=== PATIENT | female | born 1950 | race Caucasian/White ===

== ENCOUNTER 2017-10-17 14:33 | Emergency (ER) | payer MEDICARE, OTHER ==
[2017-10-17 15:50] VITALS: BP 138/87
[2017-10-17] MEDS ORDERED: Albuterol 2.5 MG/3 ML NEB.SOL* (0.083%) INH ONE (16:15)
[2017-10-17] MEDS ORDERED: Albuterol 2.5 MG/3 ML NEB.SOL* (0.083%) ONE (16:16)
[2017-10-17] MEDS ORDERED: cefTRIAXone VIAL(*) 1,000 MG VIAL IM ONE (16:19)
[2017-10-17] MEDS ORDERED: methylPREDNISolone 125 MG* 2 ML VIAL IM ONE (16:19)
[2017-10-17] MEDS ORDERED: Lidocaine 1% MPF* 2 ML VIAL INJ ONE (16:20)
--- NOTE | 2017-10-17 16:24 | RAD ---
INDICATION: Cough and fever COMPARISON: Most recent comparison chest x-ray is dated June 11, 2006 TECHNIQUE: PA and lateral views of the chest were obtained. FINDINGS: The heart and mediastinum are normal in size and contour. The lungs are grossly clear. There is no evidence of large pleural effusion. Partially visualized the patient's right shoulder prosthesis. There is no radiographic evidence of free air beneath the diaphragm IMPRESSION: No radiographic evidence of acute cardiopulmonary disease.
--- NOTE | 2017-10-17 16:27 | UC ---
Respiratory Complaint HPI - HPI Summary HPI Summary: Patient presents with a past medical history of CVA. She presents with complaints of fatigue, malaise, and cough onset Braxton. She states she has been having green sputum and worsening persistent coughing. She complains of rib and side pain that occurs when she coughs, and has had some diarrhea and almost vomiting. She otherwise denies chest pain, abdominal pain, recorded or tactile fever, chills, weakness. - History of Current Complaint Chief Complaint: UCRespiratory Stated Complaint: COUGH Time Seen by Provider: 10/17/17 15:51 Hx Obtained From: Patient ?: No Onset/Duration: Gradual Onset, Lasting Days Timing: Constant Severity Initially: Mild Severity Currently: Mild Character: Cough: Productive Aggravating Factors: Exertion, Deep Breaths, Recumbent Position Alleviating Factors: Upright Position, Spontaneous Resolution Associated Signs And Symptoms: Positive: URI, Nasal Congestion, Sinus Discomfort - Risk Factors Pulmonary Embolism Risk Factors: Negative Cardiac Risk Factors: Negative Pseudomonas Risk Factors: Negative Tuberculosis Risk Factors: Negative - Allergies/Home Medications Allergies/Adverse Reactions: Allergies Allergy/AdvReac Type Severity Reaction Status Date / Time Codeine Allergy Severe Anaphylatic Verified 10/17/17 15:50 Shock Penicillins Allergy Severe Anaphylatic Verified 10/17/17 15:50 Shock Latex Allergy Intermediate Rash Verified 10/17/17 15:50 Nitrofurantoin Allergy Intermediate Hives Verified 10/17/17 15:50 [From Macrodantin] Vancomycin Allergy Mild Pain Verified 10/17/17 15:50 Aspirin AdvReac Intermediate GI Upset Verified 06/11/16 10:47 Bee Stings Allergy Severe Anaphylatic Uncoded 10/17/17 15:50 Shock furodantin Allergy Intermediate Hives Uncoded 10/17/17 15:50 PMH/Surg Hx/FS Hx/Imm Hx Previously Healthy: Yes Neurological History: CVA - Surgical History Surgical History: Yes Surgery Procedure, Year, and Place: Breast Reduction, Bilat Knee Replacement, Right Shoulder Replacement, Appendectomy, Hysterectomy, Left Hip replacement - Family History Known Family History: Positive: Cardiac Disease, Hypertension, Other Family History: [place] - sister, mother, father - Social History Occupation: Retired Lives: Alone Alcohol Use: Rare Alcohol Amount: 3 drinks every six months Substance Use Type: Excessive Caffeine Substance Use Comment - Amount & Last Used: 8-10 cups/day Smoking Status (MU): Former Smoker Type: Cigarettes Amount Used/How Often: 1 pack per week Length of Time of Smoking/Using Tobacco: 9 years Have You Smoked in the Last Year: No - Immunization History Most Recent Influenza Vaccination: 20-30 years ago Most Recent Tetanus Shot: 15-20 years Most Recent Pneumonia Vaccination: 10 years ago Review of Systems Constitutional: Chills, Fatigue Skin: Negative Eyes: Negative ENT: Sore Throat, Ear Ache, Nasal Discharge, Sinus Congestion, Sinus Pain/ Tenderness Respiratory: Cough Cardiovascular: Negative Gastrointestinal: Diarrhea Genitourinary: Negative Motor: Negative Neurovascular: Negative Is Patient Immunocompromised?: No All Other Systems Reviewed And Are Negative: Yes Physical Exam Triage Information Reviewed: Yes Appearance: Ill-Appearing Vital Signs: Initial Vital Signs Temp 97.6 F 10/17/17 15:44 Pulse 128 10/17/17 15:44 Resp 17 10/17/17 15:44 BP 138/87 10/17/17 15:44 Pulse Ox 99 10/17/17 15:44 Vital Signs Reviewed: Yes Eye Exam: Normal ENT Exam: Normal Neck exam: Normal Respiratory: Positive: Crackles, Rhonchi Cardiovascular Exam: Normal Cardiovascular: Positive: RRR, No Murmur Abdominal Exam: Normal Musculoskeletal Exam: Normal Skin Exam: Normal UC Diagnostic Evaluation - Laboratory O2 Sat by Pulse Oximetry: 99 Respiratory Course/Dx - Course Course Of Treatment: Patient presents with a past medical history of CVA. VS were recorded as BP 138/87, T-97.6, P-128, (while coughing), O2 sat 99% on RA. CXR consistent with LLL infiltrate, and clinical findings supportive of CAP. Patient received an albuterol Neb treatment while in the clinic, as well as solu -medrol 125 mg, Rocephin 1 gm IM, and was discharged home on Zpk, Prednisone, promethazine dm, and tessalon perles and albuterol HFA. I told the patient she shoulde be seen by her PCP in two days for follow up and if for any reason her symtpom worsen she would need to go to the ER at once. She verbalized understanding and was in agreement with the discharge plan. - Differential Dx/Diagnosis Differential Diagnosis/HQI/PQRI: Other - Community Acquired Pneumonia Provider Diagnoses: Community Acquired Pneumonia Discharge - Discharge Plan Condition: Stable Disposition: HOME Prescriptions: Azithromycin TAB* [Zithromax TAB (Z-MIRI) 250 mg #6 tabs] 250 mg PO DAILY #6 tab Benzonatate [TESSALON 200 MG CAP] 200 mg PO TID PRN #30 cap PRN Reason: Cough predniSONE TAB* [Deltasone TAB*] 10 mg PO DAILY #5 tab Promethazine-Dm [Promethazine/Dextromethor 6.25-15 mg/5Ml] 1 syp PO QID #240 syp Patient Education Materials: Pneumonia (ED) Referrals: Delano Cavazos MD [Primary Care Provider] - Additional Instructions: Follow up with your doctor in two days, and if you get worse go to the ER at once.
== END 2017-10-17 17:03 | disposition home or self-care (01) ==
LOC: UCEAST 14:33
DX: J18.9 Pneumonia, unspecified organism (principal); R19.7 Diarrhea, unspecified; Z86.73 Personal history of transient ischemic attack (TIA), and cerebral infarction without residual deficits; Z88.5 Allergy status to narcotic agent; Z88.0 Allergy status to penicillin; Z91.040 Latex allergy status; Z88.1 Allergy status to other antibiotic agents; Z88.6 Allergy status to analgesic agent; Z91.030 Bee allergy status; Z87.891 Personal history of nicotine dependence
CPT/HCPCS: 71020; 96372; 99212; G0463; J0696; J2930

== ENCOUNTER 2017-11-03 04:37 | Inpatient (IN) | payer MEDICARE, OTHER ==
[2017-11-03] MEDS ORDERED: NS 0.9% 1000 ML* 1,000 ML IV ONE (05:03)
[2017-11-03] MEDS ORDERED: DIGOXIN IV ONE (05:08)
[2017-11-03] MEDS ORDERED: Diltiazem DRIP* 100 MG/100 ML ADDV.BAG IVPB ONE (05:08)
[2017-11-03] MEDS ORDERED: Digoxin IV* 0.5 MG/2 ML AMP (0.25 MG/ML) ONE (05:13)
[2017-11-03] MEDS ORDERED: Digoxin IV* 0.5 MG/2 ML AMP (0.25 MG/ML) IV SLOW PU ONE (05:13)
[2017-11-03 05:27] LABS: ABS Basophils 0 10^3/ul (0-0.2); ABS Eosinophils 0.2 10^3/ul (0-0.6); ABS Lymphocytes 1.3 10^3/ul (1.0-4.8); ABS Monocytes 0.5 10^3/ul (0-0.8); ABS Nucleated RBC 0 10^3/ul; Hematocrit 35 % (35-47); Hemoglobin 11.5 g/dl (12.0-16.0); Lymphocyte % 22.1 % (25-47); Mean Corpuscular HGB Conc 33 g/dl (31-36); Mean Corpuscular Hemoglobin 29 pg (27-31); Mean Corpuscular Volume 88 fL (80-97); Mean Platelet Volume 9 um3 (7.4-10.4); Nucleated Red Blood Cells % 0; Platelet Count 244 10^3/ul (150-450); Red Blood Count 3.97 10^6/ul (4.0-5.4); Red Cell Distribution Width 14 % (10.5-15); White Blood Count 5.9 10^3/ul (3.5-10.8)
[2017-11-03 05:36] LABS: EGFR Non-African American 53.1 (>60)
[2017-11-03] MEDS ORDERED: Iohexol 350* (CONTRAST) 500 ML MDV IV ONE (05:45)
[2017-11-03] MEDS ORDERED: Diltiazem IV VIAL* 125 MG in NS 0.9% 100 ML* 100 ML IV ONE ×2 (06:00→07:29)
--- NOTE | 2017-11-03 06:51 | ED ---
Fer Andrade Nilda, scribed for Kalin Doe MD on 11/03/17 at 0511 . Shortness of Breath - HPI Summary HPI Summary: This patient is a 67 year old F BIBA accompanied by friend with a chief complaint of constant exacerbated dyspnea since this morning. Pt states she was diagnosed with PNA at [facility] a few weeks ago, but has not felt better. Symptoms aggravated by exertion, but alleviated by rest. Patient reports fever (2 weeks ago) and CP with cough. Per EMS, pt is tachycardic. Patient denies pain. Medications include albuterol but no blood thinners. Pt states no cardiac PMHx. Pt is former smoker (stopped in 1991). - History of Current Complaint Chief Complaint: EDRespiratoryDistress Time Seen by Provider: 11/03/17 04:45 Hx Obtained From: Patient Onset/Duration: Gradual Onset, Lasting Weeks, Still Present Timing: Constant Dyspnea At: Exertion Aggrevating Factors: Movement Alleviating Factors: Other - rest Associated Signs & Symptoms: Chest Pain w/Cough, Fever - Allergy/Home Medications Allergies/Adverse Reactions: Allergies Allergy/AdvReac Type Severity Reaction Status Date / Time Codeine Allergy Severe Anaphylatic Verified 10/17/17 15:50 Shock Penicillins Allergy Severe Anaphylatic Verified 10/17/17 15:50 Shock Latex Allergy Intermediate Rash Verified 10/17/17 15:50 Nitrofurantoin Allergy Intermediate Hives Verified 10/17/17 15:50 [From Macrodantin] Vancomycin Allergy Mild Pain Verified 10/17/17 15:50 Aspirin AdvReac Intermediate GI Upset Verified 06/11/16 10:47 Bee Stings Allergy Severe Anaphylatic Uncoded 10/17/17 15:50 Shock furodantin Allergy Intermediate Hives Uncoded 10/17/17 15:50 PMH/Surg Hx/FS Hx/Imm Hx Endocrine/Hematology History: Reports: Hx Thyroid Disease - hx only Denies: Hx Diabetes Cardiovascular History: Reports: Hx Hypercholesterolemia, Hx Hypertension - off meds 2 years, Other Cardiovascular Problems/Disorders - stroke 2008 Respiratory History: Reports: Other Respiratory Problems/Disorders - Hx of pneumonia Denies: Hx Chronic Obstructive Pulmonary Disease (COPD) Comment Only: Hx Asthma - pt denies GI History: Denies: Hx Ulcer Musculoskeletal History: Denies: Hx Back Problems - Pt denies Neurological History: Reports: Hx Migraine, Hx Transient Ischemic Attacks (TIA) - 2009 - Surgical History Surgery Procedure, Year, and Place: Breast Reduction, Bilat Knee Replacement, Right Shoulder Replacement, Appendectomy, Hysterectomy, Left Hip replacement Hx Anesthesia Reactions: No Infectious Disease History: No Infectious Disease History: Denies: Hx Hepatitis, Hx Human Immunodeficiency Virus (HIV), History Other Infectious Disease, Traveled Outside the [place] in Last 30 Days - Family History Known Family History: Positive: Cardiac Disease, Hypertension, Other Family History: [place] - sister, mother, father - Social History Occupation: Employed Full-time Alcohol Use: Rare Alcohol Amount: 3 drinks every six months Hx Substance Use: Yes Substance Use Type: Reports: Excessive Caffeine Substance Use Comment - Amount & Last Used: 8-10 cups/day Hx Tobacco Use: Yes Smoking Status (MU): Former Smoker Type: Cigarettes Amount Used/How Often: 1 pack per week Length of Time of Smoking/Using Tobacco: 9 years Have You Smoked in the Last Year: No Review of Systems Positive: Fever, Other - negative pain Positive: Chest Pain - secondary to cough, Other - tachycardic Positive: Shortness Of Breath, Cough All Other Systems Reviewed And Are Negative: Yes Physical Exam - Summary Physical Exam Summary: VITAL SIGNS: Reviewed. GENERAL: Patient is a well-developed and nourished female who is lying comfortable in the stretcher. Patient is not in any acute respiratory distress. HEAD AND FACE: No signs of trauma. No ecchymosis, hematomas or skull depressions. No sinus tenderness. EYES: PERRLA, EOMI x 2, No injected conjunctiva, no nystagmus. EARS: Hearing grossly intact. Ear canals and tympanic membranes are within normal limits. MOUTH: Oropharynx within normal limits. NECK: Supple, trachea is midline, no adenopathy, no JVD, no carotid bruit, no c- spine tenderness, neck with full ROM. CHEST: Symmetric, no tenderness at palpation LUNGS: Clear to auscultation bilaterally. No wheezing or crackles. Mild decreased breath sounds bilaterally. CVS: Irregular tachycardia, S1 and S2 present, no murmurs or gallops appreciated. ABDOMEN: Soft, non-tender. No signs of distention. No rebound no guarding, and no masses palpated. Bowel sounds are normal. EXTREMITIES: FROM in all major joints, no edema, no cyanosis or clubbing. NEURO: Alert and oriented x 3. No acute neurological deficits. Speech is normal and follows commands. Triage Information Reviewed: Yes Vital Signs On Initial Exam: Initial Vitals Temp Pulse Resp BP Pulse Ox 98.8 F 101 26 119/74 94 11/03/17 04:47 11/03/17 04:47 11/03/17 04:47 11/03/17 04:47 11/03/17 04:47 Vital Signs Reviewed: Yes Diagnostics - Vital Signs Vital Signs Temp Pulse Resp BP Pulse Ox 11/03/17 04:47 98.8 F 101 26 119/74 94 - Laboratory Result Diagrams: 11/03/17 05:02 11/03/17 05:02 Lab Statement: Any lab studies that have been ordered have been reviewed, and results considered in the medical decision making process. - EKG 0447 Cardiac Rate: Tachycardia EKG Rhythm: Atrial Fibrillation EKG Interpretation: 104 bpm, non-specific T-wave changes, nl axis. Course/Dx - Course Assessment/Plan: Pt is 67 y/o F who was treated for PNA and was treated for Zpack. Pt has not felt better since then. Pt BIBA bc difficulty breathing and tachycardia. Pt found to be in rapid afib. CT pending to rule out PE. Pt is s/ o to Dr. Cerda, pending dispo, awaiting CTA Thorax. Dx Afib. - Diagnoses Provider Diagnoses: Afib Discharge - Discharge Plan Condition: Stable Disposition: OTHER Discharge Disposition Comment: Pt is s/o to Dr. Cerda, pending dispo, awaiting CTA Thorax. Referrals: Delano Cavazos MD [Primary Care Provider] - The documentation as recorded by the Fer sheffield Nilda accurately reflects the service I personally performed and the decisions made by , Kalin Doe MD.
[2017-11-03] MEDS ORDERED: Levalbuterol 1.25MG/0.5ML NEB INH PRN (07:25)
[2017-11-03] MEDS ORDERED: methylPREDNISolone SOD 40 MG* 1 ML VIAL IV ONE (07:30)
[2017-11-03] MEDS ORDERED: methylPREDNISolone 125 MG* 2 ML VIAL ONE (07:44)
[2017-11-03] MEDS ORDERED: D5W 1/2 NS KCl 20 Meq 1000 ML* 1,000 ML IV SCH (08:00)
--- NOTE | 2017-11-03 08:41 | RAD ---
INDICATION: Chest pain. Short of breath. Evaluate for pulmonary embolus. COMPARISON: Chest x-ray October 17, 2017 TECHNIQUE: Axial source images were obtained from the thoracic inlet to the hemidiaphragms following administration of [address] angiographic technique was utilized. Coronal and sagittal reconstructed images were acquired. CHEST FINDINGS: Neck/thyroid: The visualized neck to include the thyroid appear normal. Chest wall: There are no acute abnormalities of the bony thorax or chest wall. There is right shoulder arthroplasty There is no supraclavicular, infraclavicular, or axillary lymphadenopathy. Lungs : There are mild gravity dependent basilar atelectatic changes. The pulmonary interstitium appears normal. There are no endobronchial lesions. Cardiomediastinal structures: There is no CT evidence of acute pulmonary embolic disease. The heart is normal in size. There is no pericardial effusion. There is no evidence of aortic aneurysm or dissection. There is uncoiling and tortuosity of the thoracic aorta There is no mediastinal or hilar adenopathy. The esophagus appears normal. The GE junction appears patulous Pleura : Small moderate-sized bilateral pleural effusions. Other: None. IMPRESSION: NO CT EVIDENCE OF ACUTE PULMONARY EMBOLIC DISEASE. BILATERAL PLEURAL EFFUSIONS WITH BASILAR ATELECTASIS
--- NOTE | 2017-11-03 09:17 | ED ---
Robin Andrade Angela, scribed for Dada Cerda MD on 11/03/17 at 0718 . Progress - Progress Note Progress Note: This pt was signed out by Dr. Doe, pending disposition, awaiting CTA Chest. CTA Chest, as read by radiologist: IMPRESSION: No CT evidence of acute pulmonary embolic disease. Bilateral pleural effusions with basilar atelectasis. Dr. Cerda has reviewed this radiology report. Pt will be admitted to [facility] in stable condition. Course/Dx - Provider Notifications Discussed Care Of Patient With: Jose Luis Nelson Time Discussed With Above Provider: 07:22 Instructed by Provider To: Other - I discussed pt care with Dr. Nelson, hospitalist, who has agreed to admit the pt. The documentation as recorded by the Robin sheffield Angela accurately reflects the service I personally performed and the decisions made by , Dada Cerda MD.
[2017-11-03] MEDS ORDERED: Furosemide IV* 10 MG/ML VIAL (40 MG) IV SLOW PU ONE (11:26)
[2017-11-03] MEDS ORDERED: Acetaminophen TAB* 325 MG PO PRN (11:26)
[2017-11-03] MEDS ORDERED: Ondansetron INJ* 2 MG/ML VIAL IV PRN (11:26)
[2017-11-03] MEDS ORDERED: Cyclobenzaprine TAB* 10 MG PO PRN (11:28)
[2017-11-03] MEDS ORDERED: Albuterol HFA INHALER* 8 gm MDI INH PRN (11:28)
[2017-11-03] MEDS: Diltiazem TAB* 60 MG PO SCH ×2 (12:10→18:01)
[2017-11-03] MEDS: Apixaban* 5 MG TAB PO SCH ×2 (12:33→20:08)
--- NOTE | 2017-11-03 15:13 | HP ---
CC: Dr. Cavazos; Dr. Wong * HISTORY AND PHYSICAL: DATE OF ADMISSION: 11/03/17 PRIMARY CARE PROVIDER: Dr. Cavazos. MY ATTENDING PHYSICIAN WHILE IN THE HOSPITAL: Dr. Abrahan Nelson * (report dictated by James Hagen NP) CONSULTING SLOOP CAPTAIN: Dr. Wong. CHIEF COMPLAINT: Shortness of breath. HISTORY OF PRESENT ILLNESS: Ms. Ibarra is a 67-year-old female patient. She said over the holiday, she was diagnosed with pneumonia and treated outpatient. She went back to the work on 10/21/17 and she noticed that she was still really short of breath with exertion. She noticed that the shortness of breath had progressively gotten worse. She says that she has been having a dry cough still. No more fevers, but she has had dyspnea on exertion and she has noticed over the last couple of days, her breathing has gotten really worse. She says she is really short of breath first thing in the morning. She says that she also noted today when they weighed her, she was 209 and previously she was always 189 pounds. In addition to this, she has noticed that she, in the last couple of nights, has been sleeping upright on 2 pillows to help her breathe little more comfortably. She denies having any edema. She denied having any palpitations in her chest or any fluttering. She says she was having pain in her chest when she coughed only, but that has now subsided. She denied having any calf pain, leg pain, or leg swelling. She denied having any abdominal discomfort. She says she did have diarrhea with antibiotics, but that has now subsided. She denied having any nausea or vomiting. She says that she was concerned today because her breathing just was not getting any better. She called 911, they came. When they hooked her up to the monitor, they noticed her heart rate was 170 and they brought her into the hospital immediately. She says that she never once felt any palpitations. She does not really know how long this has been going on for. She was evaluated in ED. She was noted to be wheezing. Initially, there was concern for possible COPD exacerbation, but it was also noted that she was in AFib with RVR and we were asked to evaluate for admission. PAST MEDICAL HISTORY: Significant for: 1. Hypertension. 2. TIA in the past. 3. Hyperlipidemia. 4. History of uterine cancer. 5. History of pneumonia recently 2 weeks ago. PAST SURGICAL HISTORY: 1. She has had history of breast reduction. 2. Left knee arthroscopy. 3. She has had a rotator cuff repair. 4. She has had an appendectomy. 5. Hysterectomy. 6. Vocal cord surgery. 7. Right total hip arthroplasty. 8. Bilateral total knee replacement. 9. History of the right total shoulder arthroplasty. MEDICATIONS: Her home meds according to the list provided include: 1. Flexeril 5 mg p.o. b.i.d. 2. Vitamin D 400 units p.o. daily. 3. Calcium carbonate 600 mg daily. 4. Ventolin 1 puff inhaled every 4 hours. 5. Vitamin E 400 units p.o. daily. 6. Multivitamin 1 tablet daily. 7. Aspirin 81 mg daily. ALLERGIES TO MEDICATIONS: Include CODEINE, PENICILLIN, LATEX, NITROFURANTOIN, VANCOMYCIN, and she says she cannot take ASPIRIN 325 mg, it causes GI upset. FAMILY HISTORY: The patient says her mother burned to in a house fire. The father had a history of CVA and AK and also heart failure. SOCIAL HISTORY: She is a former smoker. She quit in 1996. She does not drink alcohol. She works at [employer]. Surrogate decision maker is Jose Eduardo, her son. REVIEW OF SYSTEMS: There is no documented fever. There does appear to be a weight change of about 20 pounds. She denies having any double vision. No ear discharge. No rhinorrhea. No sore throat. No thyroid enlargement. She does admit to having a cough. There was chest pain 2 weeks ago with the cough only. No chest pain now. She does admit to having orthopnea, nocturnal dyspnea, and also dyspnea on exertion. There is no dyspnea on rest. She denies having any abdominal pain. There is no nausea, no vomiting. No dysuria, no frequency. No seizure, no loss of consciousness. No pruritus, no skin ulcerations. Review of 14 systems completed, all others negative. PHYSICAL EXAMINATION GENERAL: At this time, Ms. Ibarra is a 67-year-old female patient, she is sitting in the hospital bed, she does not appear to be in any acute distress. VITAL SIGNS: Blood pressure 126/89, pulse 82, her respirations now are 18, her O2 saturation is 93% on 2 L, and her temperature was 98.3. HEENT: Head: Atraumatic. Eyes: Sclerae anicteric, not pale. Throat: Oral mucosa appears to be moist. No oropharyngeal erythema. NECK: Supple. LUNGS: She did have wheezing and crackles bilaterally in lower bases. Equal diaphragmatic expansion. HEART: Sounds S1 and S2, irregularly irregular rate. No murmurs, rubs, or gallops. ABDOMEN: Soft, flat, nontender. Bowel sounds present. EXTREMITIES: Pulses were 2+ throughout. She had no peripheral edema. NEUROLOGIC: The patient is awake, she is alert, she is oriented x3. Her tongue is midline. Her bilingual interpreter were equal. She had no gross focal deficits. SKIN: Intact. DIAGNOSTIC STUDIES/LAB DATA: WBC of 5.9, RBC of 3.97, hemoglobin 11.5, hematocrit of 35, and platelet count of 244. Her INR was 1, her PTT was 24, her D-dimer was 331. Sodium was 137, potassium is 4.1, chloride of 105, bicarb 25, BUN 16, creatinine 1.03, glucose 115, lactate 1.1, calcium 8.9, total mag 2.2. Total bili 0.6, AST 16, ALT 14, alk phos 84. Troponins 0.01. BNP is 295 , which is her only value recorded. TSH of 2. She did have a CTA of the chest, impression: No CT evidence of acute pulmonary embolic disease, bilateral pleural effusions with bibasilar atelectasis. She did have an EKG obtained today. The EKG initially showed atrial fibrillation, rate of 104. No ST elevations or T-wave inversions were noted. Previous EKGs are all within normal sinus rhythm. Old medical records were reviewed. ASSESSMENT AND PLAN: Ms. Ibarra is a 67-year-old female patient coming into the ED today with complaints of progressive worsening shortness of breath over 2- week period after having pneumonia, found to be in atrial fibrillation with rapid ventricular response. She will be admitted on inpatient status for: 1. Atrial fibrillation with rapid ventricular response. I do not know the onset of this, but I am concerned she does have a CHADs-VASc score of 5. So, at this point, I do think that she is a candidate for anticoagulation. I did discuss the options with the patient. She opted for Eliquis, which I have started. My goal is to get her rate controlled. I do not know the onset again , this may have been going on for a few weeks and I am also concerned that she may have congestive heart failure from uncontrolled rate for some time. My plan would be to go ahead, rate control, anticoagulation with Eliquis. I am going to get her on Cardizem, get the echocardiogram, consult with Dr. Wong, who will be evaluating the patient. I will continue to follow. 2. Congestive heart failure. I am concerned that she may have tachy-induced possibly cardiomyopathy, which may have led this in heart failure, but I need to get the echo to confirm this. My plan is to get her on 40 mg of Lasix now and see if this helps her. She has got bilateral effusions. In addition to this, her BNP is elevated and her story is concerning for heart failure. So, likely we will give her 40 of Lasix and see if this helps her and continue to follow and get the echo. 3. Hypertension. Her blood pressure here is stable. We will continue diltiazem. 4. History of transient ischemic attack. Again, because of now the atrial fibrillation, she needs to be on Eliquis, which we will go ahead and start. 5. Hyperlipidemia. Follow with primary. 6. Uterine cancer. Follow with primary. 7. Recent pneumonia. Again at this point, I do not think she is actively infected, the white count is stable. She is not coughing. There have been no fevers and the CTA did not show infiltrate, showed effusions. So, at this point , I think this has resolved. 8. DVT prophylaxis. She will be placed on Eliquis. 9. Code status. She is a DNR. 10. Fluids, electrolytes, and nutrition. She can have a heart healthy diet. TIME SPENT: On the admission was 60 minutes, greater than half the time was spent idap-su-dwls with the patient obtaining my history of physical; the other half time was spent going over the plan of care with the patient and implementing plan of care. I did discuss the plan of care with my attending, Dr. Nelson; he is in agreement. JAMES HAGEN, NURSE OFFICE [id number]/[facility] #: [id number] [place]
--- NOTE | 2017-11-03 16:16 | PN ---
Cardiology Progress Note Date of Service: 11/03/17 - CC: SOB Full note dictated. Pt with SPRINGER, afib, asymptomatic, uncertain duration. Possible LRI contributing in addition to age, weight, former smoking hx. Hx TIA 2008. Agree with Lawanda. I am concerned her EF may be low and may need CCB changed to BB. I ordered BARBARA guided CV in AM, pt aware. Additional recommendations in dictation and will follow results of BARBARA guided CV.
--- NOTE | 2017-11-03 21:02 | CONS ---
CC: Delano Cavazos MD; Hospitalist * CARDIOLOGY CONSULTATION: DATE OF CONSULT: 11/03/17 PRIMARY CARE PHYSICIAN: Delano Cavazos MD REASON FOR CONSULT: Atrial fibrillation and shortness of breath. CHIEF COMPLAINT: Shortness of breath. HISTORY OF PRESENT ILLNESS: Mrs. Ibarra is a 67-year-old woman who developed respiratory symptoms in [place]. She said she had a cough productive of green sputum and was very short of breath. This became worse and over New Year , she went to [facility] and was told she had pneumonia and was given steroids and antibiotics, but she says they really did not help anything and her breathing has became progressively worse. She is still having productive cough of green sputum. She has orthopnea, although still sleeping in bed. She presented to the emergency room today because of severe air hunger, especially with exertion. The patient is feeling a bit better since treatment with diuretics and rate control but is still very winded when she tried to go up in the bathroom today. The patient denies any history of chest pain, pressure, or heaviness. She denies any alcohol intake, caffeine intake and change of medications recently even over- the-counter medications other than the antibiotics and steroids as mentioned above. PAST MEDICAL HISTORY: The patient has a past medical history of: 1. TIA in 2008, etiology uncertain. 2. Hypertension. 3. Hyperlipidemia. 4. Obesity. 5. Uterine cancer. PAST SURGICAL HISTORY: Includes: 1. Hysterectomy. 2. Breast reduction. 3. Knee arthroscopy. 4. Rotator cuff surgery. 5. Appendectomy. 6. Vocal cord surgery. 7. Right hip arthroplasty. 8. Bilateral knee replacements. 9. Right total knee arthroplasty. MEDICATIONS: Outlined in the admission H and P. Her outpatient medications include: 1. Flexeril 5 mg b.i.d. 2. Ventolin inhaler. 3. Aspirin 81 mg a day. 4. Some vitamins and supplements. Inpatient medications currently include: 1. Tylenol p.r.n. 2. Ventolin inhaler. 3. Eliquis 5 mg b.i.d. 4. Vitamin D. 5. Flexeril 5 mg b.i.d. p.r.n. 6. Cardizem 60 mg q. 6 hours. 7. Xopenex inhaler. 8. Zofran. ALLERGIES: The patient has medication allergies to CODEINE, PENICILLIN, LATEX, NITROFURANTOIN, VANCOMYCIN, and intolerant to ASPIRIN 325 due to GI upset. FAMILY HISTORY: Significant that her father of a cardiopulmonary arrest. Her paternal uncle had a history of renal failure, and she has a sibling who had cancer of the vocal cords. SOCIAL HISTORY: The patient smoked mildly in the distant past, quit in 1996. Does not drink alcohol at all. 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 No recreational drug use. REVIEW OF SYSTEMS: See history of present illness regarding recent respiratory infection, diagnosis of pneumonia and medications and progressive shortness of breath and orthopnea. The patient denies any awareness of palpitations or racing of the heart. No history of chest pain, pressure, or heaviness. Prior to the onset of her infection, she denied any decline in exercise ability. Her appetite has been okay. She admits that she has put on about 20 pounds over the last year. No recent recurrence of any new TIA symptoms (2008 she had left facial weakness). She denies any expressive or receptive aphasia or any changes in gait or motor function. She denies changes in bowel or bladder habits. All other 14-point review of systems was negative. PHYSICAL EXAM: The patient is 5 feet 2 inches, weighs is 209 pounds with a BMI of 38. Vital Signs: In the emergency department on arrival, blood pressure 141 /77, pulse was 100, temperature 98.8, respiratory rate was 26, oxygen saturation on 2 L nasal canula was 94%. Currently, the patient's blood pressure is 127/72, pulse is 93, respiratory rate is 24, oxygen saturation 98% on 2 L nasal canula. General Appearance: Short, overweight, somewhat older woman appearing a bit older than her 67 years, in no acute distress. Psychologically, pleasant and cooperative. Neurologically awake, alert, and oriented to person, place and time. Cranial nerves II through XII intact. Grossly normal sensory and motor function in the upper and lower extremities. Gait not checked, but she moves well in the bed. Speech is articulate. Comprehension is good. Skin: Warm, dry. No cyanosis or rashes. HEENT: Pupils are equal and round. Mucous membranes moist. Neck: Thick from obesity , without obvious increase in JVP. Good carotid pulses and no audible bruits heard. Breath sounds diminished throughout the posterior desouza and some fine expiratory and inspiratory wheezing. Coronary: S1, S2 irregularly, irregular and tachycardiac, but I did not appreciate murmurs. Abdomen: Overweight, mild guarding but nontender. Questionable hepatomegaly/pulsatile liver. Lower extremities had sequential compression stockings on, were free of edema. DIAGNOSTIC STUDIES/LAB DATA: Labs show white count 5.9, hemoglobin 11.5, hematocrit 35, and platelets 244. INR 1.0, PTT 25. D-dimer mildly elevated at 331. Sodium 137, potassium 4.1, chloride 105, bicarb 25, BUN 16, creatinine 1.05, glucose 115. AST of 16, ALT 14, BNP 295. Troponin #1 0.01, troponin #2 0.02, troponin #3 of 0.01. TSH 2.00. Influenza A and B negative. ECG at 0451 this morning shows atrial fibrillation with a ventricular rate of 104 beats per minutes, QRS axis +30 with normal intraventricular conduction times. She has nonspecific ST flattening and inverted T waves. A repeat EKG done at noon today confirms atrial fibrillation now with a ventricular rate of 71 beats per minute. QRS axis +30, normal intraventricular conduction times and nonspecific ST changes, not significantly changed. A CT angiogram done today at 5 in the morning was negative for pulmonary embolism, showed bilateral pleural effusions and atelectasis. No mediastinal or hilar lymphadenopathy noted. IMPRESSION: In summary, Pricilla Ibarra is a 67-year-old woman with 3-week history of lower respiratory infection, progressive dyspnea and orthopnea found in atrial fibrillation today of uncertain duration. 1. For the the patient's atrial fibrillation, I agree that she is going to need chronic anticoagulation, the patient expressed that she did not want to be on Coumadin but is fine being on Eliquis long-term. The patient is at risk for ejection fraction dropping and contributing to her picture of it to get cardioverted and I do feel she needs cardioversion sooner than later but it needs to be done with transesophageal echo guidance. We will see what her ejection fraction and valvular function is with the study, but she may need a beta-lidia as opposed to a calcium-channel lidia for rate lowering even with her wheezing. 2. In terms of potential etiology for the atrial fibrillation, she is overweight and she has a body habitus that would put her at risk for sleep apnea , although she is very energetic. Outpatient sleep evaluation may want to be considered and optimization of weight, diet, lifestyle. 3. Again, I am concerned that she may have her rate and rhythm related cardiomyopathy and additional recommendations will be made following her the results of her echo. 4. Although the patient's troponins are negative, her EKG is abnormal and with her family history of arthrosclerotic disease she should undergo a stress test at some point. 5. Additional recommendations will be made pending results of her echo and her ability to be cardioverted. She will likely need an antiarrhythmic added to help her maintain sinus rhythm and may need additional management of any underlying pulmonary problem such as bronchitis if she continues to have a productive cough. Thank you for allowing me to assist in this nice woman's care. [id number]/[facility] #: [id number] [place]
[2017-11-04] MEDS: Diltiazem TAB* 60 MG PO SCH ×5 (00:44→23:43)
[2017-11-04 06:26] LABS: ABS Basophils 0 10^3/ul (0-0.2); ABS Eosinophils 0 10^3/ul (0-0.6); ABS Lymphocytes 0.8 10^3/ul (1.0-4.8); ABS Monocytes 0.7 10^3/ul (0-0.8); ABS Neutrophils 9.5 10^3/ul (1.5-7.7); ABS Nucleated RBC 0 10^3/ul; Eosinophil % 0 % (0-6); Hematocrit 32 % (35-47); Hemoglobin 10.6 g/dl (12.0-16.0); Mean Corpuscular HGB Conc 33 g/dl (31-36); Mean Corpuscular Hemoglobin 29 pg (27-31); Mean Corpuscular Volume 88 fL (80-97); Mean Platelet Volume 9 um3 (7.4-10.4); Nucleated Red Blood Cells % 0; Platelet Count 251 10^3/ul (150-450); Red Blood Count 3.68 10^6/ul (4.0-5.4); Red Cell Distribution Width 14 % (10.5-15)
[2017-11-04 06:40] LABS: EGFR Non-African American 66.3 (>60)
[2017-11-04] MEDS: Apixaban* 5 MG TAB PO SCH ×2 (07:46→20:58)
[2017-11-04] MEDS ORDERED: fentaNYL* 50 MCG/ML 2 ML VIAL (100 MCG VIAL) ONE (08:32)
[2017-11-04] MEDS ORDERED: Midazolam* 1 MG/ML 10 ML VIAL (10 MG) ONE (08:33)
[2017-11-04] MEDS ORDERED: Naloxone* 0.4 MG/ML 1 ML VIAL ONE (08:33)
[2017-11-04] MEDS ORDERED: Flumazenil* 0.1 MG/ML 5 ML MDV ONE (08:33)
[2017-11-04] MEDS ORDERED: Lidocaine 2% VISCOUS* 15 ML UDC ONE (08:33)
[2017-11-04] MEDS: Cholecalciferol TAB* 400 UNIT PO SCH (10:08)
--- NOTE | 2017-11-04 16:14 | ECHO ---
Patient: ELIZABETH FORMAN [facility] Rec#: [id number] : 1950 Date: 11/04/2017 Age: 67y Height: 157.48 cm / 62.0 in Weight: 93.89 kg / 206.9 lbs Sex: F BSA: 1.94 Room#: 452 Admit Date#: 11/03/2017 Type: Inpatient Referring: Jose Luis Nelson MD Reading: Javier Rush MD Animal Caretaker: Angela Oliva RDCS CC: Delano Cavazos MD Transthoracic Echocardiogram Indication: Atrial Fibrillation BP: 123/61 HR: 90 Rhythm: A-Fib Findings History: HTN, TIA, HLD, uterine cancer, former smoker. Technical Comments: The study quality is fair. The study is technically limited due to patient body habitus. Completed at 1600. Left Ventricle: The left ventricular chamber size is normal. Mild concentric left ventricular hypertrophy is observed. Global left ventricular wall motion and contractility are within normal limits. Left ventricular systolic function is at the lower limits of normal. The estimated ejection fraction is 50-55%. Longer R to R interval beats show even higher LVEF. The assessment of diastolic function is non-diagnostic. Left Atrium: The left atrium is moderately dilated. Right Ventricle: Moderator Band present. The right ventricular cavity size is normal. The right ventricle wall thickness is normal. The right ventricular global systolic function is normal. Right Atrium: The right atrium is mildly dilated. Aortic Valve: The aortic valve is trileaflet. The aortic valve leaflets are mildly thickened. There is no evidence of aortic regurgitation. There is no evidence of aortic stenosis. Mitral Valve: There is mitral annular calcification. The mitral valve leaflets are mildly thickened. There is mild to moderate mitral regurgitation. There is no evidence of mitral stenosis. Tricuspid Valve: The tricuspid valve leaflets are normal. There is mild tricuspid regurgitation. The right ventricular systolic pressure is estimated at 49 mmHg. There is evidence of moderate pulmonary hypertension. There is no tricuspid stenosis. Pulmonic Valve: The pulmonic valve appears normal. There is trace to mild pulmonic regurgitation. There is no pulmonic stenosis. Pericardium: There is no significant pericardial effusion. A pericardial fat pad is visualized. Aorta: There is mild dilatation of the ascending aorta. There is no dilatation of the aortic arch. The aortic root is normal in size. Pulmonary Artery: The main pulmonary artery is not well visualized. Venous: The inferior vena cava is dilated. There is an approximate 50% respiratory change in the inferior vena cava dimension. Conclusions The study is technically limited due to patient body habitus. Completed at 1600. Mild concentric left ventricular hypertrophy is observed. Global left ventricular wall motion and contractility are within normal limits. Left ventricular systolic function is at the lower limits of normal. The estimated ejection fraction is 50-55%. Longer R to R interval beats show even higher LVEF. There is mild to moderate mitral regurgitation. The left atrium is moderately dilated. There is mild tricuspid regurgitation. There is evidence of moderate pulmonary hypertension. There is trace to mild pulmonic regurgitation. There is mild dilatation of the ascending aorta. The patient is noted to be in atrial fibrillation during the study. No reports of prior studies are offered for comparison. Measurements Name Value Normal Range RVIDd (AP) 2D 3.1 cm (0.9 - 2.6) RVDdMajor (2D) 4.2 cm (2.2 - 4.4) RVAW (2D) 0.5 cm (0.2 - 0.5) RAd ISD 4CH 5.5 cm (3.4 - 4.9) RA (A4C)W 4.7 cm (2.9 - 4.6) IVSd (2D) 1.2 cm (0.6 - 1) LVPWd (2D) 1.2 cm (0.6 - 1) LVIDd (2D) 3.8 cm (3.6 - 5.4) LVIDs (2D) 2.3 cm - LV FS (2D) 39.8 % (25 - 45) Aortic Annulus 1.9 cm (1.4 - 2.6) Ao root diameter (2D) 3.1 cm (2.1 - 3.5) Ascending Ao 3.5 cm (2.1 - 3.4) Aortic arch 2.4 cm (1.8 - 3.4) LA dimension (AP) 2D 4.5 cm (2.3 - 3.8) LAd ISD 4CH 6.2 cm (2.9 - 5.3) LA ISD 4CH W 5.7 cm (2.5 - 4.5) Name Value Normal Range LA ESV SP 4CH (A/L) 103 ml - LA ESV SP 2CH (A/L) 101 ml - LA ESV BP (A/L) 103 ml - LA ESV BP (A/L) index 53 ml/m2 - LA ESV SP 4CH (MOD) 91 ml - LA ESV SP 2CH (MOD) 94 ml - Name Value Normal Range MV E-wave Vmax 1.23 m/sec - MV deceleration time 210.7 msec - LV septal e' Vmax 0.1 m/sec - LV lateral e' Vmax 0.11 m/sec - LV E:e' septal ratio 12.3 ratio - LV E:e' lateral ratio 11.18 ratio - Name Value Normal Range AV Vmax 1.6 m/sec - AV VTI 25.8 cm - AV peak gradient 10.34 mmHg - AV mean gradient 5.12 mmHg - LVOT Vmax 0.99 m/sec - LVOT VTI 18.01 cm - LVOT peak gradient 3.97 mmHg - LVOT mean gradient 2.52 mmHg - GISELLE Vmax 0.81 m/sec - Name Value Normal Range MV Vmax 1.4 m/sec - MV VTI 25.89 cm - MV peak gradient 7.88 mmHg - MV mean gradient 2.64 mmHg - MV PHT 64 msec - MR Vmax 4.58 m/sec - MR VTI 123.7 cm - MR flow (PISA) 49.07 ml/sec - MR ERO 0.5 cm2 - MR PISA radius 0.45 cm - MR alias Vmax 37 cm/sec - MVA (PHT) 3.4 cm2 - Name Value Normal Range TR Vmax 2.9 m/sec - TR peak gradient 34 mmHg - RAP 15 mmHg - RVSP 49 mmHg - IVC diameter 2.1 cm - Name Value Normal Range PV Vmax 0.99 m/sec - PV peak gradient 3.92 mmHg - MA end-diastolic Vmax 0.9 m/sec -
--- NOTE | 2017-11-04 19:43 | PN ---
Subjective Date of Service: 11/04/17 Interval History: No SOB at rest but SOB walking to bathroom HR spikes with ambulation No pain No other complaints Objective Active Medications: Acetaminophen (Tylenol Tab*) 650 mg PO Q4H PRN PRN Reason: FEVER/PAIN Albuterol (Ventolin Hfa Inhaler*) 1 puff INH Q4H PRN PRN Reason: COUGH Apixaban (Eliquis*) 5 mg PO BID [facility] Last Admin: 11/04/17 07:46 Dose: 5 mg Cholecalciferol (Vitamin D Tab*) 400 unit PO DAILY [facility] Last Admin: 11/04/17 10:08 Dose: 400 unit Cyclobenzaprine HCl (Flexeril Tab*) 5 mg PO BID PRN PRN Reason: SPASMS Last Admin: 11/03/17 20:12 Dose: 5 mg Diltiazem HCl (Cardizem Tab*) 60 mg PO Q6HR [facility] Last Admin: 11/04/17 18:00 Dose: 60 mg Levalbuterol HCl (Xopenex 1.25 Mg/0.5 Ml Neb.Tierra*) 1.25 mg INH Q2H PRN PRN Reason: DYSPNEA Last Admin: 11/03/17 13:59 Dose: 1.25 mg Ondansetron HCl (Zofran Inj*) 4 mg IV Q6H PRN PRN Reason: NAUSEA Vital Signs - 8 hr 11/04/17 11/04/17 15:35 15:51 Temperature 97.9 F Pulse Rate 103 Respiratory 20 Rate Blood Pressure 104/57 (mmHg) O2 Sat by Pulse 96 96 Oximetry Oxygen Devices in Use Now: Nasal Cannula Appearance: obese, NAD Eyes: No Scleral Icterus, PERRLA Ears/Nose/Mouth/Throat: Mucous Membranes Moist, - - poor dentintion Respiratory: Symmetrical Chest Expansion and Respiratory Effort, Clear to Auscultation Cardiovascular: - - IRIR Abdominal: NL Sounds; No Tenderness; No Distention, No Hepatosplenomegaly Lymphatic: No Cervical Adenopathy Extremities: No Edema Skin: No Rash or Ulcers Neurological: Alert and Oriented x 3 Result Diagrams: 11/04/17 06:10 11/04/17 06:10 Microbiology and Other Data: Microbiology 11/03/17 09:18 Aerobic Blood Culture - Preliminary Blood Venous No Growth Day 1 Anaerobic Blood Culture - Preliminary No Growth Day 1 11/03/17 09:18 Aerobic Blood Culture - Preliminary Blood Venous No Growth Day 1 Anaerobic Blood Culture - Preliminary No Growth Day 1 11/03/17 12:20 Influenza Types A,B Antigen (VALDO) - Final Nasal Specimen received for Influenza A/B Molecular testing 11/03/17 09:42 Nasal Screen MRSA (PCR)(VALDO) - Final Nasal Mrsa Negative Assess/Plan/Problems-Billing Assessment: 67 yo F p/w increased SOB found with new afib in RVR - Patient Problems (1) Atrial fibrillation Comment: appreciate cards consult BARBARA cardioversion planned for tomorrow cardizem PO, consider change to BB based on BARBARA findings (2) Shortness of breath Comment: concern for heart failure in setting of uncontrolled rate (3) HTN (hypertension) Comment: cardizem (4) DVT prophylaxis Comment: ad
[2017-11-05] MEDS: Diltiazem TAB* 60 MG PO SCH ×2 (05:32→12:25)
[2017-11-05] MEDS ORDERED: fentaNYL* 50 MCG/ML 2 ML VIAL (100 MCG VIAL) ONE (08:57)
[2017-11-05] MEDS ORDERED: Naloxone* 0.4 MG/ML 1 ML VIAL ONE (08:58)
[2017-11-05] MEDS ORDERED: Midazolam* 1 MG/ML 10 ML VIAL (10 MG) ONE (08:58)
[2017-11-05] MEDS ORDERED: Lidocaine 2% VISCOUS* 15 ML UDC ONE (08:58)
[2017-11-05] MEDS ORDERED: Flumazenil* 0.1 MG/ML 5 ML MDV ONE (08:58)
[2017-11-05] MEDS: Apixaban* 5 MG TAB PO SCH (11:08)
[2017-11-05] MEDS: Cholecalciferol TAB* 400 UNIT PO SCH (11:08)
--- NOTE | 2017-11-05 11:55 | CARD ---
AMENDED REPORT TO CORRECT DATE OF PROCEDURE PER DR. STARK'S OFFICE CC: Hospitalist Service; Dr. Stark PROCEDURE REPORT: DATE OF PROCEDURE: 11/04/17 PROCEDURE: Direct current cardioversion. HISTORY OF PRESENT ILLNESS: The patient is a 67-year-old female patient, who was hospitalized with symptomatic rapid atrial fibrillation. A transesophageal echocardiography-guided cardioversion was further requested. Please refer to our full separate report for transesophageal echocardiography that was done today and showed the patient to have no clots or thrombus in the left atrium or in the left atrial appendage. DESCRIPTION OF PROCEDURE: After informed written consent had been obtained, the patient underwent transesophageal echocardiography-guided direct current cardioversion. With continuous blood pressure, pulse oximetry, and heart rate monitoring, the patient received initially during the BARBARA, a total dose of 4 mg of Versed, then additional 2 mg of Versed for the cardioversion, and received a total 100 microgram intravenously of fentanyl. Initially, 150 synchronized joules were delivered and converted transiently the patient to normal sinus rhythm. Then, she went back to rapid atrial fibrillation. Another 150 and then 200 synchronized joules were delivered successfully, converted the patient to normal sinus rhythm. There were no complications and the patient tolerated the procedure very well and immediate EKG was obtained and documented the patient to be in normal sinus rhythm. CONCLUSION: Successful direct current cardioversion for atrial fibrillation. There were no complications. The patient tolerated the procedure very well. [id number]/[facility] #: [id number] MTDD
[2017-11-05 12:23] VITALS: BP 120/70
--- NOTE | 2017-11-05 13:15 | TEE ---
Patient: ELIZABETH FORMAN [facility] Rec#: [id number] : 1950 Date: 11/04/2017 Age: 67y Height: 157 cm / 61.8 in Weight: 95 kg / 209.4 lbs Sex: F BSA: 1.95 Room#: 2 Type: Inpatient Referring: Jose Luis Nelson MD Performing: Rosalia Nuno MD Reading: Rosalia Nuno MD Cake Knocker: Roseanne Ojeda RDCS Nurse: Mirna Bell RN CC: Delano Cavazos MD Transesophageal Echocardiogram Indication: A-Fib BP: 132/83 HR: 109 Rhythm: A-Fib Findings History: HTN,TIA,HLD,uterine cancer,former smoker. Technical Comments: The study quality is good. Left Ventricle: The left ventricular chamber size is normal. There is normal left ventricular systolic function. The estimated ejection fraction is 50-55%. Left Atrium: The left atrium is moderately dilated. There is faint spontaneous echo contrast visualized in the left atrium cavity and appendage. The left atrial appendage velocity is mildly reduced. There is no thrombus visualized in the left atrial appendage. Right Ventricle: The right ventricular cavity size is normal. The right ventricular global systolic function is normal. Right Atrium: The right atrium is mildly dilated. The interatrial septum appears lipomatous. There is no patent foramen ovale visualized. A patent foramen ovale is not demonstrated with color Doppler and agitated contrast. Aortic Valve: The aortic valve is trileaflet. There is no evidence of aortic valve thickening. There is a trace of aortic regurgitation. There is no evidence of aortic stenosis. Mitral Valve: The mitral valve leaflets appear normal. There is moderate mitral regurgitation. There is no evidence of mitral stenosis. Tricuspid Valve: The tricuspid valve leaflets are normal. There is mild to moderate tricuspid regurgitation. There is no tricuspid stenosis. Pulmonic Valve: The pulmonic valve appears normal. There is no evidence of pulmonic regurgitation. There is no pulmonic stenosis. Pericardium: The pericardium appears normal. Aorta: There is mild dilatation of the ascending aorta. There is no dilation of the aortic root. There is plaque visualized in the descending aorta. Mild-moderate degree. Pulmonary Artery: The main pulmonary artery appears normal. Venous: The pulmonary veins appear normal in size. 2 of 4 seen. The flow pattern of the pulmonary veins appear normal. BARBARA Procedures: History and physical as well as labs were reviewed. The patient was in a fasting state. Risks and benefits of the procedure, including alternatives, were discussed and written informed consent was obtained. The patient and/or their health care footwear sales representative expressed understanding of the procedure, risks and benefits. Baseline and continuous monitoring of blood pressure, heart rate, pulse oximetry and heart rhythm was performed throughout the procedure. The appropriate time-out procedure was performed as per [facility] protocol. The patient was placed in the left lateral decubitus position. The patient's posterior pharynx was anesthetized with 20ml of 2% viscous lidocaine. The patient received IV Midazolam with a total dose of 4mg. The patient received IV Fentanyl with a total dose of 50mcg. An oral bite block was inserted for protection of oral dentition. The multiplane transesophageal echocardiogram probe was inserted through the posterior oropharynx and advanced into the esophagus without difficulty. Multiple 2D images were obtained of the heart and its related structures. Color flow Doppler was used for evaluation. Spectral Doppler was also used. The atrial septum was interrogated with color flow Doppler. At the conclusion of the procedure the probe was removed with continuous suction without complications. The patient tolerated the procedure with no apparent complications. Contrast: Normal saline was used as contrast for the bubble study. Intravenous contrast was used to help determine presence of intracardiac shunting. Conclusions The left ventricular chamber size is normal. The estimated ejection fraction is 50-55%. The left atrium is moderately dilated. There is faint spontaneous echo contrast visualized in the left atrium cavity and appendage. There is no thrombus visualized in the left atrial appendage. A patent foramen ovale is not demonstrated with color Doppler and agitated contrast. There is a trace of aortic regurgitation. There is moderate mitral regurgitation. There is mild to moderate tricuspid regurgitation. There is mild dilatation of the ascending aorta. There is plaque visualized in the descending aorta. Mild-moderate degree. BARBARA done today 11.05.2017. Measurements Name Value Normal Range Aortic Annulus 1.9 cm (1.4 - 2.6) Ao root diameter (2D) 3.3 cm (2.1 - 3.5) Ascending Ao 3.5 cm (2.1 - 3.4) Name Value Normal Range MV E-wave Vmax 0.9 m/sec - MV deceleration time 144 msec -
--- NOTE | 2017-11-05 23:34 | DS ---
CC: Dr. Cavazos * DISCHARGE SUMMARY: DATE OF ADMISSION: 11/03/17 DATE OF DISCHARGE: 11/05/17 PRIMARY CARE PROVIDER: Dr. Cavazos. PRIMARY DIAGNOSIS: Atrial fibrillation with rapid ventricular response. SECONDARY DIAGNOSES: Include: 1. Hypertension. 2. Morbid obesity. 3. Moderate pulmonary hypertension. MEDICATIONS ON DISCHARGE: Include: 1. Eliquis 5 mg twice daily. 2. Diltiazem CD 120 mg daily. 3. Aspirin 81 mg daily. 4. Multivitamin 1 tab daily. 5. Vitamin E 400 mg daily. 6. Albuterol HFA 1 puff every 4 hours as needed. 7. Calcium carbonate 600 mg daily. 8. Vitamin D 400 units daily. 9. Cyclobenzaprine 5 mg twice daily as needed. PERTINENT IMAGING PERFORMED DURING HOSPITAL STAY: CTA chest and thorax, impression: No CT evidence of acute pulmonary embolic disease. Bilateral pleural effusions with basilar atelectasis. Transthoracic echocardiogram, impression: Technically limited study secondary to body habitus. Mild concentric left ventricular hypertrophy. Global left ventricular wall motion and contractility are within normal limits. Left ventricular systolic function lower limits of normal with an estimated EF of 50 % to 55%. Longer R-R interval beats show even higher LVEF. [id number] MR. Left atrium is moderately dilated. Mild TR. Evidence of moderate pulmonary hypertension. [id number] pulmonary regurgitation. Mild dilatation of the ascending aorta. PROCEDURES PERFORMED DURING HOSPITAL STAY: Transesophageal echocardiogram- guided cardioversion, successfully completed by Dr. Nuno. HISTORY OF PRESENT ILLNESS AND HOSPITAL COURSE: This is a pleasant 67-year-old female who had been in her usual state of health until approximately when she developed upper respiratory tract infectious symptoms that never quite recovered. She continued to have worsening shortness of breath and became acutely worse for which she presented to the hospital, was found in new atrial fibrillation with a rapid ventricular response. She was treated with IV and oral Cardizem with improvement in her rate and started on Eliquis prior to a BARBARA followed by cardioversion. Full report of the BARBARA is still pending at the time of this dictation. However, discussion with Dr. Nuno did indicate preserved LVEF and no evidence of thrombus or smoke in the left atrial appendage. Reportedly, it did take 3 attempts at cardioversion to successfully achieve normal sinus rhythm. The patient was seen after the procedure, felt better and anxious to leave the hospital. There was certainly concern for depressed LVEF in the setting of increasing shortness of breath; however, no echocardiographic evidence to support any evidence of systolic heart failure. She is to be maintained on anticoagulation, which she has opted for Eliquis at this time. She was seen in consultation with Cardiology, recommend consideration for an outpatient stress test as well as sleep evaluation to further evaluate new onset atrial fibrillation. There were no complications during the course of this hospital stay. At followup, please; 1. Consider outpatient sleep study as well as outpatient stress test. 2. Evaluate heart rate and blood pressure control on new dose of Cardizem. 3. Please evaluate for adherence to Eliquis. 4. No other specific labs or vitals that need followup. Reasons to return to the hospital included, but not limited to recurrent or worsening symptoms including shortness of breath, chest pain, lightheadedness, loss of consciousness, near loss of consciousness, fevers, chills, night sweats , or bleeding from any source, inability to obtain or tolerate medications discussed with the patient. She acknowledged understanding. TIME SPENT: Greater than 45 minutes were spent in the discharge of this patient , greater than half was spent [id number] with the patient. [id number]/[facility] #: [id number] [place]
== END 2017-11-05 14:50 | disposition home or self-care (01) | DRG 309 ==
LOC: ED 04:37 → MEDTELE 07:23
PROVIDERS: ADMIT Internal Medicine; ATTEND Internal Medicine
PROC: B24BZZ4 Ultrasonography of Heart with Aorta, Transesophageal (ICD-10-PCS; 2017-11-05)
PROC: 5A2204Z Restoration of Cardiac Rhythm, Single (ICD-10-PCS; principal; 2017-11-05 08:15)
DX: I48.91 Unspecified atrial fibrillation (principal); J90 Pleural effusion, not elsewhere classified; Z66 Do not resuscitate; R06.02 Shortness of breath; I27.20 Pulmonary hypertension, unspecified; E66.01 Morbid (severe) obesity due to excess calories; I08.1 Rheumatic disorders of both mitral and tricuspid valves; J98.11 Atelectasis; I10 Essential (primary) hypertension; I51.7 Cardiomegaly; I77.819 Aortic ectasia, unspecified site; E78.5 Hyperlipidemia, unspecified; Z96.653 Presence of artificial knee joint, bilateral; Z96.641 Presence of right artificial hip joint; Z96.611 Presence of right artificial shoulder joint; Z88.5 Allergy status to narcotic agent; Z88.0 Allergy status to penicillin; Z88.1 Allergy status to other antibiotic agents; Z68.38 Body mass index [BMI] 38.0-38.9, adult; Z79.82 Long term (current) use of aspirin; Z79.01 Long term (current) use of anticoagulants; Z86.73 Personal history of transient ischemic attack (TIA), and cerebral infarction without residual deficits; Z85.42 Personal history of malignant neoplasm of other parts of uterus; Z87.01 Personal history of pneumonia (recurrent); Z90.710 Acquired absence of both cervix and uterus; Z88.8 Allergy status to other drugs, medicaments and biological substances; Z91.040 Latex allergy status; Z82.49 Family history of ischemic heart disease and other diseases of the circulatory system; Z82.3 Family history of stroke; Z87.891 Personal history of nicotine dependence
CPT/HCPCS: 36415; 71275; 80048; 80053; 83605; 83735; 83880; 84443; 84484; 85025; 85379; 85610; 85730; 87040; 87502; 87641; 93005; 93306; 93312; 93325; 94640; 99156; 99157; A9270-GY; J1160; J1940; J2250; J2310; J2920; J2930; J3010; Q9967

== ENCOUNTER 2017-11-13 17:32 | Emergency (ER) | payer MEDICARE ==
--- NOTE | 2017-11-13 18:31 | RAD ---
HISTORY: Chest pain COMPARISONS: October 17, 2017 VIEWS: 1: frontal portable view of the chest at 6:00 PM FINDINGS: LINES AND TUBES: None. CARDIOMEDIASTINAL SILHOUETTE: The cardiomediastinal silhouette is normal for portable technique. PLEURA: The costophrenic angles are sharp. No pleural abnormalities are noted. LUNG PARENCHYMA: The lungs are clear. ABDOMEN: The upper abdomen is clear. There is no subphrenic gas. BONES AND SOFT TISSUES: The patient is status post right shoulder arthroplasty IMPRESSION: NO ACTIVE CARDIOPULMONARY DISEASE.
[2017-11-13 18:49] LABS: ABS Basophils 0 10^3/ul (0-0.2); ABS Eosinophils 0.4 10^3/ul (0-0.6); ABS Lymphocytes 1.9 10^3/ul (1.0-4.8); ABS Monocytes 0.7 10^3/ul (0-0.8); ABS Neutrophils 3.5 10^3/ul (1.5-7.7); ABS Nucleated RBC 0 10^3/ul; Eosinophil % 6.6 % (0-6); Hematocrit 36 % (35-47); Hemoglobin 12.1 g/dl (12.0-16.0); Lymphocyte % 29.7 % (25-47); Mean Corpuscular HGB Conc 34 g/dl (31-36); Mean Corpuscular Hemoglobin 29 pg (27-31); Mean Corpuscular Volume 87 fL (80-97); Mean Platelet Volume 9 um3 (7.4-10.4); Nucleated Red Blood Cells % 0; Platelet Count 267 10^3/ul (150-450); Red Blood Count 4.15 10^6/ul (4.0-5.4); Red Cell Distribution Width 14 % (10.5-15); White Blood Count 6.5 10^3/ul (3.5-10.8)
[2017-11-13 18:55] LABS: INR 1.06 (0.77-1.02)
[2017-11-13 18:57] LABS: EGFR Non-African American 57.6 (>60)
[2017-11-13 19:52] VITALS: BP 114/88
--- NOTE | 2017-11-13 19:57 | ED ---
Toñito Andrade Stephanie, scribed for Tapan Jones on 11/13/17 at 1845 . HPI Chest Pain - HPI Summary HPI Summary: The pt is a 67 y/o F presenting to the ED with c/o CP since 11:30 today. The pain is intermittent and is located at the mid sternum. The pt reports pain with breathing. The pt denies N/V/D. - History of Current Complaint Chief Complaint: EDChestPainROMI Time Seen by Provider: 11/13/17 17:44 Hx Obtained From: Patient Onset/Duration: Started Hours Ago - 7, Still Present Timing: Intermittent Current Severity: Moderate Pain Intensity: 8 Pain Scale Used: 0-10 Numeric Chest Pain Location: Mid Sternal Chest Pain Radiates: No Aggravating Factor(s): Deep Breaths Alleviating Factor(s): Nothing Associated Signs and Symptoms: Positive: Chest Pain, Other: - diarrhea. Negative: Nausea, Vomiting - Additional Pertinent History Primary Care Physician: [id number] - Allergy/Home Medications Allergies/Adverse Reactions: Allergies Allergy/AdvReac Type Severity Reaction Status Date / Time Codeine Allergy Severe Anaphylatic Verified 10/17/17 15:50 Shock Penicillins Allergy Severe Anaphylatic Verified 10/17/17 15:50 Shock Latex Allergy Intermediate Rash Verified 10/17/17 15:50 Nitrofurantoin Allergy Intermediate Hives Verified 10/17/17 15:50 [From Macrodantin] Vancomycin Allergy Mild Pain Verified 10/17/17 15:50 Bee Venom Allergy Anaphylatic Verified 11/03/17 07:35 Shock Aspirin AdvReac Intermediate GI Upset Verified 06/11/16 10:47 PMH/Surg Hx/FS Hx/Imm Hx Endocrine/Hematology History: Reports: Hx Thyroid Disease - hx only Denies: Hx Diabetes Cardiovascular History: Reports: Hx Hypercholesterolemia, Hx Hypertension - off meds 2 years, Other Cardiovascular Problems/Disorders - tia 2008 Respiratory History: Reports: Hx Chronic Bronchitis, Other Respiratory Problems/ Disorders - Hx of pneumonia Denies: Hx Asthma - pt denies, Hx Chronic Obstructive Pulmonary Disease (COPD ) GI History: Denies: Hx Ulcer History: Denies: Hx Renal Disease Musculoskeletal History: Denies: Hx Back Problems - Pt denies Sensory History: Reports: Hx Contacts or Glasses - not with pt Denies: Hx Hearing Aid Opthamlomology History: Reports: Hx Contacts or Glasses - not with pt Neurological History: Reports: Hx Migraine, Hx Transient Ischemic Attacks (TIA) - 2008 - Surgical History Surgery Procedure, Year, and Place: Breast Reduction, Bilat Knee Replacement, Right Shoulder Replacement, Appendectomy, Hysterectomy, Left Hip replacement Hx Anesthesia Reactions: No Infectious Disease History: No Infectious Disease History: Reports: Hx of Known/Suspected MRSA Denies: Hx Hepatitis, Hx Human Immunodeficiency Virus (HIV), History Other Infectious Disease, Traveled Outside the [place] in Last 30 Days - Family History Known Family History: Positive: Cardiac Disease, Hypertension, Other Family History: [place] - sister, mother, father - Social History Occupation: Retired Lives: With Family Alcohol Use: None Alcohol Amount: 3 drinks every six months Hx Substance Use: Yes Substance Use Type: Reports: Excessive Caffeine Substance Use Comment - Amount & Last Used: 8-10 cups/day Hx Tobacco Use: Yes Smoking Status (MU): Former Smoker Type: Cigarettes Amount Used/How Often: 1 pack per week Length of Time of Smoking/Using Tobacco: 9 years Have You Smoked in the Last Year: No Review of Systems Negative: Fever Positive: Chest Pain Negative: Vomiting, Diarrhea, Nausea All Other Systems Reviewed And Are Negative: Yes Physical Exam - Summary Physical Exam Summary: Appearance: Well appearing, no pain distress Skin: warm, dry, reflects adequate perfusion Head/face: normal Eyes: EOMI, ALESSIO ENT: normal Neck: supple, non-tender Respiratory: CTA, breath sounds present Cardiovascular: pulses symmetrical, irregularly irregular rhythm Abdomen: non-tender, soft Bowel: present Musculoskeletal: normal, strength/ROM intact Neuro: normal, sensory motor intact, A&Ox3 Triage Information Reviewed: Yes Vital Signs On Initial Exam: Initial Vitals Temp Pulse Resp BP Pulse Ox 97 F 86 18 136/83 98 11/13/17 17:37 11/13/17 17:37 11/13/17 17:37 11/13/17 17:37 11/13/17 17:37 Vital Signs Reviewed: Yes Diagnostics - Vital Signs Vital Signs Temp Pulse Resp BP Pulse Ox 11/13/17 18:30 95 21 115/77 97 11/13/17 18:00 104 15 128/85 98 11/13/17 17:51 90 18 98 11/13/17 17:49 138/109 11/13/17 17:37 97 F 86 18 136/83 98 - Laboratory Lab Results: Lab Results 11/13/17 11/13/17 11/13/17 Range/Units 18:28 18:28 18:28 WBC 6.5 (3.5-10.8) 10^3/ul RBC 4.15 (4.0-5.4) 10^6/ul Hgb 12.1 (12.0-16.0) g/dl Hct 36 (35-47) % MCV 87 (80-97) fL MCH 29 (27-31) pg MCHC 34 (31-36) g/dl RDW 14 (10.5-15) % Plt Count 267 (150-450) 10^3/ul MPV 9 (7.4-10.4) um3 Neut % (Auto) 53.0 (38-83) % Lymph % (Auto) 29.7 (25-47) % Murray % (Auto) 10.1 H (1-9) % Eos % (Auto) 6.6 H (0-6) % Baso % (Auto) 0.6 (0-2) % Absolute Neuts (auto) 3.5 (1.5-7.7) 10^3/ul Absolute Lymphs (auto) 1.9 (1.0-4.8) 10^3/ul Absolute Monos (auto) 0.7 (0-0.8) 10^3/ul Absolute Eos (auto) 0.4 (0-0.6) 10^3/ul Absolute Basos (auto) 0 (0-0.2) 10^3/ul Absolute Nucleated RBC 0 10^3/ul Nucleated RBC % 0 INR (Anticoag Therapy) 1.06 H (0.77-1.02) APTT 29.0 (26.0-36.3) seconds D-Dimer, Quantitative < 200 (Less Than 230) ng/mL Sodium (133-145) mmol/L Potassium (3.5-5.0) mmol/L Chloride (101-111) mmol/L Carbon Dioxide (22-32) mmol/L Anion Gap (2-11) mmol/L BUN (6-24) mg/dL Creatinine (0.51-0.95) mg/dL Est GFR ( Amer) (>60) Est GFR (Non-Af Amer) (>60) BUN/Creatinine Ratio (8-20) Glucose (70-100) mg/dL Calcium (8.6-10.3) mg/dL Total Bilirubin (0.2-1.0) mg/dL AST (13-39) U/L ALT (7-52) U/L Alkaline Phosphatase (34-104) U/L Troponin I (<0.04) ng/mL B-Natriuretic Peptide 249 H ( - 100) pg/mL Total Protein (6.4-8.9) g/dL Albumin (3.2-5.2) g/dL Globulin (2-4) g/dL Albumin/Globulin Ratio (1-3) // Range/Units 18:28 WBC (3.5-10.8) 10^3/ul RBC (4.0-5.4) 10^6/ul Hgb (12.0-16.0) g/dl Hct (35-47) % MCV (80-97) fL MCH (27-31) pg MCHC (31-36) g/dl RDW (10.5-15) % Plt Count (150-450) 10^3/ul MPV (7.4-10.4) um3 Neut % (Auto) (38-83) % Lymph % (Auto) (25-47) % Murray % (Auto) (1-9) % Eos % (Auto) (0-6) % Baso % (Auto) (0-2) % Absolute Neuts (auto) (1.5-7.7) 10^3/ul Absolute Lymphs (auto) (1.0-4.8) 10^3/ul Absolute Monos (auto) (0-0.8) 10^3/ul Absolute Eos (auto) (0-0.6) 10^3/ul Absolute Basos (auto) (0-0.2) 10^3/ul Absolute Nucleated RBC 10^3/ul Nucleated RBC % INR (Anticoag Therapy) (0.77-1.02) APTT (26.0-36.3) seconds D-Dimer, Quantitative (Less Than 230) ng/mL Sodium 135 (133-145) mmol/L Potassium 3.8 (3.5-5.0) mmol/L Chloride 104 (101-111) mmol/L Carbon Dioxide 26 (22-32) mmol/L Anion Gap 5 (2-11) mmol/L BUN 16 (6-24) mg/dL Creatinine 0.96 H (0.51-0.95) mg/dL Est GFR ( Amer) 74.1 (>60) Est GFR (Non-Af Amer) 57.6 (>60) BUN/Creatinine Ratio 16.7 (8-20) Glucose 99 (70-100) mg/dL Calcium 9.0 (8.6-10.3) mg/dL Total Bilirubin 0.30 (0.2-1.0) mg/dL AST 18 (13-39) U/L ALT 16 (7-52) U/L Alkaline Phosphatase 76 (34-104) U/L Troponin I 0.01 (<0.04) ng/mL B-Natriuretic Peptide ( - 100) pg/mL Total Protein 6.4 (6.4-8.9) g/dL Albumin 3.7 (3.2-5.2) g/dL Globulin 2.7 (2-4) g/dL Albumin/Globulin Ratio 1.4 (1-3) Result Diagrams: 11/13/17 18:28 11/13/17 18:28 Lab Statement: Any lab studies that have been ordered have been reviewed, and results considered in the medical decision making process. - Radiology CXR Xray Interpretation: No Acute Changes Radiology Interpretation Completed By: Radiologist - NO ACTIVE CARDIOPULMONARY DISEASE. - EKG 17:40 EKG Rhythm: Atrial Fibrillation - 106 BPM Chest Pain Course/Dx - Course Course Of Treatment: The pt is a 67 y/o F presenting to the ED with c/o CP since 11:30 today.Pt wants to leave ama and explained ofthe consequences of cp even and pt understood what was said and left ama. - Chest Pain Differential Diagnosis/HQI/PQRI: Acute PA, ACS, Angina, CHF, Lower Respiratory Infection, Pulmonary Edema - Diagnoses Provider Diagnoses: Chest pain, Left against medical advice, Ruled out for myocardial infarction Discharge - Discharge Plan Condition: Stable Disposition: AGAINST MEDICAL ADVICE Patient Education Materials: Chest Pain (ED) Referrals: Delano Cavazos MD [Primary Care Provider] - As Soon As Possible Additional Instructions: Follow up with PCP as soon as possible. The documentation as recorded by the scribe, Toñito,Lupe accurately reflects the service I personally performed and the decisions made by me, Tapan Jones.
== END 2017-11-13 19:52 | disposition left against medical advice (07) ==
LOC: ED 17:32
DX: R07.9 Chest pain, unspecified (principal); I48.91 Unspecified atrial fibrillation; Z53.21 Procedure and treatment not carried out due to patient leaving prior to being seen by health care provider; Z87.891 Personal history of nicotine dependence; Z88.3 Allergy status to other anti-infective agents; Z88.5 Allergy status to narcotic agent; Z88.0 Allergy status to penicillin; Z88.6 Allergy status to analgesic agent
CPT/HCPCS: 36415; 71045; 80053; 83880; 84484; 85025; 85379; 85610; 85730; 93005; 99283

== ENCOUNTER 2017-11-20 19:06 | Inpatient (IN) | payer MEDICARE ==
[2017-11-20] MEDS ORDERED: Diltiazem IV* 5 MG/ML 5 ML VIAL (for loading dose/IV Push) (25 MG) IV SLOW PU ONE (19:13)
[2017-11-20] MEDS ORDERED: Diltiazem DRIP* 100 MG/100 ML ADDV.BAG IVPB ONE (19:13)
[2017-11-20] MEDS ORDERED: NS 0.9% 1000 ML* 1,000 ML IV SCH (19:15)
[2017-11-20 19:35] LABS: ABS Basophils 0.1 10^3/ul (0-0.2); ABS Eosinophils 0.4 10^3/ul (0-0.6); ABS Lymphocytes 3.7 10^3/ul (1.0-4.8); ABS Monocytes 0.8 10^3/ul (0-0.8); ABS Neutrophils 4.7 10^3/ul (1.5-7.7); ABS Nucleated RBC 0 10^3/ul; Eosinophil % 4.5 % (0-6); Hematocrit 39 % (35-47); Hemoglobin 13.3 g/dl (12.0-16.0); Lymphocyte % 37.9 % (25-47); Mean Corpuscular HGB Conc 34 g/dl (31-36); Mean Corpuscular Hemoglobin 29 pg (27-31); Mean Corpuscular Volume 86 fL (80-97); Mean Platelet Volume 9 um3 (7.4-10.4); Nucleated Red Blood Cells % 0.1; Platelet Count 292 10^3/ul (150-450); Red Blood Count 4.54 10^6/ul (4.0-5.4); Red Cell Distribution Width 14 % (10.5-15); White Blood Count 9.8 10^3/ul (3.5-10.8)
[2017-11-20 19:45] LABS: EGFR Non-African American 57.6 (>60)
[2017-11-20 19:48] LABS: INR 1.2 (0.77-1.02)
[2017-11-20] MEDS: Diltiazem IV VIAL* 125 MG in NS 0.9% 100 ML* 100 ML IV SCH ×2 (19:53→20:18)
[2017-11-20 20:35] LABS: Urine Appearance Clear; Urine Blood 1+ (Negative); Urine Color Straw; Urine Ketones Negative (Negative); Urine Protein Negative (Negative); Urine Specific Gravity 1.005 (1.010-1.030); Urine Urobilinogen Negative (Negative)
[2017-11-20] MEDS ORDERED: Potassium Chlor TAB* 20 MEQ TAB.ER PO ONE (20:45)
[2017-11-20] MEDS ORDERED: Acetaminophen TAB* 325 MG PO PRN (20:45)
[2017-11-20] MEDS ORDERED: Ondansetron INJ* 2 MG/ML VIAL IV PRN (20:45)
--- NOTE | 2017-11-20 20:46 | RAD ---
INDICATION: Difficulty breathing COMPARISON: Similar chest x-ray November 13, 2017 TECHNIQUE: Single AP portable view of the chest was obtained. FINDINGS: Image quality is compromised due to the relative inferiority of a portable chest x-ray. The heart and mediastinum exhibit normal size and contour. The lungs are grossly clear. There is no evidence of a large pleural effusion. The right shoulder prosthesis appears to be anatomically aligned in the AP projection. IMPRESSION: No radiographic evidence for acute cardiopulmonary abnormality on this portable chest x-ray.
[2017-11-20] MEDS ORDERED: Cyclobenzaprine TAB* 10 MG PO PRN (20:51)
[2017-11-20] MEDS ORDERED: Albuterol HFA INHALER* 8 gm MDI INH PRN (20:51)
--- NOTE | 2017-11-20 21:31 | ED ---
Joe Andrade Jennifer, scribed for Dada Cerda MD on 11/20/17 at 1938 . Shortness of Breath - HPI Summary HPI Summary: The patient is a 67 year old female who presents to the ED with on-and-off shortness of breath all day that got worse in the evening. She additionally complains of chest pain that is described as a pressure. - History of Current Complaint Chief Complaint: EDShortnessOfBreath Time Seen by Provider: 11/20/17 19:10 Hx Obtained From: Other: - Nurse Hx From Patient Unobtainable Due To: Other - Shortness of breath Onset/Duration: Sudden Onset - off and on all day, Still Present Timing: Constant Associated Signs & Symptoms: Chest Pain Unrelated to Cough - Allergy/Home Medications Allergies/Adverse Reactions: Allergies Allergy/AdvReac Type Severity Reaction Status Date / Time MS Codeine [Codeine] Allergy Severe Anaphylatic Verified 10/17/17 15:50 Shock MS Penicillins [Penicillins] Allergy Severe Anaphylatic Verified 10/17/17 15:50 Shock MS Latex [Latex] Allergy Intermediate Rash Verified 10/17/17 15:50 MS Nitrofurantoin Allergy Intermediate Hives Verified 10/17/17 15:50 [From Macrodantin] MS Vancomycin [Vancomycin] Allergy Mild Pain Verified 10/17/17 15:50 MS Bee Venom [Bee Venom] Allergy Anaphylatic Verified 11/03/17 07:35 Shock MS Aspirin [Aspirin] AdvReac Intermediate GI Upset Verified 06/11/16 10:47 Home Medications: Home Medications Diltiazem CD CAP* [Cardizem CD CAP*] 180 mg PO DAILY 11/20/17 [History Confirmed 11/20/17] PMH/Surg Hx/FS Hx/Imm Hx Endocrine/Hematology History: Reports: Hx Thyroid Disease - hx only Denies: Hx Diabetes Cardiovascular History: Reports: Hx Hypercholesterolemia, Hx Hypertension - off meds 2 years, Other Cardiovascular Problems/Disorders - tia 2008 Respiratory History: Reports: Hx Chronic Bronchitis, Other Respiratory Problems/ Disorders - Hx of pneumonia Denies: Hx Asthma - pt denies, Hx Chronic Obstructive Pulmonary Disease (COPD ) GI History: Denies: Hx Ulcer History: Denies: Hx Renal Disease Musculoskeletal History: Denies: Hx Back Problems - Pt denies Sensory History: Reports: Hx Contacts or Glasses - not with pt Denies: Hx Hearing Aid Opthamlomology History: Reports: Hx Contacts or Glasses - not with pt Neurological History: Reports: Hx Migraine, Hx Transient Ischemic Attacks (TIA) - 2008 - Surgical History Surgery Procedure, Year, and Place: Breast Reduction, Bilat Knee Replacement, Right Shoulder Replacement, Appendectomy, Hysterectomy, Left Hip replacement Hx Anesthesia Reactions: No Infectious Disease History: No Infectious Disease History: Reports: Hx of Known/Suspected MRSA Denies: Hx Hepatitis, Hx Human Immunodeficiency Virus (HIV), History Other Infectious Disease, Traveled Outside the [place] in Last 30 Days - Family History Known Family History: Positive: Cardiac Disease, Hypertension, Other Family History: [place] - sister, mother, father - Social History Alcohol Use: None Alcohol Amount: 3 drinks every six months Hx Substance Use: Yes Substance Use Type: Reports: Excessive Caffeine Substance Use Comment - Amount & Last Used: 8-10 cups/day Hx Tobacco Use: Yes Smoking Status (MU): Former Smoker Type: Cigarettes Amount Used/How Often: 1 pack per week Length of Time of Smoking/Using Tobacco: 9 years Have You Smoked in the Last Year: No Review of Systems Positive: Chest Pain - Chest pressure Positive: Shortness Of Breath All Other Systems Reviewed And Are Negative: Yes Physical Exam - Summary Physical Exam Summary: General: well-appearing, no pain distress Skin: warm, color reflects adequate perfusion, dry Head: normal Eyes: EOMI, ALESSIO ENT: normal Neck: supple, nontender Respiratory: CTA, breath sounds present. Lungs clear, initially moderately short of breath. Cardiovascular: Tachycardic. Irregularly irregular rhythm. Abdomen: soft, nontender Bowel: present Musculoskeletal: normal, strength/ROM intact Extremities: no pitting edema. Neurological: normal, sensory/motor intact, A&O x3 Psychological: affect/mood appropriate Triage Information Reviewed: Yes Vital Signs On Initial Exam: Initial Vitals Temp Pulse Resp BP Pulse Ox 98 F 163 36 145/103 100 11/20/17 19:12 11/20/17 19:12 11/20/17 19:12 11/20/17 19:12 11/20/17 19:12 Vital Signs Reviewed: Yes Diagnostics - Vital Signs Vital Signs Temp Pulse Resp BP Pulse Ox 11/20/17 19:12 98 F 163 36 145/103 100 - Laboratory Lab Results: Lab Results 11/20/17 Range/Units 19:18 WBC 9.8 (3.5-10.8) 10^3/ul RBC 4.54 (4.0-5.4) 10^6/ul Hgb 13.3 (12.0-16.0) g/dl Hct 39 (35-47) % MCV 86 (80-97) fL MCH 29 (27-31) pg MCHC 34 (31-36) g/dl RDW 14 (10.5-15) % Plt Count 292 (150-450) 10^3/ul MPV 9 (7.4-10.4) um3 Neut % (Auto) 48.2 (38-83) % Lymph % (Auto) 37.9 (25-47) % [place] % (Auto) 8.5 (1-9) % Eos % (Auto) 4.5 (0-6) % Baso % (Auto) 0.9 (0-2) % Absolute Neuts (auto) 4.7 (1.5-7.7) 10^3/ul Absolute Lymphs (auto) 3.7 (1.0-4.8) 10^3/ul Absolute Monos (auto) 0.8 (0-0.8) 10^3/ul Absolute Eos (auto) 0.4 (0-0.6) 10^3/ul Absolute Basos (auto) 0.1 (0-0.2) 10^3/ul Absolute Nucleated RBC 0 10^3/ul Nucleated RBC % 0.1 Result Diagrams: 11/20/17 19:18 18 19:18 Lab Statement: Any lab studies that have been ordered have been reviewed, and results considered in the medical decision making process. - Radiology CXR Xray Interpretation: No Acute Changes - No radiographic evidence for acute cardiopulmonary abnormality on this portable chest x-ray. Dr. Cerda has reviewed this report. Radiology Interpretation Completed By: Radiologist - EKG 19:10 Cardiac Rate: Tachycardia EKG Rhythm: Atrial Fibrillation - 132 BPM EKG Interpretation: No ST changes Course/Dx - Course Course Of Treatment: BP noted and advised to follow up with PCP. Allergies noted. Medications reviewed. ADMIT HOSPITALIST - Diagnoses Provider Diagnoses: Uncontrolled hypertension, Rapid atrial fibrillation, Dyspnea - Critical Care Time Critical Care Time: 30-74 min Discharge - Discharge Plan Condition: Stable Disposition: ADMITTED TO [facility] The documentation as recorded by the igoribJoe merchant Jennifer accurately reflects the service I personally performed and the decisions made by me, Dada Cerda MD.
[2017-11-21] MEDS ORDERED: NS 0.9% 1000 ML* 1,000 ML IV ONE
--- NOTE | 2017-11-21 00:37 | HP ---
CC: Dr. Cavazos; Dr. Nuno * HISTORY AND PHYSICAL: DATE OF ADMISSION: 11/20/17 PRIMARY CARE PROVIDER: Dr. Cavazos. ATTENDING PHYSICIAN WHILE IN THE HOSPITAL: Mal Jin MD * (report dictated by James Hagen NP). CONSULTING MANUFACTURING TEAM MEMBER: Dr. Nuno. CHIEF COMPLAINT: 1. Dyspnea on exertion. 2. Chest discomfort. HISTORY OF PRESENT ILLNESS: Ms. Ibarra is a 67-year-old female patient who was just discharged from our facility on the with new onset of Afib with RVR. She says that since being discharged, she has had intermittent periods where she has had profound shortness of breath particularly with exertion. She says that she has noticed with minimal exertion just walking from 1 room to the next in her trailer. She gets short of breath, she says walking 10 to 15 feet she is getting very short of breath. She noted today that it was much severe even at rest. The was concerned the patient could not even speak. They were concerned because of the way she was breathing and how short of breath she appeared and called 911 and brought her into the hospital. She says that she has had intermittent chest discomfort that does last minutes to seconds. It lasts in the center of her chest and will go to her right shoulder and over her left shoulder. She says that it does not happen with exertion. She says it actually can happen any time. She denied having any palpitations or fluttering in her chest, but she says that she has just been having issues with progressing short of breath and having dyspnea on exertion. There has been no weight gain. She does state that at times she does need to sleep with 2 pillows. She was concerned because her breathing was not getting any better today and the patient had come into the ER and was found to be in Afib with RVR with heart rate of 160, so at that point we were asked to evaluate for admission. PAST MEDICAL HISTORY: Significant for: 1. Afib. 2. History of TIA. 3. Hyperlipidemia. 4. Uterine cancer. 5. Pneumonia in the past. 6. Hypertension. PAST SURGICAL HISTORY: She has had breast reduction. She has had left knee scope. She has had right rotator cuff repair. She has had appendectomy, hysterectomy, vocal cord scraping. She has had a right total hip arthroplasty. She has had bilateral total knee replacements since she has had a right total shoulder. HOME MEDICATIONS: According to her include: 1. Eliquis 5 mg p.o. b.i.d. She took tonight's dose. 2. Aspirin 81 mg daily. 3. Calcium carbonate 600 mg daily. 4. Vitamin D 400 units p.o. daily. 5. Flexeril 5 mg p.o. b.i.d. 6. Diltiazem 180 mg p.o. daily, which was increased from 120. 7. She takes multivitamin 1 tablet daily. 8. Vitamin E 400 units p.o. daily. 9. Ventolin 1 puff inhale every 4 hours as needed. ALLERGIES TO MEDICATIONS: Include CODEINE, PENICILLIN, LATEX, MACRODANTIN, VANCO, BEE VENOM, and ASPIRIN. FAMILY HISTORY: Mother had in a house fire. She burnt to . Her father had a history of SD and CVA. SOCIAL HISTORY: She is a former smoker, she quit several years ago. She does not drink alcohol. She does drink decaffeinated coffee. Surrogate decision maker is her son, Jose Eduardo and her fisavannahe. REVIEW OF SYSTEMS: There is no documented fever. She denied any significant weight change. There was no double vision. She denies having any ear discharge. There was no rhinorrhea, no sore throat, no thyroid enlargement. Denies any chest discomfort currently, she did admit to some intermittently per my HPI. There was no nocturnal dyspnea. She does admit to orthopnea at times. No dysuria, no frequency. No seizure. No loss of consciousness, no pruritus and no skin ulcerations. Review of 14 systems completed, all others negative. PHYSICAL EXAMINATION GENERAL: At this time, Ms. Ibarra is a 67-year-old female patient. She is sitting in the ED stretcher. She does not appear to be in any acute distress. VITAL SIGNS: Blood pressure 118/79, pulse 101, respirations 18, O2 sat 97%, temperature 98.0. HEENT: Head: Atraumatic, normocephalic. Eyes: EOMs intact. Sclerae anicteric and not pale. Throat: Oral mucosa appears to be dry. No oropharyngeal erythema. NECK: Supple. LUNGS: Clear to auscultation. No wheezes, rales, or rhonchi. HEART: Sounds S1, S2. Irregularly irregular rate. No murmurs, rubs, or gallops. ABDOMEN: Soft, flat, nontender. Bowel sounds were present. EXTREMITIES: Pulses 2+ throughout. No peripheral edema. She is moving all 4 extremities with 5/5 strength. NEUROLOGIC: She is awake, alert, and oriented x3. No gross focal deficits. SKIN: Intact. DIAGNOSTIC STUDIES/LAB DATA: WBC of 9.8, RBC of 4.54, hemoglobin of 13.3, hematocrit of 39, platelet count of 292,000. INR 1.20, PTT is 29. D-dimer 230. Sodium 135, potassium 3.9, chloride of 103, bicarb 22, BUN 10, creatinine 0.96, BUN 27, bicarbonate 22, glucose 98, lactate 1.7, calcium 9.4. Mag 2.4, total bili 0.6, AST 17, ALT 14, alk phos 78. CK is 83, CK-MB 2.4. Troponin 0.01. TSH 3.50, albumin 4.3. BNP 281. Urine showed 1+ blood, present squamous epithelial cells. She did have a chest x-ray obtained today, impression: No radiographic evidence for acute cardiopulmonary abnormality on this x-ray. EKG obtained today shows atrial fibrillation, rate of 132. No ST elevations or T- wave inversions. It was reviewed with previous EKG, previously she was in Afib with rate of 106. Old medical records reviewed. ASSESSMENT AND PLAN: Ms. Ibarra is a 67-year-old female patient coming into the ED today with complaints of dyspnea on exertion, intermittent chest discomfort, now found to be in atrial fibrillation with rapid ventricular response again. She will be admitted under inpatient status for: 1. Atrial fibrillation with rapid ventricular response. I did touch base with Dr. Nuno, who will be evaluating the patient tomorrow. Plan will be for n.p.o. after midnight for probable cardioversion in the morning as she does not appear to be tolerating the atrial fibrillation well. She was noted to be in atrial fibrillation with her last ER visit here. In terms of the chest discomfort, I will cycle her troponins. We will go ahead and put her on diltiazem drip. We will continue the Eliquis as she has been taking it and I will try to get her potassium right at 4, it was 3.9, so I did order an additional dose. 2. History of transient ischemic attacks. We will continue with secondary prevention. 3. Hypertension. She is on diltiazem. Blood pressure is controlled. 4. Hyperlipidemia. Follow with primary. 5. History of uterine cancer. Follow with primary. 6. DVT prophylaxis. She is on Eliquis. 7. Code status. She wished to be DNR. 8. Fluid, electrolytes, and nutrition. She can have a heart healthy diet. No caffeine after midnight. She is n.p.o. after midnight with normal saline running at 100 an hour. TIME SPENT: On the admission was approximately 60 minutes, greater than half the time was spent [id number] with the patient obtaining my history and physical; the other half time was spent going over the plan of care with the patient and implementing plan of care. I did discuss the plan of care with my attending, Dr. Jin; he is in agreement. JAMES HAGEN, SHELBIE [id number]/[facility] #: [id number] MTDIsidro
[2017-11-21 06:12] LABS: ABS Basophils 0.1 10^3/ul (0-0.2); ABS Eosinophils 0.4 10^3/ul (0-0.6); ABS Lymphocytes 1.7 10^3/ul (1.0-4.8); ABS Monocytes 0.5 10^3/ul (0-0.8); ABS Neutrophils 3.3 10^3/ul (1.5-7.7); ABS Nucleated RBC 0 10^3/ul; Eosinophil % 6.9 % (0-6); Hematocrit 33 % (35-47); Hemoglobin 11.2 g/dl (12.0-16.0); Lymphocyte % 28.7 % (25-47); Mean Corpuscular HGB Conc 34 g/dl (31-36); Mean Corpuscular Hemoglobin 29 pg (27-31); Mean Corpuscular Volume 86 fL (80-97); Mean Platelet Volume 9 um3 (7.4-10.4); Nucleated Red Blood Cells % 0; Platelet Count 242 10^3/ul (150-450); Red Blood Count 3.84 10^6/ul (4.0-5.4); Red Cell Distribution Width 15 % (10.5-15); White Blood Count 6.1 10^3/ul (3.5-10.8)
[2017-11-21 06:25] LABS: EGFR Non-African American 70.1 (>60)
[2017-11-21] MEDS: Apixaban* 5 MG TAB PO SCH ×2 (08:38→22:04)
[2017-11-21] MEDS: Aspirin EC Low Dose* 81 MG TAB.EC PO SCH (08:41)
[2017-11-21] MEDS ORDERED: Diltiazem TAB* 60 MG PO SCH (08:45)
[2017-11-21] MEDS ORDERED: Midazolam* 1 MG/ML 10 ML VIAL (10 MG) ONE (10:25)
[2017-11-21] MEDS ORDERED: fentaNYL* 50 MCG/ML 5 ML VIAL (250 MCG VIAL) ONE (10:26)
[2017-11-21] MEDS: Amiodarone TAB* 200 MG PO SCH ×2 (13:01→22:04)
--- NOTE | 2017-11-21 14:13 | CONS ---
CC: James Hagen NP, hospitalist service; Dr. Cavazos; Dr. Nuno CARDIOLOGY CONSULTATION: DATE OF CONSULT: 11/21/17 HISTORY OF PRESENT ILLNESS: I was asked by James Hagen from hospitalist service to see this 67-yea r-old female who just was in the hospital in October 2017 for atrial fibrillation. She had a BARBARA-robb ded cardioversion by me. Dr. Wong did a full cardiology consult on her. The patient apparently l eft the hospital in normal sinus rhythm. The cardioversion was on 11/03/17. She came in back yester day with shortness of breath and fatigability. She was found to be in rapid atrial fibrillation. Sh e was started on Cardizem IV, admitted to the intensive care unit. She continued to be in atrial fibr illation with a controlled heart rate. Cardiology consult was further requested for consideration of direct current cardioversion. She has been maintained on Eliquis. She does have history of obesity, hyperlipidemia, systemic arterial hypertension. She gives some episodes of chest pain. She gives n o fever, no chills, no nausea, no vomiting, no hematochezia, no skin rash, no abdominal pain, no sync ope, no swelling in the lower extremities, no orthopnea. No hematochezia is appreciated. She is in the intensive care unit. She feels comfortable other than she is in atrial fibrillation, heart rate about 80 beats per minute. PAST MEDICAL HISTORY: Include: 1. BARBARA-guided cardioversion for atrial fibrillation in October 2017. 2. History of TIA. 3. Hyperlipidemia. 4. Pneumonia in the past. 5. Hypertension. 6. Uterine cancer. PAST SURGICAL HISTORY: Include: 1. Breast reduction. 2. History of left knee scope. 3. Rotator cuff repair on the right side. 4. Appendectomy. 5. Hysterectomy. 6. Vocal cord scraping. 7. Right total hip arthroplasty. 8. History of bilateral total knee replacement. MEDICATIONS: Her medications as an outpatient include: 1. Ventolin 1 puff q. 4 hours. 2. Vitamin E 400 units daily. 3. Diltiazem 180 mg daily. 4. Flexeril 5 mg twice a day. 5. Vitamin D 400 units daily. 6. Aspirin 81 mg daily. 7. Eliquis 5 mg twice a day. ALLERGIES: She is allergic to CODEINE, PENICILLIN, LATEX, VANCO, BEES, and ASPIRIN. FAMILY HISTORY: No family history of premature coronary artery disease. SOCIAL HISTORY: She used to smoke. She quit many, many years ago. No history of alcohol drinking. No history of illicit drug use. REVIEW OF SYSTEMS: Review of all other systems essentially is negative. PHYSICAL EXAMINATION: On exam, she is awake, alert, and oriented. She is not in acute distress. He r vitals today, blood pressure 127/93, pulse 80. She is in atrial fibrillation. She is afebrile. R espiratory rate 16. Head on exam, normocephalic, atraumatic. Ears, Nose, and Throat: Essentially b enign. Neck: Supple. JVP is not elevated. No carotid bruits. No masses in the neck is appreciated . Chest: Diminished air entry at the bases. No rales, no wheeze. Heart: Normal but irregularly ir regular. S1, S2. No added sounds. No gallops, no rubs. Abdomen: Obese, soft. Positive bowel ирина nds. Extremities: No edema, no cyanosis, and no clubbing. Skin exam is normal. Psych: Normal aff ect and mood. TYPING SECTION CHIEF: No focal deficit is appreciated. LABORATORY DATA/DIAGNOSTIC STUDIES: Her labs, white blood cells 6.1, hemoglobin 11.2, hematocrit 33, platelets 242. Her sodium 137, potassium 4.2, chloride 110, total CO2 of 22, BUN 19, creatinine 0.8 1. Troponin 0.01. D-dimer 230. Her chest x-ray yesterday was reported to have no acute cardiopulmo nary illness. Her EKG showed her to be in atrial fibrillation, rapid, heart rate 132 beats per minute, nonspecific ST-T changes. IMPRESSION: The patient is a 67-year-old female with: 1. Recurrent rapid atrial fibrillation, asymptomatic. 2. Status post BARBARA-guided cardioversion in October 2017. 3. Obesity. 4. Systemic arterial hypertension. 5. Hyperlipidemia. 6. Abnormal EKG as described. 7. Moderate mitral insufficiency. 8. Low normal ejection fraction 50% to 55%. 9. Anemia. 10. The patient is DNR. PLAN: Lengthy talk with the patient about her clinical situation. Given that BARBARA was just done 2 we eks ago and no evidence of clot or thrombus in the left atrium or in the left atrial appendage and gi [place] that she has been maintained regularly on Eliquis, I feel comfortable proceeding with direct curr ent cardioversion. Benefits, risks discussed with the patient. She is willing to proceed. After car dioversion, hopefully if she converts to normal sinus rhythm, consideration should be given for antia rrhythmic medication including amiodarone or Multaq. We do not know her coronary status. She had no stress test. I am planning to order a Lexiscan Myoview, nuclear stress test tomorrow for her sympto ms of chest pain and risk stratification. If her nuclear stress test showed no evidence of ischemia or infarction, consideration might be widened of using antiarrhythmic medication including group 1c a ntiarrhythmics, other consideration can be given to sotalol or Tikosyn. Those are all in the conside ration. She is to avoid significant alcohol, caffeinated drinks, and stimulants. She is to have low -salt, low-fat diet. She is to have physical activity as tolerated. She is to attempt to lose weigh t, she is to stay hydrated. She is to keep potassium more than 4, magnesium more than 2. Any furthe r recommendations would be pending her clinical outcome. I answered all her concerns and questions u p to her satisfaction. We will follow her closely. We will make further recommendations accordingly . TIME SPENT: More than half of at least 65+ minutes was [id number] in the education and counseling mode explaining all of the above and making further recommendations. [id number]/[facility] #: [id number]
--- NOTE | 2017-11-21 15:27 | PN ---
Subjective Date of Service: 11/21/17 Interval History: Dilt gtt weaned to 5 shortly after getting to ICU. As outpatient Dr. Cavazos had increased to cardizem 240mg po daily, had been in Afib again in his office Sunday 11/12. Had f/u scheduled with Dr. Alcala ([facility]).Had not gotten sleep study referral Currently without complaint. now s/p BARBARA cardioversion with Dr. Nuno. Transferred to floor. Objective Active Medications: Acetaminophen (Tylenol Tab*) 650 mg PO Q4H PRN PRN Reason: FEVER/PAIN Albuterol (Ventolin Hfa Inhaler*) 1 puff INH Q4H PRN PRN Reason: COUGH Amiodarone HCl (Cordarone Tab*) 200 mg PO BID [facility] Last Admin: 11/21/17 13:01 Dose: 200 mg Apixaban (Eliquis*) 5 mg PO BID [facility] Last Admin: 11/21/17 08:38 Dose: 5 mg Aspirin (Aspirin Ec Low Dose*) 81 mg PO DAILY [facility] Last Admin: 11/21/17 08:41 Dose: 81 mg Cyclobenzaprine HCl (Flexeril Tab*) 5 mg PO BID PRN PRN Reason: SPASMS Diltiazem HCl (Cardizem Tab*) 30 mg PO Q8H [facility] Sodium Chloride (Ns 0.9% 1000 Ml*) 1,000 mls @ 150 mls/hr IV PER RATE [facility] Last Admin: 11/20/17 19:27 Dose: 150 mls/hr Ondansetron HCl (Zofran Inj*) 4 mg IV Q6H PRN PRN Reason: NAUSEA Vital Signs - 8 hr 11/21/17 11/21/17 11/21/17 08:00 08:02 09:00 Temperature 97.3 F Pulse Rate 82 75 80 Respiratory 18 15 16 Rate Blood Pressure 131/93 127/93 (mmHg) O2 Sat by Pulse 100 98 100 Oximetry 11/21/17 11/21/17 11/21/17 10:00 10:02 10:31 Temperature Pulse Rate 83 85 72 Respiratory 18 22 14 Rate Blood Pressure 142/54 124/82 (mmHg) O2 Sat by Pulse 98 100 96 Oximetry 11/21/17 11/21/17 11/21/17 10:47 10:50 10:55 Temperature Pulse Rate 110 82 71 Respiratory 23 18 26 Rate Blood Pressure 130/69 131/78 134/79 (mmHg) O2 Sat by Pulse 96 100 82 Oximetry 11/21/17 11/21/17 11/21/17 11:00 11:05 11:15 Temperature Pulse Rate 71 68 68 Respiratory 16 16 Rate Blood Pressure 133/82 121/74 111/71 (mmHg) O2 Sat by Pulse 99 99 99 Oximetry 11/21/17 11/21/17 11/21/17 11:30 11:45 12:00 Temperature Pulse Rate 71 71 68 Respiratory 18 19 18 Rate Blood Pressure 113/75 107/83 128/73 (mmHg) O2 Sat by Pulse 94 96 99 Oximetry 11/21/17 11/21/17 11/21/17 12:15 12:30 12:45 Temperature Pulse Rate 71 66 67 Respiratory 19 16 16 Rate Blood Pressure 134/88 118/74 119/79 (mmHg) O2 Sat by Pulse 100 100 99 Oximetry 11/21/17 11/21/17 11/21/17 13:00 13:01 13:07 Temperature Pulse Rate 66 73 Respiratory 15 18 Rate Blood Pressure 120/73 140/76 (mmHg) O2 Sat by Pulse 99 100 Oximetry 11/21/17 11/21/17 11/21/17 13:15 13:28 13:31 Temperature Pulse Rate 65 66 72 Respiratory 15 17 17 Rate Blood Pressure 121/86 119/71 (mmHg) O2 Sat by Pulse 100 97 99 Oximetry 11/21/17 11/21/17 11/21/17 13:45 14:00 14:15 Temperature Pulse Rate 65 68 68 Respiratory 17 17 18 Rate Blood Pressure 130/79 140/86 131/81 (mmHg) O2 Sat by Pulse 99 100 100 Oximetry 11/21/17 11/21/17 14:21 15:11 Temperature 97.0 F Pulse Rate 67 84 Respiratory 17 Rate Blood Pressure 135/90 (mmHg) O2 Sat by Pulse 100 99 Oximetry Oxygen Devices in Use Now: None Appearance: NAD Eyes: No Scleral Icterus, PERRLA Ears/Nose/Mouth/Throat: NL Teeth, Lips, Gums, Mucous Membranes Moist Neck: NL Appearance and Movements; NL JVP, Trachea Midline Respiratory: Symmetrical Chest Expansion and Respiratory Effort, Clear to Auscultation, - - somewhat distant lung sounds. Cardiovascular: - - irregularly irregular, rate controlled. no m/r/g Extremities: No Edema, No Clubbing, Cyanosis Skin: No Rash or Ulcers, No Nodules or Sclerosis Neurological: Alert and Oriented x 3, NL Sensation, NL Muscle Strength and Tone Result Diagrams: 11/21/17 05:55 11/21/17 05:55 Additional Lab and Data: Laboratory Results - last 24 hr 11/20/17 11/20/17 11/20/17 19:18 19:18 19:18 WBC RBC Hgb Hct MCV MCH MCHC RDW Plt Count MPV Neut % (Auto) Lymph % (Auto) Curry % (Auto) Eos % (Auto) Baso % (Auto) Absolute Neuts (auto) Absolute Lymphs (auto) Absolute Monos (auto) Absolute Eos (auto) Absolute Basos (auto) Absolute Nucleated RBC Nucleated RBC % INR (Anticoag Therapy) 1.20 H APTT 29.4 D-Dimer, Quantitative 230 Sodium 135 Potassium 3.9 Chloride 103 Carbon Dioxide 22 Anion Gap 10 BUN 27 H Creatinine 0.96 H Est GFR ( Amer) 74.1 Est GFR (Non-Af Amer) 57.6 BUN/Creatinine Ratio 28.1 H Glucose 98 Lactic Acid Calcium 9.4 Magnesium 2.4 Total Bilirubin 0.60 AST 17 ALT 14 Alkaline Phosphatase 78 Total Creatine Kinase 83 CK-MB (CK-2) 2.4 Troponin I 0.01 B-Natriuretic Peptide 281 H Total Protein 7.3 Albumin 4.3 Globulin 3.0 Albumin/Globulin Ratio 1.4 TSH 3.50 Urine Color Urine Appearance Urine pH Ur Specific [place] Urine Protein Urine Ketones Urine Blood Urine Nitrate Urine Bilirubin Urine Urobilinogen Ur Leukocyte Esterase Urine WBC (Auto) Urine RBC (Auto) Ur Squamous Epith Cells Urine Bacteria Urine Glucose 11/20/17 11/20/17 11/20/17 19:18 19:18 20:15 WBC 9.8 RBC 4.54 Hgb 13.3 Hct 39 MCV 86 MCH 29 MCHC 34 RDW 14 Plt Count 292 MPV 9 Neut % (Auto) 48.2 Lymph % (Auto) 37.9 Curry % (Auto) 8.5 Eos % (Auto) 4.5 Baso % (Auto) 0.9 Absolute Neuts (auto) 4.7 Absolute Lymphs (auto) 3.7 Absolute Monos (auto) 0.8 Absolute Eos (auto) 0.4 Absolute Basos (auto) 0.1 Absolute Nucleated RBC 0 Nucleated RBC % 0.1 INR (Anticoag Therapy) APTT D-Dimer, Quantitative Sodium Potassium Chloride Carbon Dioxide Anion Gap BUN Creatinine Est GFR ( Amer) Est GFR (Non-Af Amer) BUN/Creatinine Ratio Glucose Lactic Acid 1.7 Calcium Magnesium Total Bilirubin AST ALT Alkaline Phosphatase Total Creatine Kinase CK-MB (CK-2) Troponin I B-Natriuretic Peptide Total Protein Albumin Globulin Albumin/Globulin Ratio TSH Urine Color Straw Urine Appearance Clear Urine pH 6.0 Ur Specific [place] 1.005 L Urine Protein Negative Urine Ketones Negative Urine Blood 1+ H Urine Nitrate Negative Urine Bilirubin Negative Urine Urobilinogen Negative Ur Leukocyte Esterase Negative Urine WBC (Auto) Trace(0-5/hpf) Urine RBC (Auto) Trace(0-2/hpf) Ur Squamous Epith Cells Present H Urine Bacteria Absent Urine Glucose Negative 11/20/17 11/21/17 11/21/17 22:56 01:35 05:55 WBC 6.1 RBC 3.84 L Hgb 11.2 L Hct 33 L MCV 86 MCH 29 MCHC 34 RDW 15 Plt Count 242 MPV 9 Neut % (Auto) 54.8 Lymph % (Auto) 28.7 Curry % (Auto) 8.7 Eos % (Auto) 6.9 H Baso % (Auto) 0.9 Absolute Neuts (auto) 3.3 Absolute Lymphs (auto) 1.7 Absolute Monos (auto) 0.5 Absolute Eos (auto) 0.4 Absolute Basos (auto) 0.1 Absolute Nucleated RBC 0 Nucleated RBC % 0 INR (Anticoag Therapy) APTT D-Dimer, Quantitative Sodium Potassium Chloride Carbon Dioxide Anion Gap BUN Creatinine Est GFR ( Amer) Est GFR (Non-Af Amer) BUN/Creatinine Ratio Glucose Lactic Acid Calcium Magnesium Total Bilirubin AST ALT Alkaline Phosphatase Total Creatine Kinase CK-MB (CK-2) Troponin I 0.01 0.01 B-Natriuretic Peptide Total Protein Albumin Globulin Albumin/Globulin Ratio TSH Urine Color Urine Appearance Urine pH Ur Specific [place] Urine Protein Urine Ketones Urine Blood Urine Nitrate Urine Bilirubin Urine Urobilinogen Ur Leukocyte Esterase Urine WBC (Auto) Urine RBC (Auto) Ur Squamous Epith Cells Urine Bacteria Urine Glucose 11/21/17 05:55 WBC RBC Hgb Hct MCV MCH MCHC RDW Plt Count MPV Neut % (Auto) Lymph % (Auto) Curry % (Auto) Eos % (Auto) Baso % (Auto) Absolute Neuts (auto) Absolute Lymphs (auto) Absolute Monos (auto) Absolute Eos (auto) Absolute Basos (auto) Absolute Nucleated RBC Nucleated RBC % INR (Anticoag Therapy) APTT D-Dimer, Quantitative Sodium 137 Potassium 4.2 Chloride 110 Carbon Dioxide 22 Anion Gap 5 BUN 19 Creatinine 0.81 Est GFR ( Amer) 90.2 Est GFR (Non-Af Amer) 70.1 BUN/Creatinine Ratio 23.5 H Glucose 100 Lactic Acid Calcium 8.2 L Magnesium Total Bilirubin AST ALT Alkaline Phosphatase Total Creatine Kinase CK-MB (CK-2) Troponin I 0.01 B-Natriuretic Peptide Total Protein Albumin Globulin Albumin/Globulin Ratio TSH Urine Color Urine Appearance Urine pH Ur Specific [place] Urine Protein Urine Ketones Urine Blood Urine Nitrate Urine Bilirubin Urine Urobilinogen Ur Leukocyte Esterase Urine WBC (Auto) Urine RBC (Auto) Ur Squamous Epith Cells Urine Bacteria Urine Glucose Assess/Plan/Problems-Billing Assessment: 67 yo female PMH TIA, HTN, 30 years former smoker, uterine cancer, recent Afib RVR requiring 2 cardioversions, on xarelot p/w Afib RVR. now s/p cardioversion. Amio started. Stress test planned. - Patient Problems (1) Atrial fibrillation Current Visit: No Status: Acute Code(s): I48.91 - UNSPECIFIED ATRIAL FIBRILLATION SNOMED Code(s): 78621392 Comment: s/p dilt gtt. appreciate cardiology recs s/p BARBARA cardioversion today 11/21. Dr. Nuno recommended starting amio 200mg po BID and lower cardizem to 30mg q8.(of note outpatient was 180 ER) continue xarelto replete lytes prn. telemetry (2) HTN (hypertension) Current Visit: No Status: Acute Code(s): I10 - ESSENTIAL (PRIMARY) HYPERTENSION SNOMED Code(s): 11691472 Comment: cardizem (3) Shortness of breath Current Visit: No Status: Acute Code(s): R06.02 - SHORTNESS OF BREATH SNOMED Code(s): 329506949 Comment: / Afib w/ RVR. BARBARA with pEF planned nuclear stress test 11/22 (4) TIA (transient ischemic attack) Current Visit: No Status: Chronic Comment: Continue ASA. Seemingly no longer on statin, no lipid panel in our system. Status and Disposition: medicine inpatient, transfer from ICU. Likely d/c 2/5 after stress test. Attending: Paxton Escamilla
[2017-11-21] MEDS ORDERED: Diltiazem TAB* 30 MG PO SCH (17:30)
[2017-11-21] MEDS: Diltiazem TAB* 30 MG PO SCH (22:04)
--- NOTE | 2017-11-22 00:04 | CARD ---
CC: Dr. Escamilla; Hospitalist Service; Dr. Cavazos. * DIRECT CURRENT CARDIOVERSION: DATE OF PROCEDURE: 11/21/17 - ROOM #446 HISTORY: The patient is a 67-year-old who is hospitalized with symptomatic rapid atrial fibrillation. Of note, this October 2017, she had BARBARA-guided cardioversion for atrial fibrillation successfully. Cardioversion was further requested to convert her to normal sinus rhythm. She has been maintained regularly on Eliquis 5 mg twice a day', last dose was this morning. After reviewing her labs and after informed consent had been obtained with continuous blood pressure, pulse oximetry and heart rate monitoring, the patient did receive Versed 4 mg intravenously and 50 mcg of fentanyl intravenously. Direct current cardioversion was done at the bedside in the intensive care unit. Synchronized 200 joules were delivered once and successfully converted the patient to normal sinus rhythm. There were no complications. The patient tolerated the procedure very well. Immediate EKG confirmed the patient to be in normal sinus rhythm. CONCLUSION: Successful direct current cardioversion for atrial fibrillation. The patient is in normal sinus rhythm. There were no complications. [id number]/[facility] #: [id number] [facility]
[2017-11-22] MEDS: Diltiazem TAB* 30 MG PO SCH ×2 (05:47→13:40)
[2017-11-22] MEDS ORDERED: Regadenoson* 0.4 MG/5 ML SYRINGE ONE (10:21)
[2017-11-22] MEDS ORDERED: Aminophylline IV* 25 MG/ML 10 ML VIAL ONE (10:21)
--- NOTE | 2017-11-22 12:44 | RAD ---
Edited for charges. INDICATION: Atrial fibrillation and shortness of breath. COMPARISON: There are no prior studies available for comparison. Technique: A single day myocardial perfusion stress study was performed. Initially the resting study was performed. The patient was given an intravenous injection of 10.7 mCi of technetium 99m tetrofosmin and and the heart was imaged in multiple projections. The patient returned later in the day and under the direction of Dr. Calvillo, the patient was given intervenous injection of Lexiscan. Subsequently the patient was given intravenous injection of 25.8 mCi of technetium 99m tetrofosmin and the heart was imaged in multiple projections. Images were reconstructed in the axial, sagittal and coronal planes and in a 3- D format. FINDINGS: There appears to be a mild hypokinesis which is most prominent in the septum and apex.. The left ventricular ejection fraction is calculated to be 53%.. No focal myocardial perfusion defects are seen after pharmacologic stress or on the resting data set. There is no evidence for infarct or ischemia. IMPRESSION: 1. NO EVIDENCE FOR INFARCT OR ISCHEMIA. 2. DECREASED EJECTION FRACTION. ASSESSMENT: Low risk. Based on imaging criteria from ACC/AHA 2002 Guideline Update for the Management of Patients With Chronic Stable Angina Table 23. Noninvasive Risk Stratification. MTDD
[2017-11-22] MEDS: Amiodarone TAB* 200 MG PO SCH (13:40)
[2017-11-22] MEDS: Aspirin EC Low Dose* 81 MG TAB.EC PO SCH (13:40)
[2017-11-22] MEDS: Apixaban* 5 MG TAB PO SCH (13:40)
[2017-11-22] MEDS ORDERED: Diltiazem IV* 5 MG/ML 5 ML VIAL (for loading dose/IV Push) (25 MG) IV SLOW PU ONE (13:41)
[2017-11-22 16:15] VITALS: BP 120/77
--- NOTE | 2017-11-23 18:07 | DS ---
DISCHARGE SUMMARY: DATE OF ADMISSION: 11/20/17 DATE OF DISCHARGE: 11/22/17 ADMITTING PROVIDER: James Hagen NP ATTENDING PHYSICIAN: Paxton Escamilla MD CONSULTING MANAGER WHOLESALE: Dr. Nuno. PRIMARY CARE PHYSICIAN: Dr. Cavazos. CHIEF COMPLAINT: Dyspnea on exertion. PRINCIPAL DIAGNOSIS: Atrial fibrillation with rapid ventricular response, status post cardioversion. HISTORY OF PRESENT ILLNESS AND HOSPITAL COURSE: Mrs. Ibarra is a 67-year-old female with past medical history of atrial fibrillation, on Eliquis (recently diagnosed), TIA, hyperlipidemia, uterine cancer, hypertension, who presents with dyspnea on exertion. She was recently discharged on 11/05/17 and had an episode of new AFib with RVR at that time, required cardioversion x2 with Dr. Nuno. She was started on Eliquis at that time and was discharged with diltiazem extended release 120 mg daily, had followed up with her primary care physician Dr. Cavazos, who had increased the dose to 180 mg daily when she was found to be in recurrent AFib in his office and she had scheduled followup appointments with Dr. Foss of [facility], but had not attended that. She presents with same shortness of breath walking 10 to 15 feet and on day of admission was severe even at rest. She had intermittent chest discomfort that lasts minutes to seconds at the center of her chest, extending to the right shoulder and over her left shoulder, which was nonexertional. She denied any feelings of palpitations, weight gain. Upon presentation to [facility], she was found to be in AFib with RVR and was started on a diltiazem drip, this was weaned to 5 mg an hour by the time she got to the ICU and transitioned to oral medications by hospital day #2. Dr. Nuno, Cardiology performed a BARBARA cardioversion that day, but by the nighttime she had reverted back to atrial fibrillation, but with controlled rates, suggested starting amiodarone 200 mg twice a day after the BARBARA cardioversion, which was done. She was improved, but did wake up in the middle of night short of breath. She had a nuclear stress test, which showed on day of discharge, that showed no signs of ischemia was low risk study. She had another episode of RVR that was controlled with additional diltiazem. She is being discharged with both the amiodarone, new medication and the diltiazem 180 mg once a day. She would like to follow up with Dr. Nuno. Of note, she did have a negative troponin of 0.01 x4 during the admission. DISCHARGE MEDICATIONS: Include: 1. Albuterol inhaler 1 puff inhaled q.4 hours. 2. Amiodarone 200 mg p.o. b.i.d. 3. Apixaban (Eliquis) 5 mg p.o. b.i.d. 4. Aspirin 81 mg p.o. daily. 5. Calcium carbonate 600 mg p.o. daily. 6. Cholecalciferol 400 units p.o. daily. 7. Flexeril 5 mg p.o. b.i.d. 8. Diltiazem 180 mg p.o. daily. 9. Vitamin E capsule 400 units p.o. daily. DISCHARGE DIET: Heart-healthy. ACTIVITY LEVEL: No restrictions. FOLLOWUP: Please follow up with Dr. Cavazos on 11/26/17 at 2:40 p.m. and call to follow up with Dr. Nuno within 1 to 2 weeks. TIME SPENT: On discharge 40 minutes. [id number]/[facility] #: [id number] MTDIsidro
== END 2017-11-22 16:55 | disposition home or self-care (01) | DRG 310 ==
LOC: ED 19:06 → ICU 20:40 → MEDTELE 11-21 15:02
PROVIDERS: ADMIT Hospitalist; ATTEND Internal Medicine
PROC: 5A2204Z Restoration of Cardiac Rhythm, Single (ICD-10-PCS; principal; 2017-11-21)
PROC: 4A12XM4 Monitoring of Cardiac Stress, External Approach (ICD-10-PCS; 2017-11-22)
DX: I48.91 Unspecified atrial fibrillation (principal); D64.9 Anemia, unspecified; E66.9 Obesity, unspecified; E78.5 Hyperlipidemia, unspecified; G43.909 Migraine, unspecified, not intractable, without status migrainosus; F15.90 Other stimulant use, unspecified, uncomplicated; I10 Essential (primary) hypertension; J42 Unspecified chronic bronchitis; Z96.653 Presence of artificial knee joint, bilateral; Z96.611 Presence of right artificial shoulder joint; Z66 Do not resuscitate; I34.0 Nonrheumatic mitral (valve) insufficiency; Z96.642 Presence of left artificial hip joint; Z88.0 Allergy status to penicillin; Z88.8 Allergy status to other drugs, medicaments and biological substances; Z88.6 Allergy status to analgesic agent; Z88.1 Allergy status to other antibiotic agents; Z91.030 Bee allergy status; Z86.73 Personal history of transient ischemic attack (TIA), and cerebral infarction without residual deficits; Z86.14 Personal history of Methicillin resistant Staphylococcus aureus infection; Z82.49 Family history of ischemic heart disease and other diseases of the circulatory system; Z87.891 Personal history of nicotine dependence; Z90.710 Acquired absence of both cervix and uterus; Z85.42 Personal history of malignant neoplasm of other parts of uterus; Z82.3 Family history of stroke; Z68.38 Body mass index [BMI] 38.0-38.9, adult; Z79.82 Long term (current) use of aspirin; Z79.01 Long term (current) use of anticoagulants
CPT/HCPCS: 36415; 71045; 78452; 80048; 80053; 81003; 81015; 82550; 82553; 83605; 83735; 83880; 84443; 84484; 85025; 85379; 85610; 85730; 93005; 93017; 96374; 99285; A9270-GY; A9502; J0280; J2250; J2785; J3010

== ENCOUNTER 2018-03-28 09:11 | Observation (INO) | payer MEDICARE ==
[2018-03-28] MEDS ORDERED: Saline FLUSH-PERIPHERAL* 10 ML SYRINGE PERIPH SCH (10:00)
[2018-03-28] MEDS ORDERED: Albuterol HFA INHALER* 8 gm MDI INH PRN (10:01)
[2018-03-28] MEDS ORDERED: Dofetilide CAP* 500 MCG PO SCH (11:00)
[2018-03-28 11:22] LABS: ABS Basophils 0 10^3/ul (0-0.2); ABS Eosinophils 0.2 10^3/ul (0-0.6); ABS Lymphocytes 1.1 10^3/ul (1.0-4.8); ABS Monocytes 0.6 10^3/ul (0-0.8); ABS Neutrophils 2.4 10^3/ul (1.5-7.7); ABS Nucleated RBC 0 10^3/ul; Eosinophil % 4.8 % (0-6); Hematocrit 37 % (35-47); Hemoglobin 11.8 g/dl (12.0-16.0); Lymphocyte % 24.9 % (25-47); Mean Corpuscular HGB Conc 32 g/dl (31-36); Mean Corpuscular Hemoglobin 27 pg (27-31); Mean Corpuscular Volume 85 fL (80-97); Nucleated Red Blood Cells % 0.1; Platelet Count 178 10^3/ul (150-450); Red Blood Count 4.32 10^6/ul (4.00-5.40); Red Cell Distribution Width 16 % (10.5-15); White Blood Count 4.3 10^3/ul (3.5-10.8)
[2018-03-28 11:39] LABS: EGFR Non-African American 43.3 (>60)
[2018-03-28 13:11] VITALS: BP 102/64
[2018-03-28] MEDS ORDERED: Apixaban* 5 MG TAB PO SCH (21:00)
[2018-03-29] MEDS ORDERED: Diltiazem CD CAP* 180 MG PO SCH (09:00)
[2018-03-29] MEDS ORDERED: Aspirin EC TAB* 81 MG TAB.EC PO SCH (09:00)
[2018-03-29] MEDS ORDERED: Cholecalciferol TAB* 400 UNIT PO SCH (09:00)
--- NOTE | 2018-05-09 21:05 | HP ---
Amended report to correct date of admission. CC: Dr. Wong * ADMISSION HISTORY AND PHYSICAL AND DISCHARGE SUMMARY: DATE OF ADMISSION: 03/28/18 INDICATION FOR ADMISSION: Atrial fibrillation, Tikosyn initiation. HISTORY OF PRESENT ILLNESS: The patient is a 67-year-old female with a history of hypertension, paroxysmal atrial fibrillation, uterine cancer, sleep apnea, who has been seen by Dr. Gudelia ojeda at Electrophysiology Department at [facility]. At that time, the decision was not to pursue ablative therapy, but consider initiation for Tikosyn. The patient was brought to the hospital for initiation of Tikosyn. PAST MEDICAL HISTORY: Significant for: 1. Hypertension. 2. Obesity. 3. Paroxysmal atrial fibrillation. 4. TIA. 5. Uterine cancer. 6. Sleep apnea. PAST SURGICAL HISTORY: 1. Hysterectomy. 2. Hip arthroscopy on the right. 3. Bilateral knee replacements. OUTPATIENT MEDICATIONS: 1. Atenolol 25 mg q.h.s. 2. ProAir H inhaler. 3. Eliquis 5 mg b.i.d. 4. Aspirin 81 mg a day. 5. Calcium tablets. 6. Cardizem CD 180 mg daily. ALLERGIES: PENICILLIN, CODEINE, LASIX, VANCOMYCIN. FAMILY HISTORY: She was just recently . She has 1 daughter. She works at [employer] She is a former smoker, quit in 1996. Rare alcohol intake. She tries to walk daily. She drinks decaffeinated coffee. PHYSICAL EXAMINATION VITAL SIGNS: Height is 5 feet 2 inches, weight 215 pounds, heart rate is 90 and irregular, blood pressure 126/78, respiratory rate is 16, oxygen saturation 97% on room air. HEENT: Sclerae are anicteric. Oropharynx is pink without erythema. NECK: Carotids are 2+ without bruits. JVD is low normal. Thyroid is normal. LUNGS: Clear. There is no rhonchi or rales. CARDIAC EXAM: Irregular S1, S2 without any murmurs, rubs, or gallops. PMI is normal. ABDOMEN: Obese, soft, nontender, nondistended with normoactive bowel sounds. EXTREMITIES: Show no edema. She has 2+ pulses throughout. NEURO: The patient is awake and alert and oriented. She moves all 4 extremities equally. DIAGNOSTIC STUDIES/LABORATORY DATA: Her EKG demonstrates atrial fibrillation with a heart rate of 83. Her corrected QT interval is 472 msec. CBC at the time of admission was normal. White count was 4.3, hemoglobin 12, hematocrit 37, platelet count 178. Chemistries were within normal limits. Potassium 3.7, BUN 15, creatinine 1.25. IMPRESSION: This is a 67-year-old female with a history of persistent atrial fibrillation, who has been admitted to the hospital for Tikosyn initiation. Because of the patient's mildly elevated creatinine level and her already prolonged QT interval, the decision was made to not initiate Tikosyn therapy. The patient has an appointment with Dr. Felipa ojeda at [facility] for further evaluation of her atrial fibrillation. DISCHARGE SUMMARY: The patient will be discharged home on her usual medications. No changes have been made. She will continue on anticoagulation. The patient will follow up with Dr. Wong and Dr. Leo in the near future. [id number]/[facility] #: [id number] MTDD
== END 2018-03-28 16:13 | disposition home or self-care (01) ==
LOC: MEDTELE 09:12 → INTOOBSV 09:12
PROVIDERS: ADMIT Specialist; ATTEND Specialist
DX: I50.9 Heart failure, unspecified (principal); I10 Essential (primary) hypertension; E66.9 Obesity, unspecified; I48.0 Paroxysmal atrial fibrillation; G45.9 Transient cerebral ischemic attack, unspecified; Z85.42 Personal history of malignant neoplasm of other parts of uterus; G47.30 Sleep apnea, unspecified; Z79.82 Long term (current) use of aspirin
CPT/HCPCS: 36415; 80048; 83735; 85025; 93005; A9270-GY; G0378

== ENCOUNTER 2018-03-31 07:03 | Emergency (ER) | payer MEDICARE ==
[2018-03-31 07:30] VITALS: BP 93/72
[2018-03-31] MEDS ORDERED: Albuterol/Ipratropium NEB.SOL* Albuterol 2.5 MG/Ipratropium 0.5 MG 3 ML INH ONE (08:10)
--- NOTE | 2018-03-31 08:13 | UC ---
Telma Andrade Tenzin, scribed for Loni Puckett MD on 03/31/18 at 0812 . General HPI - HPI Summary HPI Summary: Pt is a 67 years old female presenting to the complaining of sore throat since one week ago. She is also complaining of cough productive of green and yellow sputum and bilateral leg swelling has increased. She rates her pain 9/10 in severity and describes it as aching pain. Pt denies fever, chills, vomiting and nausea. No aggravating and alleviating factors were noted during today's visit. Pt does have inhalers, but does not use them. + sick contact. no fevers. + fatigue. no chest pain. She does not smoke and drinks occasionally. She is on a blood thinner. Pt's medications reviewed this visit - History of Current Complaint Chief Complaint: UCGeneralIllness Stated Complaint: SORE THROAT Time Seen by Provider: 03/31/18 07:44 Hx Obtained From: Patient Onset/Duration: Gradual Onset Pain Intensity: 8 Associated Signs & Symptoms: Positive: Cough, Other - NEGATIVE: CHILLS. Negative: Fever, Vomiting - Allergy/Home Medications Allergies/Adverse Reactions: Allergies Allergy/AdvReac Type Severity Reaction Status Date / Time codeine Allergy Severe Anaphylatic Verified 03/31/18 07:20 Shock Penicillins Allergy Severe Anaphylatic Verified 03/31/18 07:20 Shock venom-honey bee Allergy Severe Anaphylatic Verified 03/31/18 07:20 Shock nitroglycerin Allergy Intermediate Hives Verified 03/31/18 07:20 latex Allergy Mild Rash Verified 03/31/18 07:20 vancomycin Allergy Mild Pain Verified 03/31/18 07:20 nitrofurantoin Allergy Hives Verified 03/31/18 07:20 [From Macrodantin] aspirin AdvReac Intermediate GI Upset Verified 03/31/18 07:20 PMH/Surg Hx/FS Hx/Imm Hx - Additional Past Medical History Additional PMH: NEGATIVE: CVA. Previously Healthy: No Endocrine History: Dyslipidemia Cardiovascular History: Hypertension, Congestive Heart Failure, Atrial Fibrillation - Surgical History Surgical History: Yes Surgery Procedure, Year, and Place: Breast Reduction, Bilat Knee Replacement, Right Shoulder Replacement, Appendectomy, Hysterectomy, Left Hip replacement - Family History Known Family History: Positive: Cardiac Disease, Hypertension, Other Family History: [place] - sister, mother, father - Social History Occupation: Unemployed Lives: With Family Alcohol Use: Rare Alcohol Amount: once a year Substance Use Type: None Substance Use Comment - Amount & Last Used: 8-10 cups/day Smoking Status (MU): Former Smoker Type: Cigarettes Amount Used/How Often: 1 pack per week Length of Time of Smoking/Using Tobacco: 9 years Have You Smoked in the Last Year: No - Immunization History Most Recent Influenza Vaccination: 20-30 years ago Most Recent Tetanus Shot: 15-20 years Most Recent Pneumonia Vaccination: 10 years ago Review of Systems Constitutional: Negative Skin: Negative Eyes: Negative ENT: Sore Throat Respiratory: Cough Cardiovascular: Negative Gastrointestinal: Negative Genitourinary: Negative Motor: Negative Neurovascular: Negative Musculoskeletal: Negative Neurological: Negative Psychological: Negative All Other Systems Reviewed And Are Negative: Yes Physical Exam - Summary Physical Exam Summary: . Vital Signs Reviewed: Yes A+Ox3, no distress Eyes: Conjunctiva Clear, ALESSIO. EOM intact and full ENT: Hearing grossly normal TM x 2 clear, mmoist, uvula midline, no exudate, mild erythema Neck: Positive: Supple Respiratory: Positive: _ scattered wheeze, + coarse cough, No respiratory distress, No accessory muscle use Cardiovascular: RRR nl s1, s2 no m/r CBT <2 sec trace edema LE abd soft + BS nt/nd no guarding, no distension Musculoskeletal Exam: MARIN x 4 without difficulty Strength Intact, ROM Intact Neurological: Positive: Alert, + sensation throughout Psychological: Positive: Normal Response To Family Skin: Positive: no rash, no ecchymosis Triage Information Reviewed: Yes Vital Signs: Initial Vital Signs Temp 98.8 F 03/31/18 07:24 Pulse 82 03/31/18 07:24 Resp 22 03/31/18 07:24 BP 93/72 03/31/18 07:24 Pulse Ox 99 03/31/18 07:24 Diagnostics - Radiology CHEST X RAY Radiology Interpretation Completed By: Radiologist - IMPRESSION: NO ACTIVE CARDIOPULMONARY DISEASE. Re-Evaluation - Re-Evaluation First Eval Re-Evaluation Time: 09:08 Change: Improved - Pt reports that she feels better. wheezing resolved Will rx abx, pred, albuterol pcp recheck return precaution secretion precaution Course/Dx - Course Course Of Treatment: Pt with progressive congestion, cough, wheeze and sore throat x 1 week. Pt has spirivia and albtuerol - not using. Pt with scattered wheeze and cough on exam. will check strep. neb. cxr. reassess - Differential Dx - Multi-Symptom Provider Diagnoses: acute bronchitis Discharge - Sign-Out/Discharge Documenting (check all that apply): Discharge/Admit/Transfer - Discharge Plan Condition: Stable Disposition: HOME Prescriptions: DOXYcycline CAP(*) [DOXYcycline 100MG CAP(*)] 100 mg PO BID #14 cap predniSONE [Prednisone 20 MG TAB] 40 mg PO DAILY #10 tablet Patient Education Materials: Acute Bronchitis (ED) Referrals: Ml Houston MD [Primary Care Provider] - Additional Instructions: - Okay to alternate ibuprofen (Advil, Motrin) and Tylenol every 3 hours for pain. Take with food. Do NOT take for more than 4-5 days - Stay well hydrated - frequent sips of cold fluids will be soothing to your throat (popsicles, jello, ice cream, ice water). Avoid excess caffeine until your symptoms have resolved. - Do not share eating, drinking utensils. Throw out your toothbrush when your symptoms resolved -- Take antibiotics exactly as prescribed until gone -Use your albuterol puffer - 2 puffs ever 4- hours for the next 2 days - then as needed -Stay well hydrated - avoid excess caffeine and all alcohol - eat regular, healthy meals -Contact your doctor to arrange a follow-up appointment early next week. Call your doctor or go to the emergency department with any questions or concerns - Billing Disposition and Condition Condition: STABLE Disposition: Home The documentation as recorded by the Telma sheffield Tenzin accurately reflects the service I personally performed and the decisions made by , Loni Puckett MD.
--- NOTE | 2018-03-31 08:38 | RAD ---
HISTORY: cough, green sputum, wheeze h/o CHF COMPARISONS: January 23, 2018 VIEWS: 4: Frontal dual-energy and lateral views of the chest. FINDINGS: CARDIOMEDIASTINAL SILHOUETTE: The aorta is tortuous. The cardiomediastinal silhouette is otherwise unremarkable. RADHA: The radha are normal. PLEURA: The costophrenic angles are sharp. No pleural abnormalities are noted. LUNG PARENCHYMA: The lungs are clear. ABDOMEN: The upper abdomen is clear. There is no subphrenic gas. BONES AND SOFT TISSUES: The patient is status post right shoulder arthroplasty. OTHER: None. IMPRESSION: NO ACTIVE CARDIOPULMONARY DISEASE.
== END 2018-03-31 09:18 | disposition home or self-care (01) ==
LOC: UCEAST 07:03
DX: J20.9 Acute bronchitis, unspecified (principal); M79.89 Other specified soft tissue disorders; I10 Essential (primary) hypertension; Z88.0 Allergy status to penicillin; Z88.5 Allergy status to narcotic agent; Z91.030 Bee allergy status; Z91.040 Latex allergy status; Z88.1 Allergy status to other antibiotic agents; Z88.8 Allergy status to other drugs, medicaments and biological substances; Z88.6 Allergy status to analgesic agent; Z96.653 Presence of artificial knee joint, bilateral; Z96.642 Presence of left artificial hip joint; Z96.611 Presence of right artificial shoulder joint; Z87.891 Personal history of nicotine dependence
CPT/HCPCS: 71046; 87651; 99212; A9270-GY; G0463

== ENCOUNTER 2018-07-10 01:08 | Emergency (ER) | payer MEDICARE ==
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
[2018-07-10] MEDS ORDERED: methylPREDNISolone 125 MG* 2 ML VIAL IV ONE (01:32)
[2018-07-10] MEDS ORDERED: Albuterol 2.5 MG/3 ML NEB.SOL* (0.083%) INH ONE (01:33)
--- NOTE | 2018-07-10 01:36 | ED ---
Shortness of Breath - HPI Summary HPI Summary: This is scribe Lyle Escobar documenting for attending Dr. Bradley Wen MD. This patient is a 68 year old F presenting to [facility] accompanied by a male with a chief complaint of worsening SOB since 23:00. Symptoms alleviated by position. Patient reports difficulty ambulating, vomiting, lightheadedness, dry- heaving, nausea, wheezing, cough, and edema of the ankles. Patient denies asthma , COPD, fever, cough, CP, or abd pain. Last hospitalized in February for CHF in [facility]. Pt felt weak after leaving, she was on her honeymoon. 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 Pt was sick with a cold before work, but after getting to work (tonight) she became increasingly ill. PMHx Afibd, CHF. SHx former smoker. I, Dr. Wen, personally performed the services described in this documentation as scribed in my presence and it is both accurate and complete. - History of Current Complaint Chief Complaint: EDShortnessOfBreath Time Seen by Provider: 07/10/18 01:23 Hx Obtained From: Patient Onset/Duration: Sudden Onset, Lasting Hours - 2 Timing: Constant Current Severity: Severe Dyspnea At: Rest Aggrevating Factors: Movement, Deep Breaths Associated Signs & Symptoms: Cough (Nonproductive), Wheezing, Edema - Allergy/Home Medications Allergies/Adverse Reactions: Allergies Allergy/AdvReac Type Severity Reaction Status Date / Time codeine Allergy Severe Anaphylatic Verified 05/04/18 10:28 Shock Penicillins Allergy Severe Anaphylatic Verified 05/04/18 10:28 Shock venom-honey bee Allergy Severe Anaphylatic Verified 05/04/18 10:28 Shock nitroglycerin Allergy Intermediate Hives Verified 05/04/18 10:28 latex Allergy Mild Rash Verified 05/04/18 10:28 vancomycin Allergy Mild Pain Verified 05/04/18 10:28 nitrofurantoin Allergy Hives Verified 05/04/18 10:28 [From Macrodantin] aspirin AdvReac Intermediate GI Upset Verified 05/04/18 10:28 PMH/Surg Hx/FS Hx/Imm Hx Endocrine/Hematology History: Reports: Hx Thyroid Disease Denies: Hx Diabetes Cardiovascular History: Reports: Hx Angina, Hx Atrial Fibrillation, Hx Congestive Heart Failure, Hx Hypercholesterolemia, Hx Hypertension, Other Cardiovascular Problems/Disorders - tia 2008 Denies: Hx Pacemaker/ICD Respiratory History: Reports: Hx Asthma, Hx Chronic Bronchitis, Hx Pneumonia, Other Respiratory Problems/Disorders - pneumonia 1 year ago Denies: Hx Chronic Obstructive Pulmonary Disease (COPD) GI History: Denies: Hx Ulcer History: Denies: Hx Renal Disease Musculoskeletal History: Reports: Hx Arthritis Denies: Hx Back Problems Sensory History: Reports: Hx Contacts or Glasses Denies: Hx Hearing Aid Opthamlomology History: Reports: Hx Contacts or Glasses Neurological History: Reports: Hx Migraine, Hx Transient Ischemic Attacks (TIA) - 2008 - Cancer History Cancer Type, Location and Year: Uterine cancer 15 + years ago - Surgical History Surgery Procedure, Year, and Place: Breast Reduction, Bilat Knee Replacement, Right Shoulder Replacement, Appendectomy, Hysterectomy, Left Hip replacement Hx Anesthesia Reactions: No Infectious Disease History: No Infectious Disease History: Reports: Hx of Known/Suspected MRSA Denies: Hx Hepatitis, Hx Human Immunodeficiency Virus (HIV), History Other Infectious Disease, Traveled Outside the [place] in Last 30 Days - Family History Known Family History: Positive: Cardiac Disease, Hypertension, Other Family History: [place] - sister, mother, father - Social History Alcohol Use: Rare Alcohol Amount: once a year Hx Substance Use: Yes Substance Use Type: Reports: None Substance Use Comment - Amount & Last Used: 8-10 cups/day Hx Tobacco Use: Yes Smoking Status (MU): Former Smoker Type: Cigarettes Amount Used/How Often: 1 pack per week Length of Time of Smoking/Using Tobacco: 9 years Have You Smoked in the Last Year: No Review of Systems Negative: Fever Positive: Nasal Discharge Negative: Chest Pain Positive: Shortness Of Breath, Cough. Negative: Other - asthma Positive: Vomiting, Nausea. Negative: Abdominal Pain Positive: Edema - LE, ankle Positive: Weakness All Other Systems Reviewed And Are Negative: Yes Physical Exam - Summary Physical Exam Summary: Appearance: Well-appearing, Well-nourished, lying in bed comfortably Skin: Warm, dry, no obvious rash Eyes: sclera anicteric, no conjunctival pallor ENT: mucous membranes moist, pharynx appears normal Neck: Supple, nontender Respiratory: Expiratory wheezing diffusely with moderately diminished aeration. Cardiovascular: Normal S1, S2. No murmurs. Normal distal pulses in tibial and radial bilaterally. Abdomen: Soft, nontender, normal active bowel sounds present Musculoskeletal: Strength/ROM Intact, pitting edema in the LEs Neurological: A&Ox3, awake and alert, mentation is normal, speech is fluent and appropriate Psychiatric: affect is normal, does not appear anxious or depressed Triage Information Reviewed: Yes Vital Signs On Initial Exam: Initial Vitals Temp Pulse Resp BP Pulse Ox 97.9 F 74 16 139/84 99 07/10/18 01:09 07/10/18 01:09 07/10/18 01:09 07/10/18 01:07/10/18 01:09 Vital Signs Reviewed: Yes Diagnostics - Vital Signs Vital Signs Temp Pulse Resp BP Pulse Ox 07/10/18 01:09 97.9 F 74 16 139/84 99 - Laboratory Result Diagrams: 07/10/18 01:42 07/10/18 01:42 Lab Statement: Any lab studies that have been ordered have been reviewed, and results considered in the medical decision making process. - Radiology CXR Radiology Interpretation Completed By: ED Physician - negative - EKG 02:06 Cardiac Rate: NL - 67 bpm EKG Rhythm: Sinus Rhythm EKG Interpretation: NSR 67 bpm, P waves, QRS complex, and T waves WTN. No ischemic changes. Course/Dx - Diagnoses Provider Diagnoses: COPD exacerbation Discharge - Sign-Out/Discharge Documenting (check all that apply): Patient Departure - discharge - Discharge Plan Condition: Improved Disposition: HOME Prescriptions: Albuterol HFA INHALER* [Ventolin HFA Inhaler*] 2 puff INH Q4H PRN #1 mdi PRN Reason: Wheezing DOXYcycline CAP(*) [DOXYcycline 100MG CAP(*)] 100 mg PO BID #20 cap predniSONE TAB* [Deltasone 20 MG TAB*] 40 mg PO DAILY 5 Days #10 tab Patient Education Materials: COPD (Chronic Obstructive Pulmonary Disease) (ED) , Chronic Lung Disease and Infection Prevention (ED) Forms: *Work Release Referrals: Ml Houston MD [Primary Care Provider] - - Attestation Statements Document Initiated by Scribe: Yes Documenting Scribe: Lyle Escobar Provider For Whom Scribe is Documenting (Include Credential): Bradley Wen MD Scribe Attestation: Lyle Andrade, igoribed for Bradley Wen MD on 07/10/18 at 0256.
[2018-07-10 01:56] LABS: ABS Basophils 0 10^3/ul (0-0.2); ABS Eosinophils 0.2 10^3/ul (0-0.6); ABS Lymphocytes 1.6 10^3/ul (1.0-4.8); ABS Monocytes 0.8 10^3/ul (0-0.8); ABS Neutrophils 4.9 10^3/ul (1.5-7.7); ABS Nucleated RBC 0 10^3/ul; Eosinophil % 3.1 % (0-6); Hematocrit 35 % (35-47); Hemoglobin 11.6 g/dl (12.0-16.0); Lymphocyte % 20.6 % (25-47); Mean Corpuscular HGB Conc 34 g/dl (31-36); Mean Corpuscular Hemoglobin 30 pg (27-31); Mean Corpuscular Volume 89 fL (80-97); Mean Platelet Volume 8.8 um3 (7.4-10.4); Nucleated Red Blood Cells % 0; Platelet Count 239 10^3/ul (150-450); Red Blood Count 3.88 10^6/ul (4.00-5.40); Red Cell Distribution Width 14 % (10.5-15); White Blood Count 7.6 10^3/ul (3.5-10.8)
[2018-07-10] MEDS ORDERED: DOXYcycline CAP(*) 100 MG PO ONE (02:41)
[2018-07-10 03:00] VITALS: BP 166/87
--- NOTE | 2018-07-10 09:35 | RAD ---
INDICATION: Shortness of breath. COMPARISON: Chest x-ray dated June 28, 2018 TECHNIQUE: PA and lateral views of the chest were obtained. FINDINGS: The heart and mediastinum are normal in size and contour. The lungs are grossly clear. There is no evidence of large pleural effusion. The right shoulder prosthesis is anatomically aligned. There is no radiographic evidence of free air beneath the diaphragm IMPRESSION: No radiographic evidence of acute cardiopulmonary disease. R0
== END 2018-07-10 02:54 | disposition home or self-care (01) ==
LOC: ED 01:08
DX: J44.1 Chronic obstructive pulmonary disease with (acute) exacerbation (principal); Z87.891 Personal history of nicotine dependence; Z88.5 Allergy status to narcotic agent; Z88.3 Allergy status to other anti-infective agents; Z88.8 Allergy status to other drugs, medicaments and biological substances
CPT/HCPCS: 36415; 71046; 80053; 83605; 83880; 84484; 85025; 87040; 93005; 96374; 99283; A9270-GY; J2930

== ENCOUNTER 2018-08-14 22:43 | Emergency (ER) | payer MEDICARE ==
--- NOTE | 2018-08-14 23:21 | ED ---
Back Pain - HPI Summary HPI Summary: A 68 y/o F presents to ED with c/o acute on chronic back pain worsening tonight. Associated sx: SOB onset May and worsening today; bilat pedal edema; nausea. Pt says she was barely able to finish her work shift at [employer]. Atraumatic back pain. PMHx: CHF, afib. Pt sees Dr. Wong, cardiology , but hasn't seen him in 3 months. Former smoker. - History of Current Complaint Chief Complaint: EDBackInjuryPain Stated Complaint: BACK PAIN/SOB Time Seen by Provider: 08/14/18 23:14 Hx Obtained From: Patient, Family/Gut Puller Onset/Duration: Gradual Onset, Lasting Hours, Still Present Onset/Duration: Started Hours Ago, Atraumatic, Still Present Timing: Constant Severity Currently: Severe Pain Intensity: 8 Pain Scale Used: 0-10 Numeric Associated Signs And Symptoms: Positive: Other - pos: SOB; bilat pedal edema; nausea. - Allergies/Home Medications Allergies/Adverse Reactions: Allergies Allergy/AdvReac Type Severity Reaction Status Date / Time codeine Allergy Severe Anaphylatic Verified 05/04/18 10:28 Shock Penicillins Allergy Severe Anaphylatic Verified 05/04/18 10:28 Shock venom-honey bee Allergy Severe Anaphylatic Verified 05/04/18 10:28 Shock nitroglycerin Allergy Intermediate Hives Verified 05/04/18 10:28 latex Allergy Mild Rash Verified 05/04/18 10:28 vancomycin Allergy Mild Pain Verified 05/04/18 10:28 nitrofurantoin Allergy Hives Verified 05/04/18 10:28 [From Macrodantin] aspirin AdvReac Intermediate GI Upset Verified 05/04/18 10:28 PMH/Surg Hx/FS Hx/Imm Hx Previously Healthy: No Endocrine/Hematology History: Reports: Hx Thyroid Disease Denies: Hx Diabetes Cardiovascular History: Reports: Hx Angina, Hx Atrial Fibrillation, Hx Congestive Heart Failure, Hx Hypercholesterolemia, Hx Hypertension, Other Cardiovascular Problems/Disorders - tia 2008 Denies: Hx Pacemaker/ICD Respiratory History: Reports: Hx Asthma, Hx Chronic Bronchitis, Hx Pneumonia, Other Respiratory Problems/Disorders - pneumonia 1 year ago Denies: Hx Chronic Obstructive Pulmonary Disease (COPD) GI History: Denies: Hx Ulcer History: Denies: Hx Renal Disease Musculoskeletal History: Reports: Hx Arthritis Denies: Hx Back Problems Sensory History: Reports: Hx Contacts or Glasses Denies: Hx Hearing Aid Opthamlomology History: Reports: Hx Contacts or Glasses Neurological History: Reports: Hx Migraine, Hx Transient Ischemic Attacks (TIA) - 2009 - Cancer History Cancer Type, Location and Year: Uterine cancer 15 + years ago - Surgical History Surgery Procedure, Year, and Place: Breast Reduction, Bilat Knee Replacement, Right Shoulder Replacement, Appendectomy, Hysterectomy, Left Hip replacement Hx Anesthesia Reactions: No Infectious Disease History: No Infectious Disease History: Reports: Hx of Known/Suspected MRSA Denies: Hx Hepatitis, Hx Human Immunodeficiency Virus (HIV), History Other Infectious Disease, Traveled Outside the [place] in Last 30 Days - Family History Known Family History: Positive: Cardiac Disease, Hypertension, Other Family History: [place] - sister, mother, father - Social History Occupation: Employed Part-time, Disabled Lives: With Family Alcohol Use: Rare Alcohol Amount: once a year Hx Substance Use: Yes Substance Use Type: Reports: None Substance Use Comment - Amount & Last Used: 8-10 cups/day Hx Tobacco Use: Yes Smoking Status (MU): Former Smoker Type: Cigarettes Amount Used/How Often: 1 pack per week Length of Time of Smoking/Using Tobacco: 9 years Have You Smoked in the Last Year: No Review of Systems Negative: Fever Positive: Shortness Of Breath Positive: Nausea Positive: Myalgia - back pain, Edema - bilat pedal edema All Other Systems Reviewed And Are Negative: Yes Physical Exam - Summary Physical Exam Summary: Appearance: Well appearing, no pain distress, mildly stressed Skin: warm, dry, reflects adequate perfusion Head/face: normal Eyes: EOMI, ALESSOI ENT: mucous membranes moist Neck: supple, non-tender Respiratory: lungs are diminished, expiratory wheeze Cardiovascular: RRR, pulses symmetrical Abdomen: non-tender, soft, no pulsatile mass Bowel Sounds: present Musculoskeletal: strength/ROM intact; 1 to 2+ non-pitting bilateral edema; right upper and middle lumbar area is TTP Neuro: normal, sensory motor intact, A&Ox3 Triage Information Reviewed: Yes Vital Signs On Initial Exam: Initial Vitals Temp Pulse Resp BP Pulse Ox 98.4 F 77 20 171/92 98 08/14/18 22:55 08/14/18 22:55 08/14/18 22:55 08/14/18 22:55 08/14/18 22:55 Vital Signs Reviewed: Yes Procedures - Procedure Summary Procedure Summary: Trigger point injection: Reason: Back pain Description: The patient was verbally consented. The patient was laid in the left lateral decubitus position and the tender area at the mid paralumbar musculature on the right was cleaned with alcohol. She was injected in 2 trigger point locations with a total of 6 cc of 1% lidocaine. This was massaged through the tissues. She tolerated this well with improvement of her discomfort. There are no complications. Diagnostics - Vital Signs Vital Signs Temp Pulse Resp BP Pulse Ox 08/14/18 22:55 98.4 F 77 20 171/92 98 - Laboratory Result Diagrams: 08/15/18 00:03 08/15/18 00:03 Lab Statement: Any lab studies that have been ordered have been reviewed, and results considered in the medical decision making process. - Radiology CXR Radiology Interpretation Completed By: ED Physician Summary of Radiographic Findings: R shoulder replacement. Increased vascular markings consistent with CHF, no pleural effusions, no infiltrate. Re-Evaluation - Re-Evaluation 1 Re-Evaluation Time: 00:13 Change: Improved Comment: Pt is sleeping comfortably. 2 Re-Evaluation Time: 00:44 Change: Unchanged Comment: Discussing results with pt. Wheezing greatly improved; back is better. Pt was able to sit up on her own. Trigger point injection performed. 3 Re-Evaluation Time: 01:06 Change: Improved Comment: Bedside U/S confirms no AAA, no hydronephrosis of R kidney. Back Pain Course/Dx - Course Course Of Treatment: Patient presents with exertional dyspnea and abrupt onset of right-sided low back pain while working at [employer]. She has point tenderness in the right low back and pain with movement. There is no radicular pain or difficulty with bowel or bladder. Her extremities are neurovascularly intact and she has normal saddle sensation. She was treated for comfort with Toradol, Ativan and improved. A trigger point injection further improved her symptoms. She was up and walking and tolerating her discomfort well. Her breathing was also limited by wheezing which was improved with steroids and breathing treatments. There was some increased markings on the chest x-ray but her BNP is only in the 60s. She'll be placed on steroids and her albuterol refilled. Follow up closely primary care physician. - Diagnoses Differential Diagnosis/HQI/PQRI: Positive: Herniated Disc, Renal Colic, Strain, Sprain Provider Diagnoses: COPD exacerbation, Lumbar strain Discharge - Sign-Out/Discharge Documenting (check all that apply): Patient Departure - Discharge Plan Condition: Improved Disposition: HOME Prescriptions: Albuterol HFA INHALER* [Ventolin HFA Inhaler*] 2 puff INH Q4H PRN #1 mdi PRN Reason: Wheezing Cyclobenzaprine TAB* [Flexeril 10 MG TAB*] 10 mg PO TID PRN #12 tab PRN Reason: muscle pain predniSONE TAB* [Deltasone 20 MG TAB*] 40 mg PO DAILY 5 Days #10 tab traMADol TAB* [Ultram*] 50 mg PO Q8HR #6 tab MDD 3 Patient Education Materials: COPD (Chronic Obstructive Pulmonary Disease) (ED) , Low Back Strain (ED) Forms: *Work Release Referrals: Ml Houston MD [Primary Care Provider] - Additional Instructions: Call first thing in the morning to schedule prompt follow up with your doctor. Medications given to help breathing. Return with numbness, weakness, difficulty breathing, worse or other concerns as discussed. - Billing Disposition and Condition Condition: IMPROVED Disposition: Home - Attestation Statements Document Initiated by Scribe: Yes Documenting Scribe: Katy Byrd Provider For Whom Yancy is Documenting (Include Credential): Dr. Roberto Mitchell MD Scribe Attestation: Katy Andrade scribed for Dr. Roberto Mitchell MD on 08/15/18 at 0417. Scribe Documentation Reviewed: Yes Provider Attestation: The documentation as recorded by the Katy sheffield accurately reflects the service I personally performed and the decisions made by me, Dr. Roberto Mitchell MD
[2018-08-14] MEDS ORDERED: LORazepam INJ* 2 MG/ML 1 ML VIAL IV PUSH ONE (23:27)
[2018-08-14] MEDS ORDERED: Albuterol/Ipratropium NEB.SOL* Albuterol 2.5 MG/Ipratropium 0.5 MG 3 ML INH ONE (23:27)
[2018-08-14] MEDS ORDERED: Ketorolac INJ* 30 MG/ML 1 ML VIAL IV PUSH ONE (23:27)
[2018-08-15 00:11] LABS: ABS Basophils 0.1 10^3/ul (0-0.2); ABS Eosinophils 0.2 10^3/ul (0-0.6); ABS Lymphocytes 1.8 10^3/ul (1.0-4.8); ABS Monocytes 0.6 10^3/ul (0-0.8); ABS Neutrophils 4.9 10^3/ul (1.5-7.7); ABS Nucleated RBC 0 10^3/ul; Eosinophil % 2.1 % (0-6); Hematocrit 32 % (35-47); Hemoglobin 10.7 g/dl (12.0-16.0); Lymphocyte % 23.2 % (25-47); Mean Corpuscular HGB Conc 33 g/dl (31-36); Mean Corpuscular Hemoglobin 29 pg (27-31); Mean Corpuscular Volume 87 fL (80-97); Mean Platelet Volume 8.7 um3 (7.4-10.4); Nucleated Red Blood Cells % 0; Platelet Count 263 10^3/ul (150-450); Red Blood Count 3.69 10^6/ul (4.00-5.40); Red Cell Distribution Width 14 % (10.5-15); White Blood Count 7.5 10^3/ul (3.5-10.8)
[2018-08-15] MEDS ORDERED: Furosemide IV* 10 MG/ML 10 ML VIAL (100 MG) IV ONE (00:13)
[2018-08-15 00:28] LABS: EGFR Non-African American 37.8 (>60)
[2018-08-15] MEDS ORDERED: predniSONE TAB* 20 MG PO ONE (00:45)
[2018-08-15 02:00] VITALS: BP 112/65
--- NOTE | 2018-08-15 07:51 | RAD ---
Indication: Shortness of breath. Single frontal view of the chest performed at 2343 hours was reviewed. Comparison is made with previous exam dated July 10, 2018. No mediastinal shift is noted. Heart is of normal size and configuration. Lung desouza appear clear. IMPRESSION: NO ACTIVE CARDIOPULMONARY DISEASE IS NOTED. R0
== END 2018-08-15 02:00 | disposition home or self-care (01) ==
LOC: ED 22:43
DX: J44.1 Chronic obstructive pulmonary disease with (acute) exacerbation (principal); S39.012A Strain of muscle, fascia and tendon of lower back, initial encounter; X58.XXXA Exposure to other specified factors, initial encounter; Y92.9 Unspecified place or not applicable; Z88.5 Allergy status to narcotic agent; Z88.0 Allergy status to penicillin; Z88.6 Allergy status to analgesic agent; Z88.1 Allergy status to other antibiotic agents; Z91.030 Bee allergy status; Z91.040 Latex allergy status; Z96.653 Presence of artificial knee joint, bilateral; Z96.611 Presence of right artificial shoulder joint; Z96.642 Presence of left artificial hip joint; Z87.891 Personal history of nicotine dependence
CPT/HCPCS: 36415; 71045; 80048; 83880; 84484; 85025; 96374; 96375; 99283; A9270-GY; J1885; J2060; J7512

== ENCOUNTER 2018-10-04 07:31 | Emergency (ER) | payer MEDICARE ==
[2018-10-04] MEDS ORDERED: LORazepam TAB(*) 1 MG PO ONE (08:11)
[2018-10-04] MEDS ORDERED: oxyCODONE/Acetamin 5/325 MG* TAB PO ONE (08:11)
[2018-10-04] MEDS ORDERED: Acetaminophen TAB* 325 MG PO ONE (08:21)
[2018-10-04] MEDS ORDERED: predniSONE TAB* 20 MG PO ONE (08:36)
[2018-10-04] MEDS ORDERED: traMADol TAB* 50 MG PO ONE (08:36)
--- NOTE | 2018-10-04 09:08 | ED ---
Back Pain - HPI Summary HPI Summary: Patient is a 68-year-old female who presents emergency department for left lower back pain that started yesterday. Patient states she has a history of back issues and was seen in the ER several months ago for the same symptoms. Patient states she works at [employer] and stands on her feet for long periods of time. Patient denies radicular pain into her legs or abdomen. She denies recent injury or falls. She denies numbness, tingling or weakness in her legs. She denies chest pain, shortness of breath, fever, urinary symptoms. Movement makes symptoms worse. Nothing makes symptoms better. Patient states the medication she was given the ER last helped with her symptoms. Symptoms are mild in severity. - History of Current Complaint Chief Complaint: EDBackInjuryPain Stated Complaint: BACK PAIN Time Seen by Provider: 10/04/18 07:47 Hx Obtained From: Patient Pain Intensity: 10 - Allergies/Home Medications Allergies/Adverse Reactions: Allergies Allergy/AdvReac Type Severity Reaction Status Date / Time codeine Allergy Severe Anaphylatic Verified 10/04/18 07:43 Shock Penicillins Allergy Severe Anaphylatic Verified 10/04/18 07:43 Shock venom-honey bee Allergy Severe Anaphylatic Verified 10/04/18 07:43 Shock nitroglycerin Allergy Intermediate Hives Verified 10/04/18 07:43 latex Allergy Mild Rash Verified 10/04/18 07:43 vancomycin Allergy Mild Pain Verified 10/04/18 07:43 nitrofurantoin Allergy Hives Verified 10/04/18 07:43 [From Macrodantin] aspirin AdvReac Intermediate GI Upset Verified 10/04/18 07:43 PMH/Surg Hx/FS Hx/Imm Hx Previously Healthy: Yes Endocrine/Hematology History: Reports: Hx Thyroid Disease Denies: Hx Diabetes Cardiovascular History: Reports: Hx Angina, Hx Atrial Fibrillation, Hx Congestive Heart Failure, Hx Hypercholesterolemia, Hx Hypertension, Other Cardiovascular Problems/Disorders - tia 2008 Denies: Hx Pacemaker/ICD Respiratory History: Reports: Hx Asthma, Hx Chronic Bronchitis, Hx Pneumonia, Other Respiratory Problems/Disorders - pneumonia 1 year ago Denies: Hx Chronic Obstructive Pulmonary Disease (COPD) GI History: Denies: Hx Ulcer History: Denies: Hx Renal Disease Musculoskeletal History: Reports: Hx Arthritis Denies: Hx Back Problems Sensory History: Reports: Hx Contacts or Glasses Denies: Hx Hearing Aid Opthamlomology History: Reports: Hx Contacts or Glasses Neurological History: Reports: Hx Migraine, Hx Transient Ischemic Attacks (TIA) - 2009 - Cancer History Cancer Type, Location and Year: Uterine cancer 15 + years ago - Surgical History Surgery Procedure, Year, and Place: Breast Reduction, Bilat Knee Replacement, Right Shoulder Replacement, Appendectomy, Hysterectomy, Left Hip replacement Hx Anesthesia Reactions: No - Immunization History Date of Tetanus Vaccine: unk Date of Influenza Vaccine: unk Infectious Disease History: No Infectious Disease History: Reports: Hx of Known/Suspected MRSA Denies: Hx Hepatitis, Hx Human Immunodeficiency Virus (HIV), History Other Infectious Disease, Traveled Outside the [place] in Last 30 Days - Family History Known Family History: Positive: Cardiac Disease, Hypertension, Other Family History: [place] - sister, mother, father - Social History Occupation: Employed Full-time Lives: With Family Alcohol Use: Rare Alcohol Amount: once a year Hx Substance Use: Yes Substance Use Type: Reports: None Substance Use Comment - Amount & Last Used: 8-10 cups/day Hx Tobacco Use: Yes Smoking Status (MU): Former Smoker Type: Cigarettes Amount Used/How Often: 1 pack per week Length of Time of Smoking/Using Tobacco: 9 years Have You Smoked in the Last Year: No Review of Systems Constitutional: Negative Negative: Fever, Chills Cardiovascular: Negative Respiratory: Negative Gastrointestinal: Negative Genitourinary: Negative Positive: Other - Left lower back pain. Skin: Negative Negative: Weakness, Paresthesia, Numbness All Other Systems Reviewed And Are Negative: Yes Physical Exam Triage Information Reviewed: Yes Vital Signs On Initial Exam: Initial Vitals Temp Pulse Resp BP Pulse Ox 98 F 74 20 123/81 94 10/04/18 07:37 10/04/18 07:37 10/04/18 07:37 10/04/18 07:37 10/04/18 07:37 Vital Signs Reviewed: Yes Appearance: Positive: Well-Appearing - Pt. sitting on side of bed in NAD. Appears uncomfortable but nontoxic. present. Skin: Positive: Warm, Dry Head/Face: Positive: Normal Head/Face Inspection Eyes: Positive: Normal, EOMI, Conjunctiva Clear Neck: Positive: Supple Respiratory/Lung Sounds: Positive: Clear to Auscultation, Breath Sounds Present Cardiovascular: Positive: Normal, RRR Musculoskeletal: Positive: Other - 5/5 strength in bilateral LEs. No neurosensory deficits. Ambulates around room without difficulty. Neurological: Positive: Normal, CN Intact II-III Psychiatric: Positive: Affect/Mood Appropriate Diagnostics - Vital Signs Vital Signs Temp Pulse Resp BP Pulse Ox 10/04/18 08:33 21 10/04/18 07:37 98 F 74 20 123/81 94 - Laboratory Lab Statement: Any lab studies that have been ordered have been reviewed, and results considered in the medical decision making process. Back Pain Course/Dx - Course Course Of Treatment: Patient presenting with exacerbation of chronic low back pain. She is no neurological deficits. She is afebrile. She has full strength strength in extremities an average felt difficulty. No evidence of cauda equina syndrome. Patient initially ordered Percocet and Ativan but she is concerned she needs Percocet she allergic to codeine. She was given prednisone, Ultram and Ativan. On reevaluation patient is sleeping comfortably. Patient states she is feeling better and is ready to be discharged. Small prescription of Ultram and had a course prednisone was given. Advised to apply warm, chest and back. Call PCP today for close follow- up appointment. To return to the ER if symptoms change or worsen. Patient understands and agrees with plan. - Diagnoses Differential Diagnosis/HQI/PQRI: Positive: Aneurysm, Arthritis, Cauda Equina Syndrome, Compressive Cord Syndrome, Epidural Abscess, Fracture, Herniated Disc , Strain, Sprain Provider Diagnoses: Low back pain Discharge - Discharge Plan Condition: Improved Disposition: HOME Prescriptions: predniSONE TAB* [Deltasone 20 MG TAB*] 40 mg PO DAILY #8 tab traMADol TAB* [Ultram*] 50 mg PO Q8H PRN #12 tab MDD 3 tablets PRN Reason: Pain Patient Education Materials: Low Back Strain (ED) Forms: *Work Release Referrals: Ml Houston MD [Primary Care Provider] - Additional Instructions: Call your PCP today to schedule a close follow up appointment Take medication as directed Apply warm compresses to back Avoid heavy lifting Return to ER for fever, increased pain, leg numbness, tingling, weakness, or loss of bowel or bladder function - Billing Disposition and Condition Condition: IMPROVED Disposition: Home
[2018-10-04 09:18] LABS: Urine Appearance Cloudy; Urine Bilirubin Negative (Negative); Urine Blood Negative (Negative); Urine Color Yellow; Urine Glucose Negative (Negative); Urine Ketones Negative (Negative); Urine Nitrite Negative (Negative); Urine Protein Negative (Negative); Urine Specific Gravity 1.021 (1.010-1.030); Urine Urobilinogen Negative (Negative)
[2018-10-04 10:22] VITALS: BP 172/95
== END 2018-10-04 10:12 | disposition home or self-care (01) ==
LOC: ED 07:31
DX: M54.5 Low back pain (principal); Z96.653 Presence of artificial knee joint, bilateral; Z96.611 Presence of right artificial shoulder joint; Z96.642 Presence of left artificial hip joint; Z88.5 Allergy status to narcotic agent; Z88.0 Allergy status to penicillin; Z88.6 Allergy status to analgesic agent; Z88.1 Allergy status to other antibiotic agents; Z91.030 Bee allergy status; Z91.040 Latex allergy status; Z87.891 Personal history of nicotine dependence
CPT/HCPCS: 81003; 99281; A9270-GY; J7512

== ENCOUNTER 2018-10-10 06:55 | Emergency (ER) | payer MEDICARE ==
[2018-10-10] MEDS ORDERED: predniSONE TAB* 20 MG PO ONE (07:44)
[2018-10-10] MEDS ORDERED: Acetaminophen TAB* 325 MG PO ONE (07:44)
--- NOTE | 2018-10-10 07:50 | ED ---
Lower Extremity - HPI Summary HPI Summary: Patient presents with right hip pain for the past 2 weeks. She reports this is worse with weightbearing and ambulating. She also has pain with transition of sitting to standing but she is able to get herself on and off toilet as she has arm bars in her home. She denies radiating pain into her legs as well as numbness, tingling, weakness, change in bowel or bladder activity. She reports she noticed this pain when she and her were "straightening up the house one day". Pain has been on and off since. She tried 800 mg of ibuprofen yesterday and daughter applied a Lidoderm pain patch - both without relief. She was seen here on 10/04/2018 for Left Lower back pain and provided with Ultram and prednisone - she wanted to avoid norco/percocet as she has a codeine allergy. Cannot take NSAID's (see below). The note from her visit on 10/04 reveals patient had relief while here however she reports this relief was short- lived and she has not had noticeable relief since home, despite taking these medications of ultram and steroid (these are gone now - reports she just needs to get through her 4 hours shift at [employer]. Also that she needs to continue preparing food for her daily for [place] and standing has been problematic). She denies falling or injury to the area. She's not been able to follow-up with her PCP as she has not been able to pay her bills for the past 4 months - reports they will see her but she does not want to accumulate more debt before she can pay off what she currently owes. Did go to the [facility] - remarks they were looking into helping her to get hospital services free of charge but this is not helpful in her current situation. H/o B/L TKR's and Lt hip replacement. No XR's in the past many years. No pain into these areas today. H/o uterine CA NOTE: Patient takes Eliquis daily along with 81 mg of aspirin. She reports "stomach pain" w/ "full ASA" - she was not aware she should not take NSAID's such as motrin, etc while on Eliquis. - History of Current Complaint Chief Complaint: EDBackInjuryAdrianna Stated Complaint: BACK PAIN Time Seen by Provider: 10/10/18 07:25 Hx Obtained From: Patient, Family/Insurance Agents Supervisor - Pain Intensity: 10 - Allergies/Home Medications Allergies/Adverse Reactions: Allergies Allergy/AdvReac Type Severity Reaction Status Date / Time codeine Allergy Severe Anaphylatic Verified 10/10/18 07:01 Shock Penicillins Allergy Severe Anaphylatic Verified 10/10/18 07:01 Shock venom-honey bee Allergy Severe Anaphylatic Verified 10/10/18 07:01 Shock nitroglycerin Allergy Intermediate Hives Verified 10/10/18 07:01 latex Allergy Mild Rash Verified 10/10/18 07:01 vancomycin Allergy Mild Pain Verified 10/10/18 07:01 nitrofurantoin Allergy Hives Verified 10/10/18 07:01 [From Macrodantin] aspirin AdvReac Intermediate GI Upset Verified 10/10/18 07:01 PMH/Surg Hx/FS Hx/Imm Hx Previously Healthy: Yes Endocrine/Hematology History: Reports: Hx Anticoagulant Therapy - eliquis, Hx Thyroid Disease Denies: Hx Diabetes Cardiovascular History: Reports: Hx Angina, Hx Atrial Fibrillation, Hx Congestive Heart Failure - takes diuretic, Hx Hypercholesterolemia, Hx Hypertension, Other Cardiovascular Problems/Disorders - tia 2008 Denies: Hx Pacemaker/ICD Respiratory History: Reports: Hx Asthma, Hx Chronic Bronchitis, Hx Pneumonia, Other Respiratory Problems/Disorders - pneumonia 1 year ago Denies: Hx Chronic Obstructive Pulmonary Disease (COPD) GI History: Denies: Hx Ulcer History: Denies: Hx Renal Disease Musculoskeletal History: Reports: Hx Arthritis, Hx Back Problems - chronic pain - no definitive dx Sensory History: Reports: Hx Contacts or Glasses Denies: Hx Hearing Aid Opthamlomology History: Reports: Hx Contacts or Glasses Neurological History: Reports: Hx Migraine, Hx Transient Ischemic Attacks (TIA) - 2008 - Cancer History Cancer Type, Location and Year: Uterine cancer 15 + years ago - Surgical History Surgery Procedure, Year, and Place: Breast Reduction, Bilat Knee Replacement, Right Shoulder Replacement, Appendectomy, Hysterectomy, Left Hip replacement Hx Anesthesia Reactions: No - Immunization History Date of Tetanus Vaccine: unk Date of Influenza Vaccine: unk Infectious Disease History: No Infectious Disease History: Reports: Hx of Known/Suspected MRSA Denies: Hx Hepatitis, Hx Human Immunodeficiency Virus (HIV), History Other Infectious Disease, Traveled Outside the [place] in Last 30 Days - Family History Known Family History: Positive: Cardiac Disease, Hypertension, Other Family History: [place] - sister, mother, father - Social History Occupation: Employed Full-time - [employer] Lives: With Family Alcohol Use: Rare Alcohol Amount: once a year Hx Substance Use: Yes Substance Use Type: Reports: Excessive Caffeine Substance Use Comment - Amount & Last Used: 8-10 cups/day Hx Tobacco Use: Yes Smoking Status (MU): Former Smoker Type: Cigarettes Amount Used/How Often: 1 pack per week Length of Time of Smoking/Using Tobacco: 9 years Have You Smoked in the Last Year: No Review of Systems Constitutional: Negative Negative: Fever, Chills, Fatigue Negative: Chest Pain Gastrointestinal: Negative Genitourinary: Negative Positive: Arthralgia, Decreased ROM Skin: Negative Neurological: Negative Psychological: Normal All Other Systems Reviewed And Are Negative: Yes Physical Exam Triage Information Reviewed: Yes Vital Signs On Initial Exam: Initial Vitals Temp Pulse Resp BP Pulse Ox 98.3 F 73 20 131/97 100 10/10/18 06:57 10/10/18 06:57 10/10/18 06:57 10/10/18 06:57 10/10/18 06:57 Vital Signs Reviewed: Yes Appearance: Positive: Well-Appearing, Pain Distress, Obese Skin: Positive: Warm, Skin Color Reflects Adequate Perfusion, Dry - no signs of ecchymosis Eyes: Positive: EOMI ENT: Positive: Hearing grossly normal Dental: Positive: Other - partially edentulous Respiratory/Lung Sounds: Positive: Breath Sounds Present Cardiovascular: Positive: Pulses are Symmetrical in both Upper and Lower Extremities Musculoskeletal: Positive: Limited @ - pain w/ transition from sitting to standing and vice versa - strength 5/5 and equal in LE's, Pain @ - Rt SI TTP - lumbar spinous pp and parapsinal mm are NTTP Neurological: Positive: Normal, Sensory/Motor Intact, Alert, Oriented to Person Place, Time, CN Intact II-III Psychiatric: Positive: Anxious - upset that she is in pain and cannot move the way she would like to - wants to go to work tonight and cook at home - frustrated that these activities are impaired by her current condition Diagnostics - Vital Signs Vital Signs Temp Pulse Resp BP Pulse Ox 10/10/18 06:57 98.3 F 73 20 131/97 100 - Laboratory Lab Statement: Any lab studies that have been ordered have been reviewed, and results considered in the medical decision making process. Re-Evaluation - Re-Evaluation First Eval Change: Unchanged - pt reports no improvement in pain s/p prednisone and acetaminophen - offered morphine as she's had this in the past w/o difficulty - pt declines this and any meds that may cause drowsiness as she doesn't want to be sleepy Lower Extremity Course/Dx - Course Course Of Treatment: Pt presents w/ acute on chronic pain and difficulty working at job and at home d/t pain. She has tried NSAID and topical lidocaine w /o relief. Last week she was given prednisone and ultram which although note reveals helped while here she states "did nothing" at home. Offered reboot of steroid and new med, acetaminophen, which she is open to trying. She does not want to try norco or percocet as she "went into a coma" with codeine in the past. Discussed XR findings of OA in lumbar spine and Rt hip as well as osteopenia - no fx nor lytic lesions reported. Pt reports no relief with meds provided. Has had morphine in the past w/o issues so offered this as a next step for pain control however she declines as he does not want anything that will make her drowsy. She requests a steroid injection into her hip today but explained this service in not available here in the ED. Strongly encouraged close f/u w/ PCP and orthopedics as she has a h/o working with [facility] who may provide a joint injection if appropriate. Also recommended rest and out of work but pt doesn't want to miss work today and states she needs to cook [place] dinner. Provided pt with copy of her XR reports and CD copy of her XR. Explained she cannot take NSAID's d/t already taking eliquis. Explained what she can take and offered her morphine one last time before leaving which again she declined. She thanked me for my help and her reports "you didn't do anything for my ". He is aware of the services provided today but admits he' s tired of seeing his in pain. He acknowledges that she was offered morphine and recommended rest and he observed her declining both. States he will help her w/ preparing [place] dinner. - Diagnoses Provider Diagnoses: Lumbar degenerative disc disease, Osteoarthritis of right hip, Osteopenia Discharge - Sign-Out/Discharge Documenting (check all that apply): Patient Departure - Discharge Plan Condition: Stable Disposition: HOME Prescriptions: predniSONE TAB* [Deltasone 20 MG TAB*] 60 mg PO DAILY #15 tab Patient Education Materials: Osteoarthritis (ED), Degenerative Disc Disease (ED ) Forms: *Work Release Referrals: Ml Houston MD [Primary Care Provider] - Arnaldo Roland MD [Medical Doctor] - Additional Instructions: You appear to have arthritis in your back and in your hip most likely causing your pain today. You were given acetaminophen 975mg today along with prednisone 60mg. You may continue to take extra strength tylenol at home every 6 hours along with prescription steroid which was sent to your [facility]. Take the steroid daily until completed. Follow-up with your PCP but also an environmental resource specialist as you may benefit from a steroid injection into your SI joint -call Wednesday to schedule follow- up appointments with both providers. Contact information provided here. You may see an environmental resource specialist at [facility] if you have already been there for orthopedic services. You have been given a copy of your XR report as well as a CD copy to take with you to future visits. Furthermore, you cannot take medications such as naproxen, aleve, ibuprofen, advil and motrin as you are taking a blood thinning medication, Eliquis. If you mix these medications, you will increase your risk for bleeding. Again, you may take tylenol/acetaminophen, prednisone and topical analgesics such as biofreeze , salonpas patches, etc to help with pain. Your PCP will provide a more extensive work-up however to better assess for systemic arthritis and may be able to offer different medications based on those outcomes. You were offered morphine today to reduce your pain however you declined for fear of drowsiness. *If you develop numbness, tingling, weakness or change in bowel/bladder habits, return to the ED. - Billing Disposition and Condition Condition: STABLE Disposition: Home
[2018-10-10 09:59] VITALS: BP 128/88
== END 2018-10-10 09:58 | disposition home or self-care (01) ==
LOC: ED 06:55
DX: M51.36 Other intervertebral disc degeneration, lumbar region (principal); M16.11 Unilateral primary osteoarthritis, right hip; M85.80 Other specified disorders of bone density and structure, unspecified site; M25.551 Pain in right hip; Z88.0 Allergy status to penicillin; Z79.01 Long term (current) use of anticoagulants; I50.9 Heart failure, unspecified; Z87.891 Personal history of nicotine dependence
CPT/HCPCS: 72100; 99282; A9270-GY; J7512

== ENCOUNTER 2018-10-14 23:30 | Inpatient (IN) | payer MEDICARE ==
--- NOTE | 2018-10-14 23:40 | ED ---
GI/ HPI - HPI Summary HPI Summary: A 68 y/o female brought in by [facility] ambulance presents to [facility] with a chief complaint of hematemesis since 22:00 10/14/18. She rates her pain as a 9/10. She claims that earlier there was dark red blood in her stool. She also c/o dizziness, lightheadedness, N/V, chronic back pain and abd pain. She claims that she was near-syncope. She denies any abdominal SHx and claims that she has not had internal bleeding before. She reports taking 81mg aspirin in the morning , 1600mg ibuprofen in the morning and that she could not take Eliquis night of 10/14/18 because she ran out, although she did take her regular dose in the morning. She denies having a Hx of liver issues or EtOH use. She notes that she is a former smoker. - History of Current Complaint Time Seen by Provider: 10/14/18 23:37 Stated Complaint: RESPIRATORY DISTRESS Hx Obtained From: Patient Onset/Duration: Started Hours Ago, Still Present Timing: Constant, Lasting Hours Severity: Severe Current Severity: Severe Vaginal Bleeding Description: Dark Red Pain Intensity: 9 - out of 10 Location of Pain: Diffuse Pain Characteristics: Unable to describe Associated Signs and Symptoms: Positive: Dizziness, Nausea, Vomiting, Blood w/ Stool, Lightheadedness, Abdominal Pain. Negative: Fever Aggravating Factor(s): Nothing Alleviating Factor(s): Nothing - Additional Pertinent History Primary Care Physician: [id number] - Allergy/Home Medications Allergies/Adverse Reactions: Allergies Allergy/AdvReac Type Severity Reaction Status Date / Time codeine Allergy Severe Anaphylatic Verified 10/10/18 07:01 Shock Penicillins Allergy Severe Anaphylatic Verified 10/10/18 07:01 Shock venom-honey bee Allergy Severe Anaphylatic Verified 10/10/18 07:01 Shock nitroglycerin Allergy Intermediate Hives Verified 10/10/18 07:01 latex Allergy Mild Rash Verified 10/10/18 07:01 vancomycin Allergy Mild Pain Verified 10/10/18 07:01 nitrofurantoin Allergy Hives Verified 10/10/18 07:01 [From Macrodantin] aspirin AdvReac Intermediate GI Upset Verified 10/10/18 07:01 PMH/Surg Hx/FS Hx/Imm Hx Endocrine/Hematology History: Reports: Hx Anticoagulant Therapy - eliquis, Hx Thyroid Disease Denies: Hx Diabetes Cardiovascular History: Reports: Hx Angina, Hx Atrial Fibrillation, Hx Congestive Heart Failure - takes diuretic, Hx Hypercholesterolemia, Hx Hypertension, Other Cardiovascular Problems/Disorders - tia 2008 Denies: Hx Pacemaker/ICD Respiratory History: Reports: Hx Asthma, Hx Chronic Bronchitis, Hx Pneumonia, Other Respiratory Problems/Disorders - pneumonia 1 year ago Denies: Hx Chronic Obstructive Pulmonary Disease (COPD) GI History: Denies: Hx Ulcer History: Denies: Hx Renal Disease Musculoskeletal History: Reports: Hx Arthritis, Hx Back Problems - chronic pain - no definitive dx Sensory History: Reports: Hx Contacts or Glasses Denies: Hx Hearing Aid Opthamlomology History: Reports: Hx Contacts or Glasses Neurological History: Reports: Hx Migraine, Hx Transient Ischemic Attacks (TIA) - 2008 - Cancer History Cancer Type, Location and Year: Uterine cancer 15 + years ago - Surgical History Surgery Procedure, Year, and Place: Breast Reduction, Bilat Knee Replacement, Right Shoulder Replacement, Appendectomy, Hysterectomy, Left Hip replacement Hx Anesthesia Reactions: No - Immunization History Date of Tetanus Vaccine: unk Date of Influenza Vaccine: unk Infectious Disease History: Reports: Hx of Known/Suspected MRSA Denies: Hx Hepatitis, Hx Human Immunodeficiency Virus (HIV), History Other Infectious Disease, Traveled Outside the [place] in Last 30 Days - Family History Known Family History: Positive: Cardiac Disease, Hypertension, Other Family History: [place] - sister, mother, father - Social History Alcohol Use: Rare Alcohol Amount: once a year Hx Substance Use: Yes Substance Use Type: Reports: Excessive Caffeine Substance Use Comment - Amount & Last Used: 8-10 cups/day Hx Tobacco Use: Yes Smoking Status (MU): Former Smoker Type: Cigarettes Amount Used/How Often: 1 pack per week Length of Time of Smoking/Using Tobacco: 9 years Have You Smoked in the Last Year: No Review of Systems Negative: Fever Positive: Abdominal Pain, Vomiting, Nausea, Other - positive: hematemesis, blood in stool Positive: Myalgia - chronic back pain Neurological: Other - positive: dizziness, lightheadedness All Other Systems Reviewed And Are Negative: Yes Physical Exam - Summary Physical Exam Summary: Appearance: Pale, lying in bed comfortably Skin: Pale, Warm, dry, no obvious rash Eyes: There is conjunctival pallor, sclera anicteric ENT: mucous membranes moist, pharynx appears normal Neck: Supple, nontender Respiratory: Clear to auscultation, no signs of respiratory distress Cardiovascular: Normal S1, S2. No murmurs. Normal distal pulses in tibial and radial bilaterally. Abdomen: Soft, nontender, normal active bowel sounds present Musculoskeletal: Normal, Strength/ROM Intact Neurological: A&Ox3, awake and alert, mentation is normal, speech is fluent and appropriate Psychiatric: affect is normal, does not appear anxious or depressed Triage Information Reviewed: Yes Vital Signs Reviewed: Yes Diagnostics - Laboratory Result Diagrams: 10/14/18 23:53 10/14/18 23:53 Lab Statement: Any lab studies that have been ordered have been reviewed, and results considered in the medical decision making process. - EKG 23:39 Cardiac Rate: NL - 82 bpm EKG Rhythm: Sinus Rhythm Summary of EKG Findings: NSR at 82 BPM, P waves, QRS complex, and T waves are within normal limits, T waves and intervals are normal, no ischemic changes. This is a normal EKG. GIGU Course/Dx - Course Course Of Treatment: This is a 68-year-old woman with fairly brisk upper GI bleeding as manifested by passing red blood per rectum as well as vomiting blood. She has marked conjunctival pallor and almost passed out at home. She is at high risk for serious, life-threatening bleeding given her use of high doses of ibuprofen as well as being on eliquis for stroke prevention and atrial fibrillation. She last took her eliquis this morning, so she is certainly fully anticoagulated at present. Given the severity of her bleeding, I have elected to order K Centra to reverse her anticoagulation. I have also ordered IV fluids, and IV PPI. EKG showed NSR at 82 BPM, P waves, QRS complex, and T waves are within normal limits, T waves and intervals are normal, no ischemic changes. This is a normal EKG. In the ED course the patient was given Sodium Chloride IV and Protonix IV and Kcentra. Lab results obtained. Low Hemoglobin at 6.5. Discussed case with Dr. Ruiz, manager resource, who recommended admission and agreed with the Kcentra and PPI. After discussing the case with Dr. Terrell, hospitalist, the patient will be admitted and is agreeable with this plan. - Diagnoses Provider Diagnoses: Upper GI bleed, Medication induced coagulopathy - Physician Notifications Discussed Care Of Patient With: Marylin Terrell Time Discussed With Above Provider: 00:30 Instructed by Provider To: Admit As Inpatient - Critical Care Time Critical Care Time: 30-74 min - Active upper GI bleeding requiring reversal of anticoagulation, frequent hemodynamic monitoring. Discharge - Sign-Out/Discharge Documenting (check all that apply): Patient Departure - admit - Discharge Plan Condition: Fair Disposition: ADMITTED TO [facility] - Billing Disposition and Condition Condition: FAIR Disposition: Admitted to [facility] - Attestation Statements Document Initiated by Yancy: Yes Documenting Scribe: Javier Mazariegos Provider For Whom Yancy is Documenting (Include Credential): Bradley Wen MD Scribe Attestation: IJavier, scribed for Bradley Wen MD on 10/15/18 at 0536. Scribe Documentation Reviewed: Yes Provider Attestation: The documentation as recorded by the Javier sheffield accurately reflects the service I personally performed and the decisions made by me, Bradley Wen MD Status of Scrtawnya Document: Viewed Consult Consult: At 00:35- Discussed case with Dr. Ruiz, manager resource, who recommended admission and agreed with the Kcentra and PPI.
[2018-10-14] MEDS ORDERED: NS 0.9% 1000 ML* 2,000 ML IV ONE (23:42)
[2018-10-14] MEDS ORDERED: Pantoprazole* 80 mg IN NS 80 MG/250 ML BAG IVPB ONE (23:45)
[2018-10-15 00:01] LABS: Hematocrit 20 % (35-47); Hemoglobin 6.5 g/dl (12.0-16.0); Mean Corpuscular HGB Conc 32 g/dl (31-36); Mean Corpuscular Hemoglobin 27 pg (27-31); Mean Corpuscular Volume 82 fL (80-97); Mean Platelet Volume 8.9 fL (7.4-10.4); Platelet Count 289 10^3/ul (150-450); Red Blood Count 2.43 10^6/ul (4.00-5.40); Red Cell Distribution Width 15 % (10.5-15); White Blood Count 16.8 10^3/ul (3.5-10.8)
[2018-10-15 00:09] LABS: Activated Partial Thrombo Time 22.7 seconds (26.0-36.3); INR 1.33 (0.77-1.02)
[2018-10-15 00:17] LABS: Albumin/Globulin Ratio 1.9 (1-3); BUN/Creatinine Ratio 53.6 (8-20); Calcium 8.3 mg/dL (8.6-10.3); EGFR Non-African American 48.1 (>60); Globulin 1.6 g/dL (2-4); Potassium 4.3 mmol/L (3.5-5.0); Total Bilirubin 0.2 mg/dL (0.2-1.0); Total Protein 4.6 g/dL (6.4-8.9)
[2018-10-15 00:33] LABS: ABS Basophils 0 10^3/ul (0-0.2); ABS Eosinophils 0 10^3/ul (0-0.6); ABS Lymphocytes 2.2 10^3/ul (1.0-4.8); ABS Monocytes 1.7 10^3/ul (0-0.8); ABS Neutrophils 12.9 10^3/ul (1.5-7.7); ABS Nucleated RBC 0 10^3/ul; Eosinophil % 0 %; Nucleated Red Blood Cells % 0
[2018-10-15] MEDS ORDERED: Pantoprazole IV* 40 MG IV ONE (00:55)
[2018-10-15] MEDS ORDERED: Ondansetron INJ* 2 MG/ML VIAL IV ONE (01:24)
--- NOTE | 2018-10-15 02:25 | ADMNOTE ---
Subjective Date of Service: 10/15/18 Interval History: code status dni/dnr this is admission h/p hpi this is a 68 yr old wf with hx of paf s/p multiple cardioversion ( most recent one was 04/2018 ) but remained on flecanaide/cardizem/asa 81/eliquis presented to er after sudden onset of sharp abd pain started at 7 pm. pt had first episode of brbpr. felt dizzy afterwards then started to vomit bright red blood three times upwards---> called 911 and vomited once in the field. pt intial wbc 16 and hg was 6.5. she got k centra to reverse her eliquis. initial sbp 92 and tachycardia at 100-110. gi was informed by er. pt was given two units of prbc. she will be strict npo besides protonix drip. called cardio reg her flecanide -- -> will see her in am. intial wbc is elevated ct of abd/pelvis without iv contrast is neg ---> pt c/o suprapubic tenderness 07/27 ---> bladder sono ordered for am to r/o cystic stone. repeat cbc due at 7 30 am after two unit prbc pt has chronic lbp has been visiting er three times within this month. was here oct 10 but d/cd from er with prednisone 60 mg for 5 days. pt has been taking 800 mg motrin twice per day every other day last dose of 1600 mg motrin was wed spoke with pt in great details she is aao times three wants to be dni/dnr ---> molst signed phx morbid obesity nancy non compliance with cpap hx of tia a fib s/p multiple cardiversion ( most recent one was 04/2018 ) still on cardizem /flecanaide/eliquis and asa 81 chronic lbp uterine ca s/p wilfrido/bso 1990 pshx s/p breast reduction s/p left knee scope s/p r rotator cuff repair s/p appy s/p vocal cord scaping s/p r hip arthroplasty s/p b/l knee replacement social hx hx of cig quit few yrs ago no etoh no ivda surrogate is Mal fhx dad + cva/cad Review of Systems - Measurements Intake and Output: Intake and Output Last 24 Hours 12/26/18 10/13/18 10/14/18 10/15/18 06:59 06:59 06:59 06:59 Weight 225 lb - Review of Systems General Comments: pertinent as per hpi Objective Active Medications: Pantoprazole Sodium (Protonix Iv Bag*) 80 mg in 250 mls @ 25 mls/hr IVPB ED ONCE ONE Stop: 10/15/18 09:44 Sodium Chloride (Ns 0.9% 1000 Ml*) 1,000 mls @ 100 mls/hr IV PER RATE ANGELA Pantoprazole Sodium (Protonix Iv Bag*) 80 mg in 250 mls @ 25 mls/hr IVPB Q10H ANGELA Vital Signs - 8 hr 10/14/18 10/14/18 10/15/18 23:35 23:40 00:03 Temperature 98.6 F Pulse Rate 86 Respiratory 22 13 Rate Blood Pressure 118/71 118/71 (mmHg) O2 Sat by Pulse 98 Oximetry 10/15/18 10/15/18 10/15/18 00:40 00:46 00:47 Temperature Pulse Rate 85 79 80 Respiratory 20 16 23 Rate Blood Pressure 87/61 102/50 106/52 (mmHg) O2 Sat by Pulse 100 100 Oximetry 10/15/18 10/15/18 10/15/18 01:00 01:02 01:11 Temperature Pulse Rate Respiratory 20 17 22 Rate Blood Pressure 81/49 105/57 (mmHg) O2 Sat by Pulse Oximetry 10/15/18 10/15/18 10/15/18 01:17 01:32 01:47 Temperature Pulse Rate 79 85 85 Respiratory 20 19 22 Rate Blood Pressure 93/57 93/66 102/84 (mmHg) O2 Sat by Pulse 100 100 100 Oximetry 10/15/18 02:00 Temperature Pulse Rate 84 Respiratory 18 Rate Blood Pressure (mmHg) O2 Sat by Pulse 100 Oximetry Oxygen Devices in Use Now: Nasal Cannula Appearance: nad Eyes: No Scleral Icterus, PERRLA Ears/Nose/Mouth/Throat: NL Teeth, Lips, Gums, Clear Oropharnyx, - - oral mucosa dry Neck: NL Appearance and Movements; NL JVP, Trachea Midline, No Thyroid Enlargement, Masses Respiratory: Clear to Auscultation Cardiovascular: NL Sounds; No Murmurs; No JVD, RRR Abdominal: - - obese abd + bs soft but suprapubic tenderness no rebound no guarding Extremities: - - +2 pedal edema able to raise ue and le against gravity Skin: No Rash or Ulcers Neurological: Alert and Oriented x 3, NL Sensation, NL Muscle Strength and Tone Result Diagrams: 10/15/18 07:17 10/15/18 07:17 EKG Data: ekg ns no acute st t changes Assess/Plan/Problems-Billing Assessment: this is a 68 yr old wf with hx of paf s/p multiple cardioversion on asa 81/ eliquis/took motrin 1600 on wed for back pain and has been given prednisone 60 mg from er for her chronic lbp ---> presented with acute lower gib along with ugib ---> no melena ---> ugib could be esophageal tear instead of pud ---> hg is 6.5 on admisison ---> was written from er for two units of prbc besides k centra ---> will be transferring to o and m supervisor service due to the underlying complicated issues cardio gi will come in am to see pt - Patient Problems (1) Acute blood loss anemia Current Visit: Yes Status: Acute Code(s): D62 - ACUTE POSTHEMORRHAGIC ANEMIA SNOMED Code(s): 372374632 Comment: hg was 6.5 ---> prbc got k centra for eliquis will trend h/h q4 protonix drip npo with gi eval (2) UGIB (upper gastrointestinal bleed) Current Visit: Yes Status: Acute Code(s): K92.2 - GASTROINTESTINAL HEMORRHAGE, UNSPECIFIED SNOMED Code(s): 39136737 Comment: protonix drip ---> most likely esophageal tear no hx of melena or etoh but vomiting blood on steroid for lbp/asa 81/eliquis/motrin prn (3) Lower gastrointestinal bleed Current Visit: Yes Status: Acute Code(s): K92.2 - GASTROINTESTINAL HEMORRHAGE, UNSPECIFIED SNOMED Code(s): 44587238 Comment: gi eval npo ct of abd neg does not look like diverticulitis ---> tic bleed most likely (4) Suprapubic abdominal pain Current Visit: Yes Status: Acute Code(s): R10.2 - PELVIC AND PERINEAL PAIN SNOMED Code(s): 083691175 Comment: ct of abd neg will have bladder sono in am to r/o stone (5) SIRS (systemic inflammatory response syndrome) Current Visit: Yes Status: Acute Code(s): R65.10 - SIRS OF NON-INFECTIOUS ORIGIN W/O ACUTE ORGAN DYSFUNCTION SNOMED Code(s): 819206095 Comment: no fever with normal lactic acid ct of abd neg ua ordered but not sent from er no abx so far unless she spikes (6) A-fib Current Visit: Yes Status: Acute Code(s): I48.91 - UNSPECIFIED ATRIAL FIBRILLATION SNOMED Code(s): 10599349 Comment: stable cardio eval reg meds since she is strict npo at this point and not sure how to convert her flecanaid to iv (7) TIA (transient ischemic attack) Current Visit: No Status: Chronic Comment: no neurological signs or symptoms moniter (8) NANCY (obstructive sleep apnea) Current Visit: Yes Status: Acute Code(s): G47.33 - OBSTRUCTIVE SLEEP APNEA ( ADULT) (PEDIATRIC) SNOMED Code(s): 16544854 Comment: consider inpt cpap if she agrees (9) Noncompliance Current Visit: Yes Status: Acute Code(s): Z91.19 - PATIENT'S NONCOMPLIANCE W OTH MEDICAL TREATMENT AND REGIMEN SNOMED Code(s): 6584099 Comment: supportive care
[2018-10-15] MEDS: Pantoprazole* 80 mg IN NS 80 MG/250 ML BAG IVPB SCH ×2 (03:46→15:04)
[2018-10-15] MEDS: NS 0.9% 1000 ML* 1,000 ML IV SCH ×2 (04:30→20:40)
[2018-10-15 04:31] LABS: Urine Appearance Clear; Urine Bilirubin Negative (Negative); Urine Blood Negative (Negative); Urine Color Yellow; Urine Glucose Negative (Negative); Urine Ketones Negative (Negative); Urine Nitrite Negative (Negative); Urine Protein Negative (Negative); Urine Urobilinogen Negative (Negative)
[2018-10-15 07:35] LABS: Hematocrit 22 % (35-47); Hemoglobin 7.1 g/dl (12.0-16.0); Mean Corpuscular HGB Conc 33 g/dl (31-36); Mean Corpuscular Hemoglobin 27 pg (27-31); Mean Corpuscular Volume 84 fL (80-97); Mean Platelet Volume 9.1 fL (7.4-10.4); Platelet Count 211 10^3/ul (150-450); Red Blood Count 2.62 10^6/ul (4.00-5.40); Red Cell Distribution Width 15 % (10.5-15); White Blood Count 21.5 10^3/ul (3.5-10.8)
[2018-10-15 07:43] LABS: ABS Basophils 0.1 10^3/ul (0-0.2); ABS Eosinophils 0.1 10^3/ul (0-0.6); ABS Lymphocytes 2.9 10^3/ul (1.0-4.8); ABS Monocytes 2.4 10^3/ul (0-0.8); ABS Neutrophils 16.1 10^3/ul (1.5-7.7); ABS Nucleated RBC 0 10^3/ul; Eosinophil % 0.2 %; Lymphocyte % 13.5 %; Nucleated Red Blood Cells % 0.1
[2018-10-15] MEDS ORDERED: Ondansetron INJ* 2 MG/ML VIAL ONE (07:55)
[2018-10-15] MEDS ORDERED: Ondansetron INJ* 2 MG/ML VIAL IV PRN (07:55)
[2018-10-15 07:57] LABS: BUN/Creatinine Ratio 58.3 (8-20); Calcium 7.9 mg/dL (8.6-10.3); Potassium 4.4 mmol/L (3.5-5.0)
--- NOTE | 2018-10-15 09:16 | PN ---
Date of Service: 10/15/18 - [facility] note Critical Care Services: 10/15/18 9:19 am Pt seen and examined at bedside. Overnight events noted. Reviewed labs, vitals, admission notes and was updated by admitting provider through out of the night since admission last night Pt had 2 more bowel movements this am- dark, tarry. Pt reported dizziness. Pt also c/o abd pain radiating to back. Received 2 units of pRBC overnight. Awaiting 2 more units. Is receiving IVF at 100cc/hr currently. Pt with h/o A.fib s/p cardiversion in 10/2017 on Flecanide and Xarelto, TIA, uterine cancer, PNA, Mild pulm HTN. Pt has chronic back pain and has been taking Ibuprofen 1600 mg. Pt also on Xarelto, last dose 10/14/18 in the am, she didnot take evening dose. She is also taking prednisone for chronic back pain. Pt also on 81 mg ASA Vital Signs: Temp Pulse Resp BP SpO2 FiO2 97.0 F 87 15 113/74 100 10/15/18 03:11 10/15/18 07:16 10/15/18 07:16 10/15/18 07:16 10/15/18 07:16 Physical Exam: Gen: Pt in NAD, alert, awake HEENT: PERRLA, No JVD Lungs: Good a/e b/l Cardiac: S1, S2+, regular Abdomen: Obese, BS+, tenderness+ Extremities: No edema Neuro: No focal deficits Skin: No rash Fluid Balance (Past 24 Hours): I= 2255 O= 485 Net 120 Intake & Output 10/13/18 10/14/18 10/15/18 10/16/18 06:59 06:59 06:59 06:59 Intake Total 2255.5 Output Total 485 120 Balance 1770.5 -120 Weight 233 lb 11.04 oz Intake: IV Fluids 2016.5 NS (0.9%) 16.5 Medicated IV 239 GEN - Pantoprazole/ 60 Protonix PRBC 179 Output: Urine 250 [place] 235 120 Other: # Bowel Movements 2 1 Estimated Stool Amount Large Medium Labs: Laboratory Results - last 24 hr 10/14/18 10/14/18 10/14/18 23:53 23:53 23:53 WBC 16.8 H RBC 2.43 L Hgb 6.5 L Hct 20 L MCV 82 MCH 27 MCHC 32 RDW 15 Plt Count 289 MPV 8.9 Neut % (Auto) 76.9 Lymph % (Auto) 13.0 Ada % (Auto) 9.9 Eos % (Auto) 0 Baso % (Auto) 0.2 Absolute Neuts (auto) 12.9 H Absolute Lymphs (auto) 2.2 Absolute Monos (auto) 1.7 H Absolute Eos (auto) 0 Absolute Basos (auto) 0 Absolute Nucleated RBC 0 Nucleated RBC % 0 INR (Anticoag Therapy) 1.33 H APTT 22.7 L Sodium 138 Potassium 4.3 Chloride 106 Carbon Dioxide 25 Anion Gap 7 BUN 60 H Creatinine 1.12 H Est GFR ( Amer) 58.2 Est GFR (Non-Af Amer) 48.1 BUN/Creatinine Ratio 53.6 H Glucose 124 H Lactic Acid Calcium 8.3 L Magnesium Total Bilirubin 0.20 AST 16 ALT 18 Alkaline Phosphatase 56 Troponin I Total Protein 4.6 L Albumin 3.0 L Globulin 1.6 L Albumin/Globulin Ratio 1.9 Urine Color Urine Appearance Urine pH Ur Specific [place] Urine Protein Urine Ketones Urine Blood Urine Nitrate Urine Bilirubin Urine Urobilinogen Ur Leukocyte Esterase Urine Glucose Blood Type Antibody Screen Crossmatch 10/14/18 10/15/18 10/15/18 23:53 03:58 03:58 WBC RBC Hgb Hct MCV MCH MCHC RDW Plt Count MPV Neut % (Auto) Lymph % (Auto) Ada % (Auto) Eos % (Auto) Baso % (Auto) Absolute Neuts (auto) Absolute Lymphs (auto) Absolute Monos (auto) Absolute Eos (auto) Absolute Basos (auto) Absolute Nucleated RBC Nucleated RBC % INR (Anticoag Therapy) APTT Sodium Potassium Chloride Carbon Dioxide Anion Gap BUN Creatinine Est GFR ( Amer) Est GFR (Non-Af Amer) BUN/Creatinine Ratio Glucose Lactic Acid 2.2 H* Calcium Magnesium Total Bilirubin AST ALT Alkaline Phosphatase Troponin I 0.03 Total Protein Albumin Globulin Albumin/Globulin Ratio Urine Color Urine Appearance Urine pH Ur Specific [place] Urine Protein Urine Ketones Urine Blood Urine Nitrate Urine Bilirubin Urine Urobilinogen Ur Leukocyte Esterase Urine Glucose Blood Type A Positive Antibody Screen Negative Crossmatch See Detail 10/15/18 10/15/18 10/15/18 04:20 07:17 07:17 WBC 21.5 H RBC 2.62 L Hgb 7.1 L Hct 22 L MCV 84 MCH 27 MCHC 33 RDW 15 Plt Count 211 MPV 9.1 Neut % (Auto) 75.0 Lymph % (Auto) 13.5 Ada % (Auto) 11.1 Eos % (Auto) 0.2 Baso % (Auto) 0.2 Absolute Neuts (auto) 16.1 H Absolute Lymphs (auto) 2.9 Absolute Monos (auto) 2.4 H Absolute Eos (auto) 0.1 Absolute Basos (auto) 0.1 Absolute Nucleated RBC 0 Nucleated RBC % 0.1 INR (Anticoag Therapy) APTT Sodium 140 Potassium 4.4 Chloride 111 Carbon Dioxide 25 Anion Gap 4 BUN 60 H Creatinine 1.03 H Est GFR ( Amer) 64.1 Est GFR (Non-Af Amer) 53.0 BUN/Creatinine Ratio 58.3 H Glucose 112 H Lactic Acid Calcium 7.9 L Magnesium 2.0 Total Bilirubin AST ALT Alkaline Phosphatase Troponin I 0.03 Total Protein Albumin Globulin Albumin/Globulin Ratio Urine Color Yellow Urine Appearance Clear Urine pH 5.0 Ur Specific [place] 1.020 Urine Protein Negative Urine Ketones Negative Urine Blood Negative Urine Nitrate Negative Urine Bilirubin Negative Urine Urobilinogen Negative Ur Leukocyte Esterase Negative Urine Glucose Negative Blood Type Antibody Screen Crossmatch Studies: Abdomen CT: Evidence of diverticulosis, no acute findings Nutrition: NPO given GI bleed Impression: 68 y o f with h/o A.fib, s/p ablation with recurrence, on anticoagulation, on Flecanide for rate control, chronic back pain on prednisone, also taking NSAIDS , sleep apnea, mild pulm HTN, presented with acute GI bleed 1. Acute upper GI bleed 2. Anemia from blood loss 3. Hypotension from hemorraghic shock 4.Chronic renal insufficiency 5. Elevated lactic acid secondary to hypotension 6. Leucocytosis sec to infection versus reactive- Afebrile 7. A.fib on anticoagulation 8. Chronic back pain on NSAIDS Plan: 1. GI: Acute GI bleed, likely upper GI bleed given hematemesis and melena. Pt continues to have melena. Pt receiving 3rd unit of pRBC, tolerating well. No transfusion reaction. To receive another unit. Pt on PPI. c/w IVF at 100cc/hr. GI consult Dr Ruiz at bedside. Pt ot have EGD at bedside. 2. Neuro: Alert, awake, with no focal deficits. C/o dizziness. Aspiration precautions. Fall precautions 3. Resp: Stable, lungs sound clear. On 4L O2, saturating 100% 4. CVS: Hypotension sec to acute GI bleed. Pt receiving pRBC and IVF. Pt with h/ o A.fib, irregular however not in RVR. Will hold Flecanide and Xarelto. Not needing pressors at this time. Will need to watch for fluid overload given cardiac history 5. Haem: Acute blood loss anemia, to receive total of 4 units, will assess need for further transfusion. Monitor h&H q 4 hrs. 6. Endo: Bl sugars slightly elevated, will monitor closely 7. Renal: UO acceptable, has h/o CRF, no electrolyte abnormalities. 8. ID: Leucocytosis with no fever or source of infection. will hold off on abx. 9. Musculoskeletal: Chronic back pain, on prednisone and NSAIDS. Not on PPI at home. Having mild back pain, will use Tylenol prn. Frequent turning nad positioning 10. Psych/Social: Discussed with pts Alex over phone and updated on pts condition. GI ppx: PPI DVT px: SCD`s IV access: 2 Large bore peripherals Critical Care Time: 45 min
[2018-10-15] MEDS ORDERED: Furosemide IV* 10 MG/ML 2 ML VIAL (20 MG) IV SLOW PU ONE (09:18)
[2018-10-15] MEDS ORDERED: Metoclopramide IV* 5 MG/ML 2 ML VIAL IV PRN (09:36)
[2018-10-15] MEDS ORDERED: fentaNYL* 50 MCG/ML 2 ML VIAL (100 MCG VIAL) ONE (10:04)
[2018-10-15] MEDS ORDERED: Midazolam* 1 MG/ML 10 ML VIAL (10 MG) ONE (10:04)
[2018-10-15 11:24] LABS: Hematocrit 26 % (35-47); Hemoglobin 8.5 g/dl (12.0-16.0)
--- NOTE | 2018-10-15 11:45 | CONS ---
GASTROENTEROLOGY CONSULT: DATE: 10/15/18 CONSULTING PHYSICIAN: Ml Houston; Tonya Anders* REASON FOR CONSULT: Hematemesis and melena HISTORY OF PRESENT ILLNESS: This 68-year-old woman who has a history of atrial fibrillation, (on Eliquis for about a year); morbid obesity; remote uterine cancer; and chronic back pain, on multiple meds, developed abdominal pain yesterday and then vomited some blood in the evening and came to the emergency room around 10 p.m. Earlier in the day, she had been passing dark red or black stool. She is a very poor historian, saying she does not remember things based on a 2009 TIA, though when given some time, she actually will remember many things, though the need for repeated questions fatigues her. She had been having considerable back pain recently and has been taking ibuprofen. She said it stopped working, so she switched to Aleve. She says the last ibuprofen was 3 nights ago, taking 2, but then at other time she will say she takes 2 twice a day. She took 4 days of Aleve. She gets confused in pinning that down. She did not receive her second dose of Eliquis yesterday as she "ran out". She did take ibuprofen 6 or 8 months ago saying it was prescribed to her 400 mg (at [place]), 2 of them, twice a day. She took it for a considerable interval and then the back was feeling somewhat better, so she was off it for an uncertain time. She initially denies having any history of intestinal problems, but then recalls she had acid reflux. She was living near [place] at that time. She does not know if she ever had an upper endoscopy (later her daughter confirms that memory). She does recognize Nexium and omeprazole 40 mg was listed on her discharge summaries in 2016, but then is not there on her med list during a series of admissions early 2017 when she was in the hospital with atrial fibrillation. She states she had a colonoscopy many years ago while living in [place], but does not recall why or what was found, but that she clearly does not want to have another. PAST MEDICAL HISTORY: 1. Transient ischemic attack 2008 - on aspirin after that and no other blood thinner evident until November 2017. 2. Atrial fibrillation - Cardioverted October 2017 after [facility]. She was then readmitted in fast AFib and is now on flecainide, diltiazem, apixaban, and a baby aspirin. 3. Chronic low back pain - presumably the reason for her taking prednisone 40 mg. 4. Morbid obesity. 5. Uterine cancer - treated surgically only. 6. Appendectomy - age 45. She says 9 days after a fall on ice. 7. History of right breast abscess 2016- she had reaction to vancomycin which had been given rapidly, IV at that time. 8. Chronic GERD - see above. 9. Bilateral knee replacements. 10. Right total hip replacement. 11. Pulmonary hypertension - listed in Dr. Wayne's discharge summary October 2017. 12. Sleep apnea - she had minimal abnormalities during pulmonary function test September [address] Anders. MEDICATIONS: See above discussion - she states that her blood thinner history went from aspirin 81 mg to aspirin plus Eliquis and she has never been on warfarin. She has never had pathologic bleeding in the past. SHx - Mal and daughter Coty present in ICU. She works at [employer]. REVIEW OF SYSTEMS: No history of hemiplegic CVA, seizure, falls, syncope, [place], jaundice, hepatitis, hematuria, or bowel habit abnormalities. PHYSICAL EXAM: She is in the ICU bed 4. Pulse 86 mostly sinus with atrial prematures, blood pressure 113/74. There is some old dried blood on her hospital gown. She is morbidly obese in no acute distress at this time. HEENT exam shows no scleral icterus. Mucous membranes are normal. She has no adenopathy. Breath sounds are equal but diminished with effort and probably obesity. There is no cough. O2 saturation on 4 L is 100%. There is no chest wall pain. Heart sounds are normal. The abdomen is morbidly obese, symmetric, with a lower infraumbilical vertical scar. There is no guarding, although she complains of tenderness with deep palpation everywhere. Rectal deferred. Extremities show no edema or asymmetry. There are bilateral knee replacement scars. Neurologic is nonfocal with symmetric cranial nerves and movement of all 4 extremities. HOSPITAL COURSE: She has had several bloody stools including two from 6 to 10 AM and was transfused 2 units overnight. She is on a PPI drip. A third unit is now being given and pantoprazole is being given via drip. IMPRESSION: This 68-year-old woman with a large UGI bleed has a history of prior GERD and has multiple risk factors for peptic ulceration including NSAID and ASA use, prednisone use, and age. Previous PPI use that was probably chronic was discontinued at some point in the last year or two. She has many complex medical problems predicting complications. She clearly needs additional blood transfusion and urgent endoscopy. Given the presence of blood in the stomach, IV metoclopramide will be given. [id number]/[facility] #: [id number] [facility]
[2018-10-15 15:25] LABS: Hematocrit 28 % (35-47); Hemoglobin 9.3 g/dl (12.0-16.0)
--- NOTE | 2018-10-15 17:27 | PRO ---
DATE: 10/15/18 REFERRING PHYSICIAN: Ml Houston and Rebecca Wong* PROCEDURE: Upper gastrointestinal endoscopy and injection hemostasis gastric ulcer with subsequent clipping x2. INDICATION: This 68-year-old woman developed hematemesis and then maroon stool yesterday evening. She has had frequent loose stools and 1 more episode of hematemesis. See separate consultation. Since admission, she has had 3 units of blood and has been in ICU on a Protonix drip. The third unit of blood was associated with variations in her systolic pressure, enough to trigger a transfusion reaction evaluation, although there was no wheezing, hives, back pain, myalgias, etc., and no fever. Informed consent was obtained and a DNR order was reversed temporarily. ENDOSCOPIST: Dr. Ruiz. MEDICATIONS: Midazolam 5.5, fentanyl 37.5. FINDINGS: She is a morbidly obese woman in no overt distress. She is passing maroon stool. She is positioned left side down and moderate sedation induced fairly easily with small doses of medication. The patient was comfortable throughout the procedure and actually was speaking about a minute post scope removal. ESOPHAGOGASTRODUODENOSCOPY: Larynx - symmetric limited views. Esophagus - easily entered. The mucosa was normal in the upper and mid esophagus with severe erosive changes noted from about 32 to 35. There was no obvious Gaston's change, but severe broad erosions to the EG junction at 35 and that the hiatus is at 37. There was a very broad long hiatal hernia. Stomach - small amount of old blood is present diffusely. There were no red clots and no active bleeding. Along the lesser curvature, just below the level of the diaphragm, there is a broad 2-cm ulcer with a red to purple, slightly protruding lump at one edge. There were no attached clots. The antrum appeared normal. Duodenum - normal bulb and second through fourth portions. Coming back towards the ulcer on the lesser curvature near the diaphram, it tended to move with respirations, and it was in an area that was difficult to address given the diaphragmatic movement and poor air retention and a tendency of the double-backed scope to either enter the duodenal bulb or just fill the antrum and deform the stomach when retroflexed and pulled back. There was, however, at times with counterclockwise rotation an approach to the ulcer bed and 3 mL epinephrine injection and then 2 mL epinephrine injection done on opposite sides of the slight protuberance. An attempt to get clip oriented appropriately to the ulcer base could not be obtained initially. The diagnostic scope was withdrawn and a therapeutic scope inserted, and this did allow a better approach to the ulcer bed and 2 clips were deployed on opposite sides of the stigmata, although that required a fair amount of positioning adjustment also. There was no bleeding induced. The procedure was terminated. IMPRESSION: 1. Large hiatal hernia. 2. Severe erosive gastroesophageal reflux disease. 3. Lesser curvature ulcer with bleeding - temporarily / for the moment stopped ; low dose aspirin, ibuprofen and naproxen OTC, prednisone courses and the absence of acid blockade all contributing. The significance of this was discussed with the family, , and daughter. Additionally, for some period of time anticoagulation/Eliquis will have to be held. The pluses and minuses of proton pump inhibiter therapy were discussed in detail with the family. [id number]/[facility] #: [id number] [place]
--- NOTE | 2018-10-15 17:52 | CONS ---
CC: Dr. Ml Houston; Dr. Rebecca Wong CARDIOLOGY CONSULTATION: DATE OF CONSULT: 10/15/18 REFERRING PHYSICIANS: Dr. Marylin Terrell and Dr. Tonya Anders. REASON FOR CARDIOLOGY CONSULTATION: Paroxysmal atrial fibrillation in a patient who can no longer continue oral flecainide due to GI bleed. HISTORY OF PRESENT ILLNESS: I was kindly asked to see this patient for cardiology consultation for paroxysmal atrial fibrillation and antiarrhythmic management. The patient is followed by my partner, Dr. Rebecca Wong, at the [facility].I am interviewing this patient in the intensive care unit. She is accompanied by her . The patient states that yesterday at 7 p.m. (currently it is 4:15 p.m. on the subsequent day), she began to note significant hematemesis and bright red blood per rectum. She was brought to the hospital and found to have GI bleeding. She received 4 units of packed red blood cell transfusion and has had a scope which found a stomach ulcer, which was then attempted to be injected. The patient herself has not had any acute cardiac complaints including she has chronic chest pain which may have been related to ulcer as well as shortness of breath which is chronic for her, she denies any palpitations. The patient has been feeling fatigued and nauseated recently. I was asked to see the patient as she is unable to currently take her p.o. flecainide and to assist with antiarrhythmic management as required. PAST MEDICAL HISTORY: Includes hypertension; obesity; paroxysmal atrial fibrillation, she believes her last episode was in October of 2017; uterine cancer; sleep apnea, for which she uses CPAP, but not regularly. The patient apparently has decided not to pursue ablative therapy for her PAF and had previously been admitted for Tikosyn, but developed prolonged QT corrected interval, and due to renal insufficiency, was not felt to be a candidate for such. The patient has been placed on flecainide with good results. OUTPATIENT MEDICATIONS: 1. Eliquis 5 mg p.o. b.i.d. 2. Diltiazem 180 mg p.o. q.h.s. 3. Lasix 40 mg once a day. 4. Montelukast 10 mg once a day. 5. Flecainide 100 mg p.o. b.i.d. 6. Albuterol p.r.n. 7. Flexeril 10 mg p.o. t.i.d. p.r.n. 8. Prednisone 40 mg p.o. daily. 9. Aspirin per the patient. ALLERGIES TO MEDICATIONS: Listed as PENICILLIN, CODEINE, LATEX, VANCOMYCIN, NITROGLYCERIN, NITROFURANTOIN, BEE VENOM. FAMILY HISTORY: The patient's father had a history of congestive heart failure and stroke as did her grandfather, had a history of stroke. There is a history of cancer in her family. No diabetes in her family. SOCIAL HISTORY: The patient has been 5 times with 2 marriages ending in divorce and being twice. She is to her current since February of 2018. She smoked a small amount of cigarettes in the past, but has not smoked for 30 years. She only drinks a little bit of alcohol. Does not use any illicit drugs. 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 She does not do regular exercise. REVIEW OF SYSTEMS: She has had a TIA in 2008. 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 She has had a hysterectomy in the past for cancer. She noted bleeding last night as described above, both hematemesis and bright red blood per rectum. She denies renal calculi, cholelithiasis, asthma, emphysema. She has had pneumonia multiple times including twice requiring hospitalization. She denies tuberculosis. She has sleep apnea, but has difficulty using the CPAP, which she uses p.r.n. She states she cannot afford home oxygen. She denies diabetes. She has had hypertension in the past. She denies prior DE, congestive heart failure, cardiac surgery, cardiac murmurs, prior coronary artery bypass grafting surgery, stents, or pacemaker. She denies heart murmur. She denies palpitations. She denies psychiatric illnesses , lupus, psoriasis, seizures, Parkinson's disease, myasthenia gravis, thyroid disorders, liver disorders, kidney disorders, claudication symptoms, pulmonary emboli, deep venous thrombosis, peripheral arterial disease. She does have chronic lower extremity edema. She has been having quite a bit of heartburn recently. All other review of systems are negative x14 except as per this record. PHYSICAL EXAM: Height 5 feet 2 inches, weight 233 pounds, temperature 99.9 degrees Fahrenheit, pulse 86, O2 saturation 100%, blood pressure ranges from 82/ 50 to 131/61. On general exam, she is a pleasant, pale-appearing lady, in no acute distress. HEENT shows the cranium is normocephalic and atraumatic. She has dry mucosal membranes. Neck veins are not distended. There are no carotid bruits. Visible skin warm and perfused. Affect appropriate. She appears oriented. No significant kyphoscoliosis on semirecumbent back exam. Lungs are clear to auscultation. No wheezes, no rales. Cardiac Exam: S1, S2. Regular rate. Soft systolic murmur heard without radiation. There is no rub or gallop. PMI is nondisplaced. Abdomen: Soft and nondistended, appears benign. Extremities with trivial peripheral edema. Pulses appear grossly intact. DIAGNOSTIC STUDIES/LAB DATA: The patient completed a symptom limited stress test to 77% of her target heart rate with her cable installation technician, Dr. Wong, , which was felt nondiagnostic study for ischemia as target heart rate not achieved; however, there was no significant ST changes, no desaturation to maximal effort without chronotropic exercise. The patient had a transesophageal echocardiogram completed 11/04/17, which showed normal left ventricular size and systolic function, moderate left atrial dilatation, moderate mitral regurgitation, [id number] tricuspid regurgitation, mild dilatation of the ascending aorta. Blood work showed white blood cell count on admission 16.8; hematocrit 20, is currently 28; platelet count 289. INR 1.33. Chemistry: Sodium 140, potassium 4.4, chloride 111, bicarbonate 25, BUN 60, creatinine 1.03, lactate was 2.2. Troponin 0.03 x3. A 12-lead EKG completed 10/14/18 at 2339 demonstrates sinus rhythm with borderline T-wave abnormalities in the anterior leads. IMPRESSION: Ms. Giraldo is a pleasant 68-year-old woman with a history of paroxysmal atrial fibrillation which is well suppressed with flecainide, admitted with severe gastrointestinal bleeding felt due to an ulcer. She is no longer a candidate for oral anticoagulation. She does not require aspirin from a cardiac standpoint shelter, which apparently she had been taking by her description. There is no IV equivalent of flecainide and right now she is maintaining sinus rhythm. RECOMMENDATIONS: 1. Continue management as per GI and Critical Care Medicine and I have discussed the case with Dr. Tonya Anders. 2. We would resume Cardizem and flecainide once the patient is able to reliably take p.o. If her PAF will recur in the interim and she is symptomatic , we would recommend amiodarone IV load followed by a drip. However, if her AF recurs and she is asymptomatic and her blood pressure is adequate, could consider a Cardizem drip for heart rate control at least in the short term. 3. senior living recommend adherence to sleep apnea therapy. 4. The patient may continue regular followup with her cable installation technician, Dr. Rebecca Wong, if the patient is willing as she notes that she has been concerned about her own financial situation in the past. Dear Dr. Anders and Dr. Terrell, many thanks for asking me to participate in the cardiovascular consultative care of Ms. Giraldo. Please do not hesitate to contact me if you have any questions or concerns regarding the patient's cardiovascular consultative care. [id number]/[facility] #: [id number] [place]
[2018-10-15] MEDS ORDERED: metroNIDAZOLE IV 500 MG/100ML* 500 MG/100 ML BAG IVPB SCH (20:00)
[2018-10-15 20:39] LABS: Hematocrit 25 % (35-47); Hemoglobin 8.2 g/dl (12.0-16.0)
[2018-10-15] MEDS ORDERED: Levofloxacin 500 MG IVPREMIX(* 500 MG/100 ML BAG IVPB SCH (21:00)
--- NOTE | 2018-10-15 21:34 | PRO ---
DATE: 10/15/18 REFERRING PHYSICIAN: Ml Houston.* PROCEDURE: Upper gastrointestinal endoscopy, injection hemostasis, and clipping of lesser curvature gastric ulcer with stigmata. INDICATION: This 68-year-old woman came in with a massive upper GI bleed. On presentation, her hemoglobin was 6.5 and BUN 60, creatinine 1.12, lactic acid 2.2, albumin 3.0. She has received 3 units transfusion and is on a PPI drip. See preprocedure consult for risk factors for ulcer. ENDOSCOPIST: Dr. Ruiz. MEDICATIONS: Midazolam 5.5, fentanyl 37.5. FINDINGS: She is a morbidly obese woman, in no cardiorespiratory distress. She was positioned left side down and moderate sedation induced with sequential doses of medication. She tolerated the procedure very well. EGD: Larynx - symmetric, limited views. Esophagus - easily entered, the mucosa is normal down to about 31 or 32 and then there was severe erosive esophagitis, though no sign of Gaston's and no actual focal ulcer or bleeding point. The EG junction is at about 35 to 36. There is then a large hiatal hernia with the hiatus at 39 to 40. Stomach - moderate amount of old blood is present. There is no fresh blood and no clot. Along the lesser curvature, there is a 2 cm flat ulcer with a central stigmata. It was difficult to approach in any orientation. The antrum appeared normal. Duodenum - normal for 35 to 40 cm. Coming back, multiple positions were used in attempts to get en face view of the ulcer. The approach could only be tangential, but eventually a sclerotherapy needle could be injected in 2 locations for 3 and 2 mL. Some pallor was induced in the mucosa. No bleeding was induced. An attempt to clip in this orientation was not feasible. A change was made for a therapeutic scope. The patient tolerated this well. A better approach was obtained and 2 clips deployed. Positioning was still difficult, but eventually a good gas usage meter clerk was obtained. There was no induced bleeding. Coming back, there was no acute bleeding in the gastric cardia or esophagus. IMPRESSION: 1. Large hiatal hernia. 2. Severe erosive gastroesophageal reflux disease - she needs indefinite PPI therapy. 3. Lesser curvature ulcer - prominent PPI therapy and working on the pathogenic factors are indicated. She should be off the low-dose aspirin for at least 2 weeks and the Eliquis for longer. A repeat exam in a month could be considered. It was requested that a family member attend all her medical appointments. [id number]/[facility] #: [id number] [place]
[2018-10-16 01:14] LABS: Hematocrit 23 % (35-47); Hemoglobin 7.7 g/dl (12.0-16.0)
[2018-10-16] MEDS: Pantoprazole* 80 mg IN NS 80 MG/250 ML BAG IVPB SCH (01:24)
[2018-10-16 01:43] LABS: BUN/Creatinine Ratio 48.6 (8-20); Calcium 7.7 mg/dL (8.6-10.3); EGFR Non-African American 51.8 (>60); Potassium 3.7 mmol/L (3.5-5.0)
--- NOTE | 2018-10-16 03:02 | PN ---
Progress Note - Progress Note Date of Service: 10/16/18 - Transfer note Note: Pt seen and examined at bedside. Pt was admitted with acute upper GI bleed, s/p EGD this am and was found to have 2 cm flat ulcer in lesser curvature of stomach with central stigmata was noted. Severe erosive esophagitis was seen. She had sclerotherapy material injection and attempt at clip was made however it could have been not successful given the location. Patient dropped Hb/Hct again from 9.3 (10/15/18 at 15:15-post transfusion of 4 units to 7.7(10/16/18 at 00:05). BP remained stable. Pt had another BM at around 2:50. Pt denied back pain or abd pain. 2 more units of pRBC ordered Given location of ulcer and possible failure of endoscopic sclerotherapy, plan was made to transfer pt to [facility] for IR guided embolization as it not available at [facility]. Active Medications Generic Name Dose Route Start Last Admin Trade Name Freq PRN Reason Stop Dose Admin Sodium Chloride 1,000 mls @ 100 mls/hr 10/15/18 01:15 10/15/18 20:40 Ns 0.9% 1000 Ml* IV 100 mls/hr PER RATE ANGELA Administration Pantoprazole Sodium 80 mg in 250 mls @ 25 mls/hr 10/15/18 03:00 10/16/18 01: 24 Protonix Iv Bag* IVPB 25 mls/hr Q10H ANGELA Administration 8 MG/HR Metronidazole/Sodium Chloride 500 mg in 100 mls @ 100 mls/hr 10/15/18 20:00 10/15/18 22:06 Flagyl 500 Mg Ivpb* IVPB 100 mls/hr Q8H ANGELA Administration Levofloxacin/Dextrose 500 mg in 100 mls @ 100 mls/hr 10/15/18 21:00 10/15/18 23:10 Levaquin 500 Mg Ivpremix(*) IVPB 100 mls/hr Q24H ANGELA Administration Metoclopramide HCl 10 mg 10/15/18 09:36 10/15/18 10:14 Reglan Iv* IV 10 mg Q6H PRN Administration NAUSEA/VOMITING Ondansetron HCl 4 mg 10/15/18 07:55 10/15/18 08:09 Zofran Inj* IV 4 mg Q4H PRN Administration NAUSEA Vital Signs Temp Pulse Resp BP Pulse Ox 99.5 F 82 28 126/68 100 10/16/18 02:15 10/16/18 02:15 10/16/18 02:15 10/16/18 02:15 10/16/18 02:15 O/E: Pt in NAD HEENT: PERRLA, No JVD Lungs: Good a/e b/l CVS: S1, S2+ Abd: Obese, BS+ Ext: Normal ROM Neuro: Alert, awake, no focal deficits Skin: no rash Laboratory Results - last 24 hr 10/14/18 10/15/18 10/15/18 23:53 03:58 03:58 WBC RBC Hgb Hct MCV MCH MCHC RDW Plt Count MPV Neut % (Auto) Lymph % (Auto) [place] % (Auto) Eos % (Auto) Baso % (Auto) Absolute Neuts (auto) Absolute Lymphs (auto) Absolute Monos (auto) Absolute Eos (auto) Absolute Basos (auto) Absolute Nucleated RBC Nucleated RBC % Sodium Potassium Chloride Carbon Dioxide Anion Gap BUN Creatinine Est GFR ( Amer) Est GFR (Non-Af Amer) BUN/Creatinine Ratio Glucose Lactic Acid 2.2 H* Calcium Magnesium Troponin I 0.03 Urine Color Urine Appearance Urine pH Ur Specific [place] Urine Protein Urine Ketones Urine Blood Urine Nitrate Urine Bilirubin Urine Urobilinogen Ur Leukocyte Esterase Urine Glucose Blood Type A Positive Antibody Screen Negative Crossmatch See Detail Transfusion React Rpt Donor Unit # Post-Trans Blood Type Post-Trans AMISH 10/15/18 10/15/18 10/15/18 04:20 07:17 07:17 WBC 21.5 H RBC 2.62 L Hgb 7.1 L Hct 22 L MCV 84 MCH 27 MCHC 33 RDW 15 Plt Count 211 MPV 9.1 Neut % (Auto) 75.0 Lymph % (Auto) 13.5 [place] % (Auto) 11.1 Eos % (Auto) 0.2 Baso % (Auto) 0.2 Absolute Neuts (auto) 16.1 H Absolute Lymphs (auto) 2.9 Absolute Monos (auto) 2.4 H Absolute Eos (auto) 0.1 Absolute Basos (auto) 0.1 Absolute Nucleated RBC 0 Nucleated RBC % 0.1 Sodium 140 Potassium 4.4 Chloride 111 Carbon Dioxide 25 Anion Gap 4 BUN 60 H Creatinine 1.03 H Est GFR ( Amer) 64.1 Est GFR (Non-Af Amer) 53.0 BUN/Creatinine Ratio 58.3 H Glucose 112 H Lactic Acid Calcium 7.9 L Magnesium 2.0 Troponin I 0.03 Urine Color Yellow Urine Appearance Clear Urine pH 5.0 Ur Specific [place] 1.020 Urine Protein Negative Urine Ketones Negative Urine Blood Negative Urine Nitrate Negative Urine Bilirubin Negative Urine Urobilinogen Negative Ur Leukocyte Esterase Negative Urine Glucose Negative Blood Type Antibody Screen Crossmatch Transfusion React Rpt Donor Unit # Post-Trans Blood Type Post-Trans AMISH 10/15/18 10/15/18 10/15/18 10:55 10:55 11:25 WBC RBC Hgb 8.5 L Hct 26 L MCV MCH MCHC RDW Plt Count MPV Neut % (Auto) Lymph % (Auto) [place] % (Auto) Eos % (Auto) Baso % (Auto) Absolute Neuts (auto) Absolute Lymphs (auto) Absolute Monos (auto) Absolute Eos (auto) Absolute Basos (auto) Absolute Nucleated RBC Nucleated RBC % Sodium Potassium Chloride Carbon Dioxide Anion Gap BUN Creatinine Est GFR ( Amer) Est GFR (Non-Af Amer) BUN/Creatinine Ratio Glucose Lactic Acid 2.2 H* Calcium Magnesium Troponin I Urine Color Urine Appearance Urine pH Ur Specific [place] Urine Protein Urine Ketones Urine Blood Urine Nitrate Urine Bilirubin Urine Urobilinogen Ur Leukocyte Esterase Urine Glucose Blood Type Antibody Screen Crossmatch Transfusion React Rpt Donor Unit # [id number] Post-Trans Blood Type A Positive Post-Trans AMISH Negative 10/15/18 10/15/18 10/15/18 13:15 15:15 20:12 WBC RBC Hgb 9.3 L 8.2 L Hct 28 L 25 L MCV MCH MCHC RDW Plt Count MPV Neut % (Auto) Lymph % (Auto) [place] % (Auto) Eos % (Auto) Baso % (Auto) Absolute Neuts (auto) Absolute Lymphs (auto) Absolute Monos (auto) Absolute Eos (auto) Absolute Basos (auto) Absolute Nucleated RBC Nucleated RBC % Sodium Potassium Chloride Carbon Dioxide Anion Gap BUN Creatinine Est GFR ( Amer) Est GFR (Non-Af Amer) BUN/Creatinine Ratio Glucose Lactic Acid Calcium Magnesium Troponin I 0.03 Urine Color Urine Appearance Urine pH Ur Specific [place] Urine Protein Urine Ketones Urine Blood Urine Nitrate Urine Bilirubin Urine Urobilinogen Ur Leukocyte Esterase Urine Glucose Blood Type Antibody Screen Crossmatch Transfusion React Rpt Donor Unit # Post-Trans Blood Type Post-Trans AMISH 10/16/18 10/16/18 00:50 01:23 WBC RBC Hgb 7.7 L Hct 23 L MCV MCH MCHC RDW Plt Count MPV Neut % (Auto) Lymph % (Auto) [place] % (Auto) Eos % (Auto) Baso % (Auto) Absolute Neuts (auto) Absolute Lymphs (auto) Absolute Monos (auto) Absolute Eos (auto) Absolute Basos (auto) Absolute Nucleated RBC Nucleated RBC % Sodium 141 Potassium 3.7 Chloride 113 H Carbon Dioxide 24 Anion Gap 4 BUN 51 H Creatinine 1.05 H Est GFR ( Amer) 62.7 Est GFR (Non-Af Amer) 51.8 BUN/Creatinine Ratio 48.6 H Glucose 123 H Lactic Acid Calcium 7.7 L Magnesium Troponin I Urine Color Urine Appearance Urine pH Ur Specific [place] Urine Protein Urine Ketones Urine Blood Urine Nitrate Urine Bilirubin Urine Urobilinogen Ur Leukocyte Esterase Urine Glucose Blood Type Antibody Screen Crossmatch Transfusion React Rpt Donor Unit # Post-Trans Blood Type Post-Trans AMISH CT abdomen: No acute findings, evidence of diverticulosis 68 y o f with h/o A.fib, s/p ablation with recurrence, on anticoagulation, on Flecanide for rate control, chronic back pain on prednisone, also taking NSAIDS , sleep apnea, mild pulm HTN, presented with acute GI bleed 1. Acute upper GI bleed 2. Anemia from blood loss 3. Hypotension from hemorraghic shock 4.Chronic renal insufficiency 5. Elevated lactic acid secondary to hypotension 6. Leucocytosis sec to infection versus reactive- Afebrile 7. A.fib on anticoagulation 8. Chronic back pain on NSAIDS Plan: 1. GI: Acute GI bleed, likely upper GI bleed given hematemesis and melena.GI consult Dr Ruiz, s/p EGD, found to have 2 cm ulcer, sclerotherapy and clipping was attempted. Pt continues to have melena. H&H contiues to drop. To receive 2 more units. Pt on PPI. c/w IVF at 100cc/hr. Pt to be transferred to [facility] given recurrent bleeding and need for IR procedure. 2. Neuro: Alert, awake, with no focal deficits. C/o dizziness. Aspiration precautions. Fall precautions 3. Resp: Stable, lungs sound clear. On 4L O2, saturating 100% 4. CVS: Hypotension sec to acute GI bleed. Pt receiving pRBC and IVF. Pt with h/ o A.fib, irregular however not in RVR. Will hold Flecanide and Xarelto. Not needing pressors at this time. Will need to watch for fluid overload given cardiac history. Amiodarone if pt has A.fib with RVR. 5. Haem: Acute blood loss anemia, received total of 4 units yesterday, ordered 2 more units, will assess need for further transfusion. Monitor h&H q 4 hrs. 6. Endo: Bl sugars slightly elevated, will monitor closely 7. Renal: UO acceptable, has h/o CRF, no electrolyte abnormalities. 8. ID: Leucocytosis with no fever or source of infection. Septic w/u sent. Emperically started on Levaquin and Flagyl. 9. Musculoskeletal: Chronic back pain, on prednisone and NSAIDS. Not on PPI at home. Having mild back pain, will use Tylenol prn. 10. Psych/Social: Discussed with pt regaring need for transfer to [facility]. Pt was accepted to ICU at [facility], job coach Dr Knight. Pt called her daughter and made her family aware. GI ppx: PPI DVT px: SCD`s IV access: 2 Large bore peripherals Total time spent with transfer 60 min
[2018-10-16 03:50] VITALS: BP 103/69
== END 2018-10-16 05:15 | disposition short-term general hospital (02) | DRG 377 ==
LOC: ED 23:30 → ICU 10-15 01:08
PROVIDERS: ADMIT Internal Medicine; ATTEND Internal Medicine
PROC: 30283B1 Transfusion of Nonautologous 4-Factor Prothrombin Complex Concentrate into Vein, Percutaneous Approach (ICD-10-PCS; principal; 2018-10-14)
PROC: 0W3P8ZZ Control Bleeding in Gastrointestinal Tract, Via Natural or Artificial Opening Endoscopic (ICD-10-PCS; 2018-10-15)
PROC: 30233N1 Transfusion of Nonautologous Red Blood Cells into Peripheral Vein, Percutaneous Approach (ICD-10-PCS; 2018-10-16)
DX: K25.4 Chronic or unspecified gastric ulcer with hemorrhage (principal); R57.8 Other shock; D62 Acute posthemorrhagic anemia; R65.10 Systemic inflammatory response syndrome (SIRS) of non-infectious origin without acute organ dysfunction; K22.10 Ulcer of esophagus without bleeding; I13.0 Hypertensive heart and chronic kidney disease with heart failure and stage 1 through stage 4 chronic kidney disease, or unspecified chronic kidney disease; Z68.41 Body mass index [BMI] 40.0-44.9, adult; E66.01 Morbid (severe) obesity due to excess calories; G47.33 Obstructive sleep apnea (adult) (pediatric); G89.29 Other chronic pain; M54.5 Low back pain; Z96.641 Presence of right artificial hip joint; Z96.653 Presence of artificial knee joint, bilateral; E07.9 Disorder of thyroid, unspecified; E78.00 Pure hypercholesterolemia, unspecified; I50.9 Heart failure, unspecified; J45.909 Unspecified asthma, uncomplicated; M19.90 Unspecified osteoarthritis, unspecified site; G43.909 Migraine, unspecified, not intractable, without status migrainosus; Z96.611 Presence of right artificial shoulder joint; I48.0 Paroxysmal atrial fibrillation; I08.1 Rheumatic disorders of both mitral and tricuspid valves; K21.9 Gastro-esophageal reflux disease without esophagitis; I27.20 Pulmonary hypertension, unspecified; K44.9 Diaphragmatic hernia without obstruction or gangrene; I95.9 Hypotension, unspecified; N18.9 Chronic kidney disease, unspecified; R74.0 Nonspecific elevation of levels of transaminase and lactic acid dehydrogenase [LDH]; Z91.19 Patient's noncompliance with other medical treatment and regimen; Z86.73 Personal history of transient ischemic attack (TIA), and cerebral infarction without residual deficits; Z85.42 Personal history of malignant neoplasm of other parts of uterus; Z82.3 Family history of stroke; Z82.49 Family history of ischemic heart disease and other diseases of the circulatory system; Z87.891 Personal history of nicotine dependence; Z88.5 Allergy status to narcotic agent; Z88.0 Allergy status to penicillin; Z88.8 Allergy status to other drugs, medicaments and biological substances; Z88.6 Allergy status to analgesic agent; Z88.1 Allergy status to other antibiotic agents; Z91.030 Bee allergy status; Z91.040 Latex allergy status; Z87.01 Personal history of pneumonia (recurrent)
CPT/HCPCS: 36415; 71045; 74176; 80048; 80053; 81003; 83605; 83735; 84484; 85014; 85018; 85025; 85610; 85730; 86078; 86850; 86900; 86901; 86922; 87040; 87641; 93005; 99156; 99157; 99285; C9132; J1940; J1956; J2250; J2405; J2765; J3010; J3490; P9016; P9040

== ENCOUNTER 2018-11-06 13:39 | Inpatient (IN) | payer MEDICARE ==
--- NOTE | 2018-11-06 14:01 | ED ---
Adult Trauma - HPI Summary HPI Summary: Pt is a 68 y/o F presenting to the ED with a chief complaint of lower left leg pain. She slipped off of the bed this morning and hurt her ankle, and cannot stand on it. - History of Current Complaint Chief Complaint: EDExtremityLower Stated Complaint: FALL/ANKLE PAIN Time Seen by Provider: 11/06/18 13:54 Hx Obtained From: Patient Mechanism of Injury: Fall - from bed Loss of Consciousness: no loss of consciousness Onset/Duration: Started Hours Ago, Still Present Onset of Pain: Immediate Onset Severity: Severe Current Severity: Severe Pain Intensity: 8 Pain Scale Used: 0-10 Numeric Location: Extremities - L ankle Character: Aching Aggravating Factor(s): Movement, Weight Bearing Alleviating Factor(s): Rest Associated Signs & Symptoms: Positive: Other: - L ankle swelling Related History: Anticoagulants - plavix - Additional Pertinent History Primary Care Physician: BIMAL - Allergy/Home Medications Allergies/Adverse Reactions: Allergies Allergy/AdvReac Type Severity Reaction Status Date / Time codeine Allergy Severe Anaphylatic Verified 10/28/18 14:44 Shock Penicillins Allergy Severe Anaphylatic Verified 10/28/18 14:44 Shock venom-honey bee Allergy Severe Anaphylatic Verified 10/28/18 14:44 Shock nitroglycerin Allergy Intermediate Hives Verified 10/28/18 14:44 latex Allergy Mild Rash Verified 10/28/18 14:44 vancomycin Allergy Mild Pain Verified 10/28/18 14:44 nitrofurantoin Allergy Hives Verified 10/28/18 14:44 [From Macrodantin] aspirin AdvReac Intermediate GI Upset Verified 10/28/18 14:44 Home Medications: Home Medications Aspirin 81 mg CHEW TAB* [Aspirin Low Dose TAB*] 81 mg PO DAILY 11/06/18 [ History Confirmed 11/06/18] Calcium Carbonate/Vitamin D3 [Calcium Carbonate/Vitamin] 1 tab PO DAILY [History Confirmed 11/06/18] Cyclobenzaprine TAB* [Flexeril 10 MG TAB*] 10 mg PO BID PRN 11/06/18 [History Confirmed 11/06/18] Pantoprazole TAB * [Protonix TAB (NF)] 40 mg PO BID 11/06/18 [History Confirmed 11/06/18] Potassium Chlor TAB* [Klor Con ER TAB*] 10 meq PO DAILY 11/06/18 [History Confirmed 11/06/18] Vitamin E Mixed [E400 Mixed] 400 unit PO DAILY 11/06/18 [History Confirmed 11/06] traMADol TAB* [Ultram*] 100 mg PO Q8H PRN 11/06/18 [History Confirmed 11/06/18] PMH/Surg Hx/FS Hx/Imm Hx Previously Healthy: No Endocrine/Hematology History: Reports: Hx Anticoagulant Therapy - eliquis, Hx Thyroid Disease Denies: Hx Diabetes, Hx Anemia, Hx Unexplained Bleeding Cardiovascular History: Reports: Hx Angina, Hx Atrial Fibrillation, Hx Congestive Heart Failure - takes diuretic, Hx Hypercholesterolemia, Hx Hypertension, Other Cardiovascular Problems/Disorders - tia 2008 Denies: Hx Aneurysm, Hx Angioplasty, Hx Auto Implanted Cardiovert Defib, Hx Cardiac Arrest, Hx Cardiomegaly, Hx Congenital Heart Disease, Hx Coronary Artery Disease, Hx Deep Vein Thrombosis, Hx Embolism, Hx Pacemaker/ICD, Hx Peripheral Vascular Disease, Hx Rheumatic Fever, Hx Syncope, Hx Valvular Heart Disease Respiratory History: Reports: Hx Asthma, Hx Chronic Bronchitis, Hx Pneumonia, Other Respiratory Problems/Disorders - pneumonia 1 year ago Denies: Hx Chronic Obstructive Pulmonary Disease (COPD) GI History: Denies: Hx Ulcer History: Denies: Hx Renal Disease Musculoskeletal History: Reports: Hx Arthritis, Hx Back Problems - chronic pain - no definitive dx Sensory History: Reports: Hx Contacts or Glasses Denies: Hx Cataracts, Hx Eye Injury, Hx Eye Prosthesis, Hx Glaucoma, Hx Legally Blind, Hx Macular Degeneration, Hx Deafness, Hx Hearing Aid, Hx Hearing Problem, Other Sensory Impairments Opthamlomology History: Reports: Hx Contacts or Glasses Denies: Hx Cataracts, Hx Eye Injury, Hx Eye Prosthesis, Hx Glaucoma, Hx Legally Blind, Hx Macular Degeneration, Other Sensory Impairments Neurological History: Reports: Hx Migraine, Hx Transient Ischemic Attacks (TIA) - 2008 Denies: Hx Dementia, Hx Developmental Delay, Hx Headaches, Hx Nerve Disease, Hx Seizures, Hx Spinal Cord Injury, Other Neuro Impairments/Disorders Psychiatric History: Denies: Hx Panic Disorder - DIFFICULTY BREATHY WHILE LAYING FLAT - Cancer History Cancer Type, Location and Year: Uterine cancer 15 + years ago - Surgical History Surgery Procedure, Year, and Place: Breast Reduction, Bilat Knee Replacement, Right Shoulder Replacement, Appendectomy, Hysterectomy, Left Hip replacement Hx Anesthesia Reactions: No - Immunization History Date of Tetanus Vaccine: unk Date of Influenza Vaccine: unk Infectious Disease History: No Infectious Disease History: Reports: Hx of Known/Suspected MRSA Denies: Hx Hepatitis, Hx Human Immunodeficiency Virus (HIV), History Other Infectious Disease, Traveled Outside the [place] in Last 30 Days - Family History Known Family History: Positive: Cardiac Disease, Hypertension, Other Family History: [place] - sister, mother, father - Social History Alcohol Use: Rare Alcohol Amount: once a year Hx Substance Use: Yes Substance Use Type: Reports: Excessive Caffeine Substance Use Comment - Amount & Last Used: 8-10 cups/day Hx Tobacco Use: Yes Smoking Status (MU): Former Smoker Type: Cigarettes Amount Used/How Often: 1 pack per week Length of Time of Smoking/Using Tobacco: 9 years Have You Smoked in the Last Year: No Review of Systems Negative: Fever Positive: Arthralgia All Other Systems Reviewed And Are Negative: Yes Physical Exam - Summary Physical Exam Summary: Appearance: Well appearing, no pain distress Skin: warm, dry, reflects adequate perfusion Head/face: normal Eyes: EOMI, ALESSIO ENT: normal Neck: supple, non-tender Respiratory: CTA, breath sounds present Cardiovascular: RRR, pulses symmetrical Abdomen: non-tender, soft Musculoskeletal: tenderness over L ankle, L ankle swelling, L ankle ROM restricted. Neuro: normal, sensory motor intact, A&Ox3, no neurological deficit. Triage Information Reviewed: Yes Vital Signs On Initial Exam: Initial Vitals Temp Pulse Resp BP Pulse Ox 98.2 F 69 22 112/81 99 11/06/18 13:49 11/06/18 13:49 11/06/18 13:49 11/06/18 13:49 11/06/18 13:49 Vital Signs Reviewed: Yes Diagnostics - Vital Signs Vital Signs Temp Pulse Resp BP Pulse Ox 11/06/18 13:49 98.2 F 69 22 112/81 99 - Laboratory Result Diagrams: 11/06/18 14:50 11/06/18 14:50 Lab Statement: Any lab studies that have been ordered have been reviewed, and results considered in the medical decision making process. - Radiology L foot x-ray Radiology Interpretation Completed By: Radiologist Summary of Radiographic Findings: 1. Oblique, displaced fractures of the fibular and tibial diaphysis. 2. Osteopenia. ED physician has reviewed this report. L leg x-ray Radiology Interpretation Completed By: Radiologist Summary of Radiographic Findings: 1. Oblique, displaced fractures of the fibular and tibial diaphysis. 2. Osteopenia. ED physician has reviewed this report. - EKG 1454 Cardiac Rate: NL - 68bpm EKG Rhythm: Sinus Rhythm ST Segment: Normal Ectopy: None EKG Comparison: No Significant Change Adult Trauma Course/Dx - Course Course Of Treatment: Pt is a 68 y/o F presenting to the ED with a chief complaint of lower left leg pain. She slipped off of the bed this morning and hurt her ankle, and cannot stand on it. L foot x-ray and L lower leg x-ray both show oblique, displaced fractures of the fibular and tibial diaphysis, and osteopenia. An EKG shows NSR at 68bpm. Final dx includes tibia and fibula fracture. The pt will be seen by Dr. Sainz in orthopedics and admitted to the hospital under Dr. Boykin, the patient is agreeable with this plan. - Diagnoses Differential Diagnosis/HQI/PQRI: Positive: Contusion(s), Fracture, Hematoma(s), Strain Provider Diagnoses: Fracture of left tibia and fibula Discharge - Sign-Out/Discharge Documenting (check all that apply): Patient Departure - admit - Discharge Plan Condition: Stable Disposition: ADMITTED TO [facility] Referrals: Ml Houston MD [Primary Care Provider] - - Billing Disposition and Condition Condition: STABLE Disposition: Admitted to [facility] - Attestation Statements Document Initiated by Yancy: Yes Documenting Scribe: Jessica Meyer Provider For Whom Yancy is Documenting (Include Credential): Tapan Jones MD. Scribe Attestation: Jessica Andrade, scribed for Tapan Jones MD. on 11/06/18 at 1618. Scribe Documentation Reviewed: Yes Provider Attestation: The documentation as recorded by the Jessica sheffield accurately reflects the service I personally performed and the decisions made by Tapan espinoza MD. Status of Scribe Document: Viewed Consult Consult: 1400 - Spoke with Dr. Sainz about the pt's condition, he will evaluate the patient further in the emergency department.
[2018-11-06] MEDS ORDERED: NS 0.9% 1000 ML* 1,000 ML IV ONE (14:40)
--- OUTSIDE RECORDS SUMMARY | 2018-11-06 14:40 | XMS REPORT | Continuity of Care Document ---
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 W/Image 2D Completed W/W/O M-M 11/04/2017 57276 ECHO Transthorasic Realtime 2D W Doppler & Color Flow Completed Hosp 11/03/2017 04487 EKG, Interpretation Only Completed 10/25/2008 15497 Collection Of Blood, Stick(Finger, Heel, Ear Stick) Completed Encounters Type Date Location Provider Dx Diagnosis Office Visit 10/16/2018 [facility] Tonya Anders, K92.2 Gastrointestinal 11:18a hemorrhage, unspecified D64.9 Anemia, unspecified I95.9 Hypotension, unspecified N18.9 Chronic kidney disease, unspecified R74.0 Nonspec elev of levels of transamns & lactic acid dehydrgnse D72.829 Elevated white blood cell count, unspecified I48.91 Unspecified atrial fibrillation M54.9 Dorsalgia, unspecified Office 10/15/2018 [facility] Gastroenterology Jeronimo Saleh K92.2 Gastrointestinal Visit 7:00a MD Joseph hemorrhage, unspecified K27.9 Peptic ulc, site unsp, unsp as ac or chr, w/o hemor or perf Office Visit 10/15/2018 11:11a [facility] Tonya K92.2 Gastrointestinal MD Chago hemorrhage, unspecified D64.9 Anemia, unspecified I95.9 Hypotension, unspecified N18.9 Chronic kidney disease, unspecified R74.0 Nonspec elev of levels of transamns & lactic acid dehydrgnse D72.829 Elevated white blood cell count, unspecified I48.91 Unspecified atrial fibrillation M54.9 Dorsalgia, unspecified Office Visit 10/12/2018 10:50a [facility] Internal Ml M51.36 Other intervertebral Medicine Trevor Houston M.D. disc degeneration, [place] lumbar region M54.5 Low back pain Office Visit 06/28/2018 1:40p [facility] Internal Medicine - Ml Houston M.D. R05 Cough [place] R06.02 Shortness of breath J40 Bronchitis, not specified as acute or chronic Office Visit 05/12/2018 12:40p [facility] Rebecca Wong, R06.02 Shortness of Of [place] breath I48.0 Paroxysmal atrial fibrillation I10 Essential (primary) hypertension R60.0 Localized edema Office Visit 05/10/2018 10:50a [facility] Internal Ml R06.02 Shortness of Medicine Trevor Houston M.D. breath [place] G47.33 Obstructive sleep apnea (adult) (pediatric) R09.02 Hypoxemia Z11.59 Encounter for screening for other viral diseases Z68.38 Body mass index (BMI) 38.0-38.9, adult Office Visit 04/25/2018 4:00p [facility] Rebecca Wong, I48.1 Persistent atrial Of [facility] Porter fibrillation R06.02 Shortness of breath G47.33 Obstructive sleep apnea (adult) (pediatric) R09.02 Hypoxemia Z68.38 Body mass index (BMI) 38.0-38.9, adult Z79.01 longterm (current) use of anticoagulants Office Visit 03/28/2018 9:00a [facility] Elijah Light I48.1 Persistent atrial Of [facility] [place] Ibrahim fibrillation Z51.81 Encounter for therapeutic drug level monitoring Office Visit 03/24/2018 2:00p [facility] Internal Saul Bailey I50.20 Unspecified Medicine - [place] Lindsay systolic [place] (congestive) heart failure I48.1 Persistent atrial fibrillation R06.02 Shortness of breath G47.33 Obstructive sleep apnea (adult) (pediatric) Office Visit 02/24/2018 11:10a [facility] Internal Ml I48.1 Persistent atrial Medicine - [place] Houston fibrillation [place] R06.02 Shortness of breath Office Visit 02/15/2018 11:30a [facility] Rebecca Wong I48.1 Persistent atrial Of [place] fibrillation R06.02 Shortness of breath G47.33 Obstructive sleep apnea (adult) (pediatric) Office Visit 02/03/2018 Pulmonology And Cristiane G47.33 Obstructive sleep 11:30a Sleep Services Of BECKY Matute, RN, apnea (adult) [facility] DEATH CLAIM EXAMINER-BC (pediatric) R09.02 Hypoxemia Z68.38 Body mass index (BMI) 38.0-38.9, adult Office Visit 01/25/2018 3:00p [facility] Tatyana Heard, I49.5 Sick sinus Of [facility] N.P. syndrome I48.0 Paroxysmal atrial fibrillation R06.02 Shortness of breath I10 Essential (primary) hypertension E78.5 Hyperlipidemia, unspecified R07.9 Chest pain, unspecified Office Visit 01/07/2018 3:30p [facility] Tatyana Carrillo R06.02 Shortness of Of [facility] Foster, N.P. breath I48.1 Persistent atrial fibrillation I10 Essential (primary) hypertension E78.5 Hyperlipidemia, unspecified R07.9 Chest pain, unspecified Office Visit 01/06/2018 1:00p [facility] Sleep Tonya Anders, R06.83 Snoring Services Of [facility] E66.09 Other obesity due to excess calories Z68.38 Body mass index (BMI) 38.0-38.9, adult Office Visit 12/14/2017 12:30p [facility] Rebecca [place], I48.1 Persistent atrial Of [place] fibrillation R05 Cough Office Visit 12/06/2017 [facility] Rebecca Wong, I48.1 Persistent atrial 2:10p Of [place] fibrillation Office Visit 11/22/2017 [facility] Paxton Escamilla MD I48.91 Unspecified atrial 11:47a Assoc,pc fibrillation Hospitalists I10 Essential (primary) hypertension E78.5 Hyperlipidemia, unspecified Office Visit 11/21/2017 11:45a [facility] Paxton Escamilla I48.91 Unspecified atrial Assoc,juan daniel SESAY fibrillation Hospitalists I10 Essential (primary) hypertension E78.5 Hyperlipidemia, unspecified Office Visit 11/20/2017 [facility] I48.91 Unspecified 11:40a juan daniel Alatorre, N.PVito atrial Hospitalists fibrillation I10 Essential (primary) hypertension E78.5 Hyperlipidemia, unspecified Office Visit 11/05/2017 [facility] S. I48.91 Unspecified 2:16p [place] atrial fibrillation Office Visit 11/05/2017 [facility], I48.91 Unspecified 7:05a juan daniel Alatorre M.D. atrial Hospitalists fibrillation E78.5 Hyperlipidemia, unspecified Z86.73 Prsnl hx of TIA (TIA), and cereb infrc w/o resid deficits I10 Essential (primary) hypertension Office Visit 11/04/2017 [facility] S. I48.91 Unspecified 2:12p [place] atrial fibrillation Office Visit 11/04/2017 [facility], I48.91 Unspecified 7:05a juan daniel Alatorre M.D. atrial Hospitalists fibrillation E78.5 Hyperlipidemia, unspecified Z86.73 Prsnl hx of TIA (TIA), and cereb infrc w/o resid deficits I10 Essential (primary) hypertension Office Visit 11/03/2017 [facility] I48.91 Unspecified 7:04a Assjuan daniel shafer, N.P. atrial Hospitalists fibrillation E78.5 Hyperlipidemia, unspecified I10 Essential (primary) hypertension Z86.73 Prsnl hx of TIA (TIA), and cereb infrc w/o resid deficits Office Visit 11/03/2017 1:39p [facility] Rebecca Wong, I48.91 Unspecified atrial Cardiology Of M.D. fibrillation Billing Checker R94.31 Abnormal electrocardiogram [ECG] [EKG] Z82.49 Family hx of ischem heart dis and oth dis of the circ sys Office Visit 06/13/2016 8:19a [facility] Juan José A41.9 Sepsis, Assoc,juan daniel Puckett MD unspecified Hospitalists organism L02.91 Cutaneous abscess, unspecified I10 Essential (primary) hypertension E78.5 Hyperlipidemia, unspecified Office Visit 06/12/2016 8:19a [facility] Juan José A41.9 Sepsis, Assoc,pc MD Italo unspecified Hospitalists organism L02.91 Cutaneous abscess, unspecified I10 Essential (primary) hypertension E78.5 Hyperlipidemia, unspecified Office Visit 06/11/2016 [facility] Ehsan L02.91 Cutaneous 8:17a Assoc,pc Hieu, N.P. abscess, Hospitalists unspecified A41.9 Sepsis, unspecified organism I10 Essential (primary) hypertension E78.5 Hyperlipidemia, unspecified Office Visit 10/25/2008 DO Not Use Billing Checker Thananart, 722.6 Intervertebral Disc 1:00p AT Micha Hutchins M.D. Degeneration Unspec Site 716.96 Arthropathy Unspec Lower Leg 724.2 Lumbago 401.9 Hypertension Unspec 272.4 Hyperlipidemia Other Unspec V74.1 Screening Examination Pulmonary Tuberculosis Plan of Treatment 10/27/2018 - Ml Houston M.D.K25.0 Acute gastric ulcer with hemorrhageComments:continue pantoprazole 40 mg twice a dayReferral:Jeronimo Ruiz MD, GygtyxjmitforypgY54.9 Esophagitis, rmixxllhaojK58.9 Anemia, pwhkizrilwuB25.00 Constipation, unspecifiedComments:advance your diet , apples bannana , oatmeal are helpful , also you can try Miralax for few days to see if it helps with talprjlyfuldG59.9 Acute upper respiratory infection, unspecifiedComments:likely viral
[2018-11-06 14:57] LABS: ABS Basophils 0.1 10^3/ul (0-0.2); ABS Eosinophils 0.2 10^3/ul (0-0.6); ABS Lymphocytes 1.1 10^3/ul (1.0-4.8); ABS Monocytes 0.4 10^3/ul (0-0.8); ABS Neutrophils 3.6 10^3/ul (1.5-7.7); ABS Nucleated RBC 0 10^3/ul; Eosinophil % 3.5 %; Hematocrit 26 % (35-47); Hemoglobin 8.5 g/dl (12.0-16.0); Lymphocyte % 20.2 %; Mean Corpuscular HGB Conc 33 g/dl (31-36); Mean Corpuscular Hemoglobin 27 pg (27-31); Mean Corpuscular Volume 81 fL (80-97); Mean Platelet Volume 7.9 fL (7.4-10.4); Nucleated Red Blood Cells % 0; Platelet Count 343 10^3/ul (150-450); Red Blood Count 3.19 10^6/ul (4.00-5.40); Red Cell Distribution Width 17 % (10.5-15); White Blood Count 5.3 10^3/ul (3.5-10.8)
[2018-11-06] MEDS ORDERED: oxyCODONE/Acetamin 5/325 MG* TAB PO ONE (15:03)
[2018-11-06 15:14] LABS: Albumin 3.9 g/dL (3.2-5.2); Albumin/Globulin Ratio 1.4 (1-3); BUN/Creatinine Ratio 15.2 (8-20); Calcium 8.9 mg/dL (8.6-10.3); EGFR African American 58.2 (>60); EGFR Non-African American 48.1 (>60); Globulin 2.7 g/dL (2-4); Potassium 3.5 mmol/L (3.5-5.0); Total Bilirubin 0.3 mg/dL (0.2-1.0); Total Protein 6.6 g/dL (6.4-8.9)
[2018-11-06 15:17] LABS: Activated Partial Thrombo Time 29.6 seconds (26.0-36.3); INR 1.23 (0.77-1.02)
[2018-11-06] MEDS ORDERED: Acetaminophen TAB* 325 MG PO PRN (15:28)
[2018-11-06] MEDS ORDERED: Albuterol HFA INHALER* 8 gm MDI INH PRN (15:50)
--- NOTE | 2018-11-06 16:33 | CONSULT ---
Consult Consult: Orthopedic Surgery Consultation Date: 11/06/2018 Requesting Service: ER Chief Complaint: Left leg pain. History: 68F on eliquis, fell out of her bed this morning, injuring her left leg. She denies pain anywhere else. She was unable to bear weight on the left lower extremity. She does have a left total knee replacement, which she reports has not caused her any problems. The pain is located at the left leg and is constant moderate, sharp. Pain worse with leg ROM and lessened when rested. Review of Systems: Negative for fever, recent visual changes, difficulty swallowing, chest pain, shortness of breath, hematuria, easy bruising, diffuse weakness or lack of coordination, and diffuse rash. Positive for recent GI bleed and hospitalization. PMH: Recent GI bleed, atrial fibrillation, TIA, uterine cancer, NANCY, arthritis, CHF, hyperlipidemia, hypertension PSH: Left hip replacement, bilateral knee replacement, right shoulder surgery, appendectomy, hysterectomy, breast reduction Medications: Baby aspirin, Eliquis, cyclobenzaprine, pantoprazole, vitamins, tramadol Allergies: Codeine, penicillin, nitroglycerin, vancomycin, nitrofurantoin, NSAIDs, latex SH: She quit smoking over 30 years ago. Rare alcohol use. She lives with her Mal in a trailer. FH: Cardiac disease, hypertension, cancer Physical Examination: Constitutional: Temp Pulse Resp BP Pulse Ox 98.3 F 74 22 128/84 99 11/06/18 16:17 11/06/18 16:17 11/06/18 16:17 11/06/18 16:17 11/06/18 16:17 General appearance is healthy and non-septic in no acute distress. Cardiovascular: Pulse examination demonstrates positive pedal pulses with brisk capillary refill. There are varicosities. Abdomen: Soft and nontender Lymphatic: No lymphadenopathy appreciated. Skin: Bilateral upper and lower extremity examination demonstrates no ulcerative lesions. Psychiatric / Neurological: Appropriate affect. Alert and oriented to person, place and time. There is no significant abnormality in coordination appreciated. Normoreflexive deep tendon reflex of the affected extremity. Musculoskeletal: Bilateral upper extremities and contralateral lower extremity show full range of motion with no evidence of instability and no tenderness with palpation and 5 /5 strength. There is no gross deformity. Skin intact in LLE No TTP about the knee. Incision well-healed. Compartments soft and Non-tender 5/5 motor strength with diminished light tough sensation in left foot There is no global swelling, edema, or varicosities. TTP at left tibia Palpable DP pulse. Flexes and extends ankle and toes. Imaging: X-rays were obtained, and independently interpreted and show a left tib -fib fracture Labs: WBC 5.3 HCT 26 Platelets 343 Cr 1.12 INR 1.23 Impression and Plan: Low-energy, closed left [id number]. We discussed the diagnosis and treatment options, both nonoperative and operative. Given the nature of the fractures, I recommended surgery to reduce and fixate the fractures. We discussed the risks and benefits of surgery at length. Given that she is on Eliquis, we will have to wait a couple of days for surgery. I placed her into a long-leg plaster splint. Afterwards, sensation was intact to light touch throughout the foot. She still had a good dorsalis pedis pulse, and no pain with toe flexion and extension or passive range of motion. We will plan on surgery Wednesday for left tibia ORIF. In the meantime, she will remain nonweightbearing in the left lower extremity with strict elevation. She' ll need to be n.p.o. at midnight on Wednesday night. I recommended daily CBC to monitor her H&H. I recommend mechanical DVT prophylaxis on the right lower extremity. Aj Sainz MD
[2018-11-06 18:32] LABS: Hematocrit 25 % (35-47); Hemoglobin 7.9 g/dl (12.0-16.0)
[2018-11-06 19:14] LABS: Urine Appearance Clear; Urine Color Straw; Urine Specific Gravity 1.005 (1.010-1.030)
[2018-11-06 19:15] LABS: Urine Blood Negative (Negative); Urine Ketones Negative (Negative); Urine Protein Negative (Negative); Urine Urobilinogen Negative (Negative)
[2018-11-06 19:16] LABS: Urine Bilirubin Negative (Negative); Urine Glucose Negative (Negative); Urine Nitrite Negative (Negative)
[2018-11-06] MEDS: oxyCODONE/Acetamin 5/325 MG* TAB PO PRN (19:28)
[2018-11-06] MEDS: Cyclobenzaprine TAB* 10 MG PO PRN (19:28)
[2018-11-06] MEDS: Diltiazem CD CAP* 180 MG PO SCH (20:09)
[2018-11-06] MEDS: Flecainide TAB* 100 MG PO SCH (20:09)
[2018-11-06] MEDS: Pantoprazole TAB * 40 MG TAB PO SCH (20:10)
--- NOTE | 2018-11-06 20:49 | HP ---
CC: Dr. Ml Houston; Dr. Aj Sainz * HISTORY AND PHYSICAL: DATE OF ADMISSION: 11/06/18 PRIMARY CARE PROVIDER: Dr. Ml Houston. ATTENDING PHYSICIAN WHILE IN THE HOSPITAL: Dr. Ziyad Boykin * (report dictated by James Hagen NP) CONSULTING ORTHOPEDIST: Dr. Aj Sainz. CHIEF COMPLAINT: 1. "I slid out of my bed." 2. Left leg pain. HISTORY OF PRESENT ILLNESS: Ms. Giraldo is a 68-year-old female patient with a complex medical history, who carries a history of recent GI bleed, was put back on Eliquis after the GI bleed, was in [facility] a couple of weeks ago with a history of paroxysmal AFib, on rhythm control with flecainide; history of TIA; hyperlipidemia; uterine cancer; history of NANCY; history of CHF; pneumonia in the past; history of hypertension. She, again, recently here with GI bleed. She is presenting today stating that she was getting up out of bed and she slid out of the bed. She noticed that she had a significant amount of pain in her left leg. She could not bear weight on it. She called 911. She bumped the back of her head against the dresser. She did not pass out, she did not faint. It is purely a mechanical fall. She had no recent chest pain, no shortness of breath, no fevers or chills. She denied having any more tarry or black stool. She denied having any vomiting or coffee-ground emesis. She denied having any abdominal discomfort. She says that she is still somewhat fatigued, but is feeling better than when she had the initial GI bleed and she again is back on her Eliquis and her aspirin and she has been taking this right along. It was thought that the GI bleed was secondary to NSAID use and steroid use. The patient came in today, was found to have tibial fibular fracture that would require ORIF and plating. She was evaluated in the ED and because of these findings, we were asked to evaluate for admission. PAST MEDICAL HISTORY: Significant for: 1. AFib, which is paroxysmal, on rhythm control. 2. TIA. 3. Hyperlipidemia. 4. Uterine cancer. 5. Pneumonia. 6. Hypertension. 7. NANCY, noncompliant with CPAP. She does wear O2 at night. 8. History of GI bleed recently. We are getting records from [facility]. 9. History of CHF. PAST SURGICAL HISTORY: She has had: 1. Left total hip replacement. 2. Bilateral total knee replacement. 3. Right total shoulder arthroplasty. 4. Breast reduction. 5. Left knee arthroscopy. 6. Right rotator cuff repair. 7. Appendectomy. 8. Hysterectomy. 9. Vocal cord scraping. MEDICATIONS: Home medications according to list provided include: 1. Protonix 40 mg p.o. b.i.d. 2. Tramadol 100 mg every 8 hours as needed. 3. Potassium chloride 10 mEq p.o. daily. 4. Vitamin E 400 units p.o. daily. 5. Calcium carbonate 1 tablet p.o. daily. 6. Singulair 10 mg daily. 7. Lasix 40 mg daily. 8. Aspirin 81 mg daily. 9. Diltiazem 180 mg p.o. at bedtime. 10. Flecainide 100 mg p.o. b.i.d. 11. Flexeril 10 mg p.o. b.i.d. as needed. 12. Apixaban 5 mg p.o. b.i.d. 13. Albuterol 2 puffs inhaled every 4 hours as needed. ALLERGIES TO MEDICATIONS: Include CODEINE, PENICILLIN, BEES, NITROGLYCERIN, NITROFURANTOIN, LATEX, and FULL ASPIRIN. FAMILY HISTORY: Her mother in a house fire. Father of an AL and had a history of CVA. SOCIAL HISTORY: She is a former smoker. She does not drink alcohol. Surrogate decision maker is her , Mal. REVIEW OF SYSTEMS: There is no documented fever. She denied having any significant weight change. There is no double vision. She denied having any ear discharge. There is no rhinorrhea. There was no sore throat. No thyroid enlargement. She denies having any chest pain. There is no orthopnea. There is no nocturnal dyspnea. She denied having any abdominal pain. There was no nausea, no vomiting. There is no dysuria, no frequency. There was no seizure, no loss of consciousness. No pruritus and no skin ulcerations. Review of 14 systems completed, all others negative. PHYSICAL EXAMINATION GENERAL: At this time, Ms. Giraldo is a 68-year-old female patient. She is chronically ill appearing. She is sitting in the ED stretcher. She does appear to be in a fair amount of pain. She appears well nourished, well developed. VITAL SIGNS: Blood pressure 142/74, pulse 69, respirations 18, O2 sat 99%, temperature 98.2. HEENT: Head: Atraumatic, normocephalic. Eyes: EOMs intact. Sclerae were anicteric and not pale. Throat: Oral mucosa appears to be moist. No oropharyngeal erythema. NECK: Supple. LUNGS: Clear to auscultation bilaterally. There were no wheezes, rales, or rhonchi. HEART: Sounds S1, S2. She had a regular rate and rhythm. No murmurs, rubs, or gallops. She is in a sinus rhythm. ABDOMEN: Soft, flat, nontender. Bowel sounds were present. RECTAL: Exam revealed brown stool. Hemoccult pending. EXTREMITIES: Pulses were 2+ throughout. She had decreased sensation to the left plantar aspect of her foot. She had good cap refill and extremities were warm. Distal CSM checks were intact. She is moving upper extremity with 5/5 strength. She has limited range of motion to the left lower extremity due to pain. NEUROLOGICAL: She is awake, alert, and oriented x3. Speech clear. Tongue midline. No gross focal deficits. SKIN: Intact. She does have some ecchymosis noted just above the ankle on the left lower extremity, otherwise skin intact. DIAGNOSTIC STUDIES/LAB DATA: WBC of 5.3, RBC of 3.19, hemoglobin of 8.5, hematocrit 26, platelet count of 343. INR 1.23, PTT of 29.6. Sodium 139, potassium was 3.5, chloride of 104, bicarb 26, BUN 17, creatinine 1.12, glucose 114, calcium 8.9. Total bili 0.3, AST 23, ALT 22, alk phos 114. Albumin of 3.9. She had a lower extremity x-ray obtained today, which showed oblique displaced fractures of the fibula and tibia diaphyses and she had osteopenia. Foot x-ray showed again oblique displaced fracture of the fibula and tibial diaphyses, osteopenia. She had an EKG obtained today, which showed a normal sinus rhythm with a prolonged ND, but no ST elevations or T-wave inversions were noted. When you review it to the previous EKG, it appears to be similar. She had a stress test in November 2017, which was read as negative. She had an echo a year ago, which showed EF of 55%. Old medical records were reviewed. ASSESSMENT AND PLAN: Ms. Giraldo is a 68-year-old female patient coming in to the ED today with complaints of a fall, now found to have tibial fibular fracture. She will be admitted under inpatient status for: 1. Tibial fibular fracture. At this point, her RCRI is 2 with 6.6 risk of major cardiac event. The patient is currently optimized for surgery. She had a recent stress test within a year, which was normal. She has not had any active cardiac chest pain. Further management will be deferred to Dr. Sainz , and it seems she had a recent chest x-ray, which was negative and the chest x- ray was done on 10/15/18, which showed no radiographic evidence of acute cardiopulmonary disease. We will strive for pain control and continue to follow. 2. Recent gastrointestinal bleed. I am holding her Eliquis. I do note low H and H, 10 days ago, her hemoglobin was 9.2, it is now 8.5. I will be checking a Hemoccult and we will continue to follow her. We will get a type and screen. Unfortunately, she is on Eliquis and that will delay the surgery up to 48 hours. She is on b.i.d. PPI. I will repeat her H and H later today. I am getting records from [facility]. 3. History of congestive heart failure. She does not appear to be in any acute failure at this point. We will diurese as needed. In the setting of acute fracture, I have held her Lasix and again we will diurese as needed. 4. History of transient ischemic attack. Continue with secondary prevention in the form of aspirin. 5. Hyperlipidemia. Follow up with her PCP. 6. Obstructive sleep apnea. She wears O2 at night, will continue. 7. Atrial fibrillation. We will continue the flecainide. It is paroxysmal, she is in sinus rhythm. Continue flecainide. Hold her Eliquis and continue the diltiazem as well with flecainide. 8. DVT prophylaxis. I will order heparin subcu. A CT of the brain is pending given the fact that she was on Eliquis and she did bump her head. 9. Code status. She is full code. 10. Fluids, electrolytes, and nutrition. She can have a heart healthy diet. TIME SPENT: On the admission was approximately 60 minutes, greater than half the time spent [id number] with the patient obtaining my history and physical; other half time spent going over the plan of care with the patient and implementing plan of care. I did discuss the plan of care with my attending, Dr. Boykin; he is in agreement. JAMES HAGEN, SHELBIE [id number]/CPS #: [id number] [place]
[2018-11-06] MEDS: Heparin VIAL(*) 5000 UNITS/ML VIAL (FIVE THOUSAND) SUBCUT SCH (21:23)
[2018-11-07] MEDS: oxyCODONE/Acetamin 5/325 MG* TAB PO PRN ×3 (00:40→07:24)
[2018-11-07] MEDS: Cyclobenzaprine TAB* 10 MG PO PRN (04:01)
[2018-11-07] MEDS: Heparin VIAL(*) 5000 UNITS/ML VIAL (FIVE THOUSAND) SUBCUT SCH ×3 (05:31→22:31)
[2018-11-07 06:01] LABS: ABS Basophils 0 10^3/ul (0-0.2); ABS Eosinophils 0.4 10^3/ul (0-0.6); ABS Lymphocytes 1.9 10^3/ul (1.0-4.8); ABS Monocytes 0.7 10^3/ul (0-0.8); ABS Neutrophils 2.8 10^3/ul (1.5-7.7); ABS Nucleated RBC 0 10^3/ul; Eosinophil % 6.8 %; Hematocrit 23 % (35-47); Hemoglobin 7.5 g/dl (12.0-16.0); Mean Corpuscular HGB Conc 32 g/dl (31-36); Mean Corpuscular Hemoglobin 26 pg (27-31); Mean Corpuscular Volume 82 fL (80-97); Mean Platelet Volume 7.6 fL (7.4-10.4); Nucleated Red Blood Cells % 0.1; Platelet Count 308 10^3/ul (150-450); Red Blood Count 2.85 10^6/ul (4.00-5.40); Red Cell Distribution Width 18 % (10.5-15); White Blood Count 5.9 10^3/ul (3.5-10.8)
[2018-11-07 06:14] LABS: INR 1.1 (0.77-1.02)
[2018-11-07 06:18] LABS: BUN/Creatinine Ratio 15.3 (8-20); Calcium 8.8 mg/dL (8.6-10.3); EGFR African American 51.7 (>60); EGFR Non-African American 42.8 (>60); Potassium 3.9 mmol/L (3.5-5.0)
[2018-11-07] MEDS: Aspirin 81 mg CHEW TAB* 81 MG TAB.CHEW PO SCH (08:34)
[2018-11-07] MEDS: Montelukast Sodium TAB* 10 MG PO SCH (08:34)
[2018-11-07] MEDS: Pantoprazole TAB * 40 MG TAB PO SCH ×2 (08:34→22:32)
[2018-11-07] MEDS: Flecainide TAB* 100 MG PO SCH ×2 (08:34→22:43)
--- NOTE | 2018-11-07 11:13 | PN ---
Progress Note - Progress Note Date of Service: 11/07/18 SOAP: Subjective: []Ms. Giraldo was seen and examined at bedside today. She reports severe pain of the left leg with any movement, she is relatively comfortable at rest. Denies CP , SOB, dizziness, nausea or numbness of LLE. Objective: []General: Well appearing, NAD, family at bedside. LLE: Long leg splint in place. Able to flex and extend MTPs. Exposed toes are warm with sensation intact to light touch, capillary refill less than two seconds distally. Right calf supple and nontender without erythema, edema or palpable cords Assessment: []Low-energy, closed left [id number]-[id number] Plan: []Plan for surgery Wednesday for left tibia ORIF with Dr Sainz. NPO at midnight today, stop heparin at midnight. Anticipate she will need 1 unit pRBC in preparation for future losses Nonweightbearing in the left lower extremity with strict elevation. . Vital Signs Temp 98.0 F 11/07/18 07:56 Pulse 64 11/07/18 07:56 Resp 18 11/07/18 10:18 BP 128/67 11/07/18 07:56 Pulse Ox 99 11/07/18 07:56 Intake & Output 11/06/18 11/07/18 11/07/18 18:59 06:59 18:59 Intake Total 615 210 Output Total 400 200 Balance 215 10 Weight 225 lb 225 lb Intake: Oral 615 210 Output: Urine 400 200 Other: # Bowel Movements 1 Laboratory Last Values WBC 5.9 10^3/ul (3.5-10.8) 11/07/18 05:46 RBC 2.85 10^6/ul (4.00-5.40) L 11/07/18 05:46 Hgb 7.5 g/dl (12.0-16.0) L 11/07/18 05:46 Hct 23 % (35-47) L 11/07/18 05:46 MCV 82 fL (80-97) 11/07/18 05:46 MCH 26 pg (27-31) L 11/07/18 05:46 MCHC 32 g/dl (31-36) 11/07/18 05:46 RDW 18 % (10.5-15) H 11/07/18 05:46 Plt Count 308 10^3/ul (150-450) 11/07/18 05:46 MPV 7.6 fL (7.4-10.4) 11/07/18 05:46 Neut % (Auto) 48.4 % 11/07/18 05:46 Lymph % (Auto) 32.0 % 11/07/18 05:46 [place] % (Auto) 12.1 % 11/07/18 05:46 Eos % (Auto) 6.8 % 11/07/18 05:46 Baso % (Auto) 0.7 % 11/07/18 05:46 Absolute Neuts (auto) 2.8 10^3/ul (1.5-7.7) 11/07/18 05:46 Absolute Lymphs (auto) 1.9 10^3/ul (1.0-4.8) 11/07/18 05:46 Absolute Monos (auto) 0.7 10^3/ul (0-0.8) 11/07/18 05:46 Absolute Eos (auto) 0.4 10^3/ul (0-0.6) 11/07/18 05:46 Absolute Basos (auto) 0 10^3/ul (0-0.2) 11/07/18 05:46 Absolute Nucleated RBC 0 10^3/ul 11/07/18 05:46 Nucleated RBC % 0.1 11/07/18 05:46 INR (Anticoag Therapy) 1.10 (0.77-1.02) H 11/07/18 05:46 APTT 29.6 seconds (26.0-36.3) 11/06/18 14:50 Sodium 136 mmol/L (135-145) 11/07/18 05:46 Potassium 3.9 mmol/L (3.5-5.0) 11/07/18 05:46 Chloride 103 mmol/L (101-111) 11/07/18 05:46 Carbon Dioxide 26 mmol/L (22-32) 11/07/18 05:46 Anion Gap 7 mmol/L (2-11) 11/07/18 05:46 BUN 19 mg/dL (6-24) 11/07/18 05:46 Creatinine 1.24 mg/dL (0.51-0.95) H 11/07/18 05:46 Est GFR ( Amer) 51.7 (>60) 11/07/18 05:46 Est GFR (Non-Af Amer) 42.8 (>60) 11/07/18 05:46 BUN/Creatinine Ratio 15.3 (8-20) 11/07/18 05:46 Glucose 102 mg/dL (70-100) H 11/07/18 05:46 Calcium 8.8 mg/dL (8.6-10.3) 11/07/18 05:46 Total Bilirubin 0.30 mg/dL (0.2-1.0) 11/06/18 14:50 AST 23 U/L (13-39) 11/06/18 14:50 ALT 22 U/L (7-52) 11/06/18 14:50 Alkaline Phosphatase 114 U/L (34-104) H 11/06/18 14:50 Total Protein 6.6 g/dL (6.4-8.9) 11/06/18 14:50 Albumin 3.9 g/dL (3.2-5.2) 11/06/18 14:50 Globulin 2.7 g/dL (2-4) 11/06/18 14:50 Albumin/Globulin Ratio 1.4 (1-3) 11/06/18 14:50 25-OH Vitamin D Total 17.1 ng/mL (20-50) L 11/07/18 05:46 PTH Intact 11.6 pmol/L (1.3-9.3) H 11/07/18 05:46 Calcium (PTH Intact) 8.8 mg/dL (8.6-10.3) 11/07/18 05:46 Urine Color Straw 11/06/18 19:00 Urine Appearance Clear 11/06/18 19:00 Urine pH 7.0 (5-9) 11/06/18 19:00 Ur Specific [place] 1.005 (1.010-1.030) L 11/06/18 19:00 Urine Protein Negative (Negative) 11/06/18 19:00 Urine Ketones Negative (Negative) 11/06/18 19:00 Urine Blood Negative (Negative) 11/06/18 19:00 Urine Nitrate Negative (Negative) 11/06/18 19:00 Urine Bilirubin Negative (Negative) 11/06/18 19:00 Urine Urobilinogen Negative (Negative) 11/06/18 19:00 Ur Leukocyte Esterase Negative (Negative) 11/06/18 19:00 Urine Glucose Negative (Negative) 11/06/18 19:00 Blood Type A Positive 11/06/18 14:50 Antibody Screen Negative 11/06/18 14:50
--- NOTE | 2018-11-07 11:42 | PN ---
Subjective Date of Service: 11/07/18 Interval History: Pt c/o itching on skin under breasts and arms, no rash. She noted that "the pain medicine is doing it" she had also used Percocet in the past and had no side effects Objective Active Medications: Acetaminophen (Tylenol Tab*) 650 mg PO Q4H PRN PRN Reason: FEVER/PAIN Albuterol (Ventolin Hfa Inhaler*) 2 puff INH Q4H PRN PRN Reason: WHEEZING Aspirin (Aspirin 81 Mg Chew Tab*) 81 mg PO DAILY [facility] Last Admin: 11/07/18 08:34 Dose: 81 mg Calamine (Calamine Lotion*) 1 applic TOPICAL TID [facility] Cyclobenzaprine HCl (Flexeril Tab*) 10 mg PO BID PRN PRN Reason: PAIN Last Admin: 11/07/18 04:01 Dose: 10 mg Diltiazem HCl (Cardizem Cd Cap*) 180 mg PO BEDTIME [facility] Last Admin: 11/06/18 20:09 Dose: 180 mg Flecainide Acetate (Tambocor Tab*) 100 mg PO BID [facility] Last Admin: 11/07/18 08:34 Dose: 100 mg Heparin Sodium (Porcine) (Heparin Vial(*)) 5,000 units SUBCUT Q8HR [facility] Last Admin: 11/07/18 05:31 Dose: 5,000 units Montelukast Sodium (Singulair Tab*) 10 mg PO DAILY [facility] Last Admin: 11/07/18 08:34 Dose: 10 mg Oxycodone/Acetaminophen (Percocet 5/325 Tab*) 1 tab PO Q4H PRN PRN Reason: PAIN Last Admin: 11/07/18 07:24 Dose: 1 tab Pantoprazole Sodium (Protonix Tab (Nf)) 40 mg PO BID [facility] Last Admin: 11/07/18 08:34 Dose: 40 mg Vital Signs - 8 hr 11/07/18 11/07/18 11/07/18 03:48 04:01 06:44 Temperature 98.2 F Pulse Rate 72 Respiratory 18 16 20 Rate Blood Pressure 123/67 (mmHg) O2 Sat by Pulse 98 Oximetry 11/07/18 11/07/18 11/07/18 07:24 07:30 07:56 Temperature 98.0 F Pulse Rate 64 Respiratory 18 18 17 Rate Blood Pressure 128/67 (mmHg) O2 Sat by Pulse 99 Oximetry 11/07/18 10:18 Temperature Pulse Rate Respiratory 18 Rate Blood Pressure (mmHg) O2 Sat by Pulse Oximetry Oxygen Devices in Use Now: None Appearance: 68 yo F in nAD, aAOx3 Eyes: No Scleral Icterus, PERRLA Ears/Nose/Mouth/Throat: NL Teeth, Lips, Gums, Mucous Membranes Moist Neck: NL Appearance and Movements; NL JVP, Trachea Midline Respiratory: Symmetrical Chest Expansion and Respiratory Effort, Clear to Auscultation Cardiovascular: NL Sounds; No Murmurs; No JVD, RRR Abdominal: NL Sounds; No Tenderness; No Distention Lymphatic: No Cervical Adenopathy Extremities: No Clubbing, Cyanosis, - - L LE in splint, mild foot edema noted Skin: No Rash or Ulcers, No Nodules or Sclerosis Neurological: Alert and Oriented x 3, NL Muscle Strength and Tone Result Diagrams: 11/07/18 05:46 11/07/18 05:46 Microbiology and Other Data: Microbiology 11/06/18 15:42 Nasal Screen MRSA (PCR) - Final Nasal Mrsa Not Detected 11/06/18 16:00 Stool Occult Blood (VALDO) - Final Stool Assess/Plan/Problems-Billing Assessment: 68 yo F with h/o recent GI bleed and PAF on Eliquis presents with left tib/fib fx after a fall - Patient Problems (1) Tibia/fibula fracture Comment: planned for OR 11/08/18, medically optimized for the procedure. See H&P for preop eval. (2) Atrial fibrillation Comment: paroxysmal, currently in NSR. cont Flecainide and Cardizem CD. s/p BARBARA cardioversion 11/21/17 (3) Lower gastrointestinal bleed Comment: upper GI bleed on 10/16/18 with subsequent chronic anemia, Hb approx 8. today Hb 7.5 -no signs or symptoms of acute GI bleeed, suspect hemodilution. due to preop state will transfuse 1 U PRBC cont protonix BID (4) DVT prophylaxis Comment: eliquis held, HSQ holding tonight preop Status and Disposition: inpatient
[2018-11-07] MEDS: Calamine LOTION* 120 ML TOPICAL SCH ×2 (15:15→22:43)
[2018-11-07] MEDS ORDERED: traMADol TAB* 50 MG PO PRN (17:08)
[2018-11-07] MEDS ORDERED: diPHENhydraMINE IV* 50 MG/ML 1 ml VIAL (BENADRYL) IV PRN (17:09)
[2018-11-07] MEDS ORDERED: diPHENhydraMINE PO* 25 MG PO PRN (17:09)
[2018-11-07] MEDS ORDERED: Morphine VIAL* 4 MG/ML VIAL (1 ml vial) ONE (17:49)
[2018-11-07] MEDS: HYDROmorphone INJ1* 1 MG/ML SYRINGE IV PRN (22:27)
[2018-11-07] MEDS: Diltiazem CD CAP* 180 MG PO SCH (22:32)
[2018-11-08] MEDS: HYDROmorphone INJ1* 1 MG/ML SYRINGE IV PRN ×2 (03:27→08:29)
[2018-11-08 05:34] LABS: ABS Basophils 0 10^3/ul (0-0.2); ABS Eosinophils 0.4 10^3/ul (0-0.6); ABS Lymphocytes 1.3 10^3/ul (1.0-4.8); ABS Monocytes 0.9 10^3/ul (0-0.8); ABS Neutrophils 4.3 10^3/ul (1.5-7.7); ABS Nucleated RBC 0 10^3/ul; Eosinophil % 5.2 %; Hematocrit 26 % (35-47); Hemoglobin 8.5 g/dl (12.0-16.0); Lymphocyte % 19.1 %; Mean Corpuscular HGB Conc 33 g/dl (31-36); Mean Corpuscular Hemoglobin 27 pg (27-31); Mean Corpuscular Volume 82 fL (80-97); Mean Platelet Volume 7.7 fL (7.4-10.4); Nucleated Red Blood Cells % 0; Platelet Count 257 10^3/ul (150-450); Red Blood Count 3.16 10^6/ul (4.00-5.40); Red Cell Distribution Width 18 % (10.5-15); White Blood Count 6.9 10^3/ul (3.5-10.8)
[2018-11-08 05:40] LABS: INR 1.03 (0.77-1.02)
[2018-11-08 05:51] LABS: BUN/Creatinine Ratio 19.6 (8-20); Calcium 8.9 mg/dL (8.6-10.3); EGFR African American 68.7 (>60); EGFR Non-African American 56.8 (>60)
--- NOTE | 2018-11-08 08:27 | PN ---
Subjective Date of Service: 11/08/18 Interval History: Pt c/o left leg pain. NPO awaiting surgery. Denies CP/SOB Objective Active Medications: Acetaminophen (Tylenol Tab*) 650 mg PO Q4H PRN PRN Reason: FEVER/PAIN Albuterol (Ventolin Hfa Inhaler*) 2 puff INH Q4H PRN PRN Reason: WHEEZING Aspirin (Aspirin 81 Mg Chew Tab*) 81 mg PO DAILY [facility] Last Admin: 11/07/18 08:34 Dose: 81 mg Calamine (Calamine Lotion*) 1 applic TOPICAL TID [facility] Last Admin: 11/07/18 22:43 Dose: Not Given Cyclobenzaprine HCl (Flexeril Tab*) 10 mg PO BID PRN PRN Reason: PAIN Last Admin: 11/07/18 04:01 Dose: 10 mg Diltiazem HCl (Cardizem Cd Cap*) 180 mg PO BEDTIME [facility] Last Admin: 11/07/18 22:32 Dose: 180 mg Diphenhydramine HCl (Benadryl Iv*) 25 mg IV Q6H PRN PRN Reason: PRURITIS Diphenhydramine HCl (Benadryl Po*) 25 mg PO Q6H PRN PRN Reason: PRURITIS Flecainide Acetate (Tambocor Tab*) 100 mg PO BID [facility] Last Admin: 11/07/18 22:43 Dose: 100 mg Hydromorphone HCl (Dilaudid Inj1s*) 0.5 mg IV Q2H PRN PRN Reason: PAIN - BREAKTHROUGH Last Admin: 11/08/18 03:27 Dose: 0.5 mg Sodium Chloride (Ns 0.9% 1000 Ml*) 1,000 mls @ 75 mls/hr IV PER RATE [facility] Montelukast Sodium (Singulair Tab*) 10 mg PO DAILY [facility] Last Admin: 11/07/18 08:34 Dose: 10 mg Oxycodone/Acetaminophen (Percocet 5/325 Tab*) 1 tab PO Q4H PRN PRN Reason: PAIN Last Admin: 11/07/18 07:24 Dose: 1 tab Pantoprazole Sodium (Protonix Tab (Nf)) 40 mg PO BID [facility] Last Admin: 11/07/18 22:32 Dose: 40 mg Tramadol HCl (Ultram*) 50 mg PO Q6H PRN PRN Reason: PAIN - MODERATE Vital Signs - 8 hr 11/08/18 11/08/18 11/08/18 03:27 04:12 05:30 Temperature 98.5 F Pulse Rate 72 Respiratory 16 17 16 Rate Blood Pressure 127/66 (mmHg) O2 Sat by Pulse 94 Oximetry 11/08/18 07:32 Temperature 98.7 F Pulse Rate 82 Respiratory 18 Rate Blood Pressure 122/72 (mmHg) O2 Sat by Pulse 97 Oximetry Oxygen Devices in Use Now: None Appearance: 68 yo f in nAD, aAOx3 Eyes: No Scleral Icterus, PERRLA Ears/Nose/Mouth/Throat: NL Teeth, Lips, Gums, Mucous Membranes Moist Neck: NL Appearance and Movements; NL JVP, Trachea Midline Respiratory: Symmetrical Chest Expansion and Respiratory Effort, Clear to Auscultation Cardiovascular: NL Sounds; No Murmurs; No JVD, RRR Abdominal: NL Sounds; No Tenderness; No Distention Lymphatic: No Cervical Adenopathy Extremities: No Clubbing, Cyanosis, - - mild left leg edema, distal left leg in splint Skin: No Nodules or Sclerosis Neurological: Alert and Oriented x 3, NL Muscle Strength and Tone Result Diagrams: 11/08/18 05:29 11/08/18 05:29 Microbiology and Other Data: Microbiology 11/06/18 15:42 Nasal Screen MRSA (PCR) - Final Nasal Mrsa Not Detected 11/06/18 16:00 Stool Occult Blood (VALDO) - Final Stool Assess/Plan/Problems-Billing Assessment: 68 yo F with h/o recent GI bleed and PAF on Eliquis presents with left tib/fib fx after a fall - Patient Problems (1) Tibia/fibula fracture Comment: planned for OR today, medically optimized for the procedure. See H&P for preop eval. (2) Atrial fibrillation Comment: paroxysmal, currently in NSR. cont Flecainide and Cardizem CD. s/p BARBARA cardioversion 11/21/17 (3) Lower gastrointestinal bleed Comment: upper GI bleed on 10/16/18 with subsequent chronic anemia, Hb approx 8. today Hb 8.5 - aftter transfusion of 1 U PRBC on 11/07/18 cont protonix BID (4) CKD (chronic kidney disease) stage 3, GFR 30-59 ml/min Comment: creat better then baseline today (5) DVT prophylaxis Comment: eliquis held preop, HSQ - holding preop Status and Disposition: inpatient
[2018-11-08] MEDS: Calamine LOTION* 120 ML TOPICAL SCH ×3 (08:29→22:46)
[2018-11-08] MEDS: Aspirin 81 mg CHEW TAB* 81 MG TAB.CHEW PO SCH (08:29)
[2018-11-08] MEDS: Flecainide TAB* 100 MG PO SCH ×2 (08:29→22:45)
[2018-11-08] MEDS: NS 0.9% 1000 ML* 1,000 ML IV SCH ×2 (08:30→22:09)
[2018-11-08] MEDS: Pantoprazole TAB * 40 MG TAB PO SCH ×2 (08:35→22:45)
[2018-11-08] MEDS: Montelukast Sodium TAB* 10 MG PO SCH (08:35)
[2018-11-08] MEDS ORDERED: HYDROmorphone INJ* 0.5 MG/0.5 ML SYRINGE IV PRN (09:00)
--- NOTE | 2018-11-08 09:47 | PN ---
Progress Note - Progress Note Date of Service: 11/08/18 SOAP: Subjective: []Patient was seen at bedside today. Pain of LLE is rated 6/10 today, extremity has remained elevated yesterday and today. She denies numbness, tingling, increased pain of the LLE. Denies CP, dizziness, nausea. Breathing reported as baseline. Objective: []General: Well appearing, NAD LLE: Long leg splint in place. Able to flex and extend MTPs. Exposed toes are warm with sensation intact to light touch, capillary refill less than two seconds distally. Right calf supple and nontender without erythema, edema or palpable cords Assessment: []Low-energy, closed left [id number]-mwaamuits Plan: []Plan for surgery today for left tibia ORIF with Dr. Sainz. NPO today, hold chemical DVT prophylaxis today to restart after surgery 1 unit pRBC given yesterday, H&H now 8.03/12 Nonweightbearing in the left lower extremity with strict elevation. She is in agreement to proceed with ORIF L tibia today. Vital Signs Temp 98.7 F 11/08/18 07:32 Pulse 82 11/08/18 07:32 Resp 18 11/08/18 08:29 BP 122/72 11/08/18 07:32 Pulse Ox 97 11/08/18 07:32 Intake & Output 11/07/18 11/08/18 11/08/18 18:59 06:59 18:59 Intake Total 530 240 Output Total 1100 800 0 Balance -570 -560 0 Intake: Oral 530 240 Output: Urine 1100 800 0 Other: Estimated Void Medium # Voids 1 Laboratory Last Values WBC 6.9 10^3/ul (3.5-10.8) 11/08/18 05:29 RBC 3.16 10^6/ul (4.00-5.40) L 11/08/18 05:29 Hgb 8.5 g/dl (12.0-16.0) L 11/08/18 05:29 Hct 26 % (35-47) L 11/08/18 05:29 MCV 82 fL (80-97) 11/08/18 05:29 MCH 27 pg (27-31) 11/08/18 05:29 MCHC 33 g/dl (31-36) 11/08/18 05:29 RDW 18 % (10.5-15) H 11/08/18 05:29 Plt Count 257 10^3/ul (150-450) 11/08/18 05:29 MPV 7.7 fL (7.4-10.4) 11/08/18 05:29 Neut % (Auto) 62.4 % 11/08/18 05:29 Lymph % (Auto) 19.1 % 11/08/18 05:29 [place] % (Auto) 12.8 % 11/08/18 05:29 Eos % (Auto) 5.2 % 11/08/18 05:29 Baso % (Auto) 0.5 % 11/08/18 05:29 Absolute Neuts (auto) 4.3 10^3/ul (1.5-7.7) 11/08/18 05:29 Absolute Lymphs (auto) 1.3 10^3/ul (1.0-4.8) 11/08/18 05:29 Absolute Monos (auto) 0.9 10^3/ul (0-0.8) H 11/08/18 05:29 Absolute Eos (auto) 0.4 10^3/ul (0-0.6) 11/08/18 05:29 Absolute Basos (auto) 0 10^3/ul (0-0.2) 11/08/18 05:29 Absolute Nucleated RBC 0 10^3/ul 11/08/18 05:29 Nucleated RBC % 0 11/08/18 05:29 INR (Anticoag Therapy) 1.03 (0.77-1.02) H 11/08/18 05:29 APTT 29.6 seconds (26.0-36.3) 11/06/18 14:50 Sodium 136 mmol/L (135-145) 11/08/18 05:29 Potassium 4.0 mmol/L (3.5-5.0) 11/08/18 05:29 Chloride 103 mmol/L (101-111) 11/08/18 05:29 Carbon Dioxide 27 mmol/L (22-32) 11/08/18 05:29 Anion Gap 6 mmol/L (2-11) 11/08/18 05:29 BUN 19 mg/dL (6-24) 11/08/18 05:29 Creatinine 0.97 mg/dL (0.51-0.95) H 11/08/18 05:29 Est GFR ( Amer) 68.7 (>60) 11/08/18 05:29 Est GFR (Non-Af Amer) 56.8 (>60) 11/08/18 05:29 BUN/Creatinine Ratio 19.6 (8-20) 11/08/18 05:29 Glucose 109 mg/dL (70-100) H 11/08/18 05:29 Calcium 8.9 mg/dL (8.6-10.3) 11/08/18 05:29 Total Bilirubin 0.30 mg/dL (0.2-1.0) 11/06/18 14:50 AST 23 U/L (13-39) 11/06/18 14:50 ALT 22 U/L (7-52) 11/06/18 14:50 Alkaline Phosphatase 114 U/L (34-104) H 11/06/18 14:50 Total Protein 6.6 g/dL (6.4-8.9) 11/06/18 14:50 Albumin 3.9 g/dL (3.2-5.2) 11/06/18 14:50 Globulin 2.7 g/dL (2-4) 11/06/18 14:50 Albumin/Globulin Ratio 1.4 (1-3) 11/06/18 14:50 25-OH Vitamin D Total 17.1 ng/mL (20-50) L 11/07/18 05:46 PTH Intact 11.6 pmol/L (1.3-9.3) H 11/07/18 05:46 Calcium (PTH Intact) 8.8 mg/dL (8.6-10.3) 11/07/18 05:46 Urine Color Straw 11/06/18 19:00 Urine Appearance Clear 11/06/18 19:00 Urine pH 7.0 (5-9) 11/06/18 19:00 Ur Specific [place] 1.005 (1.010-1.030) L 11/06/18 19:00 Urine Protein Negative (Negative) 11/06/18 19:00 Urine Ketones Negative (Negative) 11/06/18 19:00 Urine Blood Negative (Negative) 11/06/18 19:00 Urine Nitrate Negative (Negative) 11/06/18 19:00 Urine Bilirubin Negative (Negative) 11/06/18 19:00 Urine Urobilinogen Negative (Negative) 11/06/18 19:00 Ur Leukocyte Esterase Negative (Negative) 11/06/18 19:00 Urine Glucose Negative (Negative) 11/06/18 19:00 Blood Type A Positive 11/06/18 14:50 Antibody Screen Negative 11/06/18 14:50 Crossmatch See Detail 11/06/18 14:50
[2018-11-08] MEDS ORDERED: Bupivacaine 0.25% SDV PF* 10 ML VIAL INJ ONE (13:24)
[2018-11-08] MEDS ORDERED: Ketorolac INJ* 30 MG/ML 1 ML VIAL ONE (13:55)
[2018-11-08] MEDS ORDERED: Dexamethasone IV* 4 MG/ML 1 ML (4 MG) ONE (13:55)
[2018-11-08] MEDS ORDERED: Midazolam* 1 MG/ML 5 ML VIAL (5 MG) ONE (13:55)
[2018-11-08] MEDS ORDERED: Ondansetron INJ* 2 MG/ML VIAL ONE (13:55)
[2018-11-08] MEDS ORDERED: KETAMINE HCL* 50 MG/ML 10 ML VIAL ONE (13:55)
[2018-11-08] MEDS ORDERED: fentaNYL* 50 MCG/ML 2 ML VIAL (100 MCG VIAL) ONE (13:55)
[2018-11-08] MEDS ORDERED: Lidocaine 2% PF * 5 ML VIAL ONE (13:55)
[2018-11-08] MEDS ORDERED: Phenylephrine INJ* 10 MG/ML 1 ML VIAL (10 MG) ONE (13:55)
[2018-11-08] MEDS ORDERED: Propofol* 10 MG/ML 20 ML BTL ONE (13:55)
[2018-11-08] MEDS ORDERED: Clindamycin 900 MG/D5W BAG(*) 900 MG/50 ML BAG IVPB ONE (16:32)
[2018-11-08] MEDS ORDERED: Cisatracurium* 2 MG/ML MDV 5 ML ONE (17:04)
[2018-11-08] MEDS ORDERED: Naloxone* 0.4 MG/ML 1 ML VIAL IV PRN (17:54)
[2018-11-08] MEDS ORDERED: fentaNYL* 50 MCG/ML 2 ML VIAL (100 MCG VIAL) IV PRN (17:54)
[2018-11-08] MEDS ORDERED: DiMENhydriNATE IV* 50 MG/ML VIAL ONE (18:05)
[2018-11-08] MEDS ORDERED: Glycopyrrolate IV* 0.2 MG/ML 1 ML VIAL ONE (18:18)
[2018-11-08] MEDS ORDERED: Neostigmine Methylsulfate* 1 MG/ML 10 ML VIAL (1 mg/ml) ONE (18:18)
[2018-11-08] MEDS ORDERED: HYDROmorphone INJ1* 1 MG/ML SYRINGE ONE (18:23)
--- NOTE | 2018-11-08 18:58 | OP ---
Operative Report - Blank - Operative Report Date of Operation: 11/08/18 Note: PATIENT: Pricilla Giraldo DATE OF : 1950 DATE OF SURGERY: 11/08/2018 SURGEON: Aj Sainz MD IMAGING SYSTEM ADMINISTRATOR: MATHEUS Magaña, whos assistance was necessary for positioning, retraction, help with instrumentation, and closure. ANESTHESIOLOGIST: Dr. Sexton PREOPERATIVE DIAGNOSIS: Left tibia fracture POSTOPERATIVE DIAGNOSIS: Left tibia fracture OPERATION: Left tibia fracture open reduction and internal fixation ANESTHESIA: General IMPLANTS: Synthes distal medial tibial plate and screws TOURNIQUET TIME: Less than 90 minutes with a well-padded thigh tourniquet at 275mmHg SPECIMENS: none ESTIMATED BLOOD LOSS: minimal COMPLICATIONS: none STATUS: Stable from the operating room to the recovery room and then to the hospital floor. INDICATIONS FOR PROCEDURE: Pricilla sustained a closed left tibial shaft fracture below a total knee replacement. Both operative and non-operative treatment alternatives were reviewed. Further, the nature and risks of surgery were reviewed in careful detail. Our discussions regarding the risks of surgery included, but were not limited to, infection, wound problems, nerve injury, neuroma, RSD, persistent symptoms, nonunion, malunion, hardware failure, blood clot, need for further surgery, failure of the surgery, and even the remote chance of catastrophic complication, including loss of limb. DESCRIPTION OF PROCEDURE: The patient was seen in the preoperative holding unit and informed written consent was obtained. The appropriate extremity was marked. The patient was then brought to the operating room and carefully positioned on the operating room table. Anesthesia was induced. All bony prominences were padded with great care. A well-padded thigh tourniquet was placed. A chlorhexidine based pre- scrub was performed followed by a chloraprep prep and drape in standard sterile fashion. A surgical safety pause was then conducted in which we confirmed the appropriate patient, extremity, planned procedure, availability of equipment, indication and administration of prophylactic antibiotics, and DVT prophylaxis in the form of a compression boot on the non-surgical extremity. I performed an Esmarch exsanguination of the limb, and the tourniquet was inflated. I made a longitudinal incision at the site of the fracture and used a reduction clamp and axial traction to reduce the fracture. This was confirmed fluoroscopically. I then placed 2 interfragmentary lag screws across the fracture site, which provided good compression. The provisional reduction clamp was then removed and the fracture was held well reduced. I then made a longitudinal incision over the medial malleolus. A Jiménez was used to make a path for a medial sided tibial plate proximally. A Synthes distal medial tibial plate was then slid up the tibia and a retrograde fashion. Placement was confirmed fluoroscopically. A nonlocking cortical screw was then placed in the oblong hole to compress the plate down to bone. Proximal nonlocking cortical screws were placed in a percutaneous fashion. Distally, locking screws were placed. Fluoroscopy was used throughout to confirm placement of the plate and screws. The wounds were copiously irrigated and closed in a layered fashion utilizing 3- 0 Monocryl suture and skin hamida. A well-padded AO plaster splint was placed with the ankle in a neutral position. The patient was then awakened from anesthesia and transferred to the recovery room in stable condition. There were no complications. All needle and sponge counts were correct at the end of the case. ATTESTATION: I attest I was present and scrubbed and performed the critical portions of the procedure myself. POSTOPERATIVE PLAN: The plan is NWB in the operative extremity. Follow-up in 2 weeks for staple removal. The plan is for her to resume her Eliquis for DVT prophylaxis.
[2018-11-08] MEDS: Diltiazem CD CAP* 180 MG PO SCH (22:45)
[2018-11-09] MEDS: Clindamycin 600 MG/D5W BAG(*) 600 MG/50 ML BAG IV SCH ×3 (01:18→18:50)
[2018-11-09 06:05] LABS: ABS Basophils 0 10^3/ul (0-0.2); ABS Eosinophils 0 10^3/ul (0-0.6); ABS Lymphocytes 0.6 10^3/ul (1.0-4.8); ABS Monocytes 0.6 10^3/ul (0-0.8); ABS Nucleated RBC 0 10^3/ul; Eosinophil % 0 %; Hematocrit 27 % (35-47); Hemoglobin 8.8 g/dl (12.0-16.0); Lymphocyte % 5.7 %; Mean Corpuscular HGB Conc 33 g/dl (31-36); Mean Corpuscular Hemoglobin 27 pg (27-31); Mean Corpuscular Volume 82 fL (80-97); Mean Platelet Volume 8.1 fL (7.4-10.4); Nucleated Red Blood Cells % 0.1; Platelet Count 274 10^3/ul (150-450); Red Blood Count 3.24 10^6/ul (4.00-5.40); Red Cell Distribution Width 18 % (10.5-15); White Blood Count 10.2 10^3/ul (3.5-10.8)
[2018-11-09 06:21] LABS: BUN/Creatinine Ratio 16.8 (8-20); Calcium 9.1 mg/dL (8.6-10.3); EGFR African American 70.4 (>60); EGFR Non-African American 58.2 (>60); Magnesium 2.1 mg/dL (1.9-2.7); Potassium 4.2 mmol/L (3.5-5.0)
--- NOTE | 2018-11-09 09:16 | PN ---
Progress Note - Progress Note Date of Service: 11/09/18 SOAP: Subjective: []Patient was seen and examined at bedside. Her LLE pain is well controlled today, improved from pre-op. Denies CP, SOB, dizziness, nausea. Continues to report intermittent numbness she experienced pre-op of left toes and foot after activity, reports full sensation returns within 5 minutes of rest. Confirms she has had full sensation of the foot and all digits post op. Objective: []General: Well appearing, NAD LLE: Left lower leg splint CDI, No erythema proximal or distal to splint, splint edges well padded. Toes warm and well perfused, nonpainful AROM and PROM of all digits, capillary refill less than two seconds distally, DP2+, sensation intact to light touch throughout all exposed portions of the digits and foot including dorsal, plantar, medial and lateral surfaces of the foot, all webspaces and all digits. Right calf supple and nontender without erythema, edema or palpable cords Assessment: []POD 1 sp left tibia ORIF Plan: []NWB LLE PT/OT Splint to remain CDI until f/u visit 3 doses IV clinda 600mg post op Restart home dose of eliquis today, 5 mg po BID Patient refuses rehab, home nursing and home PT. Reports good support at home from daughter and . CM, PT, OT, nursing staff aware of her desires, team approach to evaluate for safe DC home without services. Ready for DC from ortho standpoint when safe DC plan established F/U Dr Sainz 10-14 days Vital Signs Temp 98.4 F 11/09/18 07:56 Pulse 80 11/09/18 07:56 Resp 16 11/09/18 07:56 BP 147/75 11/09/18 07:56 Pulse Ox 99 11/09/18 07:56 Intake & Output 11/08/18 11/09/18 11/09/18 18:59 06:59 18:59 Intake Total 1850 1365 987 Output Total 0 710 Balance 1850 655 987 Intake: IV Fluids 1850 50 987 LR 1850 50 NS (0.9%) 987 IVPB 55 ABX - CLINDAMYCIN 55 Oral 1260 Output: Urine 0 710 Laboratory Last Values WBC 10.2 10^3/ul (3.5-10.8) 11/09/18 05:36 RBC 3.24 10^6/ul (4.00-5.40) L 11/09/18 05:36 Hgb 8.8 g/dl (12.0-16.0) L 11/09/18 05:36 Hct 27 % (35-47) L 11/09/18 05:36 MCV 82 fL (80-97) 11/09/18 05:36 MCH 27 pg (27-31) 11/09/18 05:36 MCHC 33 g/dl (31-36) 11/09/18 05:36 RDW 18 % (10.5-15) H 11/09/18 05:36 Plt Count 274 10^3/ul (150-450) 11/09/18 05:36 MPV 8.1 fL (7.4-10.4) 11/09/18 05:36 Neut % (Auto) 88.3 % 11/09/18 05:36 Lymph % (Auto) 5.7 % 11/09/18 05:36 [place] % (Auto) 5.9 % 11/09/18 05:36 Eos % (Auto) 0 % 11/09/18 05:36 Baso % (Auto) 0.1 % 11/09/18 05:36 Absolute Neuts (auto) 9.0 10^3/ul (1.5-7.7) H 11/09/18 05:36 Absolute Lymphs (auto) 0.6 10^3/ul (1.0-4.8) L 11/09/18 05:36 Absolute Monos (auto) 0.6 10^3/ul (0-0.8) 11/09/18 05:36 Absolute Eos (auto) 0 10^3/ul (0-0.6) 11/09/18 05:36 Absolute Basos (auto) 0 10^3/ul (0-0.2) 11/09/18 05:36 Absolute Nucleated RBC 0 10^3/ul 11/09/18 05:36 Nucleated RBC % 0.1 11/09/18 05:36 INR (Anticoag Therapy) 1.03 (0.77-1.02) H 11/08/18 05:29 APTT 29.6 seconds (26.0-36.3) 11/06/18 14:50 Sodium 134 mmol/L (135-145) L 11/09/18 05:35 Potassium 4.2 mmol/L (3.5-5.0) 11/09/18 05:35 Chloride 102 mmol/L (101-111) 11/09/18 05:35 Carbon Dioxide 26 mmol/L (22-32) 11/09/18 05:35 Anion Gap 6 mmol/L (2-11) 11/09/18 05:35 BUN 16 mg/dL (6-24) 11/09/18 05:35 Creatinine 0.95 mg/dL (0.51-0.95) 11/09/18 05:35 Est GFR ( Amer) 70.4 (>60) 11/09/18 05:35 Est GFR (Non-Af Amer) 58.2 (>60) 11/09/18 05:35 BUN/Creatinine Ratio 16.8 (8-20) 11/09/18 05:35 Glucose 166 mg/dL (70-100) H 11/09/18 05:35 Calcium 9.1 mg/dL (8.6-10.3) 11/09/18 05:35 Magnesium 2.1 mg/dL (1.9-2.7) 11/09/18 05:35 Total Bilirubin 0.30 mg/dL (0.2-1.0) 11/06/18 14:50 AST 23 U/L (13-39) 11/06/18 14:50 ALT 22 U/L (7-52) 11/06/18 14:50 Alkaline Phosphatase 114 U/L (34-104) H 11/06/18 14:50 Total Protein 6.6 g/dL (6.4-8.9) 11/06/18 14:50 Albumin 3.9 g/dL (3.2-5.2) 11/06/18 14:50 Globulin 2.7 g/dL (2-4) 11/06/18 14:50 Albumin/Globulin Ratio 1.4 (1-3) 11/06/18 14:50 25-OH Vitamin D Total 17.1 ng/mL (20-50) L 11/07/18 05:46 PTH Intact 11.6 pmol/L (1.3-9.3) H 11/07/18 05:46 Calcium (PTH Intact) 8.8 mg/dL (8.6-10.3) 11/07/18 05:46 Urine Color Straw 11/06/18 19:00 Urine Appearance Clear 11/06/18 19:00 Urine pH 7.0 (5-9) 11/06/18 19:00 Ur Specific [place] 1.005 (1.010-1.030) L 11/06/18 19:00 Urine Protein Negative (Negative) 11/06/18 19:00 Urine Ketones Negative (Negative) 11/06/18 19:00 Urine Blood Negative (Negative) 11/06/18 19:00 Urine Nitrate Negative (Negative) 11/06/18 19:00 Urine Bilirubin Negative (Negative) 11/06/18 19:00 Urine Urobilinogen Negative (Negative) 11/06/18 19:00 Ur Leukocyte Esterase Negative (Negative) 11/06/18 19:00 Urine Glucose Negative (Negative) 11/06/18 19:00 Blood Type A Positive 11/06/18 14:50 Antibody Screen Negative 11/06/18 14:50 Crossmatch See Detail 11/06/18 14:50
[2018-11-09] MEDS: Apixaban* 5 MG TAB PO SCH ×2 (10:00→22:36)
[2018-11-09] MEDS: Montelukast Sodium TAB* 10 MG PO SCH (10:00)
[2018-11-09] MEDS: NS 0.9% 1000 ML* 1,000 ML IV SCH (10:00)
[2018-11-09] MEDS: Aspirin 81 mg CHEW TAB* 81 MG TAB.CHEW PO SCH (10:00)
[2018-11-09] MEDS: Pantoprazole TAB * 40 MG TAB PO SCH ×2 (10:00→22:36)
[2018-11-09] MEDS: Calamine LOTION* 120 ML TOPICAL SCH ×3 (10:00→22:39)
[2018-11-09] MEDS: Flecainide TAB* 100 MG PO SCH ×2 (10:00→22:36)
[2018-11-09] MEDS ORDERED: Furosemide IV* 10 MG/ML 2 ML VIAL (20 MG) IV ONE (13:03)
--- NOTE | 2018-11-09 13:08 | PN ---
Subjective Date of Service: 11/09/18 Interval History: Pt's post op pain is controlled. appears more tacypneic, but denies SOB. apparently was evaluated for oxygen in the past but "insurance wouldn't pay for it" Objective Active Medications: Acetaminophen (Tylenol Tab*) 650 mg PO Q4H PRN PRN Reason: FEVER/PAIN Albuterol (Ventolin Hfa Inhaler*) 2 puff INH Q4H PRN PRN Reason: WHEEZING Apixaban (Eliquis*) 5 mg PO BID [facility] Last Admin: 11/09/18 10:00 Dose: 5 mg Aspirin (Aspirin 81 Mg Chew Tab*) 81 mg PO DAILY [facility] Last Admin: 11/09/18 10:00 Dose: 81 mg Calamine (Calamine Lotion*) 1 applic TOPICAL TID [facility] Last Admin: 11/09/18 10:00 Dose: Not Given Cyclobenzaprine HCl (Flexeril Tab*) 10 mg PO BID PRN PRN Reason: PAIN Last Admin: 11/07/18 04:01 Dose: 10 mg Diltiazem HCl (Cardizem Cd Cap*) 180 mg PO BEDTIME [facility] Last Admin: 11/08/18 22:45 Dose: 180 mg Diphenhydramine HCl (Benadryl Iv*) 25 mg IV Q6H PRN PRN Reason: PRURITIS Diphenhydramine HCl (Benadryl Po*) 25 mg PO Q6H PRN PRN Reason: PRURITIS Flecainide Acetate (Tambocor Tab*) 100 mg PO BID [facility] Last Admin: 11/09/18 10:00 Dose: 100 mg Furosemide (Lasix Iv*) 20 mg IV ONCE ONE Stop: 11/09/18 13:04 Furosemide (Lasix Tab*) 40 mg PO DAILY [facility] Hydromorphone HCl (Dilaudid Inj*) 0.5 mg IV Q2H PRN PRN Reason: PAIN - BREAKTHROUGH Last Admin: 11/08/18 11:19 Dose: 0.5 mg Sodium Chloride (Ns 0.9% 1000 Ml*) 1,000 mls @ 75 mls/hr IV PER RATE [facility] Last Admin: 11/09/18 10:00 Dose: 75 mls/hr Clindamycin HCl/Dextrose (Cleocin 600 Mg/50 Ml(*)) 600 mg in 50 mls @ 100 mls/ hr IV Q8H [facility] Stop: 11/09/18 17:29 Last Admin: 11/09/18 10:01 Dose: 100 mls/hr Montelukast Sodium (Singulair Tab*) 10 mg PO DAILY [facility] Last Admin: 11/09/18 10:00 Dose: 10 mg Oxycodone/Acetaminophen (Percocet 5/325 Tab*) 1 tab PO Q4H PRN PRN Reason: PAIN Last Admin: 11/07/18 07:24 Dose: 1 tab Pantoprazole Sodium (Protonix Tab (Nf)) 40 mg PO BID [facility] Last Admin: 11/09/18 10:00 Dose: 40 mg Tramadol HCl (Ultram*) 50 mg PO Q6H PRN PRN Reason: PAIN - MODERATE Vital Signs - 8 hr 11/09/18 11/09/18 11/09/18 06:02 07:56 08:00 Temperature 98.4 F Pulse Rate 80 Respiratory 21 16 16 Rate Blood Pressure 147/75 (mmHg) O2 Sat by Pulse 97 99 98 Oximetry 11/09/18 11/09/18 11/09/18 10:00 11:34 11:45 Temperature 98.8 F Pulse Rate 76 Respiratory 15 16 15 Rate Blood Pressure 121/52 (mmHg) O2 Sat by Pulse 99 100 100 Oximetry Oxygen Devices in Use Now: Nasal Cannula Appearance: 68 yo f in nAD, aAOx3 Eyes: No Scleral Icterus, PERRLA Ears/Nose/Mouth/Throat: NL Teeth, Lips, Gums, Mucous Membranes Moist Neck: NL Appearance and Movements; NL JVP, Trachea Midline Respiratory: Symmetrical Chest Expansion and Respiratory Effort, - - bibasiliar crackles Cardiovascular: RRR, - Abdominal: NL Sounds; No Tenderness; No Distention, No Hepatosplenomegaly Lymphatic: No Cervical Adenopathy Extremities: No Clubbing, Cyanosis, - - post op left leg in splint, toes with mild edema Skin: No Rash or Ulcers, No Nodules or Sclerosis Neurological: Alert and Oriented x 3, NL Muscle Strength and Tone Result Diagrams: 11/09/18 05:36 11/09/18 05:35 Microbiology and Other Data: Microbiology 11/06/18 15:42 Nasal Screen MRSA (PCR) - Final Nasal Mrsa Not Detected 11/06/18 16:00 Stool Occult Blood (VALDO) - Final Stool Assess/Plan/Problems-Billing Assessment: 68 yo F with h/o recent GI bleed and PAF on Eliquis presents with left tib/fib fx after a fall - Patient Problems (1) Tibia/fibula fracture Comment: s/p left tib/fib ORIF 11/08/18 (2) Atrial fibrillation Comment: paroxysmal, cont Flecainide and Cardizem CD. s/p BARBARA cardioversion 11/21/17 (3) Lower gastrointestinal bleed Comment: upper GI bleed on 10/16/18 with subsequent chronic anemia, Hb approx 8. today Hb 8.8 - aftter transfusion of 1 U PRBC on 11/07/18 cont protonix BID (4) CKD (chronic kidney disease) stage 3, GFR 30-59 ml/min Comment: creat better then baseline today (5) Tachypnea Comment: suspect fluid overload. Will restart home Lasix and treat with one IV dose now (6) DVT prophylaxis Comment: eliquis Status and Disposition: inpatient. Pt refused home VNS and STR planned to d/c home tomorrow
[2018-11-09] MEDS ORDERED: Ergocalciferol CAP* 50000 UNIT PO SCH (14:00)
[2018-11-09] MEDS: traMADol TAB* 50 MG PO PRN (14:42)
[2018-11-09] MEDS: Cyclobenzaprine TAB* 10 MG PO PRN (20:16)
[2018-11-09] MEDS: HYDROmorphone INJ1* 1 MG/ML SYRINGE IV PRN (20:18)
[2018-11-09] MEDS: Diltiazem CD CAP* 180 MG PO SCH (22:37)
[2018-11-10 06:33] LABS: ABS Basophils 0 10^3/ul (0-0.2); ABS Eosinophils 0.1 10^3/ul (0-0.6); ABS Lymphocytes 1.3 10^3/ul (1.0-4.8); ABS Neutrophils 5.8 10^3/ul (1.5-7.7); ABS Nucleated RBC 0 10^3/ul; Eosinophil % 1.5 %; Hematocrit 24 % (35-47); Hemoglobin 7.8 g/dl (12.0-16.0); Lymphocyte % 15.8 %; Mean Corpuscular HGB Conc 33 g/dl (31-36); Mean Corpuscular Hemoglobin 27 pg (27-31); Mean Corpuscular Volume 82 fL (80-97); Mean Platelet Volume 8.4 fL (7.4-10.4); Nucleated Red Blood Cells % 0; Platelet Count 240 10^3/ul (150-450); Red Blood Count 2.93 10^6/ul (4.00-5.40); Red Cell Distribution Width 19 % (10.5-15); White Blood Count 8.3 10^3/ul (3.5-10.8)
[2018-11-10 06:52] LABS: BUN/Creatinine Ratio 22.1 (8-20); Calcium 8.6 mg/dL (8.6-10.3); EGFR African American 70.4 (>60); EGFR Non-African American 58.2 (>60); Potassium 4.2 mmol/L (3.5-5.0)
[2018-11-10] MEDS: Apixaban* 5 MG TAB PO SCH (08:04)
[2018-11-10] MEDS: Montelukast Sodium TAB* 10 MG PO SCH (08:04)
[2018-11-10] MEDS: traMADol TAB* 50 MG PO PRN (08:04)
[2018-11-10] MEDS: Flecainide TAB* 100 MG PO SCH (08:04)
[2018-11-10] MEDS: Cyclobenzaprine TAB* 10 MG PO PRN (08:04)
[2018-11-10] MEDS: Pantoprazole TAB * 40 MG TAB PO SCH (08:04)
[2018-11-10] MEDS: Aspirin 81 mg CHEW TAB* 81 MG TAB.CHEW PO SCH (08:05)
[2018-11-10] MEDS: Calamine LOTION* 120 ML TOPICAL SCH (08:08)
[2018-11-10 08:44] VITALS: BP 99/53
[2018-11-10] MEDS ORDERED: Potassium Chlor TAB* 10 MEQ TAB.ER PO SCH (09:00)
[2018-11-10] MEDS ORDERED: Furosemide TAB* 40 MG PO SCH (09:00)
[2018-11-10] MEDS: HYDROmorphone INJ1* 1 MG/ML SYRINGE IV PRN (09:40)
--- NOTE | 2018-11-10 09:58 | PN ---
Progress Note - Progress Note Date of Service: 11/10/18 SOAP: Subjective: [] Patient seen OOB in chair today. LLE pain is controlled, no sharp pain, no numbness. Denies CP, dizziness, nausea. Breathing is baseline, always SOB no worse than usual. Objective: []General: Well appearing, NAD LLE: Left lower leg splint CDI, elevated on pillows. No erythema proximal or distal to splint, splint edges well padded. Toes warm and well perfused, nonpainful AROM and PROM of all digits, capillary refill less than two seconds distally, DP2+, sensation intact to light touch throughout throughout foot and digits. Right calf supple and nontender without erythema, edema or palpable cords Assessment: []POD 2 sp left tibia ORIF Plan: []NWB LLE PT/OT Splint to remain CDI until f/u visit Continue eliquis 5 mg po BID Pt continues to refuse rehab and VNS. F/U Dr Sainz 10-14 days Ok for DC from ortho standpoint when medically ready Hx GI bleed with continued anemia, little operative loss Vital Signs Temp 98.3 F 11/10/18 08:43 Pulse 83 11/10/18 08:43 Resp 18 11/10/18 09:40 BP 99/53 11/10/18 08:43 Pulse Ox 99 11/10/18 08:43 Intake & Output 11/09/18 11/10/18 11/10/18 18:59 06:59 18:59 Intake Total 1621 980 100 Output Total 600 1250 600 Balance 1021 -270 -500 Weight 236 lb Intake: IV Fluids 1246 NS (0.9%) 1246 IVPB 55 ABX - CLINDAMYCIN 55 Oral 320 980 100 Output: Urine 600 1250 600 Laboratory Last Values WBC 8.3 10^3/ul (3.5-10.8) 11/10/18 06:00 RBC 2.93 10^6/ul (4.00-5.40) L 11/10/18 06:00 Hgb 7.8 g/dl (12.0-16.0) L 11/10/18 06:00 Hct 24 % (35-47) L 11/10/18 06:00 MCV 82 fL (80-97) 11/10/18 06:00 MCH 27 pg (27-31) 11/10/18 06:00 MCHC 33 g/dl (31-36) 11/10/18 06:00 RDW 19 % (10.5-15) H 11/10/18 06:00 Plt Count 240 10^3/ul (150-450) 11/10/18 06:00 MPV 8.4 fL (7.4-10.4) 11/10/18 06:00 Neut % (Auto) 69.8 % 11/10/18 06:00 Lymph % (Auto) 15.8 % 11/10/18 06:00 [place] % (Auto) 12.5 % 11/10/18 06:00 Eos % (Auto) 1.5 % 11/10/18 06:00 Baso % (Auto) 0.4 % 11/10/18 06:00 Absolute Neuts (auto) 5.8 10^3/ul (1.5-7.7) 11/10/18 06:00 Absolute Lymphs (auto) 1.3 10^3/ul (1.0-4.8) 11/10/18 06:00 Absolute Monos (auto) 1.0 10^3/ul (0-0.8) H 11/10/18 06:00 Absolute Eos (auto) 0.1 10^3/ul (0-0.6) 11/10/18 06:00 Absolute Basos (auto) 0 10^3/ul (0-0.2) 11/10/18 06:00 Absolute Nucleated RBC 0 10^3/ul 11/10/18 06:00 Nucleated RBC % 0 11/10/18 06:00 INR (Anticoag Therapy) 1.03 (0.77-1.02) H 11/08/18 05:29 APTT 29.6 seconds (26.0-36.3) 11/06/18 14:50 Sodium 136 mmol/L (135-145) 11/10/18 06:00 Potassium 4.2 mmol/L (3.5-5.0) 11/10/18 06:00 Chloride 103 mmol/L (101-111) 11/10/18 06:00 Carbon Dioxide 26 mmol/L (22-32) 11/10/18 06:00 Anion Gap 7 mmol/L (2-11) 11/10/18 06:00 BUN 21 mg/dL (6-24) 11/10/18 06:00 Creatinine 0.95 mg/dL (0.51-0.95) 11/10/18 06:00 Est GFR ( Amer) 70.4 (>60) 11/10/18 06:00 Est GFR (Non-Af Amer) 58.2 (>60) 11/10/18 06:00 BUN/Creatinine Ratio 22.1 (8-20) H 11/10/18 06:00 Glucose 104 mg/dL (70-100) H 11/10/18 06:00 Calcium 8.6 mg/dL (8.6-10.3) 11/10/18 06:00 Magnesium 2.1 mg/dL (1.9-2.7) 11/09/18 05:35 Total Bilirubin 0.30 mg/dL (0.2-1.0) 11/06/18 14:50 AST 23 U/L (13-39) 11/06/18 14:50 ALT 22 U/L (7-52) 11/06/18 14:50 Alkaline Phosphatase 114 U/L (34-104) H 11/06/18 14:50 Total Protein 6.6 g/dL (6.4-8.9) 11/06/18 14:50 Albumin 3.9 g/dL (3.2-5.2) 11/06/18 14:50 Globulin 2.7 g/dL (2-4) 11/06/18 14:50 Albumin/Globulin Ratio 1.4 (1-3) 11/06/18 14:50 25-OH Vitamin D Total 17.1 ng/mL (20-50) L 11/07/18 05:46 PTH Intact 11.6 pmol/L (1.3-9.3) H 11/07/18 05:46 Calcium (PTH Intact) 8.8 mg/dL (8.6-10.3) 11/07/18 05:46 Urine Color Straw 11/06/18 19:00 Urine Appearance Clear 11/06/18 19:00 Urine pH 7.0 (5-9) 11/06/18 19:00 Ur Specific [place] 1.005 (1.010-1.030) L 11/06/18 19:00 Urine Protein Negative (Negative) 11/06/18 19:00 Urine Ketones Negative (Negative) 11/06/18 19:00 Urine Blood Negative (Negative) 11/06/18 19:00 Urine Nitrate Negative (Negative) 11/06/18 19:00 Urine Bilirubin Negative (Negative) 11/06/18 19:00 Urine Urobilinogen Negative (Negative) 11/06/18 19:00 Ur Leukocyte Esterase Negative (Negative) 11/06/18 19:00 Urine Glucose Negative (Negative) 11/06/18 19:00 Blood Type A Positive 11/06/18 14:50 Antibody Screen Negative 11/06/18 14:50 Crossmatch See Detail 11/06/18 14:50
[2018-11-10 10:47] LABS: Hematocrit 24 % (35-47)
--- NOTE | 2018-11-10 12:59 | DS ---
CC: Dr. Houston; Dr. Sainz; Dr. Wong * DISCHARGE SUMMARY: DATE OF ADMISSION: 11/06/18 DATE OF DISCHARGE: 11/10/18 PRIMARY CARE PROVIDER: Dr. Houston. DISCHARGE DIAGNOSIS: Status post fall with subsequent left tibial fibular fracture status post open reduction and internal fixation of the distal left lower extremity, performed by Dr. Sainz on 11/08/18. SECONDARY DIAGNOSES: 1. Mild postoperative anemia. 2. History of recent gastrointestinal bleed with hemoglobin at 8 post hospitalization at the end of 2018 when the patient needed to be transferred to [facility] for definite endoscopic treatment of a 2 cm gastric ulcer as well as severe erosive esophagitis. 3. History of paroxysmal atrial fibrillation, rhythm control with flecainide, and anticoagulation with Eliquis. 4. Hyperlipidemia. 5. History of uterine cancer. 6. Pneumonia. 7. Hypertension. 8. Obstructive sleep apnea, noncompliant with CPAP. 9. History of total left hip replacement. 10. History of bilateral knee replacement. 11. Right shoulder arthroplasty in the past. 12. Breast reduction. 13. Right rotator cuff repair. 14. Appendectomy. 15. Hysterectomy. 16. History of vocal cord surgery. 17. Vitamin D deficiency. MEDICATIONS AT DISCHARGE: Include: 1. Vitamin D 50,000 units weekly. 2. Eliquis 5 mg b.i.d. 3. Albuterol inhaler on p.r.n. basis. 4. Vitamin E 400 units daily. 5. Ultram 100 mg every 8 hours p.r.n. 6. Potassium chloride 10 mEq daily. 7. Protonix 40 mg b.i.d. 8. Singulair 10 mg daily. 9. Furosemide 40 mg daily. 10. Flecainide 100 mg b.i.d. 11. Cartia XT 180 mg at bed time. 12. Flexeril 10 mg b.i.d. 13. Calcium carbonate with vitamin D 1 tablet daily. 14. Aspirin 81 mg daily. LABORATORY DATA AND STUDIES PERFORMED DURING HOSPITAL STAY: Included: On 11/10, white blood cell count 8.3, hemoglobin 7.8, hematocrit of 24, and platelets of 240. Sodium of 136, potassium of 4.2, chloride 106, carbon dioxide 26, BUN 21, creatinine 0.95 with a vitamin D total of 17.1 which was low , PTH was 11.6 which was high, calcium of 8.8. Brain CT obtained on admission, impression: "No acute intracranial pathology". Lower extremity x-ray obtained on 11/06/18, impression: "Oblique, displaced fractures of the fibular and tibial diaphysis, osteopenia". Brain CT obtained on 11/06/18, impression: "No acute intracranial pathology". CONSULTATIONS DURING THE HOSPITAL STAY: Included Dr. Sainz from Orthopedic Surgery. SURGERIES PERFORMED: Included ORIF of the left lower extremity, tib-fib fracture performed by Dr. Sainz on 11/08/18. At discharge, the patient is recommended to follow up with his primary care provide in approximately 4 to [address] Sainz in approximately 10 days. The patient is recommended to keep her dressings intact and dry until seen by orthopedic service in followup. The patient is to be nonweightbearing on the postoperative left leg. She is to ambulate with a roller walker. Please note that patient declined rehabilitation placement and declined physical therapy assistance with visiting nurses. HOSPITALIZATION COURSE: Pricilla Giraldo is a 68-year-old female who presented to the hospital after she fell off bed on 11/06/18 and suffered from left tib-fib fracture. The patient was at that point on Eliquis. She has history of recent gastrointestinal bleed for which she needed to be transferred to [facility] at the end of September 2018 for definitive treatment of gastric ulcer. Post gastrointestinal bleed, the patient's hemoglobin had been in the range of 8. During the patient's hospital stay preoperatively, she was transfused 1 unit on 11/07/18. Postoperatively, she did develop mild postop anemia that was not disproportionate to the patient's surgery. She has had no episodes of melena or bright red blood per rectum. She had been hemodynamically stable. Her Eliquis was started postoperatively. She underwent physical therapy evaluation and she was deemed to be a good candidate for inpatient rehab. The patient adamantly refused to go to inpatient rehab and refused out patient physical therapy and visiting nurses. She has overall a risk of fall. In fact she was offered to have 1 more day of hospital stay just for physical therapy continuation and more support; nevertheless, she refused. She wanted to be discharged home today and she stated that she already informed her family members to come and help her. The patient understands that the risk of her falling is significant and she is awake and competent to make her own decisions and requested to be discharged nevertheless. PHYSICAL EXAM AT TIME OF DISCHARGE: Blood pressure of 99/53, heart rate of 83 and regular, respiratory rate 16, oxygen saturation 99% on 2 L of oxygen nasal cannula, temperature 98.3. General: The patient is a very pleasant 68-year- old obese female who is in no acute distress, alert, awake, and oriented x3. HEENT: Head atraumatic, normocephalic. Eyes: Pupils equal and reactive to light and accommodation. Oropharynx is clear. Mucosa is moist. Neck: Supple. No JVD, no bruits bilaterally. Cardiovascular: Regular rate and rhythm. No murmur. Respiratory: Clear to auscultation bilaterally. Abdomen: Soft, nontender. Bowel sounds are present in all 4 quadrants. Extremities: The left lower extremity is in postoperative cast. The toes are mildly swollen but with good perfusion. The right lower extremity has no edema. Pulses are + 2. There is no clubbing or cyanosis. On neuro evaluation, speech clear. Cranial nerves II through XII grossly intact. Motor strength is 5/5 bilaterally. Please note that this is a short summary of the patient's hospitalization. Please refer to further medical records for details. TIME SPENT: Approximately 45 minutes was spent on the patient's discharge. [id number]/[facility] #: [id number] [place]
== END 2018-11-10 12:40 | disposition home or self-care (01) | DRG 493 ==
LOC: ED 13:39 → SSU 15:24
PROVIDERS: ADMIT Nurse Practitioner Family; ATTEND Internal Medicine
PROC: 30233N1 Transfusion of Nonautologous Red Blood Cells into Peripheral Vein, Percutaneous Approach (ICD-10-PCS; 2018-11-07)
PROC: 0QSH04Z Reposition Left Tibia with Internal Fixation Device, Open Approach (ICD-10-PCS; principal; 2018-11-08 16:30)
DX: S82.202A Unspecified fracture of shaft of left tibia, initial encounter for closed fracture (principal); I13.0 Hypertensive heart and chronic kidney disease with heart failure and stage 1 through stage 4 chronic kidney disease, or unspecified chronic kidney disease; J45.909 Unspecified asthma, uncomplicated; M19.90 Unspecified osteoarthritis, unspecified site; G89.29 Other chronic pain; G43.909 Migraine, unspecified, not intractable, without status migrainosus; Z96.611 Presence of right artificial shoulder joint; I48.0 Paroxysmal atrial fibrillation; E78.5 Hyperlipidemia, unspecified; Z96.653 Presence of artificial knee joint, bilateral; Z96.642 Presence of left artificial hip joint; N18.3 Chronic kidney disease, stage 3 (moderate); I50.9 Heart failure, unspecified; D64.9 Anemia, unspecified; W06.XXXA Fall from bed, initial encounter; E55.9 Vitamin D deficiency, unspecified; R06.82 Tachypnea, not elsewhere classified; Z79.01 Long term (current) use of anticoagulants; Z86.73 Personal history of transient ischemic attack (TIA), and cerebral infarction without residual deficits; Z90.710 Acquired absence of both cervix and uterus; Z88.0 Allergy status to penicillin; Z88.8 Allergy status to other drugs, medicaments and biological substances; Z88.1 Allergy status to other antibiotic agents; Z91.030 Bee allergy status; Z85.42 Personal history of malignant neoplasm of other parts of uterus; Z86.14 Personal history of Methicillin resistant Staphylococcus aureus infection; Z87.891 Personal history of nicotine dependence; Z82.49 Family history of ischemic heart disease and other diseases of the circulatory system; Z79.82 Long term (current) use of aspirin; Y92.003 Bedroom of unspecified non-institutional (private) residence as the place of occurrence of the external cause
CPT/HCPCS: 36415; 70450; 76000; 80048; 80053; 81003; 82272; 82306; 83735; 83970; 85014; 85018; 85025; 85610; 85730; 86850; 86900; 86901; 86922; 87641; 93005; 99284; A9270-GY; G8978-GP-CK; G8979-GP-CI; G8987-GO-CL; G8988-GO-CI; J1100; J1170; J1240; J1644; J1885; J1940; J2250; J2270; J2405; J2704; J2710; J3010; J3490; P9040

== ENCOUNTER 2019-05-07 12:35 | Inpatient (IN) | payer MEDICARE ==
--- OUTSIDE RECORDS SUMMARY | 2019-05-07 12:49 | XMS REPORT | Continuity of Care Document ---
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 Echocardiography, Transesophageal, Real Time W/Image 2D Completed W/W/O M-M 11/04/2017 62653 ECHO Transthorasic Realtime 2D W Doppler & Color Flow Completed Hosp 11/03/2017 30010 EKG, Interpretation Only Completed 10/25/2008 19380 Collection Of Blood, Stick(Finger, Heel, Ear Stick) Completed Encounters Type Date Location Provider Dx Diagnosis Office Visit 04/10/2019 Orthopedic Aj Emeli, S82.232D Displ oblique fx 11:00a Services Of MD rojas of l tibia, C.M.A. 7thD Office Visit 02/02/2019 [facility] Rebecca Wong, I48.0 Paroxysmal atrial 1:10p Of [place] Buenrostro fibrillation R51 Headache E78.5 Hyperlipidemia, unspecified I10 Essential (primary) hypertension H53.30 Unspecified disorder of binocular vision Office 11/21/2018 [facility] Jeronimo Saleh K92.2 Gastrointestinal Visit 2:45p MD Joseph hemorrhage, unspecified I48.91 Unspecified atrial fibrillation G47.33 Obstructive sleep apnea (adult) (pediatric) S82.232A Displaced oblique fracture of shaft of left tibia, init D50.9 Iron deficiency anemia, unspecified Office Visit 11/10/2018 11:02a [facility] Analia Singh, S82.232D Displ oblique Assoc,juan daniel Buenrostro fx shaft of l Hospitalists tibia, 7thD D62 Acute posthemorrhagic anemia E78.5 Hyperlipidemia, unspecified J18.9 Pneumonia, unspecified organism I10 Essential (primary) hypertension G47.33 Obstructive sleep apnea (adult) (pediatric) Office Visit 11/09/2018 11:02a [facility] Analia Soareshn, S82.232D Displ oblique Assoc,juan daniel Buenrostro fx shaft of l Hospitalists tibia, 7thD I48.91 Unspecified atrial fibrillation K92.2 Gastrointestinal hemorrhage, unspecified N18.3 Chronic kidney disease, stage 3 (moderate) R00.0 Tachycardia, unspecified Office Visit 11/08/2018 11:02a [facility] Analia Soareshn, S82.232D Displ oblique Assoc,juan daniel Buenrostro fx shaft of l Hospitalists tibia, 7thD K92.2 Gastrointestinal hemorrhage, unspecified N18.3 Chronic kidney disease, stage 3 (moderate) R00.0 Tachycardia, unspecified Office Visit 11/07/2018 [facility] Analia Soareshn, S82.402A Unsp fracture 11:01a Assoc,juan daniel Buenrostro of shaft of Hospitalists left fibula, init for clos fx I48.91 Unspecified atrial fibrillation K92.2 Gastrointestinal hemorrhage, unspecified Office Visit 11/07/2018 1:30p Orthopedic Lori S82.232A Displaced Services Of MATHEUS Wray oblique fracture of shaft of left tibia, init Office Visit 11/06/2018 11:01a [facility] Ehsan S82.402A Unsp fracture Assoc,juan daniel Hagen, of shaft of Hospitalists N.P. left fibula, init for clos fx K92.2 Gastrointestinal hemorrhage, unspecified E78.5 Hyperlipidemia, unspecified G47.33 Obstructive sleep apnea (adult) (pediatric) I48.91 Unspecified atrial fibrillation Office Visit 11/06/2018 Orthopedic Aj Sainz, S82.232A Displaced 1:27p Services Of oblique fracture C.M.AVito of shaft of left tibia, init Office Visit 10/27/2018 Spike Houston, K25.0 Acute gastric 1:20p Internal M.D. ulcer with Medicine-Arrowwo hemorrhage od K20.9 Esophagitis, unspecified D64.9 Anemia, unspecified K59.00 Constipation, unspecified J06.9 Acute upper respiratory infection, unspecified T39.395D Adverse effect of nonsteroidal anti-inflammatory drugs, subs Office Visit 10/16/2018 11:18a Intens[facility]ists Tonya Oglesby92.2 Gastrointestinal MD Chago hemorrhage, unspecified D64.9 Anemia, unspecified I95.9 Hypotension, unspecified N18.9 Chronic kidney disease, unspecified R74.0 Nonspec elev of levels of transamns & lactic acid dehydrgnse D72.829 Elevated white blood cell count, unspecified I48.91 Unspecified atrial fibrillation M54.9 Dorsalgia, unspecified Office Visit 10/15/2018 11:11a Intensivists Tonya Lea.2 Gastrointestinal MD Chago hemorrhage, unspecified D64.9 Anemia, unspecified I95.9 Hypotension, unspecified N18.9 Chronic kidney disease, unspecified R74.0 Nonspec elev of levels of transamns & lactic acid dehydrgnse D72.829 Elevated white blood cell count, unspecified I48.91 Unspecified atrial fibrillation M54.9 Dorsalgia, unspecified Office 10/15/2018 [facility] Jeronimo Saleh K92.2 Gastrointestinal Visit 7:00a MD Joseph hemorrhage, unspecified K27.9 Peptic ulc, site unsp, unsp as ac or chr, w/o hemor or perf Office Visit 10/15/2018 11:01a [facility] Judson Wills I48.0 Paroxysmal atrial Of [place] Moreno M.D., fibrillation FACC, FASNC K25.0 Acute gastric ulcer with hemorrhage Z79.01 alf (current) use of anticoagulants Z51.81 Encounter for therapeutic drug level monitoring Office Visit 10/15/2018 12:03p [facility] Marylin Terrell, D62 Acute posthemorrhagic Assoc,juan daniel SESAY anemia Hospitalists K92.2 Gastrointestinal hemorrhage, unspecified R10.2 Pelvic and perineal pain R65.10 Sirs of non-infectious origin w/o acute organ dysfunction I48.91 Unspecified atrial fibrillation G47.33 Obstructive sleep apnea (adult) (pediatric) Z91.19 Patient's noncompliance w oth medical treatment and regimen Office 10/12/2018 DoNotUse [facility] Internal Ml M51.36 Other Visit 10:50a Shana-melba Holbrook M.D. disc degeneration, lumbar region M54.5 Low back pain Office Visit 06/28/2018 1:40p DoNotUse [facility] Internal Ml Houston, R05 Cough Bill Buenrostro R06.02 Shortness of breath J40 Bronchitis, not specified as acute or chronic Office Visit 05/12/2018 12:40p [facility] Rebecca Wong, R06.02 Shortness of Of [place] Buenrostro breath I48.0 Paroxysmal atrial fibrillation I10 Essential (primary) hypertension R60.0 Localized edema Office Visit 05/10/2018 DoNotUse [facility] Internal Ml R06.02 Shortness of 10:50a Bill Houston M.D. 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 fibrillation Z51.81 Encounter for therapeutic drug level monitoring Office 03/24/2018 Spike [facility] Antonia Bailey I50.20 Unspecified Visit 2:00p Bill Lindsay M.D. systolic (congestive) heart failure I48.1 Persistent atrial fibrillation R06.02 Shortness of breath G47.33 Obstructive sleep apnea (adult) (pediatric) Office Visit 02/24/2018 Spike [facility] Antonia Bull I48.1 Persistent atrial 11:10a Bill Houston M.D. 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 syndrome I48.0 Paroxysmal atrial fibrillation R06.02 Shortness of breath I10 Essential (primary) hypertension E78.5 Hyperlipidemia, unspecified R07.9 Chest pain, unspecified Office Visit 01/07/2018 3:30p [facility] Tatyana Carrillo R06.02 Shortness of Of [facility] Félix, N.P. breath I48.1 Persistent atrial fibrillation I10 Essential (primary) hypertension E78.5 Hyperlipidemia, unspecified R07.9 Chest pain, unspecified Office Visit 01/06/2018 1:00p [facility] Tonya Anders, R06.83 Snoring Services Of [facility] E66.09 Other obesity due to excess calories Z68.38 Body mass index (BMI) 38.0-38.9, adult Office Visit 12/14/2017 12:30p [facility] Rebecca Wong I48.1 Persistent atrial Of [facility] M.D. fibrillation R05 Cough Office Visit 12/06/2017 [facility] Rebecca Wong I48.1 Persistent atrial 2:10p Of [facility] M.D. fibrillation Office Visit 11/22/2017 [facility] Paxton Escamilla MD I48.91 Unspecified atrial 11:47a Assoc,juan daniel fibrillation Hospitalists I10 Essential (primary) hypertension E78.5 Hyperlipidemia, unspecified Office Visit 11/21/2017 11:45a [facility] Paxton Escamilla I48.91 Unspecified atrial Assoc,juan daniel SESAY fibrillation Hospitalists I10 Essential (primary) hypertension E78.5 Hyperlipidemia, unspecified Office Visit 11/20/2017 [facility] Ehsan I48.91 Unspecified 11:40a Assoc,juan daniel Hagen N.P. atrial Hospitalists fibrillation I10 Essential (primary) hypertension E78.5 Hyperlipidemia, unspecified Office Visit 11/05/2017 [facility] Rosalia Carrillo I48.91 Unspecified 2:16p [place] Nuno atrial fibrillation Office Visit 11/05/2017 [facility], I48.91 Unspecified 7:05a juan daniel Alatorre M.D. atrial Hospitalists fibrillation E78.5 Hyperlipidemia, unspecified Z86.73 Prsnl hx of TIA (TIA), and cereb infrc w/o resid deficits I10 Essential (primary) hypertension [facility] 2:12p [place] Nuno atrial fibrillation Office Visit 11/04/2017 [facility], I48.91 Unspecified 7:05a juan daniel Alatorre M.D. 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 R94.31 Abnormal electrocardiogram [ECG] [EKG] Z82.49 Family hx of ischem heart dis and oth dis of the circ sys Office Visit 06/13/2016 8:19a [facility] Juan José A41.9 Sepsis, Assoc,juan daniel Puckett MD unspecified Hospitalists organism L02.91 Cutaneous abscess, unspecified I10 Essential (primary) hypertension E78.5 Hyperlipidemia, unspecified Office Visit 06/12/2016 8:19a [facility] Juan José A41.9 Sepsis, Assoc,juan daniel Puckett MD unspecified Hospitalists organism L02.91 Cutaneous abscess, unspecified I10 Essential (primary) hypertension E78.5 Hyperlipidemia, unspecified Office Visit 06/11/2016 [facility] L02.91 Cutaneous 8:17a Assjuan daniel shafer N.P. abscess, Hospitalists unspecified A41.9 Sepsis, unspecified organism I10 Essential (primary) hypertension E78.5 Hyperlipidemia, unspecified Office Visit 10/25/2008 DO Not Use Board Stacker Thanmargarita, 722.6 Intervertebral Disc 1:00p AT Micha Hutchins M.D. Degeneration Unspec Site 716.96 Arthropathy Unspec Lower Leg 724.2 Lumbago 401.9 Hypertension Unspec 272.4 Hyperlipidemia Other Unspec V74.1 Screening Examination Pulmonary Tuberculosis Plan of Treatment 04/10/2019 - Aj Sainz, MDS82.232D Displaced oblique fracture of shaft of left tibia, subsequenFollow up:Follow Up: As needed
[2019-05-07 16:03] LABS: ABS Eosinophils 0.2 10^3/ul (0-0.6); ABS Lymphocytes 1.4 10^3/ul (1.0-4.8); ABS Monocytes 0.6 10^3/ul (0-0.8); ABS Neutrophils 4.2 10^3/ul (1.5-7.7); Eosinophil % 3.4 %; Hematocrit 24 % (35-47); Hemoglobin 7.6 g/dL (12.0-16.0); Lymphocyte % 21.9 %; Mean Corpuscular HGB Conc 31 g/dL (31-36); Mean Corpuscular Hemoglobin 22 pg (27-31); Mean Corpuscular Volume 69 fL (80-97); Mean Platelet Volume 8.5 fL (7.4-10.4); Platelet Count 273 10^3/uL (150-450); Red Blood Count 3.54 10^6 /uL (3.70-4.87); Red Cell Distribution Width 20 % (10-15); White Blood Count 6.5 10^3/uL (3.5-10.8)
--- NOTE | 2019-05-07 16:03 | ED ---
Shortness of Breath - HPI Summary HPI Summary: This patient is a 68 year old F presenting to ED with a chief complaint of SOB worse on exertion since yesterday morning. Patient has a history of CHF and is on diuretics. Patient has an occasional cough, no phlegm. 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 The patient rates the pain 0/10 in severity. Symptoms aggravated by nothing. Symptoms alleviated by nothing. Patient denies CP. - History of Current Complaint Chief Complaint: EDShortnessOfBreath Time Seen by Provider: 05/07/19 15:45 Hx Obtained From: Patient Onset/Duration: Lasting Days - Since yesterday, Still Present Current Severity: Moderate Dyspnea At: Exertion Aggravating Factors: Nothing Alleviating Factors: Nothing Associated Signs & Symptoms: Negative - CP, Cough (Nonproductive) - Allergy/Home Medications Allergies/Adverse Reactions: Allergies Allergy/AdvReac Type Severity Reaction Status Date / Time codeine Allergy Severe Anaphylatic Verified 10/28/18 14:44 Shock Penicillins Allergy Severe Anaphylatic Verified 10/28/18 14:44 Shock venom-honey bee Allergy Severe Anaphylatic Verified 10/28/18 14:44 Shock nitroglycerin Allergy Intermediate Hives Verified 10/28/18 14:44 latex Allergy Mild Rash Verified 10/28/18 14:44 vancomycin Allergy Mild Pain Verified 10/28/18 14:44 chocolate flavor Allergy Vomiting Verified 05/07/19 12:43 nitrofurantoin Allergy Hives Verified 10/28/18 14:44 [From Macrodantin] aspirin AdvReac Intermediate GI Upset Verified 10/28/18 14:44 PMH/Surg Hx/FS Hx/Imm Hx Endocrine/Hematology History: Reports: Hx Anticoagulant Therapy - eliquis, Hx Thyroid Disease Denies: Hx Diabetes, Hx Anemia, Hx Unexplained Bleeding Cardiovascular History: Reports: Hx Angina, Hx Atrial Fibrillation, Hx Congestive Heart Failure - takes diuretic, Hx Hypercholesterolemia, Hx Hypertension, Other Cardiovascular Problems/Disorders - tia 2008 Denies: Hx Aneurysm, Hx Angioplasty, Hx Auto Implanted Cardiovert Defib, Hx Cardiac Arrest, Hx Cardiomegaly, Hx Congenital Heart Disease, Hx Coronary Artery Disease, Hx Deep Vein Thrombosis, Hx Embolism, Hx Pacemaker/ICD, Hx Peripheral Vascular Disease, Hx Rheumatic Fever, Hx Syncope, Hx Valvular Heart Disease Respiratory History: Reports: Hx Asthma, Hx Chronic Bronchitis, Hx Pneumonia, Other Respiratory Problems/Disorders - pneumonia 1 year ago Denies: Hx Chronic Obstructive Pulmonary Disease (COPD) GI History: Denies: Hx Ulcer History: Denies: Hx Renal Disease Musculoskeletal History: Reports: Hx Arthritis, Hx Back Problems - chronic pain - no definitive dx Sensory History: Reports: Hx Contacts or Glasses Denies: Hx Cataracts, Hx Eye Injury, Hx Eye Prosthesis, Hx Glaucoma, Hx Legally Blind, Hx Macular Degeneration, Hx Deafness, Hx Hearing Aid, Hx Hearing Problem, Other Sensory Impairments Opthamlomology History: Reports: Hx Contacts or Glasses Denies: Hx Cataracts, Hx Eye Injury, Hx Eye Prosthesis, Hx Glaucoma, Hx Legally Blind, Hx Macular Degeneration, Other Sensory Impairments Neurological History: Reports: Hx Migraine, Hx Transient Ischemic Attacks (TIA) - 2008 Denies: Hx Dementia, Hx Developmental Delay, Hx Headaches, Hx Nerve Disease, Hx Seizures, Hx Spinal Cord Injury, Other Neuro Impairments/Disorders Psychiatric History: Denies: Hx Panic Disorder - DIFFICULTY BREATHY WHILE LAYING FLAT - Cancer History Cancer Type, Location and Year: Uterine cancer 15 + years ago - Surgical History Surgery Procedure, Year, and Place: Breast Reduction, Bilat Knee Replacement, Right Shoulder Replacement, Appendectomy, Hysterectomy, Left Hip replacement Hx Anesthesia Reactions: No - Immunization History Date of Tetanus Vaccine: unk Date of Influenza Vaccine: unk Infectious Disease History: No Infectious Disease History: Reports: Hx of Known/Suspected MRSA Denies: Hx Hepatitis, Hx Human Immunodeficiency Virus (HIV), History Other Infectious Disease, Traveled Outside the [place] in Last 30 Days - Family History Known Family History: Positive: Cardiac Disease, Hypertension, Other Family History: [place] - sister, mother, father - Social History Alcohol Use: None Alcohol Amount: once a year Hx Substance Use: Yes Substance Use Type: Reports: None Substance Use Comment - Amount & Last Used: 8-10 cups/day Hx Tobacco Use: Yes Smoking Status (MU): Former Smoker Type: Cigarettes Amount Used/How Often: 1 pack per week Length of Time of Smoking/Using Tobacco: 9 years Have You Smoked in the Last Year: No Review of Systems Negative: Chest Pain Positive: Shortness Of Breath, Cough All Other Systems Reviewed And Are Negative: Yes Physical Exam - Summary Physical Exam Summary: GENERAL: Patient is a well-developed and nourished F who is lying comfortable in the stretcher. Patient is not in any acute respiratory distress. HEAD AND FACE: Normocephalic EYES: PERRLA, EOMI x 2. EARS: Hearing grossly intact. MOUTH: Oropharynx within normal limits. NECK: Supple, trachea is midline, no adenopathy, no JVD, no carotid bruit. CHEST: Symmetric, no tenderness at palpation LUNGS: faint diffuse expiratory wheezing CVS: Regular rate and rhythm, S1 and S2 present, no murmurs or gallops appreciated. ABDOMEN: Soft, non-tender. Bowel sounds are normal. No abnormal abdominal pulsations. EXTREMITIES: Full ROM in all major joints, no edema, no cyanosis or clubbing. NEURO: Alert and oriented x 3. No acute neurological deficits. Speech is normal and follows commands. SKIN: Dry and warm Triage Information Reviewed: Yes Vital Signs On Initial Exam: Initial Vitals Temp Pulse Resp BP Pulse Ox 98.7 F 80 26 151/96 97 05/07/19 12:39 05/07/19 12:39 05/07/19 12:39 05/07/19 12:39 05/07/19 12:39 Vital Signs Reviewed: Yes Diagnostics - Vital Signs Vital Signs Temp Pulse Resp BP Pulse Ox 05/07/19 15:45 69 15 147/80 100 05/07/19 15:44 17 05/07/19 14:40 98.3 F 71 22 156/79 100 05/07/19 12:39 98.7 F 80 26 151/96 97 - Laboratory Result Diagrams: 05/09/19 06:27 05/09/19 06:28 Lab Statement: Any lab studies that have been ordered have been reviewed, and results considered in the medical decision making process. - Radiology CXR Radiology Interpretation Completed By: Radiologist Summary of Radiographic Findings: NO ACTIVE CARDIOPULMONARY DISEASE IS NOTED. Dr. Scott has reviewed this radiology report. - EKG 1524 Cardiac Rate: NL - 73 BPM EKG Rhythm: Sinus Rhythm ST Segment: Normal Ectopy: None Summary of EKG Findings: NSR 73 BPM, normal axis. Re-Evaluation - Re-Evaluation First Eval Re-Evaluation Time: 17:00 Comment: Discussed results with patient. Patient will be admitted to [facility]. Patient understands and agrees with this plan. Course/Dx - Course Course Of Treatment: This patient is a 68 year old F presenting to ED with a chief complaint of SOB worse on exertion since yesterday morning. In the ED course, patient received Duoneb, Decadron. Blood work obtained. EKG at 1524 revealed NSR 73 BPM, normal axis. CXR revealed NO ACTIVE CARDIOPULMONARY DISEASE IS NOTED. Case discussed with hospitalist, Dr. Evans. I discussed results with patient. The patient agrees with this plan. Patient will be admitted with dx of symptomatic anemia and SOB. - Diagnoses Provider Diagnoses: Symptomatic anemia, SOB (shortness of breath) - Physician Notifications Discussed Care of Patient With: Alia Evans Time Discussed With Above Provider: 17:47 Instructed by Provider To: Admit As Inpatient - Discussed patient case with Dr. Evans, hospitalist, who accepted the patient for admission to [facility]. - Critical Care Time Critical Care Time: 30-74 min - 30 Discharge - Sign-Out/Discharge Documenting (check all that apply): Patient Departure - Admit Patient Received Moderate/Deep Sedation with Procedure: No - Discharge Plan Condition: Good Disposition: ADMITTED TO [facility] - Billing Disposition and Condition Condition: GOOD Disposition: Admitted to [facility] - Attestation Statements Document Initiated by Scribe: Yes Documenting Scribe: Delano Red Provider For Whom Scribe is Documenting (Include Credential): Ewelina Scott MD Scribe Attestation: I, Delano Red, scribed for Ewelina Scott MD on 05/09/19 at 0754. Scribe Documentation Reviewed: Yes Provider Attestation: The documentation as recorded by the scribeDelano accurately reflects the service I personally performed and the decisions made by me, Ewelina Scott MD Status of Scribe Document: Viewed
[2019-05-07] MEDS ORDERED: Dexamethasone IV* 4 MG/ML 1 ML (4 MG) IV SLOW PU ONE (16:08)
[2019-05-07] MEDS ORDERED: Albuterol/Ipratropium NEB.SOL* Albuterol 2.5 MG/Ipratropium 0.5 MG 3 ML INH ONE (16:08)
[2019-05-07 16:15] LABS: ALT 15 U/L (7-52); AST 20 U/L (13-39); Activated Partial Thrombo Time 31.8 seconds (26.0-38.0); Albumin/Globulin Ratio 1.3 (1-3); Alkaline Phosphatase 94 U/L (34-104); Anion Gap 7 mmol/L (2-11); Blood Urea Nitrogen 17 mg/dL (6-24); CO2 Carbon Dioxide 24 mmol/L (22-32); Calcium 9.2 mg/dL (8.6-10.3); Chloride 104 mmol/L (101-111); EGFR Non-African American 51.2 (>60); Glucose 139 mg/dL (70-100); INR 1.45 (0.82-1.09); Potassium 4.2 mmol/L (3.5-5.0); Sodium 135 mmol/L (135-145)
[2019-05-07 16:17] LABS: Troponin I 0.01 ng/mL (<0.04)
[2019-05-07 16:49] LABS: Microcytosis 2+
[2019-05-07] MEDS ORDERED: Acetaminophen TAB* 325 MG PO PRN (18:56)
[2019-05-07] MEDS ORDERED: Albuterol/Ipratropium NEB.SOL* Albuterol 2.5 MG/Ipratropium 0.5 MG 3 ML INH PRN (18:56)
[2019-05-07 19:02] LABS: Urine Appearance Clear; Urine Bacteria Absent (Absent); Urine Bilirubin Negative (Negative); Urine Blood 1+ (Negative); Urine Color Straw; Urine Glucose Negative (Negative); Urine Ketones Negative (Negative); Urine Nitrite Negative (Negative); Urine Protein Negative (Negative); Urine Red Blood Cell Trace(0-2/hpf) (Absent); Urine Specific Gravity 1.005 (1.010-1.030); Urine Squamous Epithelial Cell Present (Absent); Urine Urobilinogen Negative (Negative); Urine White Blood Cell Absent (Absent)
[2019-05-07 20:13] LABS: Total Iron Binding Capacity 552 mcg/dL (250-450); Transferrin 394 mg/dL (203-362)
[2019-05-07 20:15] LABS: % Iron Saturation 4 % (15-55); Iron < 20 ug/dL (50-212)
[2019-05-07 20:39] LABS: Folate > 20.00 ng/mL (>3.99)
--- NOTE | 2019-05-07 21:18 | HP ---
CC: Dr. Ml Houston; Dr. Rebecca Wong * HISTORY AND PHYSICAL: DATE OF ADMISSION: 05/07/19 PRIMARY CARE PROVIDER: Ml Houston MD OTHER PROVIDER: Rebecca Wong MD ATTENDING PHYSICIAN: Fracisco Wiseman MD * (dictated by MATHEUS Arriaga) CHIEF COMPLAINT: "I'm having trouble breathing." HISTORY OF PRESENT ILLNESS: Ms. Giraldo is a 68-year-old female with a past medical history of CHF, atrial fibrillation, GI bleed in September 2018 that was treated with sclerotherapy and clipping to which she was resistant and transferred to [facility]. She presents today with complaints of shortness of breath. She notes that in February, she was diagnosed with CHF and atrial fibrillation. She has had intermittent shortness of breath since then, but has been feeling relatively well for some time and notes that yesterday she woke at 4 a.m. with shortness of breath. She got up, moved to her recliner, felt back asleep and woke again later and noted shortness of breath upon waking again. The patient then went to work and worked 4 hours stating she had difficulty making it through the day due to dyspnea on exertion. She notes that she has a fracture in the left lower extremity and has chronic swelling in that area. She states that the right lower extremity just started swelling yesterday. She notes that her shoes feel tight. She also admits to dizziness and lightheadedness with ambulation at times. She denies chest pain or recent fall. She denies syncope. She states that she occasionally has an intermittent cough, but notices no increase in cough or sputum production. She denies hematemesis, hematochezia, melena. She denies use of NSAIDs stating she is only allowed to take Tylenol. While in the emergency department, the patient received a full workup, which included laboratory data revealing an H and H of 7.6 and 24 respectively as well as a microcytosis. D-dimer was within normal limits. The patient's creatinine is mildly elevated, although this appears to be her baseline. ECG was performed and revealed normal sinus rhythm without ST changes. Chest x-ray revealed no cardiopulmonary disease. The patient's BNP was very mildly elevated at 202. Due to the patient's shortness of breath, lower extremity edema, and microcytic anemia, the hospitalist team was asked to evaluate the patient for admission. PAST MEDICAL HISTORY: 1. Congestive heart failure. 2. Atrial fibrillation. 3. Hypertension. 4. Hyperlipidemia. 5. History of GI bleed in September 2018 with transfer to [facility] for treatment of 2 cm gastric ulcer, erosive esophagitis. 6. TIA in 2008. 7. Obesity. 8. Osteoarthritis. 9. Chronic low back pain. 10. History of uterine cancer approximately 20 years ago. PAST SURGICAL HISTORY: 1. Breast reduction. 2. Bilateral TKA. 3. Right shoulder repair. 4. Appendectomy. 5. Hysterectomy. 6. Left AVELINA. HOME MEDICATIONS: 1. Albuterol HFA inhaler 2 puffs inhalation q.4 hours p.r.n. 2. Apixaban 5 mg p.o. b.i.d. 3. Aspirin 81 mg p.o. daily. 4. Calcium carbonate/vitamin D3 1 tab p.o. daily. 5. Cyclobenzaprine 10 mg p.o. b.i.d. p.r.n. pain. 6. Diltiazem 180 mg p.o. at bedtime. 7. Ergocalciferol 50,000 units p.o. q.7 days. 8. Flecainide 100 mg p.o. b.i.d. 9. Furosemide 40 mg p.o. daily. 10. Montelukast 10 mg p.o. daily. 11. Pantoprazole 40 mg p.o. b.i.d. 12. Potassium chloride 10 mEq p.o. daily. 13. Tramadol 100 mg p.o. q.4 hours p.r.n. pain. 14. Vitamin E 400 units p.o. daily. DRUG ALLERGIES: CODEINE, PENICILLIN, BEES, anaphylaxis; NITROGLYCERIN, hives; LATEX, rash; VANCOMYCIN, pain; CHOCOLATE, vomiting; NITROFURANTOIN, hives; ASPIRIN 325 mg, GI upset. FAMILY HISTORY: Brother with cancer, unsure what kind. Dad with hypertension, CVA, from pericardial effusion. Mother in fire. Paternal grandfather , cancer, unsure what kind. No family history of diabetes mellitus. SOCIAL HISTORY: The patient states that she smoked less than 1 pack per week for approximately 9 years. She states she quit approximately 30 years ago. She drinks rarely, less than weekly. She works the [employer] at [employer]. She lives with her and stepdaughter. In the event that she is unable to make her own medical decisions, she has appointed her , Jersey iGraldo , to be her surrogate decision maker. REVIEW OF SYSTEMS: A 10-point review of systems has been performed and all the pertinent positives and negatives are in the HPI, all other systems are negative. PHYSICAL EXAMINATION GENERAL: Ms. Giraldo is a well-developed, well-nourished, obese 68-year-old white female who is sitting up in bed, she is leaning forward and appears to be having difficulty breathing, although she is not requiring oxygen and is in no acute distress. She is not able to speak in long, full sentences, but is able to communicate effectively. She appears her stated age. VITAL SIGNS: Temperature 98.3 temporal, heart rate 76, respiratory rate 19, oxygen saturation 98% on room air, blood pressure 149/73. HEENT: PERRL. EOMI. Nonicteric sclerae. Hearing grossly intact. Poor dentition. Oral mucous membranes are moist. There are no lesions. The pharynx is clear. RESPIRATORY: Symmetrical chest expansion. There is no use of accessory muscles , although there is an audible wheeze heard without a stethoscope. There is wheezing throughout bilateral lungs and faint bibasilar crackles on auscultation. There is no rhonchi. CARDIOVASCULAR: Regular rate and rhythm with S1, S2 present without murmurs, rubs, clicks, or gallops. ABDOMEN: Obese. Bowel sounds noted in all 4 quadrants. The abdomen is soft without tenderness to palpation. MUSCULOSKELETAL: Full range of motion without pain or deformities. EXTREMITIES: There is no clubbing or cyanosis. Both lower extremities have 1+ pitting edema. NEURO: The patient is awake. She is alert and oriented x3. She is able to move all of her extremities. DIAGNOSTIC STUDIES AND LABORATORY DATA: RBC 3.54, HGB 7.6, HCT 24, MCV 69, MCH 22, RDW 20. D-dimer less than 200. Creatinine 1.06, glucose 139. BNP 202. Troponin 0.01. Stool for occult blood negative. ECG; rate of 73, normal sinus rhythm without ST changes. Chest x-ray, impression: No active cardiopulmonary disease is noted. ASSESSMENT AND PLAN: Ms. Giraldo is a 68-year-old female with a past medical history of CHF, atrial fibrillation, history of gastrointestinal bleed that failed sclerotherapy and clipping with transfer to [facility], on chronic PPI, who presented to the ER today with complaints of dyspnea on exertion, lower extremity edema and was found to have a microcytic anemia requiring 1 unit of packed red blood cells as well as elevated BNP and bibasilar crackles. The patient will be admitted inpatient for: 1. Dyspnea. The patient has no history of pulmonary disease. She does have a history of CHF and history of GI bleed. In the ER, she was found to be anemic and requiring 1 unit of packed red blood cells. It is likely that this is contributing to her dyspnea, although I suspect that there is acute on chronic heart failure exacerbation. In addition, the patient will be given 1 unit of packed red blood cells. H and H will be repeated afterwards and will also be repeated in the morning. The patient will be given Lasix 20 IV after transfusion is complete. In relation to her CHF exacerbation, she will be given Lasix 40 IV daily and her p.o. Lasix will be held. Bilateral lower extremity elevation has been ordered. An echo has been ordered as it looks like her last echo was in October 2017 and showed preserved ejection fraction of 50 to 55%. The patient is also noted to have wheezing. Nebulizers have been ordered for this. The patient's stool for blood is negative. 2. Anemia. The patient has H and H of 7.6 and 24 respectively. She has microcytic anemia and there does not appear to be a recent anemia workup. This will be added to today's labs. 3. Heart failure. The patient's last echo was in October 2017. This will be repeated during this visit. The patient will continue home medications. Her p.o. furosemide will be discontinued and will be switched to 40 IV. 4. Atrial fibrillation. Continue flecainide, diltiazem, and apixaban. 5. Hyperlipidemia. The patient has a listed history of hyperlipidemia with no recent blood work indicating levels. She does not appear to be on statin medication. This should be followed by her primary care provider. 6. History of gastrointestinal bleed. The patient is on chronic pantoprazole; continue this while inpatient. 7. Chronic low back pain. Continue cyclobenzaprine. 8. FEN. Heart-healthy diet. NPO after midnight for echo. IV fluids on hold in light of acute on chronic heart failure. 9. DVT prophylaxis. According to the DVT Risk Assessment, the patient scores 4 placing her at high risk. She will continue her home apixaban. 10. Code status. DNR/DNI. MOLST updated. TIME SPENT: Approximately 60 minutes was spent on this admission, greater than half of that time was spent with the patient obtaining history, performing physical, and reviewing the plan of care. The case has been reviewed with my attending, Dr. Wiseman, who is in agreement with the plan of care. MATHEUS VALDEZ [id number]/[facility] #: [id number] MTDIsidro
[2019-05-07] MEDS ORDERED: Furosemide IV* 10 MG/ML 2 ML VIAL (20 MG) IV ONE (23:00)
[2019-05-07 23:45] LABS: Hematocrit 25 % (35-47); Hemoglobin 7.9 g/dL (12.0-16.0)
[2019-05-08] MEDS: Furosemide IV* 10 MG/ML VIAL (40 MG) IV SCH (10:04)
[2019-05-08] MEDS ORDERED: Albuterol HFA INHALER* 8 gm MDI INH PRN (10:11)
[2019-05-08] MEDS ORDERED: Cyclobenzaprine TAB* 10 MG PO PRN (10:11)
[2019-05-08] MEDS ORDERED: Ergocalciferol CAP* 50000 UNIT PO SCH (11:00)
[2019-05-08] MEDS: Flecainide TAB* 100 MG PO SCH ×2 (11:17→20:45)
[2019-05-08] MEDS: Potassium Chlor TAB* 10 MEQ TAB.ER PO SCH (11:18)
[2019-05-08] MEDS: Pantoprazole TAB * 40 MG TAB PO SCH ×2 (11:18→20:45)
--- NOTE | 2019-05-08 12:42 | ECHO ---
*[facility]* [place] [address] Fax #: [phone] Transthoracic Echocardiogram Patient: Pricilla Giraldo : 1950 Study Date: 05/08/2019 Age: 68 Gender: F HR: 83 bpm Height: 62 in /157.5 cm BSA: 2.01 m^2 Weight: 224.5 lb /102.1 kg BMI: 41.2 kg/m^2 *Supervisor Roving: * Angela Oliva RD *Referring Physician: * Acacia Parks *Reading Physician: * Elijah Ibrahim MD Indications: Congestive Heart Failure. SOB. Edema. History: Transient ischemic attack. Risk factors: Former tobacco use. Hypertension. Dyslipidemia. Uterine Cancer. Conclusions Summary: 1. Left ventricle: Systolic function is normal. The estimated ejection fraction is 60-65%. Wall motion is normal; there are no regional wall motion abnormalities. 2. Mitral valve: There is mild to moderate regurgitation. 3. Aortic valve: There is no evidence of stenosis. There is no significant regurgitation. 4. Tricuspid valve: There is mild regurgitation. 5. Pericardium, extracardiac: There is no significant pericardial effusion. 6. Compared to study of 11/04/17, there is little change. Study data: Transthoracic echocardiogram. Procedure: Transthoracic echocardiography was performed. Image quality was fair. Complete 2D, spectral Doppler, and color flow Doppler. Location: Bedside. Patient status: Inpatient. Patient room number: 444-2. Rhythm: Normal sinus rhythm. Findings Left ventricle: The cavity size is normal. Wall thickness is mildly increased. Systolic function is normal. The estimated ejection fraction is 60-65%. Wall motion is normal; there are no regional wall motion abnormalities. Doppler parameters are consistent with abnormal left ventricular relaxation (grade 1 diastolic dysfunction). Right ventricle: The cavity size is mildly dilated. Systolic function is normal. Left atrium: The atrium is severely dilated. Right atrium: The atrium is mildly dilated. Mitral valve: The annulus is mildly calcified. The leaflets are mildly thickened. The findings are consistent with borderline stenosis. There is mild to moderate regurgitation. Aortic valve: The valve is trileaflet. The leaflets are mildly thickened. There is no evidence of stenosis. There is no significant regurgitation. Tricuspid valve: The leaflets are normal thickness. There is no evidence of stenosis. There is mild regurgitation. Pulmonic valve: The leaflets are normal thickness. There is no evidence of stenosis. There is trace regurgitation. Aorta: Aortic root: The aortic root is appears normal. Ascending aorta: The ascending aorta is appears normal. Aortic arch: The aortic arch is appears normal. Pericardium: A prominent pericardial fat pad is present. There is no significant pericardial effusion. Pulmonary arteries: The main pulmonary artery is normal-sized. Systolic pressure may be underestimated. Systemic veins: Inferior vena cava: The vessel is normal in size. The respirophasic diameter changes are in the normal range (>= 50%). Measurements Left ventricle Value Ref Aortic valve Value Ref SHERIF, LAX 4.5 cm 3.8 - 5.2 Renate diam, ED 2.0 cm ----- ESD, LAX 3.3 cm 2.2 - 3.5 Peak v, S 2.14 m/sec ----- FS, LAX 27 % 45 VTI, S 42.8 cm ----- PW, ED, LAX (H) 1.2 cm 0.6 - 0.9 Mean grad, S 9.0 mm Hg ----- FS 27 % 45 Peak grad, S 18.0 mm Hg ----- PW, ED (H) 1.2 cm 0.6 - 0.9 LVOT/AV, VTI ratio 0.47 ----- E', lat renate, TDI (L) 9.1 cm/sec >=10.0 E/e', lat renate, 11 Mitral valve Value Ref TDI Peak E 1.03 m/sec ----- E', med renate, TDI 9.9 cm/sec >=7.0 Peak A 1.33 m/sec --- -- E/e', med renate, 10 Decel time 158 ms ----- TDI PHT 83 ms ----- E', avg, TDI 9.5 cm/sec Mean grad, D 5.0 mm Hg ----- E/e', avg, TDI 11 <=14 Peak grad, D 11.0 mm Hg --- -- Peak E/A ratio 0.8 ----- LVOT Value Ref MVA, PHT 2.7 cm^2 ----- Peak michelet, S 1.12 m/sec VTI, S 20.0 cm Pulmonic valve Value Ref Peak grad, S 5 mm Hg Peak v, S 1.27 m/sec ----- Mean grad, S 2 mm Hg Peak grad, S 6.0 mm Hg ----- Ventricular septum Value Ref Tricuspid valve Value Ref IVS, ED (H) 1.2 cm 0.6 - 0.9 TR peak v 2.5 m/sec <=2.8 Peak RV-RA grad, S 25 mm Hg ----- Right ventricle Value Ref AW thickness, ED (H) 0.6 cm 0.1 - 0.5 Aortic root Value Ref SHERIF, LAX 3.4 cm Root diam 3.3 cm <4.1 SHERIF minor ax, A4C (H) 4.7 cm 1.9 - 3.5 mid Ascending aorta Value Ref Pressure, S 33 mm Hg AAo AP diam, S 3.6 cm ----- Left atrium Value Ref Aortic arch Value Ref AP dim, ES (H) 4.60 cm 2.70 - Arch diam 1.8 cm ----- 3.80 ML dim, A4C 5.4 cm Decending aorta Value Ref SI dim, A4C 6.9 cm Asher peak michelet 0.9 m/sec ----- Vol/bsa, ES, 1-p (H) 49 ml/m^2 11 - 40 A4C Pulmonary artery Value Ref Vol/bsa, ES, A/L (H) 54 ml/m^2 16 - 34 Pressure, S 27.0 mm Hg ----- Right atrium Value Ref Inferior vena cava Value Ref SI dim, ES (H) 5.7 cm 3.4 - 5.3 Diam 2.1 cm ----- ML dim, ES, A4C (H) 5.3 cm 2.6 - 4.4 SI dim, ES, A4C (H) 5.7 cm 3.4 - 5.3 Estimated RAP 8 mm Hg Legend: (L) and (H) shelli values outside specified reference range. Prepared and electronically signed by Elijah Ibrahim MD 05/08/2019 12:42
[2019-05-08 14:11] LABS: BUN/Creatinine Ratio 17.1 (8-20); Calcium 9.1 mg/dL (8.6-10.3); EGFR African American 58.8 (>60); EGFR Non-African American 48.6 (>60); Potassium 4.1 mmol/L (3.5-5.0)
--- NOTE | 2019-05-08 14:56 | PN ---
Subjective Date of Service: 05/08/19 Interval History: Patient reports no nausea, no hematemesis. Denies diarrhea or blood in stool. She does report RLQ/groin pain for a few minutes last night, no clear inciting factor. This was a new pain, now resolved. Reports dyspnea at rest, improved since admission and 1 unit transfusion PRBC. Family History: Unchanged from Admission Social History: Unchanged from Admission Past Medical History: Unchanged from Admission Objective Active Medications: Acetaminophen (Tylenol Tab*) 650 mg PO Q4H PRN PRN Reason: FEVER/PAIN Albuterol (Ventolin Hfa Inhaler*) 2 puff INH Q4H PRN PRN Reason: WHEEZING Albuterol/Ipratropium (Duoneb (Albuterol 2.5 Mg/Ipratropium 0.5 Mg)) 1 neb INH [id number] AWAKE PRN PRN Reason: sob/wheexing Last Admin: 05/08/19 03:00 Dose: 1 neb Cyclobenzaprine HCl (Flexeril Tab*) 10 mg PO BID PRN PRN Reason: PAIN Diltiazem HCl (Cardizem Cd Cap*) 180 mg PO BEDTIME [facility] Ergocalciferol (Drisdol Cap*) 50,000 unit PO Q7D [facility] Last Admin: 05/08/19 11:17 Dose: 50,000 unit Flecainide Acetate (Tambocor Tab*) 100 mg PO BID [facility] Last Admin: 05/08/19 11:17 Dose: 100 mg Furosemide (Lasix Iv*) 40 mg IV DAILY [facility] Last Admin: 05/08/19 10:04 Dose: 40 mg Pantoprazole Sodium (Protonix Tab*) 40 mg PO BID [facility] Last Admin: 05/08/19 11:18 Dose: 40 mg Potassium Chloride (Klor Con Er Tab*) 10 meq PO DAILY [facility] Last Admin: 05/08/19 11:18 Dose: 10 meq Vital Signs - 8 hr 05/08/19 05/08/19 08:00 11:40 Temperature 36.8 C 36.6 C Pulse Rate 82 81 Respiratory 20 20 Rate Blood Pressure 139/77 138/78 (mmHg) O2 Sat by Pulse 97 100 Oximetry Oxygen Devices in Use Now: None Appearance: alert, no distress Ears/Nose/Mouth/Throat: NL Teeth, Lips, Gums Neck: NL Appearance and Movements; NL JVP Respiratory: Symmetrical Chest Expansion and Respiratory Effort, Clear to Auscultation Cardiovascular: NL Sounds; No Murmurs; No JVD, RRR Abdominal: NL Sounds; No Tenderness; No Distention, No Hepatosplenomegaly Lymphatic: No Cervical Adenopathy Neurological: Alert and Oriented x 3 Lines/Tubes/Other Access: Clean, Dry and Intact Peripheral IV Result Diagrams: 05/07/19 23:10 05/08/19 13:43 Additional Lab and Data: Laboratory Tests 05/07/19 05/07/19 05/07/19 15:35 19:18 23:10 Glucose Troponin I 0.01 0.01 B-Natriuretic Peptide 202 H 05/08/19 13:43 Glucose 136 H Troponin I B-Natriuretic Peptide Microbiology and Other Data: Microbiology 05/07/19 17:05 Stool Occult Blood (VALDO) - Final Stool Assess/Plan/Problems-Billing Assessment: 68 year old woman with diastolic CHF and recurrent GI bleeding, history of gastric ulcer. - Patient Problems (1) Acute blood loss anemia Current Visit: No Status: Acute Priority: High Code(s): D62 - ACUTE POSTHEMORRHAGIC ANEMIA SNOMED Code(s): 117960396 Comment: -Suspect recurrent gastric ulcer -Discussed case with Dr. Barriga, he will see for consult -Continue PO protonix (2) Atrial fibrillation Current Visit: No Status: Acute Priority: Medium Code(s): I48.91 - UNSPECIFIED ATRIAL FIBRILLATION SNOMED Code(s): 34836961 Comment: -Eliquis on hold due to suspected GI bleeding -Vitals stable -Continue flecainide and diltiazem (3) DVT prophylaxis Current Visit: No Status: Acute Priority: Low Code(s): CNE3562 - SNOMED Code(s): 049197309 Comment: -SCDs Status and Disposition: inpatient
[2019-05-08 15:02] LABS: ABS Lymphocytes 0.8 10^3/ul (1.0-4.8); ABS Monocytes 0.9 10^3/ul (0-0.8); ABS Neutrophils 8.4 10^3/ul (1.5-7.7); Eosinophil % 0.1 %; Hematocrit 27 % (35-47); Hemoglobin 8.6 g/dL (12.0-16.0); Lymphocyte % 8.3 %; Mean Corpuscular HGB Conc 32 g/dL (31-36); Mean Corpuscular Hemoglobin 23 pg (27-31); Mean Corpuscular Volume 70 fL (80-97); Mean Platelet Volume 8.1 fL (7.4-10.4); Platelet Count 299 10^3/uL (150-450); Red Blood Count 3.81 10^6 /uL (3.70-4.87); Red Cell Distribution Width 21 % (10-15); White Blood Count 10.1 10^3/uL (3.5-10.8)
[2019-05-08] MEDS ORDERED: Diltiazem CD CAP* 180 MG PO SCH (21:00)
--- NOTE | 2019-05-08 21:27 | CONS ---
CONSULTATION REPORT: DATE OF CONSULT: 05/08/19 REQUESTING PHYSICIAN: Dr. Boykin. INDICATION: Anemia. NARRATIVE: Ms. Giraldo is a pleasant 68-year-old female who has a history of gastric ulcer in the past. She states that beginning yesterday her shortness of breath definitely worsened. She does have a history of congestive heart failure and atrial fibrillation. She states that it has been more difficult for her to perform her work duties. She denies any chest pain. She does have dyspnea on exertion. She denies any black stools. She denies taking any NSAIDs. No recent abdominal pain. The patient came to the emergency room and blood work revealed a low hemoglobin. PAST MEDICAL HISTORY: Significant for CHF, atrial fibrillation, hypertension, hyperlipidemia, TIA, obesity, uterine cancer. PAST SURGICAL HISTORY: Includes bilateral TKA, shoulder repair, appendectomy, hysterectomy. MEDICATIONS: At home include: 1. Albuterol. 2. Aspirin. 3. Diltiazem. 4. Flecainide. 5. Furosemide. 6. Pantoprazole. 7. Tramadol. ALLERGIES: CODEINE, PENICILLIN, NITROGLYCERIN, LATEX. FAMILY HISTORY: Hypertension, CVA. SOCIAL HISTORY: She quit smoking many years ago, rarely drinks alcohol. REVIEW OF SYSTEMS: Twelve systems were reviewed. Other than that mentioned in the HPI are unremarkable. PHYSICAL EXAM: Temperature is 97.9, blood pressure is 139/75, pulse is 77, respiratory rate of 16, O2 sat is 98% on room air. General: Chronically ill- appearing female, in no apparent distress, alert, oriented, pleasant, fluent. HEENT: Mucous membranes are dry without lesions, ulcers, or exudate. Neck is supple. Trachea is midline. Dentition is poor. Lungs: Clear to auscultation. Heart: Irregular rate and rhythm. Abdomen: Positive bowel sounds, obese, soft, nontender, nondistended. No hepatosplenomegaly, masses, rebound or guarding. Skin is warm and dry. DIAGNOSTIC STUDIES/LAB DATA: Labs of note, sodium is 136, BUN is 19 up from 17 , creatinine is 1.11. INR 1.45, hemoglobin is 8.6 up from 7.9, which is up from 7.6. White count is 10.1, platelets are normal at 299. She has received 2 units of blood. ASSESSMENT AND PLAN: This is a pleasant 68-year-old female with a history of a large gastric ulcer around the New Year this past year. She now presents with worsening anemia that is symptomatic. I do think we need to go back and look at her ulcer to see if it is still there or if it is completely healed. She denies taking any nonsteroidals. We will make arrangements for her EGD tomorrow. She should remain on her PPI. [id number]/[facility] #: [id number] [facility]'S HOSPITALIsidro
[2019-05-09 07:00] LABS: Hematocrit 29 % (35-47); Hemoglobin 9.4 g/dL (12.0-16.0); Mean Corpuscular HGB Conc 32 g/dL (31-36); Mean Corpuscular Hemoglobin 23 pg (27-31); Mean Corpuscular Volume 72 fL (80-97); Mean Platelet Volume 8.5 fL (7.4-10.4); Platelet Count 266 10^3/uL (150-450); Red Cell Distribution Width 23 % (10-15); White Blood Count 10.6 10^3/uL (3.5-10.8)
[2019-05-09 07:16] LABS: BUN/Creatinine Ratio 22.5 (8-20); Calcium 8.9 mg/dL (8.6-10.3); EGFR African American 64.8 (>60); EGFR Non-African American 53.6 (>60); Potassium 4.2 mmol/L (3.5-5.0)
[2019-05-09] MEDS: Furosemide IV* 10 MG/ML VIAL (40 MG) IV SCH (08:46)
[2019-05-09 08:49] LABS: ABS Eosinophils 0.2 10^3/ul (0-0.6); ABS Lymphocytes 2.1 10^3/ul (1.0-4.8); ABS Monocytes 0.8 10^3/ul (0-0.8); ABS Neutrophils 7.4 10^3/ul (1.5-7.7); Eosinophil % 1.9 %; Lymphocyte % 19.8 %
[2019-05-09] MEDS: Flecainide TAB* 100 MG PO SCH ×2 (08:58→16:44)
[2019-05-09] MEDS: Potassium Chlor TAB* 10 MEQ TAB.ER PO SCH ×2 (08:59→16:44)
[2019-05-09] MEDS: Pantoprazole TAB * 40 MG TAB PO SCH ×2 (08:59→16:43)
[2019-05-09] MEDS ORDERED: Midazolam* 1 MG/ML 10 ML VIAL (10 MG) ONE (15:02)
[2019-05-09] MEDS ORDERED: fentaNYL* 50 MCG/ML 2 ML VIAL (100 MCG VIAL) ONE (15:02)
[2019-05-09 17:00] VITALS: BP 147/73
[2019-05-09] MEDS ORDERED: Iron Sucrose* 200 MG in NS 0.9% 100 ML* 100 ML IVPB ONE (18:00)
[2019-05-09] MEDS ORDERED: Apixaban* 5 MG TAB PO SCH (21:00)
[2019-05-09] MEDS ORDERED: Ferrous Gluconate TAB* 324 MG TAB PO SCH (21:00)
--- NOTE | 2019-05-09 21:35 | PRO ---
DATE: 05/09/19 - ROOM #444 REFERRING PHYSICIAN: Dr. Ml Houston.* PROCEDURE: Upper gastrointestinal endoscopy to the distal duodenum. INDICATION: This 68-year-old woman was admitted two days ago with a hemoglobin of 7.6 and transfused 2 units and today is 9.4. Her BUN was 17 on admission. In September, she was admitted with an upper GI bleed and had a lesser curvature gastric ulcer. She had been on prednisone. Upper endoscopy and clipping did not control the bleeding and she was transferred to [facility]. The records are not available. At this time, she is profoundly iron deficient 4%, iron 20, TIBC 552. She had recently been placed on apixaban for atrial fibrillation. On admission at this time, she is Hemoccult negative and was also Hemoccult negative, 11/06/18. She admits that she cannot afford much of her medical care, therefore has preferentially filled her prescription but not affording a co-pay, has skipped many medical followup visits. ENDOSCOPIST: Dr. Ruiz. MEDICATIONS: Midazolam 3, fentanyl 25. FINDINGS: She is a morbidly obese elderly woman, positioned left side down and moderate sedation induced. She tolerated the exam well. EGD: Larynx - not seen. Esophagus - easily entered and the mucosa is normal in the upper and mid esophagus. There is a Gaston's margin at 30 and then EG junction estimated at 35. The Gaston's is smooth. There is a large hiatal hernia. Stomach - generally normal mucosa and the cardia, fundus, body and antrum, although much of the fundus is involved in the hiatal hernia. No Pete erosions were seen. No blood is seen. Views of the lesser curvature or angularis did not show any ulceration. There is no blood. Duodenum - the pylorus, bulb and second to fourth portions appear normal. Postprocedure digital rectal reveals hard, scybalous medium brown stool submitted for Hemoccult. IMPRESSION: 1. Large hiatal hernia. 2. Gaston's esophagus. 3. Profound anemia - with iron deficiency - no source displayed at this time and as she is on twice a day full-dose PPI therapy and was likely iron deficient before the September 2018 gastrointestinal bleed, a chronic situation, which has never been restored, is likely playing some and possible the entire role in her current presentation. Iron infusions may help. Once a day PPI may suffice. [id number]/[facility] #: [id number] MTDD
[2019-05-10] MEDS ORDERED: Furosemide TAB* 40 MG PO SCH (09:00)
--- NOTE | 2019-05-10 17:01 | DS ---
CC: Dr. Houston * DISCHARGE SUMMARY: DATE OF ADMISSION: 05/07/19 DATE OF DISCHARGE: 05/09/19 PRIMARY DIAGNOSIS: Anemia of chronic blood loss. SECONDARY DIAGNOSES: 1. Diastolic congestive heart failure with exacerbation. 2. Iron deficiency anemia. 3. Atrial fibrillation. 4. Hypertension. 5. Hyperlipidemia. 6. History of gastrointestinal bleed in September 2018, documented to be a 2 cm gastric ulcer with erosive esophagitis. 7. Transient ischemic attack in 2008. 8. Obesity. 9. Osteoarthritis. 10. Chronic low back pain. 11. History of uterine cancer in the distant past. MEDICATIONS ON DISCHARGE: 1. Aspirin 81 mg p.o. daily. 2. Calcium carbonate 1 tab p.o. daily. 3. Cyclobenzaprine 10 mg p.o. b.i.d. p.r.n. back pain. 4. Cartia XT 180 mg p.o. q.p.m. 5. Flecainide 100 mg p.o. b.i.d. 6. Furosemide 40 mg p.o. daily. 7. Montelukast 10 mg p.o. daily. 8. Potassium chloride 10 mEq p.o. daily. 9. Tramadol 100 mg p.o. q.8 hours p.r.n. pain. 10. Albuterol 2 puffs inhaled q.4 hours p.r.n. wheezing. 11. Apixaban 5 mg p.o. b.i.d. 12. Ergocalciferol 50,000 units p.o. weekly. 13. Ferrous gluconate 324 mg p.o. b.i.d. 14. Pantoprazole 40 mg p.o. daily. CONSULTANTS: Dr. Ruiz from Gastroenterology. PROCEDURE: Endoscopy which showed Gaston esophagus, large hiatal hernia, healing of the ulcer. HOSPITAL COURSE: A 68-year-old woman presented to the hospital with dyspnea on exertion. She has history of diastolic heart failure. Echocardiogram completed during this hospital stay showed ejection fraction of 60% to 65% with mild-to- moderate mitral regurgitation, no aortic stenosis. Initial hemoglobin was 7.6 and iron studies showed severe iron deficiency anemia. BNP was 202. Vitamin B12 and folate were normal. The patient was admitted with concern for recurrent GI bleed as no followup had occurred after the September-October admission. Stool occult blood was taken on 2 occasions which were negative. The patient received 2 units packed red cells and her hemoglobin sidney from 7.6 up to 9.4. She felt less dyspneic and stable to return home. Dr. Ruiz in consultation found no recurrence of ulcer. He recommended discharging her on Protonix and followup with primary care, also recommended IV iron which was given one dose and she was going home with oral iron. She is to be reassessed with primary care for response to iron supplementation and may need further doses of IV iron. DISPOSITION: To home. ACTIVITY: As tolerated. She can return to work next weekend. DIET: Should be low salt. STATUS: Inpatient. FOLLOWUP: Please follow up with Dr. Houston, primary care, within 1-week. TIME SPENT: I spent 35 plus minutes with the patient on the day of discharge and arranging disposition and completing paperwork. [id number]/CPS #: [id number] MTDD
== END 2019-05-09 19:44 | disposition home or self-care (01) | DRG 811 ==
LOC: ED 12:35 → MEDTELE 18:56
PROVIDERS: ADMIT Internal Medicine; ATTEND Internal Medicine
PROC: 30233N1 Transfusion of Nonautologous Red Blood Cells into Peripheral Vein, Percutaneous Approach (ICD-10-PCS; principal; 2019-05-07)
PROC: 0DJ08ZZ Inspection of Upper Intestinal Tract, Via Natural or Artificial Opening Endoscopic (ICD-10-PCS; 2019-05-09)
DX: D62 Acute posthemorrhagic anemia (principal); I50.33 Acute on chronic diastolic (congestive) heart failure; Z68.41 Body mass index [BMI] 40.0-44.9, adult; I11.0 Hypertensive heart disease with heart failure; I48.91 Unspecified atrial fibrillation; E78.5 Hyperlipidemia, unspecified; E66.01 Morbid (severe) obesity due to excess calories; M19.90 Unspecified osteoarthritis, unspecified site; M54.5 Low back pain; K22.70 Barrett's esophagus without dysplasia; I08.1 Rheumatic disorders of both mitral and tricuspid valves; K44.9 Diaphragmatic hernia without obstruction or gangrene; Z96.653 Presence of artificial knee joint, bilateral; Z86.73 Personal history of transient ischemic attack (TIA), and cerebral infarction without residual deficits; Z85.42 Personal history of malignant neoplasm of other parts of uterus; Z79.82 Long term (current) use of aspirin; Z79.51 Long term (current) use of inhaled steroids; Z79.899 Other long term (current) drug therapy; Z88.6 Allergy status to analgesic agent; Z88.1 Allergy status to other antibiotic agents; Z91.030 Bee allergy status; Z91.040 Latex allergy status; Z88.5 Allergy status to narcotic agent; Z88.0 Allergy status to penicillin; Z88.8 Allergy status to other drugs, medicaments and biological substances; Z91.018 Allergy to other foods; Z80.9 Family history of malignant neoplasm, unspecified; Z82.49 Family history of ischemic heart disease and other diseases of the circulatory system; Z82.3 Family history of stroke; Z87.891 Personal history of nicotine dependence; Z79.01 Long term (current) use of anticoagulants
CPT/HCPCS: 36415; 71045; 80048; 80053; 81003; 81015; 82272; 82607; 82728; 82746; 83540; 83550; 83605; 83880; 84484; 85014; 85018; 85025; 85060; 85379; 85610; 85730; 86850; 86900; 86901; 86922; 93005; 93306; 99156; 99284; A9270-GY; J1100; J1756; J1940; J2250; J3010; P9040

== ENCOUNTER 2019-06-17 06:44 | Emergency (ER) | payer MEDICARE ==
--- OUTSIDE RECORDS SUMMARY | 2019-06-17 07:17 | XMS REPORT | Continuity of Care Document ---
:1950 External Reference #:[id number] Author Name Rebecca Wong M.D. 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 [...] atrial fibrillation Rebecca Wong M.D. Onset: 02/02/2019 Social History Type Date Description Comments Sex Unknown Tobacco Use Start: Unknown End: Former Cigarette Smoker Smoked 1 pp week Unknown for 25 years Smoking Status Reviewed: 06/09/19 Former Cigarette Smoker Smoked 1 pp week for 25 years ETOH Use consumes 1-2 beers per week Tobacco Use Start: Unknown End: Patient is a former quit in 1996 Unknown smoker Recreational Drug Use Denies Drug Use Exercise Type/Frequency Walks daily Exercise Type/Frequency Exercises sporadically Allergies, Adverse Reactions, Alerts Active Allergies Reaction Severity Comments Date Penicillin 10/25/2008 Codeine Anaphilatic shock 10/25/2008 Latex 12/06/2017 Nitrofurantoin Hives 12/06/2017 Vancomycin 12/06/2017 Aspirin GI discomfort Moderate 325mg GI upset 12/06/2017 Bee Sting 11/21/2018 Kenton Juice 11/21/2018 Chocolate Allergenic Extract 11/21/2018 Nitroglycerin Hives Moderate 02/02/2019 Medications Active Medications SIG Qnty Indications Ordering Date Provider Fergon Twice Daily 60tabs Unknown 05/09/2019 240(27Fe) mg Tablets Crutch/Aluminum/Adult/5' ht 62", wt S82.232D Aj Sainz, 11/22/2018 2"-5'10" 225lb use for MD Buck non-weight bearing Flexeril Twice Daily Unknown 11/06/2018 Repack 10mg Tablets Ventolin HFA Q4H 1units Unknown 08/15/2018 108(90Base) mcg/Act Aerosol Tambocor Twice Daily Unknown 05/04/2018 100mg Tablets Flecainide Acetate 1 tab by mouth 60tabs I48.1 Rebecca Wong, 04/25/2018 100mg twice a day M.D. Tablets Aspir-Low 1 by mouth Unknown 05/25/[address] every day ( taken 8am) Fish Oil 1 by mouth Unknown 500mg Capsules every day Multi Complete/Iron 1 by mouth Unknown Tablets every day Cyclobenzaprine HCL Take 1 Tablet 30tabs Ml Celso, 10mg By Mouth Every M.D. Tablets 12 Hours as Needed For Muscle Spasm Montelukast Sodium 1 by mouth 30tabs Ml Houston, 10mg every day M.D. Tablets Furosemide 1 by mouth 30tabs Ml Houston, 40mg Tablets every day M.D. Vitamin E 1 by mouth Unknown 400Unit Capsules every day ( taken 8 Am) Diltiazem CD 1 by mouth 90caps Rebecca Wong, 180mg Caps ER every day ( M.D. 24HR taken at 8 pm) Vitamin D3 take 2 tabs by 60tabs S82.232D Aj Emeli, 400Unit Tablets mouth every day ( taken 8am) Calcium 1 by mouth Unknown 600mg Tablets every day ( taken 8 Am) Eliquis 1 by mouth 60tabs Arley Sears, 5mg Tablets twice a day DO FACC Medications Administered in Office Medication SIG Qnty Indications Ordering Provider Date Liset Willis M.D. 10/25/2008 Injection Liset Willis M.D. 10/25/2008 Injection Immunizations CPT Code Status Date Vaccine Lot # [id number] Refused 10/12/2018 Influenza Virus Vaccine, Quadrivalent, Split, Preservative Free [id number] Refused 05/10/2018 Pneumonia Vaccine [id number] Refused 05/10/2018 Pneumococcal Conjugate Vaccine 13 Valent For Intramuscular Use Vital Signs Date Vital Result Comment 06/09/2019 12:02pm Height 62 inches 5'2" Weight 241.00 lb with shoes Heart Rate 78 /min left radial BP Systolic Sitting 120 mmHg Lue lg cuff BP Diastolic Sitting 80 mmHg Lue lg cuff BP Systolic Standing 120 mmHg Lue lg cuff BP Diastolic Standing 80 mmHg Lue lg cuff BMI (Body Mass Index) 44.1 kg/m2 Ejection Fraction 60-65% ECHO 05/08/19 04/10/2019 11:21am Height 62 inches 5'2" Weight 238.00 lb Heart Rate 83 /min Respiratory Rate 18 /min BMI (Body Mass Index) 43.5 kg/m2 Results Test Date Facility Test Result H/L Range Note Laboratory test 05/07/2019 [facility] Packed Cells SEE RESULTS [address] BEL <[place] [address] NOTE> [phone] Pathologist Review (SEE NOTE) 2 Type & Screen 05/07/2019 [facility] Patient Blood Type A Positive [address] [place] [address] [phone] Antibody Screen NEGATIVE Laboratory test 05/07/2019 [facility] Ferritin 8.0 ng/mL Low 11-307 finding [address] [place] [address] [phone] Folic Acid (Folate) > 20.00 ng/mL >3.99 Vitamin B12 323 pg/mL Normal 180-914 3 Iron & Iron 05/07/2019 [facility] Total Iron 552 g/dL High 250-450 [place] [address] Capacity [phone] Transferrin 394 mg/dL High 203-362 Iron < 20 g/dL Low 50-212 Unsaturated Iron Binding < 537 g/dL % Iron Saturation 4 % Low 15-55 Urinalysis Profile 05/07/2019 [facility] Urine [place] [address] [phone] Urine Appearance Clear Urine Specific [place] 1.005 Low 1.010-1.030 Urine pH 6.0 Normal 5-9 Urine Urobilinogen Negative Negative Urine Ketones Negative Negative Urine Protein Negative Negative Urine Leukocytes Negative Negative Urine Blood 1+ Abnormal Negative Urine Nitrite Negative Negative Urine Bilirubin Negative Negative Urine Glucose Negative Negative Urine White Blood Cell Absent Absent Urine Red Blood Cell Trace(0-2/hpf) Absent Urine Bacteria Absent Absent Urine Squamous Epithelial Cell Present Abnormal Absent Cell Morphology 05/07/2019 [facility] Macrocytosis 1+ [place] [address] [phone] Microcytosis 2+ Anisocytosis 2+ CBC Auto 05/07/2019 [facility] White Blood 6.5 10^3/uL Normal 3.5-10.8 Diff [address] [place] [address] [phone] Red Blood Count 3.54 10^6/uL Low 3.70-4.87 Hemoglobin 7.6 g/dL Low 12.0-16.0 Hematocrit 24 % Low 35-47 Mean Corpuscular Volume 69 fL Low 80-97 Mean Corpuscular Hemoglobin 22 pg Low 27-31 Mean Corpuscular HGB Conc 31 g/dL Normal 31-36 Red Cell Distribution Width 20 % High 10-15 Platelet Count 273 10^3/uL Normal 150-450 Mean Platelet Volume 8.5 fL Normal 7.4-10.4 Abs Neutrophils 4.2 10^3/uL Normal 1.5-7.7 Abs Lymphocytes 1.4 10^3/uL Normal 1.0-4.8 Abs Monocytes 0.6 10^3/uL Normal 0-0.8 Abs Eosinophils 0.2 10^3/uL Normal 0-0.6 Abs Basophils 0.0 10^3/uL Normal 0-0.2 Abs Nucleated RBC 0.0 10^3/uL Granulocyte % 64.7 % Lymphocyte % 21.9 % Monocyte % 9.3 % Eosinophil % 3.4 % Basophil % 0.7 % Nucleated Red Blood Cells % 0.0 Laboratory test 05/07/2019 [facility] Partial 31.8 Normal 26.0 -38.[address] [place] [address] Time PTT [phone] D Dimer Quantitative < 200 ng/mL Normal Less Than 230 4 Inr/Protime 05/07/2019 [facility] Inr 1.45 High 0.82-1.[address] [place] [address] [phone] Laboratory test 05/07/2019 [facility] Troponin- 0.01 ng/mL < 0.[address] I (TnI) [place] [address] [phone] B-Type Natriuretic Peptide BNP 202 pg/mL High <=100 Comp Metabolic 05/07/2019 [facility] Sodium 135 mmol/L Normal 135-[address] [place] [address] [phone] Potassium 4.2 mmol/L Normal 3.5-5.0 Chloride 104 mmol/L Normal 101-111 Co2 Carbon Dioxide 24 mmol/L Normal 22-32 Anion Gap 7 mmol/L Normal 2-11 Glucose 139 mg/dL High 70-100 Blood Urea Nitrogen 17 mg/dL Normal 6-24 Creatinine 1.06 mg/dL High 0.51-0.95 BUN/Creatinine Ratio 16.0 Normal 8-20 Calcium 9.2 mg/dL Normal 8.6-10.3 Total Protein 7.0 g/dL Normal 6.4-8.9 Albumin 4.0 g/dL Normal 3.2-5.2 Globulin 3.0 g/dL Normal 2-4 Albumin/Globulin Ratio 1.3 Normal 1-3 Total Bilirubin 0.40 mg/dL Normal 0.2-1.0 Alkaline Phosphatase 94 U/L Normal 34-104 Alt 15 U/L Normal 7-52 Ast 20 U/L Normal 13-39 Egfr Non- 51.2 >60 Egfr 62.0 >60 7 Laboratory test 05/07/2019 [facility] Lactic Acid 1.6 mmol/L Normal 0.5-2.0 [address] [place] [address] [phone] Stool Occult 05/07/2019 [facility] Stool SEE RESULT 9 Blood Diag [address] [place] [address] Blood, Diag [phone] 1 SEE RESULTS BELOW [id number] AP PC TRANSFUSED 05/08/19 1807 [id number] AP PC TRANSFUSED 05/07/19 2224 2 Microcytic hypochromic anemia. Reviewed by Rosaura Noriega MD 3 Normal Range 180 to 914 Indeterminate Range 145 to 180 Deficient Range <145 4 Please note: The following may produce a false positive D Dimer test: - Rheumatoid factor greater than 60 IU/ml - Plasma hemoglobin greater than 0.05 gm/dl - Bilirubin greater than 50 mg/dl - Lipids greater than 1000 mg/dl - FDP greater than 20 ug/ml 5 Standard intensity warfarin therapeutic range: 2.0-3.0 High intensity warfarin therapeutic range: 2.5-3.5 6 Troponin-I testing on Plasma Separator Tubes (PST) has a known false positive rate of 0.20-0.40%. All positive troponins reflex immediately to secondary confirmatory testing. Using the [employer] DxI 800 Access Immunoassay systems, the 99th percentile upper reference limit was demonstrated to be < 0.03 ng/mL. 7 Because ethnic data is not always readily [...] 15-29 5 Kidney failure <15 (or dialysis) 8 [facility] Severe Sepsis and Septic Shock Management Bundle Measure requires all lactic acids initially measuring >2.0 mmol/L be repeated. 9 SEE RESULT BELOW Name: ELIZABETH GRIGSBY : [address]: George Scott MD Acct: [id number] Unit: [id number] AGE: 68 Location: ED Re05/07/19 SEX: F Status: REG ER SPEC: [id number] JORDIN: 05/07/19-[address] [facility] [address]: Ewelina Scott MD REQ: [id number] RECD: 05/07/19 STATUS: JUDE COLON DR: Ml Houston MD _ SOURCE: STOOL SPDESC: ORDERED: Occult Bl, Diag Procedure Result Reported Site Stool Occult Blood (1) Final 05/07/19- 1727 ML Stool Occult Blood Negative Collection Date (1) 05/07/19 * ML - Main Lab . END OF REPORT DEPARTMENT OF PATHOLOGY, [address] [place] [address] Sage Greer M.D. Director [facility] # [id number] Procedures Date Code Description Status 06/09/2019 50915 EKG Tracing & Interpretation Completed 05/09/2019 39877 Esophagogastroduodenoscopy, diagnostic, incl brush/wash Completed if perfor 05/08/2019 13472 ECHO Transthorasic Realtime 2D W Doppler & Color Flow Completed Hosp 02/02/2019 28004 EKG Tracing & Interpretation Completed 04/17/2018 [id number] Mammogram Completed Medical Devices Description No Information Available Encounters Type Date Location Provider Dx Diagnosis Office Visit 06/09/2019 [facility] Rebecca Wong, R06.02 Shortness of 11:40a [facility] M.D. breath J94.9 Pleural condition, unspecified I48.0 Paroxysmal atrial fibrillation I10 Essential (primary) hypertension D64.9 Anemia, unspecified J45.909 Unspecified asthma, uncomplicated [facility] 9:59a Assocjuan daniel M.D.,FACP posthemorrhagic Hospitalists anemia I50.33 Acute on chronic diastolic (congestive) heart failure D50.9 Iron deficiency anemia, unspecified I48.91 Unspecified atrial fibrillation I10 Essential (primary) hypertension E78.5 Hyperlipidemia, unspecified Z87.19 Personal history of other diseases of the digestive system E66.9 Obesity, unspecified M19.90 Unspecified osteoarthritis, unspecified site M54.5 Low back pain Office Visit [facility]2019 [facility] Acute 9:58a Assoc,juan daniel Boykin M.D.,FACP posthemorrhagic Hospitalists anemia I48.91 Unspecified atrial fibrillation Office Visit 05/07/2019 [facility] R06.00 Dyspnea, 9:58a Assoc,juan daniel [place], [place] unspecified Hospitalists D64.9 Anemia, unspecified I50.9 Heart failure, unspecified I48.91 Unspecified atrial fibrillation E78.5 Hyperlipidemia, unspecified M54.5 Low back pain Office Visit 04/10/2019 [facility] Aj Emeli, S82.232D Displ oblique fx 11:00a [facility] C.M.AVito 7thD Office Visit 02/02/2019 [facility] Rebecca Wong, I48.0 Paroxysmal atrial 1:10p [facility] [place] fibrillation [facility] R51 Headache E78.5 Hyperlipidemia, unspecified I10 Essential (primary) hypertension H53.30 Unspecified disorder of binocular vision Assessments Date Code Description Provider 06/09/2019 R06.02 Shortness of breath Rebecca Wong M.D. 06/09/2019 J94.9 Pleural condition, unspecified Rebecca Wong M.D. 06/09/2019 I48.0 Paroxysmal atrial fibrillation Rebecca Wong M.D. 06/09/2019 I10 Essential (primary) hypertension Rebecca Wong M.D. 06/09/2019 D64.9 Anemia, unspecified Rebecca Wong M.D. 06/09/2019 J45.909 Unspecified asthma, uncomplicated Rebecca Wong M.D. 05/09/2019 K22.70 Gaston's esophagus without Jeronimo Ruiz MD dysplasia 05/09/2019 D62 Acute posthemorrhagic anemia Ziyad Boykin M.D.,FACP 05/09/2019 D50.0 Iron deficiency anemia secondary to Jeronimo Ruiz MD blood loss (chronic) 05/09/2019 I50.33 Acute on chronic diastolic Ziyad Boykin M.D.,FACP (congestive) heart failure 05/09/2019 K44.9 Diaphragmatic hernia without Jeronimo Ruiz MD obstruction or gangrene 05/09/2019 D50.9 Iron deficiency anemia, unspecified Ziyad Boykin M.D. ,FACP 05/09/2019 I48.91 Unspecified atrial fibrillation Ziyad Boykin M.D., FACP 05/09/2019 I10 Essential (primary) hypertension Ziyad Boykin M.D.,FACP 05/09/2019 E78.5 Hyperlipidemia, unspecified Ziyad Boykin M.D.,FACP 05/09/2019 Z87.19 Personal history of other diseases Ziyad Boykin M.D. ,FACP of the digestive system 05/09/2019 E66.9 Obesity, unspecified Ziyad Boykin M.D.,FACP 05/09/2019 M19.90 Unspecified osteoarthritis, Ziyad Boykin M.D.,FACP unspecified site 05/09/2019 M54.5 Low back pain Ziyad Boykin M.D.,FACP 05/08/2019 I50.9 Heart failure, unspecified Elijah Ibrahim M.D. 05/08/2019 D62 Acute posthemorrhagic anemia Ziyad Boykin M.D.,FACP 05/08/2019 I48.91 Unspecified atrial fibrillation Ziyad Boykin M.D., FACP 05/07/2019 R06.00 Dyspnea, unspecified MATHEUS Arriaga 05/07/2019 D64.9 Anemia, unspecified MATHEUS Arriaga 05/07/2019 I50.9 Heart failure, unspecified Acacia Parks, PA 05/07/2019 I48.91 Unspecified atrial fibrillation MATHEUS Arriaga 05/07/2019 E78.5 Hyperlipidemia, unspecified Acacia Parks PA 05/07/2019 M54.5 Low back pain Acacia Parks PA 04/10/2019 S82.232D Displaced oblique fracture of shaft Aj Sainz MD of left tibia, subsequen 02/03/2019 S82.232D Displaced oblique fracture of shaft Aj Sainz MD of left tibia, subsequen 02/02/2019 I48.0 Paroxysmal atrial fibrillation Rebecca Wong M.D. 02/02/2019 R51 Headache Rebecca Wong M.D. 02/02/2019 E78.5 Hyperlipidemia, unspecified Rebecca Wong M.D. 02/02/2019 I10 Essential (primary) hypertension Rebecca Wong M.D. 02/02/2019 H53.30 Unspecified disorder of binocular Rebecca Wong M.D. vision 01/03/2019 S82.232D Displaced oblique fracture of shaft Aj Sainz MD of left tibia, subsequen Plan of Treatment Future Appointment(s):06/21/2019 10:00 am - [facility].P[facility] 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 Good intervals on Flecainide.I10 Essential ( primary) hypertensionComments:Well controlledRecommendations:Continue current vfgulnofjvlP11.9 Anemia, unspecifiedComments:Taking Iron x 1 [id number] Unspecified asthma, uncomplicated Functional Status Description No Information Available Mental Status Description No Information Available Referrals Description No Information Available
[2019-06-17 07:24] VITALS: BP 180/98
--- NOTE | 2019-06-17 07:27 | ED ---
Throat Pain/Nasal Congestion - HPI Summary HPI Summary: This patient is a 68-year-old female with a history of atrial fibrillation presenting to the ED with bleeding in the right ear. She states she awoke this morning with blood in the ear canal. She denies any pain, however is endorsing decreased hearing. She takes a blood thinner for her atrial fibrillation, Xarelto. She has had a history of GI bleeds in the past, however has not had any abnormal bleeding or bruising for a few years. She has never had this before. She doesn't was decreased hearing symptoms at baseline with same and impaction. She attempted yesterday to dislodge the cerumen with a Q-tip. She states she did not go deep in does not feel she cut anything as only wax was on the Q-tip. She did not have any bleeding yesterday after attempting to dislodge the cerumen. The bleeding was minimal this morning, she states she just felt blood in the ear canal and came right to the ED. She feels well otherwise. Denies any other symptoms. - History of Current Complaint Chief Complaint: EDEarPain Time Seen by Provider: 06/17/19 06:50 Hx Obtained From: Patient Onset/Duration: Sudden Onset Severity: Moderate Associated Signs And Symptoms: Positive: FB Sensation. Negative: Dysphagia, Drooling, Wheezing, Hoarseness - Epiglottits Risk Factors Epiglottis Risk Factors: Negative - Allergies/Home Medications Allergies/Adverse Reactions: Allergies Allergy/AdvReac Type Severity Reaction Status Date / Time codeine Allergy Severe Anaphylatic Verified 06/17/19 06:54 Shock Penicillins Allergy Severe Anaphylatic Verified 06/17/19 06:54 Shock venom-honey bee Allergy Severe Anaphylatic Verified 06/17/19 06:54 Shock nitroglycerin Allergy Intermediate Hives Verified 06/17/19 06:54 latex Allergy Mild Rash Verified 06/17/19 06:54 vancomycin Allergy Mild Pain Verified 06/17/19 06:54 chocolate flavor Allergy Vomiting Verified 06/17/19 06:54 nitrofurantoin Allergy Hives Verified 06/17/19 06:54 [From Macrodantin] aspirin AdvReac Intermediate GI Upset Verified 06/17/19 06:54 PMH/Surg Hx/FS Hx/Imm Hx Previously Healthy: Yes Endocrine/Hematology History: Reports: Hx Anticoagulant Therapy - eliquis, Hx Thyroid Disease Denies: Hx Diabetes, Hx Anemia, Hx Unexplained Bleeding Cardiovascular History: Reports: Hx Angina, Hx Atrial Fibrillation, Hx Congestive Heart Failure - takes diuretic, Hx Hypercholesterolemia, Hx Hypertension, Other Cardiovascular Problems/Disorders - tia 2008 Denies: Hx Aneurysm, Hx Angioplasty, Hx Auto Implanted Cardiovert Defib, Hx Cardiac Arrest, Hx Cardiomegaly, Hx Congenital Heart Disease, Hx Coronary Artery Disease, Hx Deep Vein Thrombosis, Hx Embolism, Hx Pacemaker/ICD, Hx Peripheral Vascular Disease, Hx Rheumatic Fever, Hx Syncope, Hx Valvular Heart Disease Respiratory History: Reports: Hx Asthma, Hx Chronic Bronchitis, Hx Pneumonia, Other Respiratory Problems/Disorders - pneumonia 1 year ago Denies: Hx Chronic Obstructive Pulmonary Disease (COPD) GI History: Denies: Hx Ulcer History: Denies: Hx Renal Disease Musculoskeletal History: Reports: Hx Arthritis, Hx Back Problems - chronic pain - no definitive dx Sensory History: Reports: Hx Contacts or Glasses Denies: Hx Cataracts, Hx Eye Injury, Hx Eye Prosthesis, Hx Glaucoma, Hx Legally Blind, Hx Macular Degeneration, Hx Deafness, Hx Hearing Aid, Hx Hearing Problem, Other Sensory Impairments Opthamlomology History: Reports: Hx Contacts or Glasses Denies: Hx Cataracts, Hx Eye Injury, Hx Eye Prosthesis, Hx Glaucoma, Hx Legally Blind, Hx Macular Degeneration, Other Sensory Impairments Neurological History: Reports: Hx Migraine, Hx Transient Ischemic Attacks (TIA) - 2008 Denies: Hx Dementia, Hx Developmental Delay, Hx Headaches, Hx Nerve Disease, Hx Seizures, Hx Spinal Cord Injury, Other Neuro Impairments/Disorders Psychiatric History: Denies: Hx Panic Disorder - DIFFICULTY BREATHY WHILE LAYING FLAT - Cancer History Cancer Type, Location and Year: Uterine cancer 15 + years ago - Surgical History Surgery Procedure, Year, and Place: Breast Reduction, Bilat Knee Replacement, Right Shoulder Replacement, Appendectomy, Hysterectomy, Left Hip replacement Hx Anesthesia Reactions: No - Immunization History Date of Tetanus Vaccine: unk Date of Influenza Vaccine: unk Hx Pertussis Vaccination: No Immunizations Up to Date: Yes Infectious Disease History: No Infectious Disease History: Reports: Hx of Known/Suspected MRSA Denies: Hx Hepatitis, Hx Human Immunodeficiency Virus (HIV), History Other Infectious Disease, Traveled Outside the [place] in Last 30 Days - Family History Known Family History: Positive: Cardiac Disease, Hypertension, Other Family History: [place] - sister, mother, father - Social History Occupation: Unemployed Lives: With Family Alcohol Use: None Alcohol Amount: once a year Hx Substance Use: Yes Substance Use Type: Reports: None Substance Use Comment - Amount & Last Used: 8-10 cups/day Hx Tobacco Use: Yes Smoking Status (MU): Former Smoker Type: Cigarettes Amount Used/How Often: 1 pack per week Length of Time of Smoking/Using Tobacco: 9 years Have You Smoked in the Last Year: No Review of Systems Negative: Fever, Chills, Fatigue, Skin Diaphoresis Negative: Palpitations, Chest Pain Negative: Shortness Of Breath, Cough Genitourinary: Negative Positive: no symptoms reported, see HPI Negative: Arthralgia, Myalgia Skin: Negative Neurological: Negative All Other Systems Reviewed And Are Negative: Yes Physical Exam Triage Information Reviewed: Yes Vital Signs On Initial Exam: Initial Vitals Temp Pulse Resp BP Pulse Ox 97.9 F 75 16 180/101 99 06/17/19 06:46 06/17/19 06:46 06/17/19 06:46 06/17/19 06:46 06/17/19 06:46 Vital Signs Reviewed: Yes Appearance: Positive: Well-Appearing, Well-Nourished Skin: Positive: Warm, Skin Color Reflects Adequate Perfusion Head/Face: Positive: Normal Head/Face Inspection Eyes: Positive: EOMI, ALESSIO, Conjunctiva Clear Cardiovascular: Positive: RRR, Pulses are Symmetrical in both Upper and Lower Extremities Musculoskeletal: Positive: Normal, Strength/ROM Intact Neurological: Positive: Speech Normal Psychiatric: Positive: Normal, Affect/Mood Appropriate Diagnostics - Vital Signs Vital Signs Temp Pulse Resp BP Pulse Ox 06/17/19 06:46 97.9 F 75 16 180/101 99 - Laboratory Lab Statement: Any lab studies that have been ordered have been reviewed, and results considered in the medical decision making process. EENT Course/Dx - Course Course Of Treatment: During the course of treatment, this patient is evaluated for bleeding in the R ear. She has never had this before. She denies any pain , but endorses decreased hearing. The ear is not actively bleeding. She is in NAD. On examination, patient has blood in the ear canal, but I am unable to discern where the blood is from. Warm gentle flush to the area reveals a large blood clot. This dislodged with no concern. On re-examination, there is no evidence or source of active bleeding. TM intact without evidence of hemotympanus. Positive cone of light. No other cerumen impaction or FB. No erythema to the canal. Patient will be DC'd home with ear trauma and will f/u with ENT if the area resumes bleeding. She is educated to refrain from using any Qtips or other devices in the ear for the concern of trauma. She is OK with this plan and discharge. She offers no concerns at this time. - Differential Diagnoses Differential Diagnoses: Other - blood clot, bleeding in the ear, ear trauma, FB in ear - Diagnoses Provider Diagnoses: Ear abrasion Discharge ED - Sign-Out/Discharge Documenting (check all that apply): Patient Departure Patient Received Moderate/Deep Sedation with Procedure: No - Discharge Plan Condition: Stable Disposition: HOME Patient Education Materials: Ear Abrasion (ED) Forms: *Work Release Referrals: Ml Houston MD [Primary Care Provider] - Artur Garibay MD [Medical Doctor] - 3 Days Additional Instructions: Please follow up with ENT for any worsening symptoms Do not use any qtips to clean your ears cleanse in the shower with warm water or see an ENT for ear wax removal - Billing Disposition and Condition Condition: STABLE Disposition: Home
== END 2019-06-17 07:22 | disposition home or self-care (01) ==
LOC: ED 06:44
DX: S00.411A Abrasion of right ear, initial encounter (principal); X58.XXXA Exposure to other specified factors, initial encounter; Y92.9 Unspecified place or not applicable; I48.91 Unspecified atrial fibrillation; E07.9 Disorder of thyroid, unspecified; I11.0 Hypertensive heart disease with heart failure; I50.9 Heart failure, unspecified; E78.00 Pure hypercholesterolemia, unspecified; J45.909 Unspecified asthma, uncomplicated; Z87.891 Personal history of nicotine dependence; Z79.01 Long term (current) use of anticoagulants; Z79.82 Long term (current) use of aspirin; Z79.899 Other long term (current) drug therapy; Z88.5 Allergy status to narcotic agent; Z88.0 Allergy status to penicillin; Z88.8 Allergy status to other drugs, medicaments and biological substances; Z88.6 Allergy status to analgesic agent; Z88.1 Allergy status to other antibiotic agents; Z91.040 Latex allergy status
CPT/HCPCS: 99282

== ENCOUNTER 2019-08-08 16:18 | Emergency (ER) | payer MEDICARE ==
[2019-08-08 16:47] VITALS: BP 124/69
--- NOTE | 2019-08-08 17:54 | UC ---
Respiratory Complaint HPI - HPI Summary HPI Summary: 69 year old female with PMH + for A fib, CHF presents with cough, productive, nasal congestion, fever this AM, + chills for several days. Denies recent abx use. no ill contacts. Cough consistent. - History of Current Complaint Chief Complaint: UCGeneralIllness Stated Complaint: COUGH, SORE THROAT, Time Seen by Provider: 08/08/19 17:11 Hx Obtained From: Patient ?: No Onset/Duration: Sudden Onset, Lasting Days Severity Currently: None Pain Intensity: 9 Pain Scale Used: 0-10 Numeric Character: Cough: Productive Aggravating Factors: Deep Breaths, Recumbent Position Alleviating Factors: Upright Position Associated Signs And Symptoms: Positive: Dyspnea, Fever, Chills, URI, Nasal Congestion - Allergies/Home Medications Allergies/Adverse Reactions: Allergies Allergy/AdvReac Type Severity Reaction Status Date / Time codeine Allergy Severe Anaphylatic Verified 08/08/19 16:48 Shock Penicillins Allergy Severe Anaphylatic Verified 08/08/19 16:48 Shock venom-honey bee Allergy Severe Anaphylatic Verified 08/08/19 16:48 Shock nitroglycerin Allergy Intermediate Hives Verified 08/08/19 16:48 latex Allergy Mild Rash Verified 08/08/19 16:48 vancomycin Allergy Mild Pain Verified 08/08/19 16:48 chocolate flavor Allergy Vomiting Verified 08/08/19 16:48 nitrofurantoin Allergy Hives Verified 08/08/19 16:48 [From Macrodantin] aspirin AdvReac Intermediate GI Upset Verified 08/08/19 16:48 PMH/Surg Hx/FS Hx/Imm Hx Previously Healthy: No - a fib, CHF Other History Of: Anticoagulant Therapy - eliquis - Surgical History Surgical History: Yes Surgery Procedure, Year, and Place: Breast Reduction, Bilat Knee Replacement, Right Shoulder Replacement, Appendectomy, Hysterectomy, Left Hip replacement - Family History Known Family History: Positive: Cardiac Disease, Hypertension, Other Family History: [place] - sister, mother, father - Social History Alcohol Use: Rare Alcohol Amount: once a year Substance Use Type: Excessive Caffeine Substance Use Comment - Amount & Last Used: 8-10 cups/day Smoking Status (MU): Former Smoker Type: Cigarettes Amount Used/How Often: 1 pack per week Length of Time of Smoking/Using Tobacco: 9 years Have You Smoked in the Last Year: No - Immunization History Most Recent Influenza Vaccination: 20-30 years ago Most Recent Tetanus Shot: 15-20 years Most Recent Pneumonia Vaccination: 10 years ago Review of Systems All Other Systems Reviewed And Are Negative: Yes Constitutional: Positive: Fever, Chills, Fatigue Eyes: Positive: Negative ENT: Positive: Nasal Discharge, Sinus Congestion, Sinus Pain/Tenderness Respiratory: Positive: Shortness Of Breath, Cough Genitourinary: Positive: Negative Is Patient Immunocompromised?: No Physical Exam Triage Information Reviewed: Yes Appearance: No Pain Distress, Well-Nourished, Ill-Appearing - mild Vital Signs: Initial Vital Signs Temp 98.4 F 08/08/19 16:43 Pulse 77 08/08/19 16:43 Resp 20 08/08/19 16:43 BP 124/69 08/08/19 16:43 Pulse Ox 96 08/08/19 16:43 Vital Signs Reviewed: No Eyes: Positive: Conjunctiva Clear ENT: Positive: Pharynx normal, Nasal congestion, TMs normal, Sinus tenderness. Negative: Pharyngeal erythema, TM bulging, TM dull, TM red, Tonsillar swelling, Tonsillar exudate, Uvula midline Neck: Positive: Supple, No Lymphadenopathy, Tenderness @ - submand b/l minimal no LAD. Negative: Nuchal Rigidity, Enlarged Nodes @ Respiratory: Positive: Chest non-tender, No respiratory distress, No accessory muscle use, Wheezing - R sided. Negative: Crackles, Rhonchi, Stridor Cardiovascular: Positive: RRR, No Murmur Abdomen Description: Negative: CVA Tenderness (R), CVA Tenderness (L) Neurological Exam: Normal Psychological Exam: Normal Skin Exam: Normal Respiratory Course/Dx - Course Course Of Treatment: probable bacterial pna vs sinusitis : - Increase fluid intake - ANtibiotics as directed - Call to make an appointment for a new family physician - Call dress shoe inspector tomorrow to make an appointment for your increased leg swelling. - Work note - Differential Dx/Diagnosis Differential Diagnosis/HQI/PQRI: Influenza, Laryngitis, Lower Resp Infection, Sinusitis Provider Diagnosis: Sinusitis, PNA (pneumonia) Discharge ED - Sign-Out/Discharge Documenting (check all that apply): Patient Departure All imaging exams completed and their final reports reviewed: Yes - Discharge Plan Condition: Good Disposition: HOME Prescriptions: Albuterol 2.5MG/3ML (0.083%)* [Ventolin 2.5 MG/3 ML NEB.ILSA*] 2.5 mg INH Q4H PRN #60 neb.ilsa PRN Reason: shortness of breath Azithromyxin MIRI (NF) [Z-Miri (Zithromax) 250 mg tabs #6] 2 tab PO .TODAY, THEN 1 DAILY #6 tab Patient Education Materials: Bacterial Pneumonia (ED) Forms: *Work Release Referrals: [facility] [Outside] No Primary Care Phys,NOPCP [Primary Care Provider] - Additional Instructions: - Increase fluid intake - ANtibiotics as directed - Call to make an appointment for a new family physician - Call dress shoe inspector tomorrow to make an appointment for your increased leg swelling. - Work note - Billing Disposition and Condition Condition: GOOD Disposition: Home - Attestation Statements Provider Attestation: Per institutional requirements, I have reviewed the chart, however, I was not consulted specifically or made aware of this patient by the midlevel provider. I did not personally evaluate, interact with , or disposition this patient.
== END 2019-08-08 18:29 | disposition home or self-care (01) ==
LOC: UCEAST 16:18
DX: J32.9 Chronic sinusitis, unspecified (principal); J18.9 Pneumonia, unspecified organism; R53.83 Other fatigue; Z88.5 Allergy status to narcotic agent; Z88.0 Allergy status to penicillin; Z91.030 Bee allergy status; Z88.8 Allergy status to other drugs, medicaments and biological substances; Z91.040 Latex allergy status; Z88.1 Allergy status to other antibiotic agents; Z91.018 Allergy to other foods; Z79.82 Long term (current) use of aspirin; Z87.891 Personal history of nicotine dependence
CPT/HCPCS: 71046; 99212; G0463

== ENCOUNTER 2019-08-15 08:03 | Emergency (ER) | payer MEDICARE ==
[2019-08-15 08:16] VITALS: BP 143/86
--- NOTE | 2019-08-15 09:10 | UC ---
General HPI - HPI Summary HPI Summary: Pleasant 69 yo female c/o cough, sore throat, sob not getting better over the last couple weeks. Seen in [facility] by MATHEUS Gerard 08/08/19, started azithromycin, but not feeling better. Unsure if fever. Unsure if palpitations. Ears and sinuses hurt and congested. No GI issues reported. ++ increased BLE edema. Has not used nebulizer at home, ran out of medication. Has been taking xarelto, per routine. Follows with Dr. Wong but has not seen her recently. Reports has been in sinus rhythm a long time, but has hx atrial fibrillation. - History of Current Complaint Chief Complaint: UCRespiratory Stated Complaint: SORE THROAT COUGH EAR PAIN Time Seen by Provider: 08/15/19 09:09 Hx Obtained From: Patient Pain Intensity: 0 - Allergy/Home Medications Allergies/Adverse Reactions: Allergies Allergy/AdvReac Type Severity Reaction Status Date / Time codeine Allergy Severe Anaphylatic Verified 08/15/19 08:16 Shock Penicillins Allergy Severe Anaphylatic Verified 08/15/19 08:16 Shock venom-honey bee Allergy Severe Anaphylatic Verified 08/15/19 08:16 Shock nitroglycerin Allergy Intermediate Hives Verified 08/15/19 08:16 latex Allergy Mild Rash Verified 08/15/19 08:16 vancomycin Allergy Mild Pain Verified 08/15/19 08:16 chocolate flavor Allergy Vomiting Verified 08/15/19 08:16 nitrofurantoin Allergy Hives Verified 08/15/19 08:16 [From Macrodantin] aspirin AdvReac Intermediate GI Upset Verified 08/15/19 08:16 PMH/Surg Hx/FS Hx/Imm Hx Previously Healthy: No - see below Other History Of: Anticoagulant Therapy - eliquis - Surgical History Surgical History: Yes Surgery Procedure, Year, and Place: Breast Reduction, Bilat Knee Replacement, Right Shoulder Replacement, Appendectomy, Hysterectomy, Left Hip replacement - Family History Known Family History: Positive: Cardiac Disease, Hypertension, Other Family History: [place] - sister, mother, father - Social History Alcohol Use: Rare Alcohol Amount: once a year Substance Use Type: Excessive Caffeine Substance Use Comment - Amount & Last Used: 8-10 cups/day Smoking Status (MU): Former Smoker Type: Cigarettes Amount Used/How Often: 1 pack per week Length of Time of Smoking/Using Tobacco: 9 years Have You Smoked in the Last Year: No - Immunization History Most Recent Influenza Vaccination: 20-30 years ago Most Recent Tetanus Shot: 15-20 years Most Recent Pneumonia Vaccination: 10 years ago Review of Systems All Other Systems Reviewed And Are Negative: Yes Constitutional: Positive: Fatigue Skin: Positive: Negative Eyes: Positive: Negative ENT: Positive: Other - see hpi Respiratory: Positive: Cough - see hpi Cardiovascular: Positive: Other - see hpi Gastrointestinal: Positive: Other - see hpi Genitourinary: Positive: Negative Motor: Positive: Other - see hpi Neurovascular: Positive: Negative Musculoskeletal: Positive: Edema Neurological: Positive: Negative Psychological: Positive: Negative Is Patient Immunocompromised?: No Physical Exam Triage Information Reviewed: Yes Appearance: Well-Nourished - sitting up, looks tired but nontoxic Vital Signs: Initial Vital Signs Temp 98.0 F 08/15/19 08:09 Pulse 72 08/15/19 08:09 Resp 20 08/15/19 08:09 BP 143/86 08/15/19 08:09 Pulse Ox 96 08/15/19 08:09 Vital Signs Reviewed: Yes Eye Exam: Normal ENT: Positive: Pharyngeal erythema - mild redness, c/w cough, Nasal congestion, TM dull - + bt bilat, intact Neck: Positive: Supple - jvd not noted Respiratory Exam: Other - BLE wheezing, course bs. Respiratory: Positive: No respiratory distress, No accessory muscle use Cardiovascular Exam: Other - Irreg reg (90's) hr Cardiovascular: Positive: Brisk Capillary Refill Abdominal Exam: Other - obese, soft, nontender, no c/o Musculoskeletal Exam: Other - BLE pitting edema, distal warm. Edema similar bilat. + venous varicosities and flaky skin, hemosiderosis Neurological Exam: Normal - grossly nonfocal Psychological Exam: Normal Skin Exam: Normal - nondiaphoretic Course/Dx - Course Course Of Treatment: Reviewed notes (as available, avs) from [facility] [place] 08/08/19 and [facility] . EKG Atrial fibrillation at 90 bpm with bl repol abnl. BL prolonged qt (479qtc) CXR today nad. Feels a little better s/p duoneb, still audibly wheezing. Reviewed all this with Ms. Giraldo. Recommend ED eval / tx. She will go, although understandably disappointed. EMS declined. will drive. I spoke with Dr. Almeida via telephone at pt's departure. - Diagnoses Provider Diagnosis: Atrial fibrillation, Dyspnea, Wheezing Discharge ED - Sign-Out/Discharge Documenting (check all that apply): Patient Departure All imaging exams completed and their final reports reviewed: Yes - Discharge Plan Condition: Guarded Disposition: HOME-RECOMMEND TO ED Patient Education Materials: A-fib (Atrial Fibrillation) (ED), Dyspnea (ED), Wheezing (ED) Referrals: Rebecca Wong MD [Medical Doctor] - No Primary Care Phys,NOPCP [Primary Care Provider] - Additional Instructions: Please go directly to the Emergency Department. Stop and call 911 if problems en route. - Billing Disposition and Condition Condition: GUARDED Disposition: Home-Recommend to ED
[2019-08-15] MEDS ORDERED: Albuterol/Ipratropium NEB.SOL* Albuterol 2.5 MG/Ipratropium 0.5 MG 3 ML INH ONE (09:22)
== END 2019-08-15 10:20 | disposition home health service (06) ==
LOC: UCEAST 08:03
DX: I48.91 Unspecified atrial fibrillation (principal); R06.00 Dyspnea, unspecified; R06.2 Wheezing; R05 Cough; J39.2 Other diseases of pharynx; J02.9 Acute pharyngitis, unspecified; R09.81 Nasal congestion; R60.0 Localized edema; R53.83 Other fatigue; Z88.1 Allergy status to other antibiotic agents; Z88.5 Allergy status to narcotic agent; Z88.0 Allergy status to penicillin; Z88.8 Allergy status to other drugs, medicaments and biological substances; Z91.040 Latex allergy status; Z91.030 Bee allergy status; Z91.018 Allergy to other foods; Z79.01 Long term (current) use of anticoagulants; Z87.891 Personal history of nicotine dependence
CPT/HCPCS: 71046; 93005; 99212; A9270-GY; G0463

== ENCOUNTER 2019-08-15 11:18 | Observation (INO) | payer MEDICARE ==
--- NOTE | 2019-08-15 11:57 | ED ---
HPI Cardiac - HPI Summary HPI Summary: This patient is a 69 year old F presenting to [facility] accompanied by family with a chief complaint of sudden onset SOB and CP yesterday. She states she had CP on 08/14/19, rate pain during as 05/27, and it radiates down her arm. She visited , she had a CXR this morning which was clear. Earlier this week she went into for her cold and she was given antibiotics for a respiratory infection. Pt has had a persistent cold, and has been having SOB, and coughing. This caused her to come into . Pt has a PMHx of CHF, and a fib. Pt has no PMHx of COPD. She reports edema in legs. - History of Current Complaint Chief Complaint: EDDysrhythmPalp Stated Complaint: A FIB Time Seen by Provider: 08/15/19 11:31 Hx Obtained From: Patient Onset/Duration: Started Days Ago, Still Present Timing: Intermittent Initial Severity: Severe Current Severity: None Pain Intensity: 0 Pain Scale Used: 0-10 Numeric Chest Pain Location: Diffuse Chest Pain Radiates: No Character: Irregular Aggravating Factor(s): Other: - Cold Alleviating Factor(s): Nothing Associated Signs and Symptoms: Positive: Chest Pain, Shortness of Breath, Cough , Calf Pain/Swelling - Additional Pertinent History Primary Care Physician: [id number] - Allergy/Home Medications Allergies/Adverse Reactions: Allergies Allergy/AdvReac Type Severity Reaction Status Date / Time codeine Allergy Severe Anaphylatic Verified 08/15/19 08:16 Shock Penicillins Allergy Severe Anaphylatic Verified 08/15/19 08:16 Shock venom-honey bee Allergy Severe Anaphylatic Verified 08/15/19 08:16 Shock nitroglycerin Allergy Intermediate Hives Verified 08/15/19 08:16 latex Allergy Mild Rash Verified 08/15/19 08:16 vancomycin Allergy Mild Pain Verified 08/15/19 08:16 chocolate flavor Allergy Vomiting Verified 08/15/19 08:16 nitrofurantoin Allergy Hives Verified 08/15/19 08:16 [From Macrodantin] aspirin AdvReac Intermediate GI Upset Verified 08/15/19 08:16 PMH/Surg Hx/FS Hx/Imm Hx Endocrine/Hematology History: Reports: Hx Anticoagulant Therapy - eliquis Denies: Hx Diabetes, Hx Thyroid Disease, Hx Anemia, Hx Unexplained Bleeding Cardiovascular History: Reports: Hx Angina, Hx Atrial Fibrillation, Hx Congestive Heart Failure, Hx Hypercholesterolemia, Hx Hypertension, Other Cardiovascular Problems/Disorders - tia 2008 Denies: Hx Aneurysm, Hx Angioplasty, Hx Auto Implanted Cardiovert Defib, Hx Cardiac Arrest, Hx Cardiomegaly, Hx Congenital Heart Disease, Hx Coronary Artery Disease, Hx Deep Vein Thrombosis, Hx Embolism, Hx Pacemaker/ICD, Hx Peripheral Vascular Disease, Hx Rheumatic Fever, Hx Syncope, Hx Valvular Heart Disease Respiratory History: Reports: Hx Chronic Bronchitis, Hx Pneumonia, Other Respiratory Problems/Disorders - pneumonia 1 year ago Denies: Hx Asthma, Hx Chronic Obstructive Pulmonary Disease (COPD) GI History: Reports: Hx Ulcer History: Denies: Hx Renal Disease Musculoskeletal History: Reports: Hx Arthritis, Hx Back Problems - chronic pain - no definitive dx Sensory History: Reports: Hx Contacts or Glasses Denies: Hx Cataracts, Hx Eye Injury, Hx Eye Prosthesis, Hx Glaucoma, Hx Legally Blind, Hx Macular Degeneration, Hx Deafness, Hx Hearing Aid, Hx Hearing Problem, Other Sensory Impairments Opthamlomology History: Reports: Hx Contacts or Glasses Denies: Hx Cataracts, Hx Eye Injury, Hx Eye Prosthesis, Hx Glaucoma, Hx Legally Blind, Hx Macular Degeneration, Other Sensory Impairments Neurological History: Reports: Hx Migraine, Hx Transient Ischemic Attacks (TIA) - 2008 Denies: Hx Dementia, Hx Developmental Delay, Hx Headaches, Hx Nerve Disease, Hx Seizures, Hx Spinal Cord Injury, Other Neuro Impairments/Disorders Psychiatric History: Denies: Hx Panic Disorder - DIFFICULTY BREATHY WHILE LAYING FLAT - Cancer History Cancer Type, Location and Year: Uterine cancer 15 + years ago - Surgical History Surgery Procedure, Year, and Place: Breast Reduction, Bilat Knee Replacement, Right Shoulder Replacement, Appendectomy, Hysterectomy, Left Hip replacement Hx Anesthesia Reactions: No - Immunization History Date of Tetanus Vaccine: unk Date of Influenza Vaccine: unk Infectious Disease History: No Infectious Disease History: Reports: Hx of Known/Suspected MRSA Denies: Hx Hepatitis, Hx Human Immunodeficiency Virus (HIV), History Other Infectious Disease, Traveled Outside the [place] in Last 30 Days - Family History Known Family History: Positive: Cardiac Disease, Hypertension, Other Family History: [place] - sister, mother, father - Social History Alcohol Use: Rare Alcohol Amount: once a year Hx Substance Use: Yes Substance Use Type: Reports: Excessive Caffeine Substance Use Comment - Amount & Last Used: 8-10 cups/day Hx Tobacco Use: Yes Smoking Status (MU): Former Smoker Type: Cigarettes Amount Used/How Often: 1 pack per week Length of Time of Smoking/Using Tobacco: 9 years Have You Smoked in the Last Year: No Review of Systems Positive: Chest Pain Positive: Shortness Of Breath, Cough All Other Systems Reviewed And Are Negative: Yes Physical Exam - Summary Physical Exam Summary: Appearance: Well-appearing, Well-nourished, lying in bed comfortably Skin: Warm, dry, no obvious rash Eyes: sclera anicteric, no conjunctival pallor ENT: mucous membranes moist, pharynx appears normal Neck: Supple, nontender Respiratory: Clear to auscultation, no signs of respiratory distress Cardiovascular: Normal S1, S2. No murmurs. Normal distal pulses in tibial and radial bilaterally. Abdomen: Soft, nontender, normal active bowel sounds present Musculoskeletal: Normal, Strength/ROM Intact Neurological: A&Ox3, awake and alert, mentation is normal, speech is fluent and appropriate Psychiatric: affect is normal, does not appear anxious or depressed Triage Information Reviewed: Yes Vital Signs On Initial Exam: Initial Vitals Temp Pulse Resp BP Pulse Ox 98.0 F 92 20 151/72 100 08/15/19 11:26 08/15/19 11:26 08/15/19 11:26 08/15/19 11:26 08/15/19 11:26 Vital Signs Reviewed: Yes Procedures - Sedation Patient Received Moderate/Deep Sedation with Procedure: No Diagnostics - Vital Signs Vital Signs Temp Pulse Resp BP Pulse Ox 08/15/19 11:42 91 08/15/19 11:35 92 21 141/99 95 08/15/19 11:33 25 08/15/19 11:26 98.0 F 92 20 151/72 100 - Laboratory Result Diagrams: 08/16/19 07:48 08/17/19 07:17 Lab Statement: Any lab studies that have been ordered have been reviewed, and results considered in the medical decision making process. - EKG 1232 Cardiac Rate: NL - 88bpm EKG Rhythm: Sinus Rhythm ST Segment: Normal Summary of EKG Findings: EKG at 1232 shows NSR at 88 BPM, P waves, QRS complex, and T waves are within normal limits, T waves and intervals are normal, no ischemic changes. No STEMI. This is a normal EKG. An ED physician has interpreted and reviewed this EKG. Disposition - Course Course Of Treatment: This patient is a 69 year old F presenting to [facility] accompanied by family with a chief complaint of sudden onset SOB and CP yesterday. She states she had CP on 08/14/19, rate pain during as 10, and it radiates down her arm. She visited , she had a CXR this morning which was clear. Earlier this week she went into for her cold and she was given antibiotics for a respiratory infection. Pt has had a persistent cold, and has been having SOB, and coughing. This caused her to come into . Pt has a PMHx of CHF, and a fib. Pt has no PMHx of COPD. She reports edema in legs. Normal physical exam. Laboratory results show Hgb 11.8, INR 1.23, Creatinine 1.02, and alkaline phosphatase 105. EKG at 1232 shows NSR at 88 BPM, P waves, QRS complex, and T waves are within normal limits, T waves and intervals are normal , no ischemic changes. No STEMI. This is a normal EKG. I spoke to Dr. Singh, hospitalist, at 1257. She recommended I try IV Lasix for her heart failure symptoms. I spoke to her again at 1515, she accepted the patient for admission. Diagnosis is CHF. The patient was accepted by Dr. Singh for admission. - Diagnoses Provider Diagnoses: CHF (congestive heart failure) - Physician Notifications Discussed Care Of Patient With: Analia Singh - Hospitalist Time Discussed With Above Provider: 12:57 Instructed by Provider To: Other - I spoke to Dr. Singh, hospitalist, at 1257. She recommended I try IV Lasix for her heart failure symptoms. I spoke to her again at 1515, she accepted the patient for admission. Admit/Transition Orders Completed By ED Provider: Yes Discharge ED - Sign-Out/Discharge Documenting (check all that apply): Patient Departure - Discharge Plan Condition: Stable Disposition: ADMITTED TO [facility] - Billing Disposition and Condition Condition: STABLE Disposition: Admitted to [facility] - Attestation Statements Document Initiated by Scribe: Yes Documenting Scribe: Alia Freedman Provider For Whom Scribe is Documenting (Include Credential): Bradley Wen MD Scribe Attestation: I, Alia Freedman, scribed for Bradley Wen MD on 11/05 at 0150. Scribe Documentation Reviewed: Yes Provider Attestation: The documentation as recorded by the scribe, Alia Cifuentes and Gio Freedman accurately reflects the service I personally performed and the decisions made by me, Bradley Wen MD Status of Scribe Document: Viewed
[2019-08-15 12:36] LABS: Hematocrit 36 % (35-47); Hemoglobin 11.8 g/dL (12.0-16.0); Mean Corpuscular HGB Conc 33 g/dL (31-36); Mean Corpuscular Hemoglobin 29 pg (27-31); Mean Corpuscular Volume 87 fL (80-97); Mean Platelet Volume 8.5 fL (7.4-10.4); Platelet Count 303 10^3/uL (150-450); Red Blood Count 4.06 10^6 /uL (3.70-4.87); Red Cell Distribution Width 14 % (10-15); White Blood Count 7.9 10^3/uL (3.5-10.8)
[2019-08-15 12:41] LABS: INR 1.23 (0.82-1.09)
[2019-08-15 12:47] LABS: Albumin 3.9 g/dL (3.2-5.2); Albumin/Globulin Ratio 1.3 (1-3); BUN/Creatinine Ratio 13.7 (8-20); Calcium 9.3 mg/dL (8.6-10.3); EGFR African American 64.6 (>60); EGFR Non-African American 53.4 (>60); Globulin 3.1 g/dL (2-4); Potassium 3.7 mmol/L (3.5-5.0); Total Bilirubin 0.3 mg/dL (0.2-1.0)
[2019-08-15 12:49] LABS: Troponin I 0.01 ng/mL (<0.04)
[2019-08-15] MEDS ORDERED: Furosemide IV* 10 MG/ML VIAL (40 MG) IV SLOW PU ONE (12:56)
[2019-08-15 13:36] LABS: Influenza A Molecular NEGATIVE (Negative); Influenza B Molecular NEGATIVE (Negative)
[2019-08-15 14:12] LABS: ABS Eosinophils 0.1 10^3/ul (0-0.6); ABS Lymphocytes 1.5 10^3/ul (1.0-4.8); ABS Monocytes 0.6 10^3/ul (0-0.8); ABS Neutrophils 5.6 10^3/ul (1.5-7.7); Eosinophil % 1.8 %; Lymphocyte % 19.1 %; Nucleated Red Blood Cells % 0.1
[2019-08-15] MEDS ORDERED: Acetaminophen TAB* 325 MG PO PRN (16:11)
[2019-08-15] MEDS ORDERED: Morphine INJ* 2 MG/ML 1 ML SYRINGE (TWO MG - NEW SYRINGE VERSION) IV PRN (16:11)
[2019-08-15] MEDS ORDERED: Al Hydrox/Mg Hydrox/Simet LIQ* 30 ML UDC PO PRN (16:11)
[2019-08-15] MEDS ORDERED: Albuterol HFA INHALER* 8 gm MDI INH PRN (16:14)
[2019-08-15] MEDS ORDERED: Cyclobenzaprine TAB* 10 MG PO PRN (16:14)
[2019-08-15] MEDS: Furosemide IV* 10 MG/ML 10 ML VIAL (100 MG) IV SCH (17:40)
[2019-08-15] MEDS: Potassium Chlor TAB* 20 MEQ TAB.ER PO SCH (17:41)
--- NOTE | 2019-08-15 21:15 | HP ---
CC: Dr. Houston; Dr. Wong * HISTORY AND PHYSICAL: DATE OF ADMISSION: 08/15/19 PRIMARY CARE PROVIDER: Dr. Houston. COMMUNICATIONS DEPARTMENT CHAIR: Dr. Wong. CHIEF COMPLAINT: Shortness of breath and chest pain. HISTORY OF PRESENT ILLNESS: Pricilla Giraldo is a 69-year-old female with history of chronic paroxysmal atrial fibrillation as well as dyspnea that had been ongoing for approximately a year, thought to be related to COPD; however, the patient herself denies a history of COPD, who presented to the hospital complaining once again of shortness of breath and chest pain. The patient stated that her shortness of breath had been ongoing for a year, but worse for the past 1 week. The patient stated that she is not sure if she gained weight, but she does not weigh herself, but she noted that last time she checked approximately a month or two ago, she was 220 pounds. It was stated in some notes from 2018, the patient's weight at that point was 209 pounds. The patient herself denies any history of asthma or COPD. The patient stated that she quit smoking over 30 years ago and she had never seen a power tool repair technician. She admits to paroxysmal nocturnal dyspnea. She has had chest pain off and on for several days. It is substernal, radiating to the left shoulder, resolves spontaneously and lasts "a minute." The pain is not pleuritic and has no alleviating or aggravating factors that the patient was able to realize in the short duration of the pain. The patient is going to be placed on observation with a diagnosis of congestive heart failure. PAST MEDICAL HISTORY: 1. History of upper GI bleed at the end of 2017 with history of gastric ulcer at that time and severe erosive esophagitis as well as Gaston's esophagus on the repeat EGD in October of 2018. 2. History of paroxysmal atrial fibrillation, on rhythm control with flecainide , and anticoagulation with Eliquis. 3. Dyslipidemia. 4. Uterine cancer. 5. Hypertension. 6. Obstructive sleep apnea. The patient had been noncompliant with CPAP. 7. Status post total left hip replacement. 8. History of status post fall and ORIF of the left tib-fib fracture in October 2018. 9. History of bilateral knee replacements. 10. Right shoulder arthroplasty in the past. 11. Breast reduction. 12. Right rotator cuff surgery. 13. Appendectomy. 14. Hysterectomy. 15. History of vocal cord surgery. 16. Vitamin D deficiency. 17. History of ongoing anemia since October of 2018 that could be related to depleted iron levels. The patient's anemia improved greatly after iron supplementation was instituted. MEDICATIONS: At home: 1. Apixaban 5 mg b.i.d. 2. Furosemide 40 mg daily. 3. Singulair 10 mg daily. 4. Cartia XT 180 mg at bedtime. 5. Albuterol inhaler on a p.r.n. basis. 6. Albuterol nebulizer on a p.r.n. basis. 7. Calcium carbonate and vitamin D3 one tablet daily. 8. Flecainide 100 mg b.i.d. 9. Aspirin 81 mg daily. 10. Flexeril 10 mg b.i.d. p.r.n. 11. Ferrous gluconate 324 mg b.i.d. 12. Pantoprazole 40 mg daily. ALLERGIES: CODEINE, PENICILLIN, VENOM from HONEY BEE, NITROGLYCERIN, LATEX, VANCOMYCIN, CHOCOLATE FLAVOR, NITROFURANTOIN, and ASPIRIN. Please note that ASPIRIN causes the patient to have GI upset, but despite that she is on low-dose of ASPIRIN at home. FAMILY HISTORY: Mother in a house fire. Father of an [place] and he also had a history of CVA. SOCIAL HISTORY: The patient has recently 3 years ago. She quit smoking over 30 years ago. She denies any alcohol or drug use. Her surrogate decision maker is her , Mal. REVIEW OF SYSTEMS: Positive for bilateral leg edema, which is rather chronic; positive for likely weight gain, although the patient does not weigh herself; positive for paroxysmal nocturnal dyspnea and dyspnea on exertion. The patient also complains of chest pain that occurs "out of the blue." It is not related to exercise. Localized in the upper sternum, short, radiating into the left shoulder and left arm, not associated diaphoresis, but associated with shortness of breath. The pain is not pleuritic and there are no alleviating or aggravating factors. It usually lasts up to a minute. All the remaining 12 systems were reviewed with the patient and were otherwise negative. PHYSICAL EXAMINATION GENERAL: The patient is a very pleasant 69-year-old female who is in no acute distress. Alert and oriented x3. VITAL SIGNS: Blood pressure of 135/108, heart rate is 88 and irregularly irregular, respiratory rate 20, oxygen saturation 94% on room air, temperature of 98.0. HEENT: Head: Atraumatic and normocephalic. Eyes: Pupils are equal, round, and reactive to light and accommodation. Oropharynx clear. Mucosa moist. NECK: Supple. No JVD. No bruits bilaterally. RESPIRATORY: Rales in the bilateral lung bases. CARDIOVASCULAR: Irregular rate and rhythm. No murmur. ABDOMEN: Obese, protuberant. Soft, nontender. Bowel sounds are present in all quadrants. LOWER EXTREMITIES: +1 nonpitting pedal edema. Pulses are +2 bilaterally. No clubbing or cyanosis. NEURO EVALUATION: Speech clear. Cranial nerves II through XII grossly intact. Motor strength is 5/5 bilaterally. SKIN: On evaluation of the skin, no ecchymotic areas or rashes noted. DIAGNOSTIC STUDIES/LAB DATA: White blood cell count 7.9, hemoglobin 11.8, hematocrit 37, and platelets of 303. Sodium was 138, potassium 3.7, chloride 102, carbon dioxide 28, BUN 14, creatinine 1.02. Liver function tests are unremarkable with possible mild elevation of alkaline phosphatase at 105. Troponin was 0.01. Repeated troponin still continued to be 0.01. Beta-natriuretic peptide was 401. The patient's portable chest x-ray, impression: "No active cardiopulmonary disease process by radiograph." The patient's EKG showed AFib/flutter with heart rate of [address] changes. ASSESSMENT AND PLAN: 1. In regards to the patient's chest pain, it is likely related to symptomatic congestive heart failure. Her troponins continue to be negative and I will obtain one more troponin tonight. 2. In regards to the patient's acute diastolic congestive heart failure, a transthoracic echocardiogram is going to be obtained. The patient is going to be placed on Lasix twice a day intravenously. Daily weights are going to be obtained. I will also ask Dr. Wong to see the patient in consultation. 3. Paroxysmal atrial fibrillation. The patient is currently in atrial fibrillation. She has a history of paroxysmal atrial fibrillation, but had been in sinus rhythm during her evaluation by the Cardiology in May of 2019 and has history of 2 cardioversions in the past. It is possible that when she is in atrial fibrillation, her ejection fraction is lower and she develops congestive heart failure. She also is on flecainide, which should keep her in a rhythm and obviously at this it is not. At this point, I will ask Dr. Wong to see the patient in consultation. I will continue the patient's flecainide and Cardizem. The patient is going to be observed in desk monitor bed. 4. For DVT prophylaxis as well as anticoagulation for atrial fibrillation, the patient is going to be continued on Eliquis at home. 5. The patient's anemia has improved greatly after her iron supplementation. It was going to be continued. 6. In regards to the patient's reactive airway disease, the patient adamantly denies that she has either asthma or chronic obstructive pulmonary disease, but she stated that she had been "treated with inhalers" for it, but she does not have a lung problem. At this point, I will continue albuterol inhaler on a p.r.n. basis. The patient also would benefit from outpatient pulmonology evaluation with PFTs to evaluate further. 7. The patient's code status is full and her surrogate is her , Mal. TIME SPENT: Approximately 65 minutes was spent on admission of this patient, more than half of the time was spent [id number] with the patient during the interview and physical exam. [id number]/[facility] #: [id number] [place]
[2019-08-15] MEDS: Apixaban* 5 MG TAB PO SCH (21:52)
[2019-08-15] MEDS: Docusate CAP* 100 MG PO SCH (21:52)
[2019-08-15] MEDS: Flecainide TAB* 100 MG PO SCH (21:52)
[2019-08-15] MEDS: Ferrous Gluconate TAB* 324 MG TAB PO SCH (21:52)
[2019-08-15] MEDS: Diltiazem CD CAP* 180 MG PO SCH (21:53)
[2019-08-16 08:10] LABS: ABS Eosinophils 0.3 10^3/ul (0-0.6); ABS Lymphocytes 1.3 10^3/ul (1.0-4.8); ABS Monocytes 0.6 10^3/ul (0-0.8); ABS Neutrophils 5.5 10^3/ul (1.5-7.7); Eosinophil % 3.7 %; Hematocrit 39 % (35-47); Mean Corpuscular HGB Conc 33 g/dL (31-36); Mean Corpuscular Hemoglobin 29 pg (27-31); Mean Corpuscular Volume 89 fL (80-97); Mean Platelet Volume 8.2 fL (7.4-10.4); Platelet Count 303 10^3/uL (150-450); Red Blood Count 4.44 10^6 /uL (3.70-4.87); Red Cell Distribution Width 14 % (10-15); White Blood Count 7.8 10^3/uL (3.5-10.8)
[2019-08-16 08:38] LABS: BUN/Creatinine Ratio 14.7 (8-20); Calcium 9.3 mg/dL (8.6-10.3); EGFR African American 59.9 (>60); EGFR Non-African American 49.5 (>60); Potassium 3.9 mmol/L (3.5-5.0)
[2019-08-16] MEDS ORDERED: Perflutren Lipid Microsphere* 3 ML VIAL ONE (10:24)
[2019-08-16] MEDS: Furosemide IV* 10 MG/ML 10 ML VIAL (100 MG) IV SCH ×2 (10:50→16:36)
[2019-08-16] MEDS: Potassium Chlor TAB* 20 MEQ TAB.ER PO SCH (10:51)
[2019-08-16] MEDS: Montelukast Sodium TAB* 10 MG PO SCH (10:51)
[2019-08-16] MEDS: Apixaban* 5 MG TAB PO SCH ×2 (10:51→21:07)
[2019-08-16] MEDS: Docusate CAP* 100 MG PO SCH ×2 (10:52→21:07)
[2019-08-16] MEDS: Pantoprazole TAB * 40 MG TAB PO SCH (10:52)
[2019-08-16] MEDS: Aspirin 81 mg CHEW TAB* 81 MG TAB.CHEW PO SCH (10:52)
[2019-08-16] MEDS: Ferrous Gluconate TAB* 324 MG TAB PO SCH ×2 (10:52→21:07)
[2019-08-16] MEDS: Flecainide TAB* 100 MG PO SCH ×2 (10:52→21:45)
[2019-08-16] MEDS ORDERED: Potassium Chloride* LIQUID 20 MEQ/15 ML UDC PO ONE (11:32)
[2019-08-16] MEDS: Albuterol 2.5 MG/3 ML NEB.SOL* (0.083%) INH PRN (12:23)
[2019-08-16 12:24] LABS: Magnesium 2.2 mg/dL (1.9-2.7)
--- NOTE | 2019-08-16 13:00 | ECHO ---
*[facility]* [place] [address] Fax #: [phone] Transthoracic Echocardiogram Patient: Pricilla Giraldo : 1950 Study Date: 08/16/2019 Age: 69 Gender: F HR: 82 bpm Height: 62 in /157.5 cm BSA: 2.01 m^2 Weight: 224.5 lb /102.1 kg BMI: 41.2 kg/m^2 *Fish Hatchery Manager: * Gosia Hudson RDCS RN *Referring Physician: * Analia Singh *Reading Physician: * Rebecca Wong MD Indications: Congestive Heart Failure. Atrial Fibrillation. History: Transient ischemic attack. Obstructive sleep apnea. Risk factors: Former tobacco use. Hypertension. Morbidly obese. Dyslipidemia. Conclusions Summary: - Left ventricle: Systolic function is normal. The estimated ejection fraction is 55-60%. - Right ventricle: Systolic function is normal. - Left atrium: The atrium is moderately to severely dilated. - Mitral valve: There is moderate regurgitation, directed centrally. - Tricuspid valve: There is mild regurgitation. - Pulmonary arteries: Systolic pressure can not be accurately estimated. - Compared with prior echocardiogram of 05/08/19, mitral regurgitation previously mild to moderate. Venticular function is stable. Study data: Transthoracic echocardiogram. Procedure: Transthoracic echocardiography was performed. Image quality was fair. The study was technically limited due to body habitus. Intravenous Definity 3 ml was administered by Miguel Hudson RN [facility] to enhance imaging. Complete 2D, spectral Doppler, and color flow Doppler. Location: Bedside. Patient status: Observation. Patient room number: 451. Rhythm: Atrial fibrillation. Findings Left ventricle: The cavity size is normal. Wall thickness is mildly increased. Systolic function is normal. The estimated ejection fraction is 55-60%. Wall motion is normal; there are no regional wall motion abnormalities. Left ventricular diastolic function parameters are indeterminate. Right ventricle: The cavity size is normal. Systolic function is normal. Left atrium: The atrium is moderately to severely dilated. Right atrium: The atrium is mildly dilated. Mitral valve: The leaflets are mildly thickened. There is no evidence of stenosis. There is moderate regurgitation, directed centrally. Aortic valve: The valve is trileaflet. The leaflets are mildly thickened. There is no evidence of stenosis. There is no significant regurgitation. Tricuspid valve: The valve is structurally normal. There is no evidence of stenosis. There is mild regurgitation. Pulmonic valve: Not well visualized. Aorta: Aortic root: The aortic root is not dilated. Ascending aorta: The ascending aorta is not dilated. Aortic arch: The aortic arch is not dilated. Pericardium: There is no pericardial effusion. Pulmonary arteries: Not well visualized. Systolic pressure can not be accurately estimated. Systemic veins: Inferior vena cava: Not visualized. Measurements Left ventricle Value Ref Right atrium Value Ref SHERIF, LAX 4.2 cm 3.8 - ML dim, ES, A4C (H) 4.5 cm 2.6 - 4.4 5.2 SI dim, ES, A4C (H) 5.6 cm 3.4 - 5.3 ESD, LAX 3.4 cm 2.2 - 3.5 Aortic valve Value Ref FS, LAX (L) 18 % 27 - 45 Renate diam, ED 1.8 cm --------- PW, ED (H) 1.2 cm 0.6 - Renate diam/bsa, ED 0.9 cm/m^2 --------- 0.9 Peak v, S 1.2 m/sec --------- IVS/PW, ED 1.01 -------- VTI, S 20.3 cm --------- Qs 3.2 L/min -------- Mean grad, S 3.0 mm Hg --------- E', lat renate, TDI 10.7 cm/sec >=10.0 Peak grad, S 6.0 mm Hg -- ------- E/e', lat renate, TDI 12 -------- LVOT/AV, VTI ratio 0.92 ----- ---- E', med renate, TDI 9.6 cm/sec >=7.0 E/e', med renate, TDI 13 -------- Mitral valve Value Ref E', avg, TDI 10.2 cm/sec -------- Peak E 1.27 m/sec ----- ---- E/e', avg, TDI 13 <=14 Decel time 233 ms -- ------- Peak grad, D 6.5 mm Hg --------- LVOT Value Ref Peak michelet, S 1.12 m/sec -------- Pulmonic valve Value Ref VTI, S 18.6 cm -------- Peak v, S 1.13 m/sec --------- Peak grad, S 5 mm Hg -------- Peak grad, S 5.0 mm Hg --------- Mean grad, S 3 mm Hg -------- Aortic root Value Ref Ventricular septum Value Ref Root diam 2.9 cm <4.1 IVS, ED (H) 1.2 cm 0.6 - 0.9 Ascending aorta Value Ref AAo AP diam, S 3.4 cm --------- Right ventricle Value Ref SHERIF, LAX 2.7 cm -------- Aortic arch Value Ref SHERIF minor ax, A4C (H) 3.6 cm 1.9 - Arch diam 2.7 cm --------- mid 3.5 Decending aorta Value Ref Left atrium Value Ref Asher peak michelet 0.57 m/sec --------- ML dim, A4C 4.6 cm -------- SI dim, A4C 6.8 cm -------- Vol/bsa, ES, 1-p (H) 42 ml/m^2 11 - 40 A4C Vol/bsa, ES, A/L (H) 47 ml/m^2 16 - 34 Legend: (L) and (H) shelli values outside specified reference range. Prepared and electronically signed by Rebecca Wong MD 08/16/2019 13:00
[2019-08-16] MEDS ORDERED: Midazolam* 1 MG/ML 5 ML VIAL (5 MG) ONE (13:59)
[2019-08-16] MEDS ORDERED: Flumazenil* 0.1 MG/ML 5 ML MDV ONE (13:59)
[2019-08-16] MEDS ORDERED: fentaNYL* 50 MCG/ML 2 ML VIAL (100 MCG VIAL) ONE (13:59)
[2019-08-16] MEDS ORDERED: Naloxone* 0.4 MG/ML 1 ML VIAL ONE (13:59)
--- NOTE | 2019-08-16 14:17 | OP ---
Operative Report - Blank - Operative Report Date of Operation: 08/16/19 - CC: SOB, Afib Note: Prelim cardioversion note: See full dictated note. Pt s/p electrical CV w/o complications, she is now in NSR 71 bpm. OK to resume diet from my standpoint.
--- NOTE | 2019-08-16 14:56 | CARD ---
CC: Dr. Houston; Hospitalist * CARDIOVERSION REPORT: DATE OF PROCEDURE: 08/16/19 - ROOM #451 PROCEDURE: Electrical cardioversion. PREPROCEDURE DIAGNOSES/INDICATION: Atrial fibrillation and shortness of breath. POSTPROCEDURE DIAGNOSES: Atrial fibrillation and shortness of breath. I verified that the patient had been taking her Eliquis without missing any doses for over a month. Indications, risks, and benefits of the procedure were discussed with the patient, and she was amenable to proceeding. DESCRIPTION OF PROCEDURE: The AP patches were applied to the chest wall. A time-out was called. The patient received a total of 3 mg of Versed and 25 mcg of fentanyl throughout the procedure. Using AP patches, 120 joules of energy was delivered across the chest wall with successful cardioversion and normal sinus rhythm. The patient woke up with a shock. There were no complications and she was hemodynamically stable throughout. Currently, the patient is in sinus rhythm at 71 beats a minutes. Oxygen saturation 92% on 3L nasal cannula. Blood pressure 105/68, respiratory rate is 27. CONCLUSION: Successful cardioversion. No complications. [id number]/[facility] #: [id number] MTDD
--- NOTE | 2019-08-16 15:08 | PN ---
Subjective Date of Service: 08/16/19 Interval History: Patient is still feeling very SOB. Patient denies palpitations, CP, dizziness, F /C, N/V, or other pain. Patient is anxious to be discharged because she wants to go back to work. Family History: Unchanged from Admission Social History: Unchanged from Admission Past Medical History: Unchanged from Admission Objective Active Medications: Acetaminophen (Tylenol Tab*) 650 mg PO Q4H PRN PRN Reason: PAIN-MILD/TEMP >/= 100.4 Al Hydrox/Mg Hydrox/Simethicone (Maalox Plus*) 30 ml PO Q6H PRN PRN Reason: INDIGESTION Albuterol (Ventolin 2.5 Mg/3 Ml Neb.Tierra*) 2.5 mg INH Q4H PRN PRN Reason: shortness of breath Last Admin: 08/16/19 12:23 Dose: 2.5 mg Albuterol (Ventolin Hfa Inhaler*) 2 puff INH Q4H PRN PRN Reason: WHEEZING Apixaban (Eliquis*) 5 mg PO BID [facility] Last Admin: 08/16/19 10:51 Dose: 5 mg Aspirin (Aspirin 81 Mg Chew Tab*) 81 mg PO DAILY [facility] Last Admin: 08/16/19 10:52 Dose: 81 mg Cyclobenzaprine HCl (Flexeril Tab*) 10 mg PO BID PRN PRN Reason: PAIN Diltiazem HCl (Cardizem Cd Cap*) 180 mg PO BEDTIME [facility] Last Admin: 08/15/19 21:53 Dose: 180 mg Docusate Sodium (Colace Cap*) 100 mg PO BID [facility] Last Admin: 08/16/19 10:52 Dose: 100 mg Ferrous Gluconate (Fergon Tab*) 324 mg PO BID [facility] Last Admin: 08/16/19 10:52 Dose: 324 mg Flecainide Acetate (Tambocor Tab*) 100 mg PO BID [facility] Last Admin: 08/16/19 10:52 Dose: 100 mg Furosemide (Lasix Iv*) 40 mg IV 0800,1700 [facility] Montelukast Sodium (Singulair Tab*) 10 mg PO DAILY [facility] Last Admin: 08/16/19 10:51 Dose: 10 mg Pantoprazole Sodium (Protonix Tab*) 40 mg PO DAILY [facility] Last Admin: 08/16/19 10:52 Dose: 40 mg Potassium Chloride (Klor Con Er Tab*) 40 meq PO DAILY [facility] Last Admin: 08/16/19 10:51 Dose: 40 meq Vital Signs - 8 hr 08/16/19 08/16/19 08/16/19 07:36 08:00 11:15 Temperature 97.7 F 97.3 F 97.9 F Pulse Rate 58 90 92 Respiratory 16 18 16 Rate Blood Pressure 117/78 127/75 145/78 (mmHg) O2 Sat by Pulse 95 96 97 Oximetry 08/16/19 12:23 Temperature Pulse Rate 69 Respiratory 18 Rate Blood Pressure (mmHg) O2 Sat by Pulse 98 Oximetry Oxygen Devices in Use Now: None Appearance: Patient is a 69yo female who appears stated age and is sitting in the bed in NAD. Eyes: No Scleral Icterus, PERRLA Ears/Nose/Mouth/Throat: NL Teeth, Lips, Gums, Clear Oropharnyx, Mucous Membranes Moist Neck: NL Appearance and Movements; NL JVP, Trachea Midline Respiratory: Symmetrical Chest Expansion and Respiratory Effort, - - Wheezing and rhonchi throughout. Cardiovascular: NL Sounds; No Murmurs; No JVD, - - 1+ B/L LE edema, Irregularly Irregular Rhythm. Abdominal: NL Sounds; No Tenderness; No Distention, No Hepatosplenomegaly Lymphatic: No Cervical Adenopathy Extremities: No Clubbing, Cyanosis Skin: No Rash or Ulcers, No Nodules or Sclerosis Neurological: Alert and Oriented x 3, NL Sensation, NL Muscle Strength and Tone , - - CN II-XII intact. Result Diagrams: 08/16/19 07:48 08/16/19 07:48 Assess/Plan/Problems-Billing Assessment: Patient is a 69yo female with a PMH for AFib, HFpEF, HTN, NANCY, and MR, here with shortness of breath, diagnosed with HFpEF exacerbation, possible bronchitis , and recurrent afib. - Patient Problems (1) (HFpEF) heart failure with preserved ejection fraction Current Visit: Yes Status: Acute Code(s): I50.30 - UNSPECIFIED DIASTOLIC ( CONGESTIVE) HEART FAILURE SNOMED Code(s): 858964629 Comment: - Acute on Chronic - Continue diuresis - Possibly provoked by recurrent Afib - Appreciate Cardiology input. (2) Reactive airway disease Current Visit: Yes Status: Acute Code(s): J45.909 - UNSPECIFIED ASTHMA, UNCOMPLICATED SNOMED Code(s): 912172156005 Comment: - Wheezing and rhonchi throughout with thick sputum production. - Continue Albuterol, may need steroids or antibiotics, no improvement with outpatient azithromycine - Will need outpatient PFTs - Continue Singulair (3) A-fib Current Visit: No Status: Acute Code(s): I48.91 - UNSPECIFIED ATRIAL FIBRILLATION SNOMED Code(s): 66560531 Comment: - S/P Cardioversion today - Continue flecainide. - Appreciate Cardiology input. (4) HLD (hyperlipidemia) Current Visit: No Status: Acute Code(s): E78.5 - HYPERLIPIDEMIA, UNSPECIFIED SNOMED Code(s): 69903377 Comment: - Continue Statin (5) HTN (hypertension) Current Visit: No Status: Acute Code(s): I10 - ESSENTIAL (PRIMARY) HYPERTENSION SNOMED Code(s): 54906408 Comment: - Normotensive - Continue Cardizem and diuresis (6) NANCY (obstructive sleep apnea) Current Visit: No Status: Acute Code(s): G47.33 - OBSTRUCTIVE SLEEP APNEA ( ADULT) (PEDIATRIC) SNOMED Code(s): 41605513 Comment: - Non-Compliant with CPAP - Possibly provoking factor for Afib. (7) Shortness of breath Current Visit: No Status: Acute Code(s): R06.02 - SHORTNESS OF BREATH SNOMED Code(s): 220055290 Comment: - Due to HFpEF exacerbation and possible bronchitis and RAD exacetbation - Treatment as above. (8) DVT prophylaxis Current Visit: No Status: Acute Priority: Low Code(s): YXP3009 - SNOMED Code(s): 352343765 Comment: - Eliquis Status and Disposition: Observation for SOB, hopeful D/C tomorrow.
--- NOTE | 2019-08-16 15:37 | CONS ---
CC: Dr. Houston; Hospitalist Service * CARDIOLOGY CONSULTATION: DATE OF CONSULT: 08/16/19 REASON FOR CONSULTATION: AFib and shortness of breath. HISTORY OF PRESENT ILLNESS: Pricilla Giraldo is a 69-year-old woman whom I follow for paroxysmal AFib, she has been on flecainide, and in May of this year, was maintaining normal sinus rhythm. The patient tells me she had had a bad cold earlier this month. She knows it is a cold because she had productive cough and sputum, blood-tinged. The patient has had chronic shortness of breath, which had increased a bit, and although she tells me she is not having chest pain, the admission notes document that she had substernal chest pain radiating to the left shoulder that was fleeting, brief. When I first saw her, the patient said she was feeling well, but she said she still gets winded just walking around the room or to the bathroom. The patient states she has been faithful taking all of her medications including her blood thinner, Eliquis. PAST MEDICAL HISTORY: The patient has a past medical history of: 1. Paroxysmal AFib, on flecainide. 2. TIA in 2008. 3. Obstructive sleep apnea. 4. Asthma and bronchitis. 5. Hypertension. 6. Dyslipidemia. 7. Uterine cancer. 8. Peptic ulcer disease. 9. History of erosive gastritis and bleeding in 2017. 10. Gaston's esophagus diagnosed in 2018. 11. Anemia related to GI issues, on proton pump inhibitors. PAST SURGICAL HISTORY: Includes: 1. Hip fracture in October 2018. 2. Hysterectomy in 1991. 3. Breast reduction in 1990. 4. Appendectomy in 1994. 5. Knee arthroscopy and rotator cuff surgery. 6. Vocal cord surgery for benign tumor. 7. Knee replacement in 2008. 8. Shoulder reverse arthroplasty. 9. Cataract surgery. 10. EGD in September 2018 and October 2018. MEDICATIONS: Outpatient medications included: 1. Iron replacement. 2. Flexeril 10 mg b.i.d. 3. Ventolin inhaler q.4 hours. 4. Tambocor 100 mg b.i.d. 5. Aspirin 81 mg a day. 6. Eliquis 5 mg b.i.d. 7. Calcium 600 mg a day. 8. Vitamin D3 400 units 2 tabs daily. 9. Diltiazem 180 mg a day. 10. Vitamin E 400 units a day. 11. Lasix 40 mg a day. 12. Montelukast sodium 10 mg a day. 13. Cyclobenzaprine 10 mg q.12 hours p.r.n. muscle spasm. 14. Fish oil 500 mg a day. ALLERGIES: Include PENICILLIN, CODEINE, LASIX, NITROFURANTOIN, VANCOMYCIN, ASPIRIN (GI upset), bee stings, orange juice, chocolate, NITROGLYCERIN. FAMILY HISTORY: Significant in that her father had a history of cardiac arrest , CA, stroke, hypertension, and congestive heart failure. Her mother when the patient was 7 and her family history is unknown. 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 She stopped smoking in 1996, consumes 1 to 2 beers a week. REVIEW OF SYSTEMS: Positive for her recent cold. She states she has been compliant. Negative for diarrhea, constipation, change in orthopnea, awareness of palpitations or racing of the heart. PHYSICAL EXAM: She is 5 feet 2 inches, weighs 242 pounds with a BMI of 44. Vital Signs: On arrival to ER, blood pressure 151/72, pulse is 92 and irregular , oxygen saturation on room air 100%, afebrile. Vitals at the time I saw her, blood pressure 127/75, pulse was 90 and irregularly irregular, respiratory rate is 18, oxygen saturation on room air 96%, temperature 97.3. General Appearance : Short overweight woman, seated in bed, family in the room, appeared in her usual state of health, oxygen on, but chronically ill appearing, short and overweight. Psychologically, pleasant and cooperative. Neurologically, awake, alert, and oriented to person, place and time. Grossly normal sensory and motor function in the upper and lower extremities and gait appropriate for age and girth. Skin: Without cyanosis, age-appropriate changes. No rashes. HEENT : Pupils are equal and round. Mucous membranes moist. Neck: Thick, but without appreciable thyromegaly or increased JVP. Breath sounds show diffuse wheezing, inspiratory and expiratory. Coronary: S1, S2, irregularly irregular without murmurs. Abdomen: Very overweight, nontender. Active bowel sounds. Lower extremities were free of edema, warm, thick with obesity. DIAGNOSTIC STUDIES/LAB DATA: A 12-lead ECG on arrival to the emergency room on 08/15/18 at 9:21 in the morning shows atrial fibrillation with a ventricular rate of 90 beats a minute, QRS axis +30, normal intraventricular conduction times, nonspecific ST changes. When compared with her EKG of 06/09/19 in our office, the AFib replaces normal sinus rhythm in the 60s. Labs show white count 7.8, hematocrit 39, platelets 303. INR 1.23. Sodium 139, potassium 3.9, chloride 102, bicarb 28, BUN 16, creatinine 1.09, glucose 129. Normal transaminases. Troponin #1 of 0.01, troponin #2 of 0.01, troponin #3 of 0.02. BNP of 401. Serology was negative for influenza A or B. Chest x-ray was reviewed personally and report shows no acute disease. Echocardiogram done this morning in AFib showed preserved left and right ventricular systolic function, ejection fraction 55% to 60%, moderate mitral insufficiency, mild tricuspid insufficiency, PA pressure unable to be estimated. Compared with her prior echo, 05/08/19, mitral insufficiency was reported mild to moderate at that time. IMPRESSION AND PLAN: In summary, Pricilla Giraldo is a 69-year-old woman admitted with increasing shortness of breath, atypical chest pain and atrial fibrillation that is new from May, but of uncertain duration and this is in the setting of recent respiratory infection. There probably may well be an element of congestive heart failure, but I am not sure all her wheezing is related to this, I think there is probably a component of airway disease related to her recent cold symptoms as well. I am going to plan on electrically cardioverting her this afternoon. She is adamant that she has been taking her Eliquis regularly and has not missed any doses for over a month. I am hoping that hindu of sinus rhythm will improve any diastolic component of her shortness of breath and she in the past has felt better in sinus rhythm compared with atrial fibrillation. As her troponins are negative and ventricular function stable, I do not feel we need an urgent inpatient stress test, but as she is on flecainide, we can get an updated stress test arranged as an outpatient (most recent stress test was on 02/04/19) that was exercise test confirming severe exercise intolerance, appropriate chronotropic response, but nondiagnostic as target heart rate was not achieved. Additional recommendations will be made pending her clinical course and response to the above measures. [id number]/[facility] #: [id number] [place]
[2019-08-16] MEDS: Diltiazem CD CAP* 180 MG PO SCH (21:07)
[2019-08-17 08:06] LABS: BUN/Creatinine Ratio 19.4 (8-20); Calcium 9.4 mg/dL (8.6-10.3); EGFR African American 67.7 (>60); EGFR Non-African American 55.9 (>60); Magnesium 2.2 mg/dL (1.9-2.7); Potassium 4.4 mmol/L (3.5-5.0)
[2019-08-17] MEDS: Albuterol 2.5 MG/3 ML NEB.SOL* (0.083%) INH PRN (08:11)
[2019-08-17] MEDS ORDERED: predniSONE TAB* 20 MG PO SCH (09:00)
[2019-08-17] MEDS: Furosemide IV* 10 MG/ML 10 ML VIAL (100 MG) IV SCH (09:38)
[2019-08-17] MEDS: Pantoprazole TAB * 40 MG TAB PO SCH (09:40)
[2019-08-17] MEDS: Apixaban* 5 MG TAB PO SCH (09:40)
[2019-08-17] MEDS: Montelukast Sodium TAB* 10 MG PO SCH (09:40)
[2019-08-17] MEDS: Aspirin 81 mg CHEW TAB* 81 MG TAB.CHEW PO SCH (09:40)
[2019-08-17] MEDS: Flecainide TAB* 100 MG PO SCH (09:41)
[2019-08-17] MEDS: Potassium Chlor TAB* 20 MEQ TAB.ER PO SCH (09:41)
[2019-08-17] MEDS: Ferrous Gluconate TAB* 324 MG TAB PO SCH (09:41)
[2019-08-17] MEDS: Docusate CAP* 100 MG PO SCH (09:42)
--- NOTE | 2019-08-17 09:44 | PN ---
Subjective Date of Service: 08/17/19 Interval History: f/u respiratory tract infection, afib still short of breath with greenish productive cough wheezing on exam no chest discomfort in sinus rhythm on telemetry Medications Active Medications: Acetaminophen (Tylenol Tab*) 650 mg PO Q4H PRN PRN Reason: PAIN-MILD/TEMP >/= 100.4 Al Hydrox/Mg Hydrox/Simethicone (Maalox Plus*) 30 ml PO Q6H PRN PRN Reason: INDIGESTION Albuterol (Ventolin 2.5 Mg/3 Ml Neb.Tierra*) 2.5 mg INH Q4H PRN PRN Reason: shortness of breath Last Admin: 08/17/19 08:11 Dose: 2.5 mg Albuterol (Ventolin Hfa Inhaler*) 2 puff INH Q4H PRN PRN Reason: WHEEZING Apixaban (Eliquis*) 5 mg PO BID [facility] Last Admin: 08/16/19 21:07 Dose: 5 mg Aspirin (Aspirin 81 Mg Chew Tab*) 81 mg PO DAILY [facility] Last Admin: 08/16/19 10:52 Dose: 81 mg Cyclobenzaprine HCl (Flexeril Tab*) 10 mg PO BID PRN PRN Reason: PAIN Diltiazem HCl (Cardizem Cd Cap*) 180 mg PO BEDTIME [facility] Last Admin: 08/16/19 21:07 Dose: 180 mg Docusate Sodium (Colace Cap*) 100 mg PO BID [facility] Last Admin: 08/16/19 21:07 Dose: Not Given Ferrous Gluconate (Fergon Tab*) 324 mg PO BID [facility] Last Admin: 08/16/19 21:07 Dose: 324 mg Flecainide Acetate (Tambocor Tab*) 100 mg PO BID [facility] Last Admin: 08/16/19 21:45 Dose: 100 mg Furosemide (Lasix Iv*) 40 mg IV 0800,1700 [facility] Last Admin: 08/16/19 16:36 Dose: 40 mg Montelukast Sodium (Singulair Tab*) 10 mg PO DAILY [facility] Last Admin: 08/16/19 10:51 Dose: 10 mg Pantoprazole Sodium (Protonix Tab*) 40 mg PO DAILY [facility] Last Admin: 08/16/19 10:52 Dose: 40 mg Potassium Chloride (Klor Con Er Tab*) 40 meq PO DAILY [facility] Last Admin: 08/16/19 10:51 Dose: 40 meq Prednisone (Deltasone Tab*) 40 mg PO DAILY [facility] Objective Vital Signs: Temp Pulse Resp BP Pulse Ox 97.9 F 75 22 126/75 94 08/17/19 08:00 08/17/19 08:13 08/17/19 08:13 08/17/19 08:00 08/17/19 08:13 Oxygen Devices in Use Now: None Appearance: nad, pleasant Ears/Nose/Mouth/Throat: Clear Oropharnyx, Mucous Membranes Moist Neck: Trachea Midline, - - uncertain jvp Respiratory: Symmetrical Chest Expansion and Respiratory Effort, - - scattered diffuse expiratory wheeze Cardiovascular: - - RRR, distant, no significant murmur Abdominal: - - obese, soft, nontender Extremities: - - mild edema Neurological: Alert and Oriented x 3 Laboratory Results: 08/16/19 07:48 08/17/19 07:17 INR (Anticoag Therapy) 1.23 (0.82-1.09) H 08/15/19 12:04 Total Bilirubin 0.30 mg/dL (0.2-1.0) 08/15/19 12:04 AST 21 U/L (13-39) 08/15/19 12:04 ALT 19 U/L (7-52) 08/15/19 12:04 Alkaline Phosphatase 105 U/L (34-104) H 08/15/19 12:04 B-Natriuretic Peptide 401 pg/mL (<=100) H 08/15/19 12:04 Total Protein 7.0 g/dL (6.4-8.9) 08/15/19 12:04 Albumin 3.9 g/dL (3.2-5.2) 08/15/19 12:04 Globulin 3.1 g/dL (2-4) 08/15/19 12:04 Albumin/Globulin Ratio 1.3 (1-3) 08/15/19 12:04 08/15/19 08/15/19 08/15/19 12:04 14:19 17:19 Troponin I 0.01 0.01 0.02 mg today 2.2 Diagnostic Imaging: Exam Date: 08/17/19 CHEST PA & LAT 2 VWS IMPRESSION: HYPERINFLATION, CONSISTENT WITH COPD. NO ACTIVE CARDIOPULMONARY DISEASE. Transthoracic Echocardiogram Study Date: 08/16/2019 Conclusions Summary: - Left ventricle: Systolic function is normal. The estimated ejection fraction is 55-60%. - Right ventricle: Systolic function is normal. - Left atrium: The atrium is moderately to severely dilated. - Mitral valve: There is moderate regurgitation, directed centrally. - Tricuspid valve: There is mild regurgitation. - Pulmonary arteries: Systolic pressure can not be accurately estimated. - Compared with prior echocardiogram of 05/08/19, mitral regurgitation previously mild to moderate. Venticular function is stable. EKG Data: 08/16/2019: NSR 72 bpm, noraml qtc Assessment/Plan 1. Respiratory tract infection/reactive airway disease exacerbation - Per primary service 2. Paroxysmal Afib - s/p cardioversion - in NSR today, on flecainide and diltiazem - on eliquis 5 mg po bid. 3. TIA 4. Sleep apnea 5. Obesity 6. HTN 7. PUD, erosive gastritis and bleeding in 2018, Gaston's esophagus diagnosed in 2019, anemia related to GI issues, on proton pump inhibitors. - I think patients current symptoms are primarily respiratory related and would focus treatment on that. No evidence of a type 1 AR. I think diuretics could be transitioned to her home regimen. I am not sure with a history of PUD and related anemia if she needs to be both on aspirin in addition to eliquis which she has been intermediate frame tender. This can be addressed as an outpatient by Dr. Houston or Dr Wong
[2019-08-17 11:22] VITALS: BP 130/70
--- NOTE | 2019-08-17 22:26 | DS ---
CC: Dr. Houston; Dr. Rebecca Wong * DISCHARGE SUMMARY: DATE OF ADMISSION: 08/15/19 DATE OF DISCHARGE: 08/17/19 PRIMARY CARE PROVIDER: Dr. Houston. OUTPATIENT MANAGER RECRUITING: Dr. Rebecca Wong. MY ATTENDING WHILE IN THE HOSPITAL: Dr. Brianna Givens.* (DICTATED BY MATHEUS STEVEN) PRIMARY DISCHARGE DIAGNOSES: 1. Atrial fibrillation, status post cardioversion. 2. Acute bronchitis, likely viral. 3. Reactive airway disease exacerbation. SECONDARY DISCHARGE DIAGNOSES: 1. Dyslipidemia. 2. Hypertension. 3. Obstructive sleep apnea. 4. History of gastrointestinal bleed. 5. History of uterine cancer. STUDIES DONE WHILE IN THE HOSPITAL: Chest x-ray from [facility] on day of admission shows no acute cardiopulmonary abnormality, repeat from 08/17/19 shows hyperinflation consistent with COPD, no active cardio-pulmonary disease. Electrocardiogram initially showed AFib with controlled rate. Postcardioversion this was replaced with normal sinus rhythm with a controlled rate. No ST segment elevation or depression. Transthoracic echocardiogram from 08/15/19 read as left ventricle EF 55% to 60%, wall motion no noted abnormalities. Left ventricular systolic function is normal. Left atrium is moderately to severely dilated. Mitral valve, there is moderate regurgitation directed centrally. Tricuspid valve has mild regurgitation. Systolic pressure could not be accurately estimated in the pulmonary arteries. Mitral regurgitation slightly progressed from previous echocardiogram from April of this year. MEDICATIONS AT DISCHARGE: 1. Eliquis 5 mg p.o. b.i.d. 2. Diltiazem 100 mg p.o. at bedtime. 3. Lasix 40 mg p.o. daily. 4. Montelukast 10 mg p.o. daily. 5. Flecainide 100 mg p.o. b.i.d. 6. Ventolin 2 puffs inhalation q.4 hours as needed. 7. Calcium and vitamin D3 one tab p.o. daily. 8. Aspirin 81 mg p.o. daily. 9. Flexeril 10 mg p.o. b.i.d. as needed. 10. Ferrous gluconate 325 mg p.o. b.i.d. 11. Pantoprazole 40 mg p.o. daily. 12. Ventolin nebulizer 25 mg inhalation q.4 hours as needed. 13. Tylenol 650 mg q.4 hours as needed. 14. Prednisone 40 mg p.o. daily x4 doses. New medications at discharge: 1. Tylenol. 2. Prednisone. Medications discontinued at discharge: None. HOSPITAL COURSE: This is a brief summary of the patient's presentation. For more details, please see the history and physical from Dr. Analia Singh on . In brief, the patient is a 69-year-old female with past medical history significant for the above, who presented to the emergency department after approximately 1 week of worsening shortness of breath, cough, intermittent wheezing and some weight gain with lower extremity edema and some chest pain. The patient in the emergency department was found to have an elevated BNP, some signs of pulmonary edema on chest x-ray, though read as normal and to be in atrial fibrillation from which she was previously cardioverted. The patient was admitted to the hospital. The patient was seen in consultation by Dr. Rebecca Wong, Cardiology, who cardioverted the patient on 08/16/19. The patient remained in sinus rhythm until her discharge per telemetry. The patient was diuresed while in the hospital. Her weight went up while in the hospital, but her lower extremity edema went down and her shortness of breath improved. The patient was wheezing significantly and there was some concern for reactive airway disease exacerbation in addition to her congestive heart failure. The patient was started initially just on albuterol inhalers and then prednisone was added with significant decrease in her wheezing. The patient had no elevated white blood cell count. No infiltrate on x-ray. No fevers, no tachycardia. No other signs of bacterial pneumonia and has previously been prescribed azithromycin outpatient with no improvement in her symptoms. The patient had negative troponins, negative influenza A and B. The patient was anxious for discharge on 08/17/19 and she felt that she needed to get back to work. The patient was stable and amenable for discharge on 08/17/19. PHYSICAL EXAM ON THE DAY OF DISCHARGE: General: The patient is a 69-year-old female who appears stated age and sitting comfortably in bed, in no acute distress. Vital Signs: Temperature 98.3, pulse rate 63, respiratory rate 20, oxygen saturation 95% on room air, blood pressure 130/70. HEENT: Head normocephalic, atraumatic. Sclerae anicteric. No conjunctival injection. Nasal mucosa moist. Oral mucosa moist. No pharyngeal erythema, discharge, or exudate. Neck: Supple, nontender. No lymphadenopathy. No carotid bruits auscultated. No JVD. Cardiac: Regular rate and rhythm. No clicks, murmurs, gallops, or rubs. Pulses are 2+ in the bilateral dorsalis pedis, posterior tibialis, and radial areas. Trace bilateral lower extremity edema noted. Respiratory: Slight expiratory wheezing heard in bilateral lower lobes. No other adventitious lung sounds. Good air exchange bilaterally. Abdomen: Soft , nontender, nondistended. Bowel sounds present and normoactive in all 4 quadrants. No hepatosplenomegaly. No abdominal bruits auscultated. No hepatojugular reflux. Genitourinary: No suprapubic or CVA tenderness. Skin: Clean, dry, and intact. No rash. Neuro: Cranial nerves II through XII intact. No focal deficits. Alert and oriented x3. Psychiatric: Pleasant and cooperative. DISCHARGE PLAN BY PROBLEM: 1. Heart failure with preserved ejection fraction exacerbation. It is unclear what the provoking factor was for the patient's exacerbation though it was possibly likely combination of her acute respiratory infection and going into atrial fibrillation. The patient is currently cardioverted, feeling better, is diuresing well. The patient will be resumed per Cardiology recommendation on her home furosemide dose. The patient is to follow up closely with Dr. Rebecca Wong for a repeat rhythm check and medication management after current respiratory illness has resolved. The patient is on diltiazem and flecainide for maintenance of rhythm control. 2. Likely reactive airway disease/acute bronchitis. The patient will be started on prednisone and will be continued on albuterol inhaler as needed for wheezing. The patient is on no long-acting inhaler for her possible asthma or chronic obstructive pulmonary disease. The patient said she has seen a vice investigator, does not know the results of any PFTs that may have been performed. The patient is to follow up as outpatient with a vice investigator for PFTs and further clarification of her disease state. No long-acting inhaler therapy would be continued at this time. The patient will be on 40 mg of prednisone daily for 4 more days. The patient will be continued on her Singulair. She is unclear as to who prescribed this for her. 3. History of iron-deficiency anemia. Continue patient's ferrous gluconate at this time though this should be discussed for possible discontinuation. This should be discussed with her primary care provider as she is currently not anemic and has no microcytosis or elevated RDW. 4. Atrial fibrillation. The patient has been cardioverted and is currently not on sinus rhythm as above. Continue patient's Eliquis, diltiazem, and flecainide. 5. Obstructive sleep apnea. The patient has been noncompliant with CPAP. The patient is to follow up with her primary care provider and possibly her vice investigator. 6. History of dyslipidemia. Continue patient's aspirin. The patient should be followed as outpatient per screening recommendation and statin should be started if indicated. CONDITION: Stable. DISPOSITION: Home. TIME SPENT: Approximately 60 minutes was spent on the discharge of this patient , 30 of which was spent [id number] with the patient obtaining history and physical and discussing treatment plan. MATHEUS STEVEN [id number]/[facility] #: [id number] [place]
== END 2019-08-17 14:00 | disposition home or self-care (01) ==
LOC: ED 11:18 → MEDTELE 16:11
PROVIDERS: ADMIT Internal Medicine; ATTEND Internal Medicine
DX: I48.91 Unspecified atrial fibrillation (principal); Z98.890 Other specified postprocedural states; J20.9 Acute bronchitis, unspecified; J45.901 Unspecified asthma with (acute) exacerbation; E78.5 Hyperlipidemia, unspecified; I10 Essential (primary) hypertension; G47.33 Obstructive sleep apnea (adult) (pediatric); Z87.19 Personal history of other diseases of the digestive system; Z85.42 Personal history of malignant neoplasm of other parts of uterus; Z79.01 Long term (current) use of anticoagulants; Z79.899 Other long term (current) drug therapy; Z79.82 Long term (current) use of aspirin
CPT/HCPCS: 36415; 71046; 80048; 80053; 83605; 83735; 83880; 84484; 85025; 85610; 87070; 87205; 92960; 93005; 93306; 94640; 96374; 96376; 99156; 99284; A9270-GY; C8929; G0378; J1940; J2250; J2310; J3010; J7512

== ENCOUNTER 2019-08-30 14:02 | Emergency (ER) | payer MEDICARE ==
[2019-08-30] MEDS ORDERED: Albuterol 2.5 MG/3 ML NEB.SOL* (0.083%) INH ONE (14:15)
[2019-08-30] MEDS ORDERED: methylPREDNISolone 125 MG* 2 ML VIAL IV ONE (14:17)
[2019-08-30 14:44] LABS: Hematocrit 39 % (35-47); Mean Corpuscular HGB Conc 33 g/dL (31-36); Mean Corpuscular Hemoglobin 30 pg (27-31); Mean Corpuscular Volume 90 fL (80-97); Mean Platelet Volume 8.5 fL (7.4-10.4); Platelet Count 301 10^3/uL (150-450); Red Blood Count 4.37 10^6 /uL (3.70-4.87); Red Cell Distribution Width 15 % (10-15); White Blood Count 7.8 10^3/uL (3.5-10.8)
[2019-08-30 14:57] LABS: INR 1.05 (0.82-1.09)
[2019-08-30 15:05] LABS: Albumin 4.1 g/dL (3.2-5.2); BUN/Creatinine Ratio 14.7 (8-20); Calcium 9.4 mg/dL (8.6-10.3); EGFR African American 64.6 (>60); EGFR Non-African American 53.4 (>60); Globulin 2.8 g/dL (2-4); Potassium 3.8 mmol/L (3.5-5.0); Total Protein 6.9 g/dL (6.4-8.9)
[2019-08-30 15:06] LABS: Albumin/Globulin Ratio 1.5 (1-3); C Reactive Protein 13.03 mg/L (<8.01); Total Bilirubin 0.4 mg/dL (0.2-1.0)
[2019-08-30 15:07] LABS: Troponin I 0.02 ng/mL (<0.04)
[2019-08-30 15:19] LABS: ABS Basophils 0.1 10^3/ul (0-0.2); ABS Eosinophils 0.2 10^3/ul (0-0.6); ABS Lymphocytes 1.6 10^3/ul (1.0-4.8); ABS Monocytes 0.8 10^3/ul (0-0.8); ABS Neutrophils 5.1 10^3/ul (1.5-7.7); Eosinophil % 3.1 %; Lymphocyte % 20.5 %
[2019-08-30] MEDS: Magnesium Sulfate 2 GM IV* 2 GM/50 ML BAG IVPB ONE ×2 (15:44→16:45)
[2019-08-30] MEDS ORDERED: Albuterol HFA INHALER* 8 gm MDI INH ONE (16:06)
--- NOTE | 2019-08-30 16:55 | ED ---
Shortness of Breath - HPI Summary HPI Summary: This patient is a 69-year-old female presenting to the ED with acute on chronic shortness of breath. History of paroxysmal A. fib, CHF and recently diagnosed shortness of breath. Patient was recently seen in the ED, admitted to [facility] [place] [facility] and also had a cardioversion for a fib. She was discharged with prednisone for acute on chronic exacerbation of SOB. No hx of COPD/asthma. Denies recent fevers, sweats, chills, abd pain, urinary symptoms, back pain. She admits to incontinence at baseline. Patient states she has been SOB since she left the hospital and feels it is worsening and denies any of the medication helping. Sxs began worsening this morning at work. Cough, without production. She is unsure when she is in NSR or a fib. Denies weight gain. States been taking all of her medications as prescribed. History of HTN, HLD, TIA, A. fib, SOB, acute blood loss anemia requiring transfusion, NANCY, HFpEF. Pertinent medications include Lasix, flecainide, aspirin, Eliquis, Singulair, diltiazem and prednisone. - History of Current Complaint Chief Complaint: EDAsthma Time Seen by Provider: 08/30/19 14:12 Hx Obtained From: Patient Onset/Duration: Sudden Onset Timing: Constant Current Severity: Moderate Dyspnea At: Rest Aggravating Factors: Deep Breaths Alleviating Factors: Bronchodilators, EMS Tx, Oxygen, Upright Position Associated Signs & Symptoms: Cough (Nonproductive), Wheezing, Chest Pain w/Cough Related History: Obesity - Risk Factors Pulmonary Embolism: Negative Cardiac: Negative Pseudomonas: Negative Tuberculosis: Negative - Allergy/Home Medications Allergies/Adverse Reactions: Allergies Allergy/AdvReac Type Severity Reaction Status Date / Time codeine Allergy Severe Anaphylatic Verified 08/15/19 08:16 Shock Penicillins Allergy Severe Anaphylatic Verified 08/15/19 08:16 Shock venom-honey bee Allergy Severe Anaphylatic Verified 08/15/19 08:16 Shock nitroglycerin Allergy Intermediate Hives Verified 08/15/19 08:16 latex Allergy Mild Rash Verified 08/15/19 08:16 vancomycin Allergy Mild Pain Verified 08/15/19 08:16 chocolate flavor Allergy Vomiting Verified 08/15/19 08:16 nitrofurantoin Allergy Hives Verified 08/15/19 08:16 [From Macrodantin] aspirin AdvReac Intermediate GI Upset Verified 08/15/19 08:16 PMH/Surg Hx/FS Hx/Imm Hx Previously Healthy: No Endocrine/Hematology History: Reports: Hx Anticoagulant Therapy - eliquis Denies: Hx Diabetes, Hx Thyroid Disease, Hx Anemia, Hx Unexplained Bleeding Cardiovascular History: Reports: Hx Angina, Hx Atrial Fibrillation, Hx Congestive Heart Failure, Hx Hypercholesterolemia, Hx Hypertension, Other Cardiovascular Problems/Disorders - tia 2008 Denies: Hx Aneurysm, Hx Angioplasty, Hx Auto Implanted Cardiovert Defib, Hx Cardiac Arrest, Hx Cardiomegaly, Hx Congenital Heart Disease, Hx Coronary Artery Disease, Hx Deep Vein Thrombosis, Hx Embolism, Hx Myocardial Infarction, Hx Pacemaker/ICD, Hx Peripheral Vascular Disease, Hx Rheumatic Fever, Hx Syncope , Hx Valvular Heart Disease Respiratory History: Reports: Hx Chronic Bronchitis, Hx Pneumonia, Other Respiratory Problems/Disorders - pneumonia 1 year ago Denies: Hx Asthma, Hx Chronic Obstructive Pulmonary Disease (COPD) GI History: Reports: Hx Ulcer History: Denies: Hx Renal Disease Musculoskeletal History: Reports: Hx Arthritis, Hx Back Problems - chronic pain - no definitive dx Sensory History: Reports: Hx Contacts or Glasses Denies: Hx Cataracts, Hx Eye Injury, Hx Eye Prosthesis, Hx Glaucoma, Hx Legally Blind, Hx Macular Degeneration, Hx Deafness, Hx Hearing Aid, Hx Hearing Problem, Other Sensory Impairments Opthamlomology History: Reports: Hx Contacts or Glasses Denies: Hx Cataracts, Hx Eye Injury, Hx Eye Prosthesis, Hx Glaucoma, Hx Legally Blind, Hx Macular Degeneration, Other Sensory Impairments Neurological History: Reports: Hx Migraine, Hx Transient Ischemic Attacks (TIA) - 2008 Denies: Hx Dementia, Hx Developmental Delay, Hx Headaches, Hx Nerve Disease, Hx Seizures, Hx Spinal Cord Injury, Other Neuro Impairments/Disorders Psychiatric History: Denies: Hx Panic Disorder - DIFFICULTY BREATHY WHILE LAYING FLAT - Cancer History Cancer Type, Location and Year: Uterine cancer 15 + years ago - Surgical History Surgery Procedure, Year, and Place: Breast Reduction, Bilat Knee Replacement, Right Shoulder Replacement, Appendectomy, Hysterectomy, Left Hip replacement Hx Anesthesia Reactions: No - Immunization History Date of Tetanus Vaccine: unk Date of Influenza Vaccine: unk Hx Pertussis Vaccination: No Immunizations Up to Date: Yes Infectious Disease History: No Infectious Disease History: Reports: Hx of Known/Suspected MRSA Denies: Hx Hepatitis, Hx Human Immunodeficiency Virus (HIV), History Other Infectious Disease, Traveled Outside the [place] in Last 30 Days - Family History Known Family History: Positive: Cardiac Disease, Hypertension, Other Family History: [place] - sister, mother, father - Social History Occupation: Employed Full-time Lives: With Family Alcohol Use: Rare Alcohol Amount: once a year Hx Substance Use: Yes Substance Use Type: Reports: Excessive Caffeine Substance Use Comment - Amount & Last Used: 8-10 cups/day Hx Tobacco Use: Yes Smoking Status (MU): Former Smoker Type: Cigarettes Amount Used/How Often: 1 pack per week Length of Time of Smoking/Using Tobacco: 9 years Have You Smoked in the Last Year: No Review of Systems Negative: Fever, Chills, Fatigue, Skin Diaphoresis Negative: Palpitations, Chest Pain Positive: Shortness Of Breath, Cough Positive: Diarrhea - just started in the ED on arrival. Negative: Abdominal Pain, Vomiting, Nausea Genitourinary: Negative Positive: no symptoms reported, see HPI Negative: Arthralgia, Myalgia Positive: Bruising - large bruise to L upper arm - no trauma Negative: Headache, Weakness All Other Systems Reviewed And Are Negative: Yes Physical Exam Triage Information Reviewed: Yes Vital Signs On Initial Exam: Initial Vitals Temp Pulse Resp BP Pulse Ox 98.1 F 113 26 170/104 98 08/30/19 14:03 08/30/19 14:03 08/30/19 14:03 08/30/19 14:03 08/30/19 14:03 Vital Signs Reviewed: Yes Appearance: Positive: Ill-Appearing Skin: Positive: Warm, Skin Color Reflects Adequate Perfusion Head/Face: Positive: Normal Head/Face Inspection Eyes: Positive: EOMI, Conjunctiva Clear Neck: Positive: Supple, Nontender, No Lymphadenopathy Respiratory/Lung Sounds: Positive: Clear to Auscultation, Breath Sounds Present , Wheezes, Unable to speak in full sentences, Fatigue. Negative: Decreased Breath Sounds, Rales, Rhonchi, Subcutaneous Emphysema Cardiovascular: Positive: Pulses are Symmetrical in both Upper and Lower Extremities, IRR, Leg Edema Left - +1, Leg Edema Right - +1 Abdomen Description: Positive: Nontender, No Organomegaly, Soft. Negative: CVA Tenderness (R), CVA Tenderness (L) Musculoskeletal: Positive: Normal, Strength/ROM Intact Neurological: Positive: Sensory/Motor Intact, Speech Normal Psychiatric: Positive: Affect/Mood Appropriate AVPU Assessment: Alert Procedures - Sedation Patient Received Moderate/Deep Sedation with Procedure: No Diagnostics - Vital Signs Vital Signs Temp Pulse Resp BP Pulse Ox 08/30/19 14:35 100 20 100 08/30/19 14:03 98.1 F 113 26 170/104 98 - Laboratory Lab Results: Lab Results 08/30/19 08/30/19 08/30/19 Range/Units 14:35 14:35 14:35 WBC 7.8 (3.5-10.8) 10^3/uL RBC 4.37 (3.70-4.87) 10^6 /uL Hgb 13.0 (12.0-16.0) g/dL Hct 39 (35-47) % MCV 90 (80-97) fL MCH 30 (27-31) pg MCHC 33 (31-36) g/dL RDW 15 (10-15) % Plt Count 301 (150-450) 10^3/uL MPV 8.5 (7.4-10.4) fL Neut % (Auto) 65.6 % Lymph % (Auto) 20.5 % [place] % (Auto) 9.8 % Eos % (Auto) 3.1 % Baso % (Auto) 1.0 % Absolute Neuts (auto) 5.1 (1.5-7.7) 10^3/ul Absolute Lymphs (auto) 1.6 (1.0-4.8) 10^3/ul Absolute Monos (auto) 0.8 (0-0.8) 10^3/ul Absolute Eos (auto) 0.2 (0-0.6) 10^3/ul Absolute Basos (auto) 0.1 (0-0.2) 10^3/ul Absolute Nucleated RBC 0.0 10^3/ul Neutrophils % 60.0 % Lymphocytes % 23.0 % Reactive Lymphs % 4.0 (0-6) % Monocytes % 8.0 % Eosinophils % 5.0 % Nucleated RBC % 0.0 Normal RBC Morphology Normal (Normal) Hem Pathologist Commnt Pending INR (Anticoag Therapy) 1.05 (0.82-1.09) Sodium 138 (135-145) mmol/L Potassium 3.8 (3.5-5.0) mmol/L Chloride 102 (101-111) mmol/L Carbon Dioxide 30 (22-32) mmol/L Anion Gap 6 (2-11) mmol/L BUN 15 (6-24) mg/dL Creatinine 1.02 H (0.51-0.95) mg/dL Est GFR ( Amer) 64.6 (>60) Est GFR (Non-Af Amer) 53.4 (>60) BUN/Creatinine Ratio 14.7 (8-20) Glucose 93 (70-100) mg/dL Lactic Acid (0.5-2.0) mmol/L Calcium 9.4 (8.6-10.3) mg/dL Total Bilirubin 0.40 (0.2-1.0) mg/dL AST 29 (13-39) U/L ALT 24 (7-52) U/L Alkaline Phosphatase 94 (34-104) U/L Troponin I 0.02 (<0.04) ng/mL C-Reactive Protein 13.03 H (<8.01) mg/L B-Natriuretic Peptide (<=100) pg/mL Total Protein 6.9 (6.4-8.9) g/dL Albumin 4.1 (3.2-5.2) g/dL Globulin 2.8 (2-4) g/dL Albumin/Globulin Ratio 1.5 (1-3) 08/30/19 08/30/19 Range/Units 14:35 14:35 WBC (3.5-10.8) 10^3/uL RBC (3.70-4.87) 10^6 /uL Hgb (12.0-16.0) g/dL Hct (35-47) % MCV (80-97) fL MCH (27-31) pg MCHC (31-36) g/dL RDW (10-15) % Plt Count (150-450) 10^3/uL MPV (7.4-10.4) fL Neut % (Auto) % Lymph % (Auto) % [place] % (Auto) % Eos % (Auto) % Baso % (Auto) % Absolute Neuts (auto) (1.5-7.7) 10^3/ul Absolute Lymphs (auto) (1.0-4.8) 10^3/ul Absolute Monos (auto) (0-0.8) 10^3/ul Absolute Eos (auto) (0-0.6) 10^3/ul Absolute Basos (auto) (0-0.2) 10^3/ul Absolute Nucleated RBC 10^3/ul Neutrophils % % Lymphocytes % % Reactive Lymphs % (0-6) % Monocytes % % Eosinophils % % Nucleated RBC % Normal RBC Morphology (Normal) Hem Pathologist Commnt INR (Anticoag Therapy) (0.82-1.09) Sodium (135-145) mmol/L Potassium (3.5-5.0) mmol/L Chloride (101-111) mmol/L Carbon Dioxide (22-32) mmol/L Anion Gap (2-11) mmol/L BUN (6-24) mg/dL Creatinine (0.51-0.95) mg/dL Est GFR ( Amer) (>60) Est GFR (Non-Af Amer) (>60) BUN/Creatinine Ratio (8-20) Glucose (70-100) mg/dL Lactic Acid 1.4 (0.5-2.0) mmol/L Calcium (8.6-10.3) mg/dL Total Bilirubin (0.2-1.0) mg/dL AST (13-39) U/L ALT (7-52) U/L Alkaline Phosphatase (34-104) U/L Troponin I (<0.04) ng/mL C-Reactive Protein (<8.01) mg/L B-Natriuretic Peptide 306 H (<=100) pg/mL Total Protein (6.4-8.9) g/dL Albumin (3.2-5.2) g/dL Globulin (2-4) g/dL Albumin/Globulin Ratio (1-3) Result Diagrams: 08/30/19 14:35 08/30/19 14:35 Lab Statement: Any lab studies that have been ordered have been reviewed, and results considered in the medical decision making process. Course/Dx - Course Course Of Treatment: On arrival into the ED, the patient was noted to be in respiratory distress. She was immediately brought [facility] awaiting and an EKG was performed. This showed atrial fibrillation/A flutter. Read by Dr. Puckett in the ED, no stemi. Patient was given a breathing treatment and labs were drawn. Labs are WNL except for a BNP at 306. This is down from her previous visit. She denies any weight gain, however does endorse bilateral peripheral edema. She states this is not worse than her normal. She was placed on a prednisone taper 3 days and this was completed 3 days ago. She states she does not feel worse since then except for this morning while at work she began to have acute shortness of breath. She denies any chest pain, dysphagia, odynophagia, headache, diaphoresis, subjective fevers or chills. While coughing in the ED after arrival, she began to have diarrhea. She states it was due to the cough that she was unable to control her bowels. Incontinence at baseline. Cough without production. Afebrile. Tachy at 113. 170/104. Following duo-neb treatment, pt improved slightly. Denies sedintary lifestyle, but prior smoking history. PERC score = 2. No recent trauma or surgery, hormone use, prior PE or DVT, no unilateral leg swelling and patient is currently O2 sat on room air at 98%. She is tachynic at 26. This improved following duoneb. CXR obtained which shows no acute findings. Discussed results with patient and advised she come into the hospital as pt continues to be SOB despite her medications as well as a fib which could be a component of her SOB. She declines admission or further treatment/testing. While she is still low risk for PE, CTA ordered d/t acute onset. Patient is refusing these tests and again, refusing admission. She states she cannot afford to stay overnight as she needs to work. Risks and benefits were explained to the patient, and patient again adamant about leaving. States she prefers to f/u outpatient with Dr. Wong and Dr. Givens. She was given prednisone taper x 9 days, follow up with Dr. Wong, Dr. Anders and Dr. Givens and given albuterol inhaler in the ED. Encouraged to return promptly for any worsening/changing symptoms. Patient agrees and leaves AMA. Paperwork signed by provider and patient. - Diagnoses Differential Diagnosis/HQI/PQRI: Positive: Other - Paroxysmal A. fib, COPD exacerbation, CHF, allergen, diarrhea Provider Diagnoses: Shortness of breath Discharge ED - Sign-Out/Discharge Documenting (check all that apply): Patient Departure - Discharge Plan Condition: Fair Disposition: AGAINST MEDICAL ADVICE Prescriptions: predniSONE TAB* [Deltasone 20 MG TAB*] 20 mg PO DAILY #18 tab Referrals: Tonya Anders MD [Medical Doctor] - Rebecca Wong MD [Medical Doctor] - No Primary Care Phys,NOPCP [Primary Care Provider] - Additional Instructions: As discussed, I would like you to follow up with Dr. Wong as soon as possible Please also call Dr. Anders for a close follow up Follow up with Dr. Givens next week Prednisone 3 tabs x 3 days, 2 tabs x 3 days, 1 tab x 3 days Albuterol inhaler as needed for shortness of breath Continue taking all your medications as prescribed If you continue to have diarrhea, you will need to follow up with your PCP - Billing Disposition and Condition Condition: FAIR Disposition: Against Medical Advice
[2019-08-30 17:03] VITALS: BP 140/106
== END 2019-08-30 17:08 | disposition left against medical advice (07) ==
LOC: ED 14:02
DX: R06.02 Shortness of breath (principal); R05 Cough; R53.83 Other fatigue; R23.3 Spontaneous ecchymoses; R60.0 Localized edema; I44.30 Unspecified atrioventricular block; I11.0 Hypertensive heart disease with heart failure; I50.9 Heart failure, unspecified; I48.91 Unspecified atrial fibrillation; Z79.01 Long term (current) use of anticoagulants; Z79.82 Long term (current) use of aspirin; Z96.653 Presence of artificial knee joint, bilateral; Z96.611 Presence of right artificial shoulder joint; Z96.642 Presence of left artificial hip joint; Z88.6 Allergy status to analgesic agent; Z88.1 Allergy status to other antibiotic agents; Z91.030 Bee allergy status; Z91.040 Latex allergy status; Z88.5 Allergy status to narcotic agent; Z88.0 Allergy status to penicillin; Z88.8 Allergy status to other drugs, medicaments and biological substances; Z91.018 Allergy to other foods; Z87.891 Personal history of nicotine dependence
CPT/HCPCS: 36415; 71046; 80053; 83605; 83880; 84484; 85025; 85060; 85610; 86140; 93005; 96374; 99282; A9270-GY; J2930; J3475

== ENCOUNTER 2019-10-02 11:52 | Inpatient (IN) | payer MEDICARE ==
--- OUTSIDE RECORDS SUMMARY | 2019-10-02 12:06 | XMS REPORT | Continuity of Care Document ---
:1950 External Reference #:[id number] Author Name Rebecca Wong M.D. (transmitted by agent of provider Ayleen Savage) Address [address] [place] [id number] Care Team Providers Name Role Phone Gurpreet Leo K., MD - Clinical Care Team Information Dental Equipment Technician [phone] Cardiac Electrophysiology Jeni Méndez MD - Family Care Team Information Dental Equipment Technician Medicine Problems Active Problems Provider Date Persistent atrial fibrillation Rebecca Wong M.D. Onset: 12/06/2017 Obstructive sleep apnea syndrome Cristiane Matute DNP, RN, COMMERCIAL REAL ESTATE ATTORNEY-BC Onset: Body mass index 30+ - obesity Cristiane Matute DNP, RN, COMMERCIAL REAL ESTATE ATTORNEY-BC Onset: 2017 Essential hypertension Ml Houston M.D. Onset: 02/22/2018 Hyperlipidemia Ml Houston M.D. Onset: 02/22/2018 Chronic back pain Ml Houston M.D. Onset: 02/22/2018 Note: low back Mitral valve disorder Rebecca Wong M.D. Onset: 04/25/2018 Tricuspid valve disorder, non-rheumatic Rebecca Wong M.D. Onset: 04/25/2018 Erosive esophagitis Ml Houston M.D. Onset: 10/19/2018 Hiatal hernia Ml Housotn M.D. Onset: 10/19/2018 Acute gastric ulcer Ml Houston M.D. Onset: 10/19/2018 Closed fracture of shaft of tibia Aj Sainz MD Onset: 11/08/2018 Paroxysmal atrial fibrillation Rebecca Wong M.D. Onset: 02/02/2019 Social History Type Date Description Comments Sex Unknown Tobacco Use Start: Unknown End: Former Cigarette Smoker Smoked 1 pp week Unknown for 25 years Smoking Status Reviewed: 09/25/19 Former Cigarette Smoker Smoked 1 pp week [...] 325mg GI upset 12/06/2017 Bee Sting 11/21/2018 [place] Juice 11/21/2018 Chocolate Allergenic Extract 11/21/2018 Nitroglycerin Hives Moderate 02/02/2019 Medications Active Medications SIG Qnty Indications Ordering Date Provider Crutch/Aluminum/Adult/5' ht 62", wt S82.232D Aj Sainz, 11/22/2018 2"-5'10" 225lb use for MD Buck non-weight bearing Flexeril Twice Daily Unknown 11/06/2018 Repack 10mg Tablets Ventolin HFA 1 puff Q4-6H 1units Ml Houston, 08/15/2018 108(90Base) M.D. mcg/Act Aerosol Tambocor Twice Daily Unknown 05/04/2018 100mg Tablets Aspir-Low 1 by mouth Unknown 05/25/[address] every day ( taken 8am) Lasix 1 by mouth Unknown 40mg Tablets every day Fish Oil 1 by mouth Unknown 500mg Capsules every day Cyclobenzaprine HCL Take 1 Tablet 14tabs Ml Houston, 10mg By Mouth Every M.D. Tablets 12 Hours as Needed For Muscle Spasm Montelukast Sodium 1 by mouth 30tabs Ml Houston, 10mg every day M.D. Tablets Furosemide 1 by mouth 30tabs Ml Houston, 40mg Tablets every day M.D. Vitamin E 1 by mouth Unknown 400Unit Capsules every day ( taken 8 Am) Diltiazem CD 1 by mouth 90caps Rebecca Schultzer, 180mg Caps ER every day ( M.D. 24HR taken at 8 pm) Vitamin D3 take 2 tabs by 60tabs S82.232D Aj Sainz, 400Unit Tablets mouth every day ( taken 8am) Calcium 1 by mouth Unknown 600mg Tablets every day ( taken 8 Am) Eliquis 1 by mouth 60tabs Arley Sears, 5mg Tablets twice a day DO FACC History Medications Ferrous Gluconate 1 by mouth 30tabs D64.9 Ml Houston, 08/24/2019 - every day M.D. 09/24/2019 324(38Fe) mg Tablets D50.0 Fergon Twice Daily 60tabs Unknown 05/09/2019 - 08/24/2019 240(27Fe) mg Tablets Medications Administered in Office Medication SIG Qnty Indications Ordering Provider Date Liset Willis M.D. 10/25/2008 Injection Liset Willis M.D. 10/25/2008 Injection Immunizations CPT Code Status Date Vaccine Lot # [id number] Refused 10/12/2018 Influenza Virus Vaccine, Quadrivalent, Split, Preservative Free 18892 Refused 05/10/2018 Pneumonia Vaccine 64484 Refused 05/10/2018 Pneumococcal Conjugate Vaccine 13 Valent For Intramuscular Use Vital Signs Date Vital Result Comment 09/25/2019 10:20am Height 62 inches 5'2" Weight 237.00 lb with shoes Heart Rate 90 /min irreg BP Systolic Sitting 130 mmHg Lue lg cuff BP Diastolic Sitting 72 mmHg Lue lg cuff BP Systolic Standing 130 mmHg Lue lg cuff BP Diastolic Standing 74 mmHg Lue lg cuff Respiratory Rate 17 /min BMI (Body Mass Index) 43.3 kg/m2 06/09/2019 12:02pm Height 62 inches 5'2" Weight 241.00 lb with shoes Heart Rate 78 /min left radial BP Systolic Sitting 120 mmHg Lue lg cuff BP Diastolic Sitting 80 mmHg Lue lg cuff BP Systolic Standing 120 mmHg Lue lg cuff BP Diastolic Standing 80 mmHg Lue lg cuff BMI (Body Mass Index) 44.1 kg/m2 Ejection Fraction 60-65% ECHO 05/08/19 Results Test Acquired Date Facility Test Result H/L Range Note Laboratory test 08/15/2019 [facility] Troponin-I 0.01 ng/mL < 0.[address] (TnI) [place] [address] [phone] Inr/Protime 08/15/2019 [facility] Inr 1.23 High 0.82-1.[address] [place] [address] [phone] Comp Metabolic 08/15/2019 [facility] Sodium 138 mmol/L Normal 135-[address] [place] [address] [phone] Potassium 3.7 mmol/L Normal 3.5-5.0 Chloride 102 mmol/L Normal 101-111 Co2 Carbon Dioxide 28 mmol/L Normal 22-32 Anion Gap 8 mmol/L Normal 2-11 Glucose 111 mg/dL High 70-100 Blood Urea Nitrogen 14 mg/dL Normal 6-24 Creatinine 1.02 mg/dL High 0.51-0.95 BUN/Creatinine Ratio 13.7 Normal 8-20 Calcium 9.3 mg/dL Normal 8.6-10.3 Total Protein 7.0 g/dL Normal 6.4-8.9 Albumin 3.9 g/dL Normal 3.2-5.2 Globulin 3.1 g/dL Normal 2-4 Albumin/Globulin Ratio 1.3 Normal 1-3 Total Bilirubin 0.30 mg/dL Normal 0.2-1.0 Alkaline Phosphatase 105 U/L High 34-104 Alt 19 U/L Normal 7-52 Ast 21 U/L Normal 13-39 Egfr Non- 53.4 >60 Egfr 64.6 >60 3 Laboratory test 08/15/2019 [facility] Troponin-I 0.01 <0.[address] (TnI) ng/[place] [address] [phone] CBC Auto Diff 08/15/2019 [facility] White Blood 7.9 Normal 3.5 -10.[address] Count 10^3/[place] [address] [phone] Red Blood Count 4.06 10^6/uL Normal 3.70-4.87 Hemoglobin 11.8 g/dL Low 12.0-16.0 Hematocrit 36 % Normal 35-47 Mean Corpuscular Volume 87 fL Normal 80-97 Mean Corpuscular Hemoglobin 29 pg Normal 27-31 Mean Corpuscular HGB Conc 33 g/dL Normal 31-36 Red Cell Distribution Width 14 % Normal 10-15 Platelet Count 303 10^3/uL Normal 150-450 Mean Platelet Volume 8.5 fL Normal 7.4-10.4 Abs Neutrophils 5.6 10^3/uL Normal 1.5-7.7 Abs Lymphocytes 1.5 10^3/uL Normal 1.0-4.8 Abs Monocytes 0.6 10^3/uL Normal 0-0.8 Abs Eosinophils 0.1 10^3/uL Normal 0-0.6 Abs Basophils 0.0 10^3/uL Normal 0-0.2 Abs Nucleated RBC 0.0 10^3/uL Granulocyte % 70.6 % Lymphocyte % 19.1 % Monocyte % 8.0 % Eosinophil % 1.8 % Basophil % 0.5 % Nucleated Red Blood Cells % 0.1 Laboratory test 08/15/2019 [facility] B-Type 401 pg/mL High <= [address] [place] [address] Peptide BNP [phone] Influenza A & B 08/15/2019 [facility] Flu AB (SEE NOTE) [address] [place] [address] [phone] Influenza A Molecular NEGATIVE Negative 6 Influenza B Molecular NEGATIVE Negative Laboratory test 08/15/2019 [facility] Lactic Acid 1.9 mmol/L Normal 0.5-2.0 [address] [place] [address] [phone] Hemoglobin/Wilbert 06/12/2019 [facility] Hemoglobin 11.5 g/dL Low 12.0-16.[address] [place] [address] [phone] Hematocrit 36 % Normal 35-47 Laboratory test 06/12/2019 [facility] Erythrocyte Sed 21 mm/Hr Normal 0-[address] [place] [address] [phone] B-Type Natriuretic Peptide BNP 221 pg/mL High <=100 Comp Metabolic 05/07/2019 [facility] Sodium 135 mmol/L Normal 135-[address] [place] [address] [phone] Potassium 4.2 mmol/L Normal 3.5-5.0 Chloride 104 [...] Egfr Non- 51.2 >60 Egfr 62.0 >60 8 Laboratory test 05/07/2019 [facility] Troponin-I (TnI) 0.01 ng/ mL <0.[address] [place] [address] [phone] B-Type Natriuretic Peptide BNP 202 pg/mL High <=100 Inr/Protime 05/07/2019 [facility] Inr 1.45 High 0.82-1.[address] [place], [place] [address] [phone] Laboratory test 05/07/2019 [facility] Partial 31.8 Normal 26.0 -38.[address] [place] [address] Time PTT [phone] D Dimer Quantitative < 200 ng/mL Normal Less Than 230 11 CBC Auto 05/07/2019 [facility] White Blood 6.5 10^3/uL Normal 3.5-10.[address] [place] [address] [phone] Red Blood Count 3.54 10^6/uL Low 3.70-4.87 [...] % Nucleated Red Blood Cells % 0.0 Cell Morphology 05/07/2019 [facility] Macrocytosis 1+ [address] [place] [address] [phone] Microcytosis 2+ Anisocytosis 2+ Urinalysis Profile 05/07/2019 [facility] Urine Color Straw [address] [place] [address] [phone] Urine Appearance Clear Urine Specific [place] 1.005 Low 1.010-1.030 Urine pH 6.0 Normal [...] Urine Squamous Epithelial Cell Present Abnormal Absent Iron & Iron 05/07/2019 [facility] Total Iron 552 g/dL High 250-450 Binding [address] [place] [address] Capacity [phone] Transferrin 394 mg/dL High 203-362 Iron < 20 g/dL Low 50-212 Unsaturated Iron Binding < 537 g/dL % Iron Saturation 4 % Low 15-55 Laboratory test 05/07/2019 [facility] Ferritin 8.0 ng/mL Low 11-307 finding [address] [place] [address] [phone] Folic Acid (Folate) > 20.00 ng/mL >3.99 Vitamin B12 323 pg/mL Normal 180-914 12 Type & Screen 05/07/2019 [facility] Patient Blood Type A Positive [address] [place] [address] [phone] Antibody Screen NEGATIVE Laboratory test 05/07/2019 [facility] Packed Cells SEE RESULTS [address] [place]O <[place] [address] NOTE> [phone] Pathologist Review (SEE NOTE) 14 Laboratory test 05/07/2019 [facility] Lactic Acid 1.6 mmol/L Normal 0.5-2.0 [address] [place] [address] [phone] Stool Occult 05/07/2019 [facility] Stool SEE RESULT 16 Blood Diag [address] [place] [place] [address] Blood, Diag [phone] 1 Troponin-I testing on Plasma Separator Tubes (PST) has a known false positive rate of 0.20-0.40%. All positive troponins reflex immediately to secondary confirmatory testing. Using the [employer] DxI 800 Access Immunoassay systems, the 99th percentile upper reference limit was demonstrated to be < 0.03 ng/mL. 2 Standard intensity warfarin therapeutic range: 2.0-3.0 High intensity warfarin therapeutic range: 2.5-3.5 3 Because ethnic data is not always [...] 5 Kidney failure <15 (or dialysis) 4 Troponin-I testing on Plasma Separator Tubes (PST) has a known false positive rate of 0.20-0.40%. All positive troponins reflex immediately to secondary confirmatory testing. Using the [employer] DxI 800 Access Immunoassay systems, the 99th percentile upper reference limit was demonstrated to be < 0.03 ng/mL. 5 Suboptimal collection technique may reduce sensitivity of test. Refer to the [employer] [facility] Test Catalog for collection information: [email or web address] As with all diagnostic procedures, the laboratory results obtained should be used in conjunction with other clinical information available to the physician, including confirmation by another method, as applicable. 6 Test Desk Operator: [id number] 7 [facility] Severe Sepsis and Septic Shock Management Bundle Measure requires all lactic acids initially measuring >2.0 mmol/L be repeated. 8 Because ethnic data is not always [...] 5 Kidney failure <15 (or dialysis) 9 Troponin-I testing on Plasma Separator Tubes (PST) has a known false positive rate of 0.20-0.40%. All positive troponins reflex immediately to secondary confirmatory testing. Using the [employer] DxI 800 Access Immunoassay systems, the 99th percentile upper reference limit was demonstrated to be < 0.03 ng/mL. 10 Standard intensity warfarin therapeutic range: 2.0-3.0 High intensity warfarin therapeutic range: 2.5-3.5 11 Please note: The following may produce a false positive D Dimer test: - Rheumatoid factor greater than 60 IU/ml - Plasma hemoglobin greater than 0.05 gm/dl - Bilirubin greater than 50 mg/dl - Lipids greater than 1000 mg/dl - FDP greater than 20 ug/ml 12 Normal Range 180 to 914 Indeterminate Range 145 to 180 Deficient Range <145 13 SEE RESULTS BELOW [id number] AP PC TRANSFUSED 05/08/191806 [id number] AP PC TRANSFUSED 05/07/192223 14 Microcytic hypochromic anemia. Reviewed by Rosaura Noriega MD 15 [facility] Severe Sepsis and Septic Shock Management Bundle Measure requires all lactic acids initially measuring >2.0 mmol/L be repeated. 16 SEE RESULT BELOW Name: ELIZABETH GRIGSBY : [address]: George Scott MD Acct: [id number] Unit: [id number] AGE: 68 Location: ED Re05/07/19 SEX: F Status: REG ER SPEC: [id number] JORDIN: 05/07/19-[address] [facility] [address]: Ewelina Scott MD REQ: [id number] RECD: 05/07/19 STATUS: JUDE COLON DR: Ml Houston MD _ SOURCE: STOOL SPDESC: ORDERED: Occult Bl, Diag Procedure Result Reported Site Stool Occult Blood (1) Final 05/07/19- 1727 ML Stool Occult Blood Negative Collection Date (1) 05/07/19 * [facility] - Main Lab . END OF REPORT DEPARTMENT OF PATHOLOGY, [address] [place] [address] Sage Greer M.D. Director [facility] # [id number] Procedures Date Code Description Status 09/13/2019 77224 Color Flow Doppler/Interp & Reprt Completed 09/13/2019 52725 Pulse Wave/Continuous-Interp.RPT Completed 09/13/2019 53544 Echocardiography, Transesophageal, Real Time W/Image 2D Completed W/W/O M-M 09/13/2019 18172 Cardioversion Completed 08/16/2019 60646 ECHO Transthorasic Realtime 2D W Doppler & Color Flow Completed Hosp 08/16/2019 18296 Cardioversion Completed 06/09/2019 95450 EKG Tracing & Interpretation Completed 05/09/2019 59226 Esophagogastroduodenoscopy, diagnostic, incl brush/wash Completed if perfor 05/08/2019 88684 ECHO Transthorasic Realtime 2D W Doppler & Color Flow Completed Hosp 04/17/2018 [id number] Mammogram Completed Medical Devices Description No Information Available Encounters Type Date Location Provider Dx Diagnosis Office Visit 08/17/2019 [facility] Arley Sears, I48.0 Paroxysmal atrial 12:32p Of [facility] DO [facility] fibrillation J06.9 Acute upper respiratory infection, unspecified Office Visit 08/17/2019 [facility] Dada I48.91 Unspecified atrial 11:32a Assjuan daniel shafer, [place] fibrillation Hospitalists J20.9 Acute bronchitis, unspecified J45.901 Unspecified asthma with (acute) exacerbation E78.5 Hyperlipidemia, unspecified I10 Essential (primary) hypertension G47.33 Obstructive sleep apnea (adult) (pediatric) Office Visit 08/16/2019 8:28a [facility] Rebecca Wong, I48.91 Unspecified atrial Cardiology Of M.D. fibrillation [facility] R06.02 Shortness of breath I50.9 Heart failure, unspecified Office Visit 08/15/2019 [facility] Analia Singh, I50.31 Acute diastolic 11:32a juan daniel Alatorre M.D. (congestive) Hospitalists heart failure I48.0 Paroxysmal atrial fibrillation D64.9 Anemia, unspecified J66.8 Airway disease due to other specific organic dusts Office Visit 06/09/2019 11:40a [facility] Rebecca Wong, R06.02 Shortness of Of Technology Methodology Consultant AT [facility] M.D. breath J94.9 Pleural condition, unspecified I48.0 Paroxysmal atrial fibrillation I10 Essential (primary) hypertension D64.9 Anemia, unspecified J45.909 Unspecified asthma, uncomplicated Office Visit 05/09/2019 [facility] Ziyad D. D62 Acute 9:59a juan daniel Alatorre M.D.,[facility] posthemorrhagic Hospitalists anemia I50.33 Acute on chronic diastolic (congestive) heart failure D50.9 Iron deficiency anemia, unspecified I48.91 Unspecified atrial fibrillation I10 Essential (primary) hypertension E78.5 Hyperlipidemia, unspecified Z87.19 Personal history of other diseases of the digestive system E66.9 Obesity, unspecified M19.90 Unspecified osteoarthritis, unspecified site M54.5 Low back pain Office Visit 05/08/2019 [facility] Ziyad D. D62 Acute 9:58a juan daniel Alatorre M.D.,FACP posthemorrhagic Hospitalists anemia I48.91 Unspecified atrial fibrillation Office Visit 05/07/2019 [facility] R06.00 Dyspnea, 9:58a Assoc,MATHEUS Cedeno unspecified Hospitalists D64.9 Anemia, unspecified I50.9 Heart failure, unspecified I48.91 Unspecified atrial fibrillation E78.5 Hyperlipidemia, unspecified M54.5 Low back pain Office Visit 04/10/2019 11:00a [facility] Aj Emeli, S82.232D Displ oblique at [facility] shaft of l tibia, 7thD Assessments Date Code Description Provider 09/25/2019 I48.0 Paroxysmal atrial fibrillation Rebecca Wong M.D. 09/25/2019 R60.0 Localized edema Rebecca Wong M.D. 09/25/2019 R06.02 Shortness of breath Rebecca Wong M.D. 09/25/2019 R07.9 Chest pain, unspecified Rebecca Wong M.D. 09/25/2019 R06.2 Wheezing Rebecca Wong M.D. 09/13/2019 I48.91 Unspecified atrial fibrillation Rebecca Wong M.D. 09/12/2019 I48.91 Unspecified atrial fibrillation Rebecca Wong M.D. 09/12/2019 I48.0 Paroxysmal atrial fibrillation Rebecca Wong M.D. 08/17/2019 I48.0 Paroxysmal atrial fibrillation Arley Sears, DO FACC 08/17/2019 J06.9 Acute upper respiratory infection, Arley Sears, DO FACC unspecified 08/17/2019 I48.91 Unspecified atrial fibrillation MATHEUS Noel 08/17/2019 J20.9 Acute bronchitis, unspecified MATHEUS Noel 08/17/2019 J45.901 Unspecified asthma with (acute) MATHEUS Noel exacerbation 08/17/2019 E78.5 Hyperlipidemia, unspecified MATHEUS Noel 08/17/2019 I10 Essential (primary) hypertension MATHEUS Noel 08/17/2019 G47.33 Obstructive sleep apnea (adult) MATHEUS Noel (pediatric) 08/16/2019 I48.91 Unspecified atrial fibrillation Rebecca Wong M.D. 08/16/2019 R06.02 Shortness of breath Rebecca Wong M.D. 08/16/2019 I50.9 Heart failure, unspecified Rebecca Wong M.D. 08/16/2019 I50.33 Acute on chronic diastolic MATHEUS Noel (congestive) heart failure 08/16/2019 J66.8 Airway disease due to other specific MATHEUS Noel organic dusts 08/16/2019 I48.91 Unspecified atrial fibrillation MATHEUS Noel 08/16/2019 E78.5 Hyperlipidemia, unspecified MATHEUS Noel 08/16/2019 I10 Essential (primary) hypertension MATHEUS Noel 08/16/2019 G47.33 Obstructive sleep apnea (adult) MATHEUS oNel (pediatric) 08/16/2019 R06.02 Shortness of breath MATHEUS Noel 08/15/2019 I50.31 Acute diastolic (congestive) heart Analia Singh M.D. failure 08/15/2019 I48.0 Paroxysmal atrial fibrillation Analia Singh M.D. 08/15/2019 D64.9 Anemia, unspecified Analia Singh M.D. 08/15/2019 J66.8 Airway disease due to other specific Analia Singh M.D. organic dusts 06/09/2019 R06.02 Shortness of breath Rebecca Wong M.D. 06/09/2019 J94.9 Pleural condition, unspecified Rebecca Wong M.D. 06/09/2019 I48.0 Paroxysmal atrial fibrillation Rebecca Wong M.D. 06/09/2019 I10 Essential (primary) hypertension Rebecca Wong M.D. 06/09/2019 D64.9 Anemia, unspecified Rebecca Wong M.D. 06/09/2019 J45.909 Unspecified asthma, uncomplicated Rebecca Wong M.D. 05/09/2019 K22.70 Gaston's esophagus without Jeronimo Ruiz MD dysplasia 05/09/2019 D62 Acute posthemorrhagic anemia Ziyad Boykin M.D.,[facility] 05/09/2019 D50.0 Iron deficiency anemia secondary to [...] Boykin M.D., FACP 05/07/2019 R06.00 Dyspnea, unspecified Acaciakristian Parks, PA 05/07/2019 D64.9 Anemia, unspecified Acacia Kasey, PA 05/07/2019 I50.9 Heart failure, unspecified Acaciakristian Parks, PA 05/07/2019 I48.91 Unspecified atrial fibrillation Acacia Parks PA 05/07/2019 E78.5 Hyperlipidemia, unspecified Acacia Parks, PA 05/07/2019 M54.5 Low back pain Acacia Parks PA 04/10/2019 S82.232D Displaced oblique fracture of shaft Aj Sainz MD of left tibia, subsequen Plan of Treatment Future Appointment(s):10/20/2019 2:30 pm - Tatyana Heard N.P. at [facility]10/16/2019 8:30 am - Nurse Visit IC at [facility]10/13/2019 2:30 pm - Nurse Visit IC at [facility]09/25/2019 - Rebecca Wong M.D.I48.0 Paroxysmal atrial fibrillationNew Orders:Holter Monitor , Scheduled: 10/13/19Comments:You are in atrial fibrillation today. Your rates go up quickly in the office.Follow up:OV after Holter with TRAFFIC ENGINEERING DIRECTOR (or MD). OV MD 1 month.Recommendations:Check a Holter monitor to see if your heart rate is fast enough to allow for more medication. STOP Flecainide. We will call you with Holter results are done, see an TRAFFIC ENGINEERING DIRECTOR and change your meds. Try and avoid pacer for now due to your job, but ablate and pace would be a way to avoid more medicine for rate control.R60.0 Localized edemaComments:May be related to veins that aren't functioning well in addition to atrial fibrillation and medicine.Recommendations:No infection now. Option in the future of seeing a vein specialist to see if edema can be improved.R06.02 Shortness of breathComments:Multifactorial, wheezing, afib and rapid rate.R07.9 Chest pain, unspecifiedComments:Call if recurs.R06.2 WheezingComments:Keep f/u and recommendations from Dr Méndez. Functional Status Description No Information Available Mental Status Description No Information Available Referrals Description No Information Available
--- OUTSIDE RECORDS SUMMARY | 2019-10-02 12:07 | XMS REPORT | Continuity of Care Document ---
:1950 External Reference #:[id number] Author Name Hallie Clark Care Team Providers Name Role Phone Ml Houston MD - Internal Care Team Information Linux Administrator Medicine Gurpreet Leo K., MD - Clinical Care Team Information Linux Administrator [phone] Cardiac Electrophysiology Problems Active Problems Provider Date Persistent atrial fibrillation Rebecca Wong M.D. Onset: 12/06/2017 Obstructive sleep apnea syndrome Cristiane Matute DNP, RN, DOG FOOD DOUGH MIXER-BC Onset: Body mass index 30+ - obesity Cristiane Matute DNP, RN, DOG FOOD DOUGH MIXER-BC Onset: 2017 Essential hypertension Ml Houston M.D. [...] 325mg GI upset 12/06/2017 Bee Sting 11/21/2018 Manti Juice 11/21/2018 Chocolate Allergenic Extract 11/21/2018 Nitroglycerin Hives Moderate 02/02/2019 Medications Active Medications SIG Qnty Indications Ordering Provider Date Ferrous Gluconate 1 by mouth 30tabs D64.9 Ml Houston, 08/24/2019 every day M.DVito 324(38Fe) mg Tablets D50.0 Crutch/Aluminum/Adult/5'2"-5'10" ht 62", wt S82.232D Aj 11/22/2018 Misc 225lb use for MD Emeli non-weight bearing Flexeril Repack Twice Daily Unknown 11/06/2018 10mg Tablets Ventolin HFA 1 puff Q4-6H 1un Ml 08/15/2018 108(90Base) mcg/Act Aerosol its Porter Houston Tambocor 100mg Twice Daily Unknown 05/04/2018 Tablets Flecainide Acetate 1 tab by mouth 60t I48.1 Rebecca 04/25/2018 100mg Tablets twice a day abs Porter Wong Aspir-Low 81mg 1 by mouth Unknown 05/25/[address] every day ( taken 8am) Fish Oil 500mg 1 by mouth Unknown Capsules every day Multi Complete/Iron 1 by mouth Unknown Tablets every day Cyclobenzaprine HCL Take 1 Tablet 14t Ml 10mg Tablets By Mouth Every abs Porter Houston 12 Hours as Needed For Muscle Spasm Montelukast Sodium 1 by mouth 30t Ml 10mg Tablets every day abs Porter Houston Furosemide 40mg 1 by mouth 30t Ml Tablets every day abs Porter Houston Vitamin E 1 by mouth Unknown 400Unit Capsules every day ( taken 8 Am) Diltiazem CD 1 by mouth 90c Rebecca 180mg Caps ER 24HR every day ( aps Marvin, taken at 8 pm) Porter Vitamin D3 take 2 tabs by 60t S82.232D Aj 400Unit Tablets mouth every abs MD Emeli day ( taken 8am) Calcium 600mg 1 by mouth Unknown Tablets every day ( taken 8 Am) Eliquis 5mg 1 by mouth 60t Arley S. Tablets twice a day abs DO Orion FACC History Medications Fergon Twice Daily 60tabs Unknown 05/09/2019 - 08/24/2019 240(27Fe) mg Tablets Medications Administered in Office Medication SIG Qnty Indications Ordering Provider Date Liset Willis M.D. 10/25/2008 Injection Liset Willis M.D. 10/25/2008 Injection Immunizations CPT Code Status Date Vaccine Lot # [id number] Refused 10/12/2018 Influenza Virus Vaccine, Quadrivalent, Split, Preservative Free 07008 Refused 05/10/2018 Pneumonia Vaccine 12930 Refused 05/10/2018 Pneumococcal Conjugate Vaccine 13 Valent [...] (Body Mass Index) 43.5 kg/m2 Results Test Acquired Date Facility Test Result H/L Range Note Laboratory test 08/15/2019 [facility] Troponin-I 0.01 ng/mL < 0.04 1 finding 101 (TnI) [place] [address] [phone] Inr/Protime 08/15/2019 [facility] Inr 1.23 High 0.82-1.09 2 [address] [place] [address] [phone] Comp Metabolic 08/15/2019 [facility] Sodium 138 mmol/L Normal 135-145 Panel [address] [place] [address] [phone] Potassium 3.7 mmol/L Normal 3.5-5.0 Chloride 102 [...] Egfr 64.6 >60 3 Laboratory test 08/15/2019 [facility] Troponin-I 0.01 <0.04 4 finding 101 (TnI) ng/mL [place], [place] [id number] [phone] CBC Auto Diff 08/15/2019 [facility] White Blood 7.9 Normal 3.5 -10.[address] Count 10^3/[place] [address] [phone] Red Blood Count 4.06 10^6/uL Normal 3.70-4.87 [...] Blood Cells % 0.1 Laboratory test 08/15/2019 [facility] B-Type 401 pg/mL High <= [address] [place] [address] Peptide BNP [phone] Influenza A & B 08/15/2019 [facility] Flu AB (SEE NOTE) [address] [place] [address] [phone] Influenza A Molecular NEGATIVE Negative 6 Influenza B Molecular NEGATIVE Negative Laboratory test 08/15/2019 [facility] Lactic Acid 1.9 mmol/L Normal 0.5-2.0 7 finding [address] [place] [address] [phone] Hemoglobin/Wilbert 06/12/2019 [facility] Hemoglobin 11.5 g/dL Low 12.0-16.[address] [place] [address] [phone] Hematocrit 36 % Normal 35-47 Laboratory test 06/12/2019 [facility] Erythrocyte Sed 21 mm/Hr Normal 0-[address] [place] [address] [phone] B-Type Natriuretic Peptide BNP 221 pg/mL High <=100 Laboratory test 05/07/2019 [facility] Lactic Acid 1.6 mmol/L Normal 0.5-2.[address] [place] [address] [phone] Comp Metabolic 05/07/2019 [facility] Sodium 135 mmol/L Normal 135-[address] [place] [address] [phone] Potassium 4.2 mmol/L Normal 3.5-5.0 Chloride 104 [...] Egfr Non- 51.2 >60 Egfr 62.0 >60 9 Laboratory test 05/07/2019 [facility] Troponin-I (TnI) 0.01 ng/ mL <0.[address] [place] [address] [phone] B-Type Natriuretic Peptide BNP 202 pg/mL High <=100 Inr/Protime 05/07/2019 [facility] Inr 1.45 High 0.82-1.[address] [place] [address] [phone] Laboratory test 05/07/2019 [facility] Partial 31.8 Normal 26.0 -38.[address] [place] [address] Time PTT [phone] D Dimer Quantitative < 200 ng/mL Normal Less Than 230 12 CBC Auto 05/07/2019 [facility] White Blood 6.5 10^3/uL Normal 3.5-10.[address] [place] [address] [phone] Red Blood Count 3.54 10^6/uL Low 3.70-4.87 [...] Blood Cells % 0.0 Cell Morphology 05/07/2019 [facility] Macrocytosis 1+ [address] [place] [address] [phone] Microcytosis 2+ Anisocytosis 2+ Urinalysis Profile 05/07/2019 [facility] Urine Color Straw [address] [place] [address] [phone] Urine Appearance Clear Urine Specific [place] 1.005 Low 1.010-1.030 Urine pH 6.0 Normal [...] Present Abnormal Absent Iron & Iron 05/07/2019 [facility] Total Iron 552 g/dL High 250-450 Binding [address] [place] [address] Capacity [phone] Transferrin 394 mg/dL High 203-362 Iron < 20 g/dL Low 50-212 Unsaturated Iron Binding < 537 g/dL % Iron Saturation 4 % Low 15-55 Laboratory test 05/07/2019 [facility] Ferritin 8.0 ng/mL Low 11-307 finding 101 [facility] [address] [phone] Folic Acid (Folate) > 20.00 ng/mL >3.99 Vitamin B12 323 pg/mL Normal 180-914 13 Type & Screen 05/07/2019 [facility] Patient Blood Type A Positive [address] [place] [address] [phone] Antibody Screen NEGATIVE Laboratory test 05/07/2019 [facility] Packed Cells SEE RESULTS [address] BELO <[place] [address] NOTE> [phone] Pathologist Review (SEE NOTE) 15 Stool Occult 05/07/2019 [facility] Stool Occult SEE RESULT 16 Blood Diag [address] Blood, [place] [address] [phone] 1 Troponin-I testing on Plasma Separator Tubes (PST) has a known false positive rate of 0.20-0.40%. All positive troponins reflex immediately to secondary confirmatory testing. Using the [employer] DxI 800 Access Immunoassay systems, the 99th [...] immediately to secondary confirmatory testing. Using the [employer] DxI 800 Access Immunoassay systems, the 99th percentile upper reference limit was demonstrated to be < 0.03 ng/mL. 5 Suboptimal collection technique may reduce sensitivity of test. Refer to the [facility] Test Catalog for collection information: [email or web address] As with all diagnostic procedures, the laboratory results obtained should be used in conjunction with other clinical information available to the physician, including confirmation by another method, as applicable. 6 Institutional Commodity Analyst: [id number] [address] [facility] Severe Sepsis and Septic Shock Management Bundle Measure requires all lactic acids initially measuring >2.0 mmol/L be repeated. 8 [facility] Severe Sepsis and Septic Shock Management Bundle Measure requires all lactic acids initially measuring >2.0 mmol/L be repeated. 9 Because ethnic data is not always [...] 5 Kidney failure <15 (or dialysis) 10 Troponin-I testing on Plasma Separator Tubes (PST) has a known false positive rate of 0.20-0.40%. All positive troponins reflex immediately to secondary confirmatory testing. Using the [employer] DxI 800 Access Immunoassay systems, the 99th percentile upper reference limit was demonstrated to be < 0.03 ng/mL. 11 Standard intensity warfarin therapeutic range: 2.0-3.0 High intensity warfarin therapeutic range: 2.5-3.5 12 Please note: The following may produce a false positive D Dimer test: - Rheumatoid factor greater than 60 IU/ml - Plasma hemoglobin greater than 0.05 gm/dl - Bilirubin greater than 50 mg/dl - Lipids greater than 1000 mg/dl - FDP greater than 20 ug/ml 13 Normal Range 180 to 914 Indeterminate Range 145 to 180 Deficient Range <145 14 SEE RESULTS BELOW [id number] AP PC TRANSFUSED 05/08/19 1807 [id number] AP PC TRANSFUSED 05/07/192223 15 Microcytic hypochromic anemia. Reviewed by Rosaura Noriega MD 16 SEE RESULT BELOW Name: SEBELIZABETH : [address]: George Scott MD Acct: [id number] Unit: [id number] AGE: 68 Location: ED Re05/07/19 SEX: F Status: REG ER SPEC: [id number] JORDIN: 05/07/19-1704 [facility] DR: Ewelina Scott MD REQ: [id number] RECD: 05/07/19 STATUS: JUDE COLON DR: Ml Houston MD _ SOURCE: STOOL SPDESC: ORDERED: Occult Bl, Diag Procedure Result Reported Site Stool Occult Blood (1) Final 05/07/19- 1727 ML Stool Occult Blood Negative Collection Date (1) 05/07/19 * ML - Main Lab . END OF REPORT DEPARTMENT OF PATHOLOGY, [address] [place] [address] Sage Greer M.D. Director [facility] # [id number] Procedures Date Code Description Status 08/16/2019 23063 ECHO Transthorasic Realtime 2D W Doppler & Color Flow Completed Hosp 08/16/2019 94017 Cardioversion Completed 06/09/2019 55232 EKG Tracing & Interpretation Completed 05/09/2019 58269 Esophagogastroduodenoscopy, diagnostic, incl brush/wash Completed if perfor 05/08/2019 34743 ECHO Transthorasic Realtime 2D W Doppler & Color Flow Completed Hosp 04/17/2018 [id number] Mammogram Completed Medical Devices Description No Information Available Encounters Type Date Location Provider Dx Diagnosis Office Visit 08/17/2019 [facility] Arley Sears, I48.0 Paroxysmal atrial 12:32p Of Tiger Machine Operator DO FACC fibrillation J06.9 Acute upper respiratory infection, unspecified Office Visit 08/17/2019 [facility] Dada I48.91 Unspecified atrial 11:32a Assoc,MATHEUS [place] fibrillation Hospitalists J20.9 Acute bronchitis, unspecified J45.901 Unspecified asthma with (acute) exacerbation E78.5 Hyperlipidemia, unspecified I10 Essential (primary) hypertension G47.33 Obstructive sleep apnea (adult) (pediatric) Office Visit 08/16/2019 8:28a [facility] Rebecca Wong, I48.91 Unspecified atrial Cardiology Of M.D. fibrillation [facility] R06.02 Shortness of breath I50.9 Heart failure, unspecified Office Visit 08/15/2019 [facility] Analia Singh, I50.31 Acute diastolic 11:32a Assjuan daniel shafer M.D. (congestive) Hospitalists heart failure I48.0 Paroxysmal atrial fibrillation D64.9 Anemia, unspecified J66.8 Airway disease due to other specific organic dusts Office Visit 06/09/2019 11:40a [facility] Rebecca Wong, R06.02 Shortness of Of Tiger Machine Operator AT [facility] M.[place]. breath J94.9 Pleural condition, unspecified I48.0 Paroxysmal atrial fibrillation I10 Essential (primary) hypertension D64.9 Anemia, unspecified J45.909 Unspecified asthma, uncomplicated Office Visit 05/09/2019 [facility] Ziyad D. D62 Acute 9:59a Assoc,juan daniel Boykin M.D.,FACP posthemorrhagic Hospitalists anemia I50.33 Acute on chronic diastolic (congestive) heart failure D50.9 Iron deficiency anemia, unspecified I48.91 Unspecified atrial fibrillation I10 Essential (primary) hypertension E78.5 Hyperlipidemia, unspecified Z87.19 Personal history of other diseases of the digestive system E66.9 Obesity, unspecified M19.90 Unspecified osteoarthritis, unspecified site M54.5 Low back pain Office Visit 05/08/2019 [facility] Ziyad D. D62 Acute 9:58a Assjuan daniel shafer M.D.,FACP posthemorrhagic Hospitalists anemia I48.91 Unspecified atrial fibrillation Office Visit 05/07/2019 [facility] Acacia R06.00 Dyspnea, 9:58a Asssoni,MATHEUS Cedeno unspecified Hospitalists D64.9 Anemia, unspecified I50.9 Heart failure, unspecified I48.91 Unspecified atrial fibrillation E78.5 Hyperlipidemia, unspecified M54.5 Low back pain Office Visit 04/10/2019 11:00a [facility] Aj Sainz, S82.232D Displ oblique at [facility] fx shaft of l tibia, 7thD Assessments Date Code Description Provider 08/17/2019 I48.0 Paroxysmal atrial fibrillation Arley Sears, DO FACC 08/17/2019 J06.9 Acute upper respiratory infection, Arley Sears, DO FACC unspecified 08/17/2019 I48.91 Unspecified atrial fibrillation MATHEUS Neol 08/17/2019 J20.9 Acute bronchitis, unspecified MATHEUS Noel [...] 08/16/2019 G47.33 Obstructive sleep apnea (adult) MATHEUS Noel (pediatric) 08/16/2019 R06.02 Shortness of breath MATHEUS [...] 05/08/2019 D62 Acute posthemorrhagic anemia Ziyad Boykin M.D.,[facility] 05/08/2019 I48.91 Unspecified atrial fibrillation Ziyad Boykin M.D., [facility] 05/07/2019 R06.00 Dyspnea, unspecified [place] 05/07/2019 D64.9 Anemia, unspecified [place] 05/07/2019 I50.9 Heart failure, unspecified [place] 05/07/2019 I48.91 Unspecified atrial fibrillation [place] [place] 05/07/2019 E78.5 Hyperlipidemia, unspecified [place] 05/07/2019 M54.5 Low back pain [place] 04/10/2019 S82.232D Displaced oblique fracture of shaft Aj Sainz MD of left tibia, subsequen Plan of Treatment Future Appointment(s):09/25/2019 10:20 am - Rebecca Wong M.D. at [facility]06/09/2019 - Rebecca Wong M.D.R06.02 Shortness of breathComments:Likely multifactorial from lung issues, anemia, weight, deconditioning.Recommendations:I will communicate with Dr Houston about nebulizer medication/medications for bronchospasm/asthma.J94.9 Pleural condition , unspecifiedFollow up:Option of f/u OV with Tatyana Heard PAPER SPOOLER 2 weeks to 2 months.I48.0 Paroxysmal atrial fibrillationComments:You are in the normal rhythm today, good rate control. Good intervals on Flecainide.I10 Essential ( primary) hypertensionComments:Well controlledRecommendations:Continue current unevqbajongD80.9 Anemia, unspecifiedComments:Taking Iron x 1 lhsuzD29.909 Unspecified asthma, uncomplicated Functional Status Description No Information Available Mental Status Description No Information Available Referrals Description No Information Available
--- OUTSIDE RECORDS SUMMARY | 2019-10-02 12:07 | XMS REPORT | Continuity of Care Document ---
:1950 External Reference #:[id number] Author Name Rebecca Wong M.D. 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 Onset: 12/06/2017 Obstructive sleep apnea syndrome Cristiane Matute DNP, RN, COURTESY [employer]AN [employer]IVER-BC Onset: Body mass index 30+ - obesity Cristiane Matute DNP, RN, COURTES[employer] V[employer]IVER-BC Onset: 2017 Essential hypertension Ml Houston M.D. [...] 325mg GI upset 12/06/2017 Bee Sting 11/21/2018 [place] Juice 11/21/2018 Chocolate Allergenic Extract 11/21/2018 Nitroglycerin Hives Moderate 02/02/2019 Medications Active Medications SIG Qnty Indications Ordering Provider Date Ferrous Gluconate 1 by mouth 30tabs D64.9 Ml Houston, 08/24/2019 every day M.DVito 324(38Fe) mg Tablets D50.0 Crutch/Aluminum/Adult/5'2"-5'10" ht 62", wt S82.232D Aj 11/22/2018 [facility] [place] use for [place] Emeli non-weight bearing [...] Eliquis 5mg 1 by mouth 60t Arley SVito Tablets twice a day coreen Sears DO FACC History Medications Fergon Twice Daily 60tabs Unknown 05/09/2019 - 08/24/2019 240(27Fe) mg Tablets Medications Administered in Office Medication SIG Qnty Indications Ordering Provider Date Liset Willis M.D. 10/25/2008 Injection Liset Willis M.D. 10/25/2008 Injection Immunizations CPT Code Status Date Vaccine Lot # [id number] Refused 10/12/2018 Influenza Virus Vaccine, Quadrivalent, Split, Preservative Free [id number] Refused 05/10/2018 Pneumonia Vaccine 81331 Refused 05/10/2018 Pneumococcal Conjugate Vaccine 13 Valent [...] Result H/L Range Note Laboratory test 08/15/2019 [facility] Troponin-I 0.01 ng/mL < 0.[address] (TnI) [place], [place] [id number] [phone] Inr/Protime 08/15/2019 [facility] Inr 1.23 High 0.82-1.[address] [place] [address] [phone] Comp Metabolic 08/15/2019 [facility] Sodium 138 mmol/L Normal 135-[address] [place] [address] [phone] Potassium 3.7 mmol/L Normal 3.5-5.0 Chloride 102 [...] Egfr 64.6 >60 3 Laboratory test 08/15/2019 [facility] Troponin-I 0.01 <0.[address] (TnI) ng/[place] [address] [phone] CBC Auto Diff 08/15/2019 [facility] White Blood 7.9 Normal 3.5 -10.[address] Count 10^3/[place] [address] [phone] Red Blood Count 4.06 10^6/uL Normal 3.70-4.87 [...] Blood Cells % 0.1 Laboratory test 08/15/2019 [facility] B-Type 401 pg/mL High <= [address] [place] [address] Peptide BNP [phone] Influenza A & B 08/15/2019 [facility] Flu AB (SEE NOTE) [address] [place] [address] [phone] Influenza A Molecular NEGATIVE Negative 6 Influenza B Molecular NEGATIVE Negative Laboratory test 08/15/2019 [facility] Lactic Acid 1.9 mmol/L Normal 0.5-2.0 [address] [place] [address] [phone] Hemoglobin/Wilbert 06/12/2019 [facility] Hemoglobin 11.5 g/dL Low 12.0-16.[address] [place] [address] [phone] Hematocrit 36 % Normal 35-47 Laboratory test 06/12/2019 [facility] Erythrocyte Sed 21 mm/Hr Normal 0-[address] [place] [address] [phone] B-Type Natriuretic Peptide BNP 221 pg/mL High <=100 Laboratory test 05/07/2019 [facility] Lactic Acid 1.6 mmol/L Normal 0.5-2.[address] [place] [address] [phone] Comp Metabolic 05/07/2019 [facility] Sodium 135 mmol/L Normal 135-145 Panel [address] [place] [address] [phone] Potassium 4.2 mmol/L Normal 3.5-5.0 Chloride 104 [...] Egfr 62.0 >60 9 Laboratory test 05/07/2019 [facility] Troponin-I (TnI) 0.01 ng/ mL <0.04 10 [address] [place] [address] [phone] B-Type Natriuretic Peptide BNP 202 pg/mL High <=100 Inr/Protime 05/07/2019 [facility] Inr 1.45 High 0.82-1.[address] [place] [address] [phone] Laboratory test 05/07/2019 [facility] Partial 31.8 Normal 26.0 -38.0 finding [address] [facility] [place] [address] Time PTT [phone] D Dimer Quantitative < 200 ng/mL Normal Less Than 230 12 CBC Auto 05/07/2019 [facility] White Blood 6.5 10^3/uL Normal 3.5-10.[address] [place] [address] [phone] Red Blood Count 3.54 10^6/uL Low 3.70-4.87 [...] Blood Cells % 0.0 Cell Morphology 05/07/2019 [facility] Macrocytosis 1+ [address] [place] [address] [phone] Microcytosis 2+ Anisocytosis 2+ Urinalysis Profile 05/07/2019 [facility] Urine Color Straw [address] [place] [address] [phone] Urine Appearance Clear Urine Specific [place] 1.005 Low 1.010-1.030 Urine pH 6.0 Normal [...] Present Abnormal Absent Iron & Iron 05/07/2019 [facility] Total Iron 552 g/dL High 250-[address] [place] [place] [address] Capacity [phone] Transferrin 394 mg/dL High 203-362 Iron < 20 g/dL Low 50-212 Unsaturated Iron Binding < 537 g/dL % Iron Saturation 4 % Low 15-55 Laboratory test 05/07/2019 [facility] Ferritin 8.0 ng/mL Low 11-[address] [place] [address] [phone] Folic Acid (Folate) > 20.00 ng/mL >3.99 Vitamin B12 323 pg/mL Normal 180-914 13 Type & Screen 05/07/2019 [facility] Patient Blood Type A Positive [address] [place] [address] [phone] Antibody Screen NEGATIVE Laboratory test 05/07/2019 [facility] Packed Cells SEE RESULTS [address] BELO <[place] [address] NOTE> [phone] Pathologist Review (SEE NOTE) 15 Stool Occult 05/07/2019 [facility] Stool Occult SEE RESULT 16 Blood Di[address] Blood, [place] [address] [phone] 1 Troponin-I testing on Plasma Separator Tubes (PST) has a known false positive rate of 0.20-0.40%. All positive troponins reflex immediately to secondary confirmatory testing. Using the [employer] DxI 800 Access Immunoassay systems, the 99th [...] immediately to secondary confirmatory testing. Using the [employer] DxI 800 Access Immunoassay systems, the 99th percentile upper reference limit was demonstrated to be < 0.03 ng/mL. 5 Suboptimal collection technique may reduce sensitivity of test. Refer to the [facility] Test Catalog for collection information: [email or web address] As with all diagnostic procedures, the laboratory results obtained should be used in conjunction with other clinical information available to the physician, including confirmation by another method, as applicable. 6 Roll Skinner: [id number] 7 [facility] Severe Sepsis and Septic Shock Management Bundle Measure requires all lactic acids initially measuring >2.0 mmol/L be repeated. 8 [facility] Severe Sepsis and Septic Shock [...] immediately to secondary confirmatory testing. Using the [employer] DxI 800 Access Immunoassay systems, the 99th [...] Deficient Range <145 14 SEE RESULTS BELOW [id number] AP PC TRANSFUSED 05/08/191806 [id number] AP PC TRANSFUSED 05/07/194 15 Microcytic hypochromic anemia. Reviewed by Rosaura Noriega MD 16 SEE RESULT BELOW Name: SEBELIZABETH : [address]: George Scott MD Acct: [id number] Unit: [id number] AGE: 68 Location: ED Re05/07/19 SEX: F Status: REG ER SPEC: [id number] JORDIN: 05/07/19-[address] [facility] [address]: Ewelina Scott MD REQ: [id number] RECD: 05/07/19 STATUS: JUDE COLON DR: Ml Houston MD _ SOURCE: STOOL SPDESC: ORDERED: Occult Bl, Diag Procedure Result Reported Site Stool Occult Blood (1) Final 05/07/19- 1727 ML Stool Occult Blood Negative Collection Date (1) 05/07/19 * ML - Main Lab . END OF REPORT DEPARTMENT OF PATHOLOGY, [address] [place] [address] Sage Greer M.D. Director [facility] # [id number] Procedures Date Code Description Status 09/13/2019 01541 Color Flow Doppler/Interp & Reprt Completed 09/13/2019 84530 Pulse Wave/Continuous-Interp.RPT Completed 09/13/2019 72659 Echocardiography, Transesophageal, Real Time W/Image 2D Completed W/W/O M-M 09/13/2019 50717 Cardioversion Completed 08/16/2019 92187 ECHO Transthorasic Realtime 2D W Doppler & Color Flow Completed Hosp 08/16/2019 68031 Cardioversion Completed 06/09/2019 52189 EKG Tracing & Interpretation Completed 05/09/2019 89653 Esophagogastroduodenoscopy, diagnostic, incl brush/wash Completed if perfor 05/08/2019 88178 ECHO Transthorasic Realtime 2D W Doppler & Color Flow Completed Hosp 04/17/2018 21065994 Mammogram Completed Medical Devices Description No Information Available Encounters Type Date Location Provider Dx Diagnosis Office Visit 08/17/2019 [facility] Arley SVito Sears, I48.0 Paroxysmal atrial 12:32p Of [facility] DO [facility] fibrillation J06.9 Acute upper respiratory infection, unspecified Office Visit 08/17/2019 [facility] Dada I48.91 Unspecified atrial 11:32a juan daniel Alatorre PA fibrillation Hospitalists J20.9 Acute bronchitis, unspecified J45.901 Unspecified asthma with (acute) exacerbation E78.5 Hyperlipidemia, unspecified I10 Essential (primary) hypertension G47.33 Obstructive sleep apnea (adult) (pediatric) Office Visit 08/16/2019 8:28a [place] Rebecca Wong, I48.91 Unspecified atrial Cardiology Of M.D. fibrillation [facility] R06.02 Shortness of breath I50.9 Heart failure, unspecified Office Visit 08/15/2019 [facility] Analia Singh, I50.31 Acute diastolic 11:32a juan daniel Alatorre M.D. (congestive) Hospitalists heart failure I48.0 Paroxysmal atrial fibrillation D64.9 Anemia, unspecified J66.8 Airway disease due to other specific organic dusts Office Visit 06/09/2019 11:40a [facility] Rebecca Wong, R06.02 Shortness of Of Alignment Mechanic [facility] breath J94.9 Pleural condition, unspecified I48.0 Paroxysmal atrial fibrillation I10 Essential (primary) hypertension D64.9 Anemia, unspecified J45.909 Unspecified asthma, uncomplicated [facility] Acute 9:59a juan daniel Alatorre M.D.,FACP posthemorrhagic Hospitalists anemia I50.33 Acute on chronic diastolic (congestive) heart failure D50.9 Iron deficiency anemia, unspecified I48.91 Unspecified atrial fibrillation I10 Essential (primary) hypertension E78.5 Hyperlipidemia, unspecified Z87.19 Personal history of other diseases of the digestive system E66.9 Obesity, unspecified M19.90 Unspecified osteoarthritis, unspecified site M54.5 Low back pain Office [facility]62 Acute 9:58a juan daniel Alatorre M.D.,FACP posthemorrhagic Hospitalists anemia I48.91 Unspecified atrial fibrillation Office Visit 05/07/2019 [facility] R06.00 Dyspnea, 9:58a Assoc,[facility] unspecified Hospitalists D64.9 Anemia, unspecified I50.9 Heart failure, unspecified I48.91 Unspecified atrial fibrillation E78.5 Hyperlipidemia, unspecified M54.5 Low back pain Office Visit 04/10/2019 11:00a [facility] Aj Emeli, S82.232D Displ oblique at [place] fx shaft of l tibia, 7thD Assessments Date Code Description Provider 09/13/2019 I48.91 Unspecified atrial fibrillation Rebecca Wong [...] 05/09/2019 M54.5 Low back pain [facility].,[facility] 05/08/2019 I50.9 Heart failure, unspecified Elijah Ibrahim M.D. 05/08/2019 D62 Acute posthemorrhagic anemia Ziyad Boykin M.D.,FACP 05/08/2019 I48.91 Unspecified atrial fibrillation [facility]kin [facility]D., [facility] 05/07/2019 R06.00 Dyspnea, unspecified Acacia Parks, [place] 05/07/2019 D64.9 Anemia, unspecified Acacia Parks, [place] 05/07/2019 I50.9 Heart failure, unspecified Acacia Parks, [place] 05/07/2019 I48.91 Unspecified atrial fibrillation Acacia Parks, [place] 05/07/2019 E78.5 Hyperlipidemia, unspecified Acacia Parks, [place] 05/07/2019 M54.5 Low back pain Acacia Parks, [place] 04/10/2019 S82.232D Displaced oblique fracture of shaft Aj Sainz MD of left tibia, subsequen Plan of Treatment 06/09/2019 - Rebecca Wong M.D.R06.02 Shortness of breathComments:Likely multifactorial from lung issues, anemia, weight, deconditioning.Recommendations: I will communicate with Dr Houston about nebulizer medication/medications for bronchospasm/asthma.J94.9 Pleural condition, unspecifiedFollow up:Option of f/u OV with Tatyana Foster FI[employer] INVESTIGATION MANAGER 2 weeks to 2 months.I48.0 Paroxysmal atrial fibrillationComments:You are in the normal rhythm today, good rate control. Good intervals on Flecainide.I10 Essential (primary) hypertensionComments:Well controlledRecommendations:Continue current urhexeozwlfV47.9 Anemia, unspecifiedComments:Taking Iron x 1 rrqhgS86.909 Unspecified asthma, uncomplicated Functional Status Description No Information Available Mental Status Description No Information Available Referrals Description No Information Available
[2019-10-02] MEDS ORDERED: Albuterol/Ipratropium NEB.SOL* Albuterol 2.5 MG/Ipratropium 0.5 MG 3 ML INH ONE (12:09)
[2019-10-02 12:19] LABS: Hematocrit 34 % (35-47); Hemoglobin 11.4 g/dL (12.0-16.0); Mean Corpuscular HGB Conc 33 g/dL (31-36); Mean Corpuscular Hemoglobin 30 pg (27-31); Mean Corpuscular Volume 89 fL (80-97); Mean Platelet Volume 8.6 fL (7.4-10.4); Platelet Count 270 10^3/uL (150-450); Red Blood Count 3.85 10^6 /uL (3.70-4.87); Red Cell Distribution Width 15 % (10-15); White Blood Count 6.3 10^3/uL (3.5-10.8)
--- NOTE | 2019-10-02 12:23 | ED ---
HPI Chest Pain - HPI Summary HPI Summary: The patient is a 69 y/o F presenting to [facility] with a chief complaint of diffuse chest pain and gradually worsening SOB since 0400 this morning. She reports she woke up this morning with mild SOB and used her inhaler to some relief. She developed chest pain around 0500 this morning but thought that it would resolve itself as it usually does after lasting a few minutes, but the pain has been more constant than usual. She describes the pain as stabbing rated 9/10 in severity. The pain is onset at rest and with exertion, but there are no specific aggravating factors. She endorses intermittent dizziness. She has chronic BLE edema. She notes history of atrial fibrillation with multiple cardioversions, but she is expected to have a pacemaker placed. She is currently on Eliquis. PMHx: CHF, HLD, HTN, chronic bronchitis, PNA, TIA. FHx: cardiac disease. Former smoker, rare EtOH, excessive caffeine use. Medications reviewed. Allergies noted. - History of Current Complaint Chief Complaint: EDChestPainROMI Time Seen by Provider: 10/02/19 12:06 Hx Obtained From: Patient Onset/Duration: Started Hours Ago, Still Present Time of Onset: 05:00 Timing: Constant, Lasting Hours Initial Severity: Moderate Current Severity: Severe Pain Intensity: 9 Pain Scale Used: 0-10 Numeric Chest Pain Location: Diffuse Chest Pain Radiates: No Character: Sharp/Stabbing Aggravating Factor(s): Nothing Alleviating Factor(s): Nothing - for CP, Other: - inhaler helped with SOB Associated Signs and Symptoms: Positive: Chest Pain, Dizziness, Shortness of Breath - Additional Pertinent History Primary Care Physician: LIDIA - Allergy/Home Medications Allergies/Adverse Reactions: Allergies Allergy/AdvReac Type Severity Reaction Status Date / Time codeine Allergy Severe Anaphylatic Verified 10/02/19 12:03 Shock Penicillins Allergy Severe Anaphylatic Verified 10/02/19 12:03 Shock venom-honey bee Allergy Severe Anaphylatic Verified 10/02/19 12:03 Shock nitroglycerin Allergy Intermediate Hives Verified 10/02/19 12:03 latex Allergy Mild Rash Verified 10/02/19 12:03 vancomycin Allergy Mild Pain Verified 10/02/19 12:03 chocolate flavor Allergy Vomiting Verified 10/02/19 12:03 nitrofurantoin Allergy Hives Verified 10/02/19 12:03 [From Macrodantin] aspirin AdvReac Intermediate GI Upset Verified 10/02/19 12:03 Home Medications: Home Medications Cyclobenzaprine TAB* [Flexeril 10 MG TAB*] 10 mg PO TID PRN 10/02/19 [History Confirmed 10/02/19] Ferrous Sulfate TAB* 325 mg PO DAILY 10/02/19 [History Confirmed 10/02/19] Montelukast Sodium TAB* [Singulair TAB*] 10 mg PO DAILY 10/02/19 [History Confirmed 10/02/19] Multivitamins/Minerals TAB* [Theragran/minerals TAB*] 1 tab PO DAILY 10/02/19 [ History Confirmed 10/02/19] PMH/Surg Hx/FS Hx/Imm Hx Endocrine/Hematology History: Reports: Hx Anticoagulant Therapy - eliquis Denies: Hx Diabetes, Hx Thyroid Disease, Hx Anemia, Hx Unexplained Bleeding Cardiovascular History: Reports: Hx Angina, Hx Atrial Fibrillation, Hx Congestive Heart Failure, Hx Hypercholesterolemia, Hx Hypertension, Other Cardiovascular Problems/Disorders - tia 2008 Denies: Hx Aneurysm, Hx Angioplasty, Hx Auto Implanted Cardiovert Defib, Hx Cardiac Arrest, Hx Cardiomegaly, Hx Congenital Heart Disease, Hx Coronary Artery Disease, Hx Deep Vein Thrombosis, Hx Embolism, Hx Myocardial Infarction, Hx Pacemaker/ICD, Hx Peripheral Vascular Disease, Hx Rheumatic Fever, Hx Syncope , Hx Valvular Heart Disease Respiratory History: Reports: Hx Chronic Bronchitis, Hx Pneumonia, Other Respiratory Problems/Disorders - pneumonia 1 year ago Denies: Hx Asthma, Hx Chronic Obstructive Pulmonary Disease (COPD) GI History: Reports: Hx Ulcer History: Denies: Hx Renal Disease Musculoskeletal History: Reports: Hx Arthritis, Hx Back Problems - chronic pain - no definitive dx Sensory History: Reports: Hx Contacts or Glasses Denies: Hx Cataracts, Hx Eye Injury, Hx Eye Prosthesis, Hx Glaucoma, Hx Legally Blind, Hx Macular Degeneration, Hx Deafness, Hx Hearing Aid, Hx Hearing Problem, Other Sensory Impairments Opthamlomology History: Reports: Hx Contacts or Glasses Denies: Hx Cataracts, Hx Eye Injury, Hx Eye Prosthesis, Hx Glaucoma, Hx Legally Blind, Hx Macular Degeneration, Other Sensory Impairments Neurological History: Reports: Hx Migraine, Hx Transient Ischemic Attacks (TIA) - 2008 Denies: Hx Dementia, Hx Developmental Delay, Hx Headaches, Hx Nerve Disease, Hx Seizures, Hx Spinal Cord Injury, Other Neuro Impairments/Disorders Psychiatric History: Denies: Hx Panic Disorder - DIFFICULTY BREATHY WHILE LAYING FLAT - Cancer History Cancer Type, Location and Year: Uterine cancer 15 + years ago - Surgical History Surgical History: Yes Surgery Procedure, Year, and Place: Breast Reduction, Bilat Knee Replacement, Right Shoulder Replacement, Appendectomy, Hysterectomy, Left Hip replacement Hx Anesthesia Reactions: No - Immunization History Date of Tetanus Vaccine: unk Date of Influenza Vaccine: unk Infectious Disease History: No Infectious Disease History: Reports: Hx of Known/Suspected MRSA Denies: Hx Hepatitis, Hx Human Immunodeficiency Virus (HIV), History Other Infectious Disease, Traveled Outside the [place] in Last 30 Days - Family History Known Family History: Positive: Cardiac Disease, Hypertension, Other - CA - sister, mother, father - Social History Alcohol Use: Rare Alcohol Amount: once a year Hx Substance Use: Yes Substance Use Type: Reports: Excessive Caffeine Substance Use Comment - Amount & Last Used: 8-10 cups/day Hx Tobacco Use: Yes Smoking Status (MU): Former Smoker Type: Cigarettes Amount Used/How Often: 1 pack per week Length of Time of Smoking/Using Tobacco: 9 years Have You Smoked in the Last Year: No Review of Systems Positive: Chest Pain Positive: Shortness Of Breath Neurological: Other - dizziness All Other Systems Reviewed And Are Negative: Yes Physical Exam - Summary Physical Exam Summary: Appearance: The patient is well-nourished in no acute distress and in no acute pain. Skin: The skin is warm and dry, and skin color reflects adequate perfusion. HEENT: The head is normocephalic and atraumatic. The pupils are equal and reactive. The conjunctivae are clear and without drainage. Nares are patent and without drainage. Mouth reveals moist mucous membranes, and the throat is without erythema and exudate. The external ears are intact. The ear canals are patent and without drainage. The tympanic membranes are intact. Neck: The neck is supple with full range of motion and non-tender. There are no carotid bruits. There is no neck vein distension. Respiratory: Chest is non-tender. There are diffuse expiratory wheezes and a tight cough. Breath sounds are symmetrical and equal. Cardiovascular: Heart is regular rate and rhythm. There is no murmur or rub auscultated. There is mild peripheral edema worse in the right leg than the left. Pulses are symmetrical and equal. Abdomen: The abdomen is soft and non-tender. There are normal bowel sounds heard in all four quadrants and there is no organomegaly palpated. Musculoskeletal: There is no back tenderness noted. Extremities are non-tender with full range of motion. There is good capillary refill. There is mild peripheral edema worse in the right leg than the left. There is no calf tenderness elicited. Neurological: Patient is alert and oriented to person, place and time. The patient has symmetrical motor strength in all four extremities. Cranial nerves are grossly intact. Deep tendon reflexes are symmetrical and equal in all four extremities. Psychiatric: The patient has an appropriate affect and does not exhibit any anxiety or depression. Triage Information Reviewed: Yes Vital Signs On Initial Exam: Initial Vitals Temp Pulse Resp BP Pulse Ox 99.5 F 111 20 116/81 98 10/02/19 12:01 10/02/19 12:01 10/02/19 12:01 10/02/19 12:01 10/02/19 12:01 Vital Signs Reviewed: Yes Procedures - Sedation Patient Received Moderate/Deep Sedation with Procedure: No Diagnostics - Vital Signs Vital Signs Temp Pulse Resp BP Pulse Ox 10/02/19 12:01 99.5 F 111 20 116/81 98 - Laboratory Result Diagrams: 10/02/19 12:09 10/02/19 12:09 Lab Statement: Any lab studies that have been ordered have been reviewed, and results considered in the medical decision making process. - Radiology CXR Radiology Interpretation Completed By: Radiologist Summary of Radiographic Findings: Impression: No active cardiopulmonary disease. ED physician has reviewed this imaging report. - EKG 1155 Cardiac Rate: Other Rate - 111 bpm EKG Rhythm: Atrial Fibrillation Summary of EKG Findings: An EKG at 1155 reveals atrial fibrillation at 111 bpm, no STEMI. ED physician has reviewed and interpreted this EKG. Re-Evaluation - Re-Evaluation First Eval Re-Evaluation Time: 13:10 Comment: We discussed results and plan for admission. Chest Pain Course/Dx - Course Course Of Treatment: Ms. Giraldo presented with a COPD exacerbation that started today. It is complicated by the fact that she is having chest pain also. She was placed on a monitor and given duo neb while labs, EKG and chest x-ray were obtained. I spoke with the hospitalist service about admitting her. I do not think she has an acute infectious process. - Diagnoses Provider Diagnoses: COPD exacerbation, Chest pain - Provider Notifications Discussed Care Of Patient With: Susan Enciso - hospitalist Time Discussed With Above Provider: 13:05 Instructed by Provider To: Other - I discussed the patient's case with Dr. Enciso, who accepts the patient for admission. Discharge ED - Sign-Out/Discharge Documenting (check all that apply): Patient Departure - Patient accepted for admission by Dr. Enciso. - Discharge Plan Condition: Stable Disposition: ADMITTED TO [facility] - Billing Disposition and Condition Condition: STABLE Disposition: Admitted to [facility] - Attestation Statements Document Initiated by Yancy: Yes Documenting Scribe: Racquel Hung Provider For Whom Yancy is Documenting (Include Credential): Dr. Bradley Ribera MD Scribe Attestation: Racquel Andrade scribed for Dr. Bradley Ribera MD on 10/02/19 at 1722. Scribe Documentation Reviewed: Yes Provider Attestation: The documentation as recorded by the Racquel sheffield accurately reflects the service I personally performed and the decisions made by me, Dr. Bradley Ribera MD Status of Scribe Document: Viewed
[2019-10-02 12:28] LABS: INR 1.32 (0.82-1.09)
[2019-10-02 12:38] LABS: Albumin 3.9 g/dL (3.2-5.2); Albumin/Globulin Ratio 1.4 (1-3); Calcium 9.3 mg/dL (8.6-10.3); EGFR African American 56.3 (>60); EGFR Non-African American 46.5 (>60); Globulin 2.7 g/dL (2-4); Potassium 3.7 mmol/L (3.5-5.0); Total Bilirubin 0.6 mg/dL (0.2-1.0); Total Protein 6.6 g/dL (6.4-8.9); Troponin I 0.02 ng/mL (<0.03)
[2019-10-02 13:28] LABS: ABS Eosinophils 0.1 10^3/ul (0-0.6); ABS Lymphocytes 1.2 10^3/ul (1.0-4.8); ABS Monocytes 0.5 10^3/ul (0-0.8); ABS Neutrophils 4.4 10^3/ul (1.5-7.7); Eosinophil % 2.2 %; Lymphocyte % 18.4 %; Nucleated Red Blood Cells % 0.2
[2019-10-02] MEDS ORDERED: Albuterol HFA INHALER* 8 gm MDI INH PRN (14:02)
[2019-10-02] MEDS ORDERED: Cyclobenzaprine TAB* 10 MG PO PRN (14:02)
[2019-10-02] MEDS ORDERED: Diltiazem TAB* 30 MG PO ONE (14:04)
[2019-10-02] MEDS ORDERED: methylPREDNISolone SOD 40 MG* 1 ML VIAL IV ONE (14:47)
[2019-10-02] MEDS ORDERED: Furosemide IV* 10 MG/ML VIAL (40 MG) IV SLOW PU ONE (14:49)
--- NOTE | 2019-10-02 17:20 | HP ---
CC: Dr. Méndez; Dr. Wong HISTORY AND PHYSICAL: DATE OF ADMISSION: 10/02/19 TIME OF EVALUATION: 1:55 p.m. PRIMARY CARE PROVIDER: Dr. Méndez. STUDIO ARTIST: Dr. Wong. CHIEF COMPLAINT: Shortness of breath and chest pain. HISTORY OF PRESENT ILLNESS: Ms. Giraldo is a 69-year-old female with a past medical history of upper GI bleed secondary to gastric ulcer and severe esophagitis, paroxysmal atrial fibrillation, hyperlipi demia, uterine cancer, hypertension, obstructive sleep apnea, iron-deficiency anemia, who presents to the emergency room with complaints of shortness of breath and chest pain. The patient was admitted to [facility] in July 2019 with similar complaints. At that point, the impressi on was that her symptoms were secondary to acute diastolic congestive heart failure and atrial fibril lation. She also had acute bronchitis and reactive airway disease exacerbation. The patient states that she has had episodes of shortness of breath with wheezing on and off for at east 1 year. She states that after the admission in July, she was feeling well and was able to go on with her activities of daily living, but over the weekend, she started to have shortness of breat h again to the point that today she was not able to go to work and the shortness of breath was accomp anied by chest pressure, reason why she came to the emergency room for further evaluation. She denies fever, chills, or palpitations, although she was in rapid AFib when she got to the emergen cy room. The patient's has had a cold recently, but his symptoms resolved. 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 PAST MEDICAL HISTORY: 1. Upper GI bleed secondary to gastric ulcer and severe erosive esophagitis with Gaston's esophagus . 2. Paroxysmal atrial fibrillation, on rhythm control with flecainide and anticoagulation with Eliqui s. 3. Hyperlipidemia. 4. Uterine CA. 5. Hypertension. 6. Obstructive sleep apnea, noncompliant with CPAP. 7. Recent admission for diastolic CHF exacerbation, acute bronchitis, and reactive airway disease. 8. Vitamin D deficiency. 9. Iron-deficiency anemia. PAST SURGICAL HISTORY: 1. Status post left total hip replacement. 2. Status post fall with ORIF of the left tib-fib fracture. 3. Status post bilateral knee replacement. 4. Status post right shoulder arthroplasty. 5. Status post breast reduction. 6. Status post right rotator cuff surgery. 7. Status post appendectomy. 8. Status post hysterectomy. 9. History of vocal cord surgery. MEDICATION LIST: 1. Albuterol 2.5 mg nebulized q.4 hours p.r.n. shortness of breath and wheezing. 2. Albuterol HFA 2 puffs inhaled q.4 hours p.r.n. shortness of breath and wheezing. 3. Apixaban 5 mg p.o. b.i.d. 4. Aspirin 81 mg p.o. daily. 5. Calcium plus vitamin D 1 tablet p.o. b.i.d. 6. Cyclobenzaprine 10 mg p.o. t.i.d. as needed for pain. 7. Cartia XT 180 mg p.o. daily. 8. Ferrous sulfate 325 mg p.o. daily. 9. Flecainide 100 mg p.o. b.i.d. 10. Fluticasone 110 mcg 2 puffs inhaled b.i.d. 11. Furosemide 40 mg p.o. daily. 12. Montelukast 10 mg p.o. daily. 13. Multivitamin 1 tablet p.o. daily. 14. Pantoprazole 40 mg p.o. daily. 15. Vitamin B complex 1 capsule p.o. daily. 16. Vitamin E 400 units p.o. daily. ALLERGIES: The patient had anaphylactic shock with CODEINE, PENICILLIN, and BEE VENOM. She had hive s with NITROGLYCERIN, rash with LATEX, pain with VANCOMYCIN. She vomits with CHOCOLATE, hives with NI TROFURANTOIN, and she has GI upset with ASPIRIN, but she is able to tolerate it. FAMILY HISTORY: Her mother in a house fire. Father had a history of ME and CVA. SOCIAL HISTORY: The patient was a smoker and she quit 30 years ago. No history of alcohol or drug u se. Surrogate decision maker is her , Alex Giraldo, phone number is [phone]. 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 REVIEW OF SYSTEMS: A 14-point review of systems was performed and all the pertinent negative and pos itive findings are in the HPI. PHYSICAL EXAMINATION GENERAL: The patient is a pleasant, morbidly obese, elderly lady, sitting up in the ED stretcher, in no acute distress. VITAL SIGNS: Temperature 99.5, heart rate is 94, respiratory rate is 22, oxygen saturation 99% on 3 L nasal cannula, blood pressure is 111/81. HEENT: Pupils are equal. Moist mucous membranes. CHEST: Breath sounds present bilaterally, diminished, with scattered wheezing and bibasilar crackles . CVS: Normal S1, S2. Irregularly irregular. ABDOMEN: Obese, soft, nontender, nondistended. Bowel sounds present. EXTREMITIES: There is bilateral moderate pitting edema. NEURO: She is alert and oriented x3. Able to move all 4 extremities. DIAGNOSTIC STUDIES/LAB DATA: The patient had a CBC that showed a WBC of 6.3, hemoglobin of 11.4, he matocrit of 34, platelets of 270 with 70% neutrophils. INR was 1.32, D-dimer less than 200. Improvement Intern ry showed a sodium of 138, potassium of 3.7, chloride of 102, bicarb of 28, BUN 23, creatinine is 1.1 5, glucose is 108, calcium is 9.3. LFTs are normal. Troponin is 0.02. BNP is 310. EKG done on 10/02/19 at 11:55 a.m. showed atrial fibrillation at 111 beats per minute with no acute i schemic changes. She was in sinus rhythm on her last EKG on 09/14/19. Chest x-ray was read as no active cardiopulmonary disease. ASSESSMENT AND PLAN: Ms. Giraldo is a 69-year-old female with a past medical history of gastrointesti nal bleed secondary to gastric ulcer and erosive esophagitis, hyperlipidemia, uterine cancer, hyperte nsion, obstructive sleep apnea, diastolic congestive heart failure, recent admission for bronchitis a nd reactive airway disease exacerbation, who presents to the emergency room with complaints of shortn ess of breath and chest pain, likely secondary to a combination of viral infection, atrial fibrillati on with rapid ventricular rate and diastolic congestive heart failure exacerbation. 1. Acute hypoxemic respiratory failure. The patient had oxygen saturation in the 80s on room air an d now she is up to 99% on 3 L nasal cannula. I believe this is multifactorial and likely started wit h a viral infection as she has a sick contact at home and was followed by conversion into atrial fibr illation and that probably put her into congestive heart failure again. We will continue supplementa l oxygen. 2. Acute viral bronchitis. The patient does not have signs of bacterial infection at this time and she did have a sick contact at home. We will continue bronchodilators, montelukast, and inhaled ster oids. We will do a 5-day burst of prednisone. The patient has a history of tobacco abuse, but she q uit more than 30 years ago. I believe she would benefit from pulmonary evaluation including PFTs as an outpatient. 3. Diastolic congestive heart failure. On her prior admission, the patient had a transthoracic echo cardiogram that showed ejection fraction of 55% to 60% with [id number] dilation of the left a trium, moderate mitral regurgitation, mild tricuspid regurgitation. Her mitral regurgitation seemed to have progressed from her prior echo. The patient will receive furosemide IV and we will continue to monitor her fluid status. 4. Atrial fibrillation. The patient was cardioverted on 09/13/[address] Wong and she is already back into atrial fibrillation. I believe part of the issue is her acute viral infection, but I suspe ct her untreated obstructive sleep apnea is certainly adding to the difficulty of keeping her in norm al sinus rhythm. She was seen by Dr. Wong on 09/26/19 and on that visit she was already in atrial fibrillation. The recommendation was to discontinue flecainide and Dr. Wong was going to make ar rangements for possible ablation followed by pacemaker. Her tentative plan was to get a Holter as an outpatient and increase the patient's diltiazem dose eventually. On that visit, the patient already had lower extremity edema that she felt was secondary to venous insufficiency. On that visit, she a lready had wheezing too and as per documentation, she was waiting to see a lap machine operator as an outpat ient. So for now, I am going to give an extra dose of diltiazem 30 mg now and monitor her heart rate . Continue her Eliquis. 5. Reactive airway disease. The patient has not been formally diagnosed with chronic obstructive pu lmonary disease, even though she has a history of tobacco abuse. I will continue her bronchodilators and inhaled steroids and depending on her progression, she may benefit from pulmonary evaluation in the hospital. 6. History of gastric ulcer and erosive esophagitis. We will continue pantoprazole. 7. DVT prophylaxis: The patient has a score of 4 on the DVT Prophylaxis Risk Assessment Guide and s he will be continued on her apixaban. 8. Code status is full. TIME SPENT: Approximately 60 minutes was spent with the patient's interview, medical records review, physical examination to complete this admission, more than half of this time was spent [id number] with the patient and coordination of care. [id number]/[facility] #: [id number]
[2019-10-02] MEDS: Mometasone 220 MCG MDI INH SCH (20:58)
[2019-10-02] MEDS ORDERED: Flecainide TAB* 100 MG PO SCH (21:00)
[2019-10-02] MEDS: Apixaban* 5 MG TAB PO SCH (21:24)
[2019-10-02] MEDS: ZINC PO SCH (21:26)
[2019-10-02] MEDS: MAGNESIUM PO SCH (21:26)
[2019-10-02] MEDS: CALCIUM CARB PO SCH (21:26)
[2019-10-02] MEDS: D3 PO SCH (21:26)
[2019-10-03] MEDS: Montelukast Sodium TAB* 10 MG PO SCH (08:26)
[2019-10-03] MEDS: Ferrous Sulfate TAB* 325 MG PO SCH (08:26)
[2019-10-03] MEDS: Aspirin EC TAB* 81 MG TAB.EC PO SCH (08:26)
[2019-10-03] MEDS: Apixaban* 5 MG TAB PO SCH ×2 (08:26→20:34)
[2019-10-03] MEDS: Multivitamins/Minerals TAB PO SCH (08:26)
[2019-10-03] MEDS: Vitamin E CAP* 400 UNIT PO SCH (08:27)
[2019-10-03] MEDS: MAGNESIUM PO SCH ×2 (08:27→20:33)
[2019-10-03] MEDS: Pantoprazole TAB * 40 MG TAB PO SCH (08:27)
[2019-10-03] MEDS: D3 PO SCH ×2 (08:27→20:33)
[2019-10-03] MEDS: ZINC PO SCH ×2 (08:27→20:33)
[2019-10-03] MEDS: CALCIUM CARB PO SCH ×2 (08:27→20:33)
[2019-10-03] MEDS: Vitamin B Complex TAB PO SCH (08:28)
[2019-10-03] MEDS ORDERED: Diltiazem CD CAP* 180 MG PO SCH ×2 (09:00)
[2019-10-03] MEDS ORDERED: Potassium Chlor TAB* 20 MEQ TAB.ER PO ONE (09:10)
--- NOTE | 2019-10-03 11:24 | CONS ---
CONSULTATION REPORT: DATE OF CONSULT: 10/02/19 ATTENDING PHYSICIAN: Dr. Elijah Ibrahim. PRIMARY [employer] CAR[employer]ER: Dr. Rebecca Wong. PRIMARY PHYSICIAN: Dr. Méndez. REASON FOR CONSULTATION: Management of atrial fibrillation. CHIEF COMPLAINT: Shortness of breath, lightheadedness, chest pain. HISTORY OF PRESENT ILLNESS: This is a 69-year-old female patient who follows with Dr. Rebecca Wong of our practice due to history of paroxysmal AFib, on diltiazem and Eliquis therapy; diastolic dysfunction; hypertension; hyperlipidemia; previous GI bleed due to gastric ulcer; moderate mitral insufficiency; morbid obesity; and obstructive sleep apnea. The patient was recently admitted on 08/15/19 due to complaints of chest pain, AFib, and shortness of breath. It appears that the patient underwent a transesophageal echo with cardioversion on 09/13/19. She was on flecainide therapy and follow up on 09/25/19, she was taken off of flecainide therapy and was asked to wear a 24-hour Holter monitor, which is scheduled for 10/13/19 to further direct dose adjustment of diltiazem therapy. She was approached in regards to AV silva ablation with permanent pacemaker implant versus Tikosyn therapy. She has known medication non adherence thus Tikosyn was not recommended. The patient states that she is interested in having an elective AV silva ablation with permanent pacemaker implantation. She states that she was feeling great up until yesterday morning around 0200 when she woke up with shortness of breath. She states that shortness of breath was persistent. She went to work around 7 o'clock and was sent home by 10 a.m. She states around 10 a.m. is when the shortness of breath became severe in intensity with associated chest pain. She admits to having a productive cough with green sputum over the course of the last 2 to 3 weeks. She denies wheeziness, does report increased shortness of breath and reports dizziness that occurred yesterday with other symptoms. She denies fever, nausea, vomiting, diarrhea. She has known chronic left greater than right lower extremity edema, which she states improved with elevation and rest. She denies weight gain or abdominal distention. Denies palpitations. While in the emergency department, basic blood work was obtained. Troponin has been negative x3. BNP was elevated at 310. She was found to be AFib with rapid ventricular rate response. Rate was 111. She was given extra 30 mg dose of p.o. diltiazem and admitted to [address] [place] [address]. We were asked to see the patient in consultation due to history of AFib refractory to cardioversion. Last echocardiogram was via transesophageal echocardiography on 09/13/19 per report; LVEF 55% to 60%. She has known [id number] left atrial dilatation, [id number] mitral insufficiency, trace aortic insufficiency, mild tricuspid regurgitation. Last ischemic evaluation on 02/03/19. Per report, exercise portion was nondiagnostic due to failure to achieve 85% of maximum predicted heart rate. She only achieved 1.8 [place]. She had a previous MPI nuclear scan on 11/22/17. Per report at that time, there was no evidence of infarct or ischemia. LVEF 53% . PAST MEDICAL HISTORY: 1. Paroxysmal AFib. 2. Obesity. 3. Medication nonadherence. 4. Upper GI bleed due to gastric ulcer. 5. Erosive esophagitis. 6. Gaston's esophagus. 7. Hyperlipidemia. 8. Uterine cancer. 9. Hypertension. 10. Obstructive sleep apnea. 11. Iron deficiency anemia. 12. Diastolic dysfunction. 13. Moderate mitral insufficiency. PAST SURGICAL HISTORY: 1. Hysterectomy. 2. ORIF of the left hip due to fracture. 3. Bilateral knee replacement. 4. Right shoulder arthroplasty. 5. Breast reduction. 6. Right rotator cuff surgery. 7. Appendectomy. 8. Vocal cord surgery. HOME MEDICATIONS: Listed on medical record includes: 1. Vitamin E 400 units p.o. daily. 2. Protonix 40 mg a day. 3. Singulair 10 mg p.o. daily. 4. Lasix 40 mg a day. 5. Flovent HFA 110 mcg 2 puffs inhalation b.i.d. 6. Diltiazem 180 mg a day. 7. Ferrous sulfate 325 mg a day. 8. Multivitamin 1 tablet p.o. daily. 9. Flexeril 10 mg p.o. t.i.d. p.r.n. 10. Aspirin 81 mg a day. 11. Eliquis 5 mg p.o. b.i.d. 12. Ventolin HFA as directed. ALLERGIES: Listed includes CODEINE, PENICILLIN, BEE VENOM, which apparently cause anaphylactic shock. She also reports hives when given NITROGLYCERIN, LATEX or VANCOMYCIN. She is sensitive to chocolate which causes vomiting and also reports GI upset with ASPIRIN. FAMILY HISTORY: Noncontributory. SOCIAL HISTORY: The patient is a former tobacco user, quit over 30 years ago, drinks alcohol rarely, denies illegal drug use. 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 She is and lives at home with her . She ambulates independently. Denies falls. REVIEW OF SYSTEMS: All systems have been reviewed and are otherwise negative, except as above mentioned in the HPI. PHYSICAL EXAM: General: The patient is sitting on the edge of bed looking out of window. Upon entering the room, she appears in no apparent distress. She is cooperative with the examination. Vital Signs: Temperature 97.6, pulse 136 , respirations 18, oxygenation 95% on room air, blood pressure 131/87. HEENT: Head is atraumatic and normocephalic. Oral mucosa is moist. Tongue is midline. Neck: Supple. Trachea midline. Unable to assess her JVD due to the patient's body habitus. Cardiac: Tachycardic S1, S2, irregular rate and rhythm. No murmur, rub or gallop noted. Lungs: Auscultated posteriorly diminished throughout. No adventitious breath sounds auscultated. However, she has audible wheezing noted with conversation. No retractions. /GI: Abdomen is obese, protuberant, nontender, normoactive bowel sounds, unable to assess for hepatomegaly due to the patient's body habitus. Extremities: The patient has trace pretibial edema noted with hyperpigmentation noted of the lower extremities consistent with venous insufficiency. No rashes or ulcers appreciated. Peripheral Vascular: 3+ brachial pulses palpated bilaterally and symmetrically; 2+ dorsalis pedis pulse palpated bilaterally and symmetrically. DIAGNOSTIC STUDIES/LAB DATA: Sodium 138, potassium 3.7, chloride 102, carbon dioxide 28, BUN 23, creatinine 1.15, glucose 108. BNP 310. Troponin negative x2. INR 1.32. ECG from 10/02/19; reviewed AFib, rate 111. No ST abnormalities appreciated. Chest x-ray 10/02/19; no active cardiopulmonary disease. ASSESSMENT AND PLAN: 1. Paroxysmal atrial fibrillation; the patient is currently in atrial fibrillation with labile heart rate control, heart rate 100 to 120. She appears to be asymptomatic. She does report a 2 to 3 week period of increased shortness of breath, audible wheezing and sputum production not clear that this is related to atrial fibrillation. It is likely related to underlying pulmonary process. The patient's CHADs/VASc is 3. She is on Eliquis 5 mg p.o. b.i.d. Flecainide was recently discontinued. Considerations for adjustment of diltiazem therapy was considered; however, 24-hour Holter monitor was ordered to ensure no nocturnal bradycardia. The patient was given an extra 30 mg dose of p.o. diltiazem last night and has been tolerating. There has been no evidence of pauses or bradycardia. When the patient is in sinus rhythm, her ventricular rate is usually 60 to 75. Thus, we will increase diltiazem to 240 mg a day. Unfortunately, she was already given 120 mg extended release diltiazem early this morning, thus 240 a day we will start tomorrow 10/04/19. She is to follow up as outpatient for referral for AV silva ablation with permanent pacemaker implantation. She has known amount of severe left atrial dilation and seems to have refractory atrial fibrillation with cardioversions. 2. Complains of increased shortness of breath, audible wheezing, and sputum production. We will defer to primary team. She states historically, she was seen by a gear grinder at [facility], records have been requested. 3. History of moderate mitral insufficiency. She appears compensated on physical examination. She has known chronic left greater than right lower extremity edema that she reports improves with elevation and rest consistent with venous insufficiency. She has minimal BNP elevation. Recommend continuing oral diuretic. 4. History of renal insufficiency, baseline creatinine 1.0 to 1.1, appears stable. 5. Disposition. Pending course. Dr. Elijah Ibrahim has personally seen and examined the patient and agrees with the above assessment and plan. Please do not hesitate to contact our practice with any future questions or concerns. RAYNA HODGSON NP [id number]/[place] #: [id number] [place]
[2019-10-03] MEDS: Diltiazem TAB* 30 MG PO SCH ×2 (12:46→16:44)
[2019-10-03] MEDS: Albuterol 2.5 MG/3 ML NEB.SOL* (0.083%) INH PRN ×2 (14:58→19:56)
--- NOTE | 2019-10-03 19:36 | PN ---
Subjective Date of Service: 10/03/19 Interval History: Patient seen today. Still have some shortness of breath but improved when compared to her admission. otherwise no acute events. Cardiology input noted and appreciated. some medication changes. HR still variable 90-120's Past Medical History: Unchanged from Admission Objective Active Medications: Albuterol (Ventolin 2.5 Mg/3 Ml Neb.Tierra*) 2.5 mg INH Q4H PRN PRN Reason: shortness of breath Last Admin: 10/03/19 14:58 Dose: 2.5 mg Albuterol (Ventolin Hfa Inhaler*) 2 puff INH Q4H PRN PRN Reason: WHEEZING Last Admin: 10/03/19 09:35 Dose: 2 puff Apixaban (Eliquis*) 5 mg PO BID [facility] Last Admin: 10/03/19 08:26 Dose: 5 mg Aspirin (Aspirin Ec Tab*) 81 mg PO DAILY [facility] Last Admin: 10/03/19 08:26 Dose: 81 mg Cyclobenzaprine HCl (Flexeril Tab*) 10 mg PO TID PRN PRN Reason: PAIN - MODERATE Diltiazem HCl (Cardizem Cd Cap*) 240 mg PO DAILY [facility] Ferrous Sulfate (Ferrous Sulfate Tab*) 325 mg PO DAILY [facility] Last Admin: 10/03/19 08:26 Dose: 325 mg Mometasone Furoate (Asmanex 220 Mcg Mdi *) 2 puff INH QPM [facility] Last Admin: 10/02/19 20:58 Dose: Not Given Montelukast Sodium (Singulair Tab*) 10 mg PO DAILY [facility] Last Admin: 10/03/19 08:26 Dose: 10 mg Multivitamins/Minerals (Theragran/Minerals Tab*) 1 tab PO DAILY [facility] Last Admin: 10/03/19 08:26 Dose: 1 tab Calcium Carb/D3/ (Magnesium/Zinc Tab) 1 tab PO BID [facility] Last Admin: 10/03/19 08:27 Dose: Not Given Pantoprazole Sodium (Protonix Tab*) 40 mg PO DAILY [facility] Last Admin: 10/03/19 08:27 Dose: 40 mg Prednisone (Deltasone Tab*) 40 mg PO DAILY [facility] Stop: 10/07/19 09:01 Last Admin: 10/03/19 08:27 Dose: 40 mg Vitamin B Complex/Vitamin E (B Complex-50*) 1 tab PO DAILY [facility] Last Admin: 10/03/19 08:28 Dose: 1 tab Vitamin E (Vitamin E Cap*) 400 unit PO DAILY [facility] Last Admin: 10/03/19 08:27 Dose: 400 unit Vital Signs - 8 hr 10/03/19 15:30 Temperature 98.0 F Pulse Rate 89 Respiratory 22 Rate Blood Pressure 123/64 (mmHg) O2 Sat by Pulse 92 Oximetry Oxygen Devices in Use Now: None Appearance: awake, alert no distress Eyes: No Scleral Icterus, - - EOMI Ears/Nose/Mouth/Throat: NL Teeth, Lips, Gums, Mucous Membranes Moist Neck: NL Appearance and Movements; NL JVP, Trachea Midline Respiratory: Symmetrical Chest Expansion and Respiratory Effort, - - expiratory wheezing Cardiovascular: NL Sounds; No Murmurs; No JVD, - - irregurlarly irregular Abdominal: NL Sounds; No Tenderness; No Distention Neurological: Alert and Oriented x 3 Result Diagrams: 10/02/19 12:09 10/02/19 12:09 Microbiology and Other Data: Microbiology 10/02/19 14:25 Nasal Screen MRSA (PCR) - Final Nasal Mrsa Not Detected Assess/Plan/Problems-Billing Assessment: 69 y/o female admitted for SOB and Afib with RVR - Patient Problems (1) Atrial fibrillation Current Visit: No Status: Acute Priority: Medium Code(s): I48.91 - UNSPECIFIED ATRIAL FIBRILLATION SNOMED Code(s): 26216373 Comment: - Appreciate cardiology input - Her pulse is still variable 100-120's - Recommended increase diltiazem CD to 240 mg daily. (received 180 mg CD today) - Will need outpatient follow up for her AV silva ablation and pacemaker same time - Continue eliquis 5 mg bid and aspirin 81 mg daily (2) (HFpEF) heart failure with preserved ejection fraction Current Visit: No Status: Acute Code(s): I50.30 - UNSPECIFIED DIASTOLIC ( CONGESTIVE) HEART FAILURE SNOMED Code(s): 443304294 Comment: - Chronic diastollic - Mild exacerbation given her wheezing/rales - I suspect mild element of failure due to her episodic of afib and RVR - Will give one dose of lasix 20 mg IV once and reassess in am (3) COPD (chronic obstructive pulmonary disease) Current Visit: Yes Status: Acute Code(s): J44.9 - CHRONIC OBSTRUCTIVE PULMONARY DISEASE, UNSPECIFIED SNOMED Code(s): 96815794 Comment: - On room air - Prednisone 40 mg daily, asmanex, albuterol and singulair (4) CKD (chronic kidney disease) stage 3, GFR 30-59 ml/min Current Visit: No Status: Acute Code(s): N18.3 - CHRONIC KIDNEY DISEASE, STAGE 3 (MODERATE) SNOMED Code(s): 338323453 Comment: - creat better then baseline today - Repeat AM labs (5) HTN (hypertension) Current Visit: No Status: Acute Code(s): I10 - ESSENTIAL (PRIMARY) HYPERTENSION SNOMED Code(s): 17264482 Comment: - Normotensive - Continue Cardizem (6) NANCY (obstructive sleep apnea) Current Visit: No Status: Acute Code(s): G47.33 - OBSTRUCTIVE SLEEP APNEA ( ADULT) (PEDIATRIC) SNOMED Code(s): 03812997 Comment: - Non-Compliant with CPAP - Possibly provoking factor for Afib. (7) UGIB (upper gastrointestinal bleed) Current Visit: No Status: Acute Code(s): K92.2 - GASTROINTESTINAL HEMORRHAGE , UNSPECIFIED SNOMED Code(s): 87041200 Comment: - active bleed - on ppi (8) DVT prophylaxis Current Visit: No Status: Acute Priority: Low Code(s): PWT5706 - SNOMED Code(s): 242465799 Comment: - on Eliquis
[2019-10-03] MEDS ORDERED: Furosemide IV* 10 MG/ML 2 ML VIAL (20 MG) IV ONE (19:45)
[2019-10-03] MEDS: Mometasone 220 MCG MDI INH SCH (19:58)
[2019-10-04 05:22] LABS: ABS Eosinophils 0.1 10^3/ul (0-0.6); ABS Lymphocytes 1.7 10^3/ul (1.0-4.8); ABS Monocytes 0.7 10^3/ul (0-0.8); ABS Neutrophils 5.8 10^3/ul (1.5-7.7); Eosinophil % 0.6 %; Hematocrit 34 % (35-47); Hemoglobin 11.5 g/dL (12.0-16.0); Lymphocyte % 20.4 %; Mean Corpuscular HGB Conc 33 g/dL (31-36); Mean Corpuscular Hemoglobin 29 pg (27-31); Mean Corpuscular Volume 88 fL (80-97); Mean Platelet Volume 8.8 fL (7.4-10.4); Platelet Count 291 10^3/uL (150-450); Red Blood Count 3.92 10^6 /uL (3.70-4.87); Red Cell Distribution Width 15 % (10-15); White Blood Count 8.2 10^3/uL (3.5-10.8)
[2019-10-04 05:40] LABS: BUN/Creatinine Ratio 26.3 (8-20); Calcium 9.2 mg/dL (8.6-10.3); EGFR African American 70.2 (>60); Magnesium 2.3 mg/dL (1.9-2.7); Phosphorus 4.4 mg/dL (2.5-5.0); Potassium 4.1 mmol/L (3.5-5.0)
[2019-10-04] MEDS ORDERED: Diltiazem CD CAP* 240 MG PO SCH (09:00)
--- NOTE | 2019-10-04 09:25 | PN ---
<DavidSarah - Last Filed: 10/04/19 09:30> Subjective Date of Service: 10/04/19 - Persistant AF Interval History: No events last night. patient is anxious to go home. Today will be the first day she recieves higher dose of Cardizem 240mg/day. Yesterday evening she had Afib with RVR 140's. Continues to deny palpitations, sensation of heart racing. States breathing has improved. Medications Active Medications: Albuterol (Ventolin 2.5 Mg/3 Ml Neb.Tierra*) 2.5 mg INH Q4H PRN PRN Reason: shortness of breath Last Admin: 10/03/19 19:56 Dose: 2.5 mg Albuterol (Ventolin Hfa Inhaler*) 2 puff INH Q4H PRN PRN Reason: WHEEZING Last Admin: 10/03/19 09:35 Dose: 2 puff Apixaban (Eliquis*) 5 mg PO BID [facility] Last Admin: 10/03/19 20:34 Dose: 5 mg Aspirin (Aspirin Ec Tab*) 81 mg PO DAILY [facility] Last Admin: 10/03/19 08:26 Dose: 81 mg Cyclobenzaprine HCl (Flexeril Tab*) 10 mg PO TID PRN PRN Reason: PAIN - MODERATE Diltiazem HCl (Cardizem Cd Cap*) 240 mg PO DAILY [facility] Ferrous Sulfate (Ferrous Sulfate Tab*) 325 mg PO DAILY [facility] Last Admin: 10/03/19 08:26 Dose: 325 mg Mometasone Furoate (Asmanex 220 Mcg Mdi *) 2 puff INH QPM [facility] Last Admin: 10/03/19 19:58 Dose: 2 puff Montelukast Sodium (Singulair Tab*) 10 mg PO DAILY [facility] Last Admin: 10/03/19 08:26 Dose: 10 mg Multivitamins/Minerals (Theragran/Minerals Tab*) 1 tab PO DAILY [facility] Last Admin: 10/03/19 08:26 Dose: 1 tab Calcium Carb/D3/ (Magnesium/Zinc Tab) 1 tab PO BID [facility] Last Admin: 10/03/19 20:33 Dose: Not Given Pantoprazole Sodium (Protonix Tab*) 40 mg PO DAILY [facility] Last Admin: 10/03/19 08:27 Dose: 40 mg Prednisone (Deltasone Tab*) 40 mg PO DAILY [facility] Stop: 10/07/19 09:01 Last Admin: 10/03/19 08:27 Dose: 40 mg Vitamin B Complex/Vitamin E (B Complex-50*) 1 tab PO DAILY [facility] Last Admin: 10/03/19 08:28 Dose: 1 tab Vitamin E (Vitamin E Cap*) 400 unit PO DAILY [facility] Last Admin: 10/03/19 08:27 Dose: 400 unit Objective Vital Signs: Temp Pulse Resp BP Pulse Ox 97.7 F 104 21 117/83 95 10/04/19 03:15 10/04/19 03:15 10/04/19 03:15 10/04/19 03:15 10/04/19 03:15 Oxygen Devices in Use Now: None Appearance: sitting on edge of bed. NAD, A+O x3. Eyes: No Scleral Icterus Ears/Nose/Mouth/Throat: NL Teeth, Lips, Gums, Clear Oropharnyx Neck: NL Appearance and Movements; NL JVP, Trachea Midline Respiratory: - - + inspiratory wheezing noted throughout. respirations non labored. Cardiovascular: - - Normal S1, S2. Irregular rate and rhythm. + Mitral murmur Extremities: - - 1+ pretibial edema. Neurological: Alert and Oriented x 3 Lines/Tubes/Other Access: Clean, Dry and Intact Peripheral IV Laboratory Results: 10/04/19 05:12 10/04/19 05:12 INR (Anticoag Therapy) 1.32 (0.82-1.09) H 10/02/19 12:09 Total Bilirubin 0.60 mg/dL (0.2-1.0) 10/02/19 12:09 AST 22 U/L (13-39) 10/02/19 12:09 ALT 18 U/L (7-52) 10/02/19 12:09 Alkaline Phosphatase 93 U/L (34-104) 10/02/19 12:09 B-Natriuretic Peptide 310 pg/mL (<=100) H 10/02/19 12:09 Total Protein 6.6 g/dL (6.4-8.9) 10/02/19 12:09 Albumin 3.9 g/dL (3.2-5.2) 10/02/19 12:09 Globulin 2.7 g/dL (2-4) 10/02/19 12:09 Albumin/Globulin Ratio 1.4 (1-3) 10/02/19 12:09 10/02/19 10/02/19 10/02/19 12:09 15:05 18:25 Troponin I 0.02 0.01 0.02 Laboratory Results - last 24 hr 10/04/19 10/04/19 05:12 05:12 WBC 8.2 RBC 3.92 Hgb 11.5 L Hct 34 L MCV 88 MCH 29 MCHC 33 RDW 15 Plt Count 291 MPV 8.8 Neut % (Auto) 70.0 Lymph % (Auto) 20.4 Banner % (Auto) 8.5 Eos % (Auto) 0.6 Baso % (Auto) 0.5 Absolute Neuts (auto) 5.8 Absolute Lymphs (auto) 1.7 Absolute Monos (auto) 0.7 Absolute Eos (auto) 0.1 Absolute Basos (auto) 0.0 Absolute Nucleated RBC 0.0 Nucleated RBC % 0.0 Sodium 138 Potassium 4.1 Chloride 102 Carbon Dioxide 30 Anion Gap 6 BUN 25 H Creatinine 0.95 Est GFR ( Amer) 70.2 Est GFR (Non-Af Amer) 58.0 BUN/Creatinine Ratio 26.3 H Glucose 101 H Calcium 9.2 Phosphorus 4.4 Magnesium 2.3 EKG Data: Telemetry; Afib rate 90-140. No bradycardia or pauses noted. Assessment/Plan #1 h/o Persistent AF; Chads Vasc > 2 on Eliquis 5mg PO BID. Rates are poorly controlled. Today will be first day receiving Diltiazem 240mg/day. I would like her to stay on telemetry at least until 2 pm so I can determine if dose needs to be adjusted to 360mg/day. Ultimately, she would benefit from AVN ablation with PPM implant. She is scheduled to f/u in our practice within two weeks to address this and get referred to EP. I would still like her to obtain 24 hour holter which is ordered for 10/13/2019 to determine if she is having periods of bradycardia on higher dose CCB. Her pulmonary disease presents a challenge for rate/rhythm control thus, will not proceed with re do CV or AAT at this time. will proceed with rate control approach. #2 h/o COPD; on steroid therapy. Differ to primary team. #3 DHF; appears compensated. I suspect wheezing, sob and green sputum production is due to above #2. She has known bilateral 1+ pitting edema improves with elevation. #4 h/o MR; appears compensated. f/u outpatient. #5 disposition pending course. Patient DNR. Will wait and re assess rate on higher dose CCB and adjust accordingly. Attending: Rosalia Nuno <Rosalia Nuno - Last Filed: 10/04/19 11:54> Medications Active Medications: Albuterol (Ventolin 2.5 Mg/3 Ml Neb.Tierra*) 2.5 mg INH Q4H PRN PRN Reason: shortness of breath Last Admin: 10/03/19 19:56 Dose: 2.5 mg Albuterol (Ventolin Hfa Inhaler*) 2 puff INH Q4H PRN PRN Reason: WHEEZING Last Admin: 10/03/19 09:35 Dose: 2 puff Apixaban (Eliquis*) 5 mg PO BID [facility] Last Admin: 10/04/19 10:11 Dose: 5 mg Aspirin (Aspirin Ec Tab*) 81 mg PO DAILY [facility] Last Admin: 10/04/19 10:11 Dose: 81 mg Cyclobenzaprine HCl (Flexeril Tab*) 10 mg PO TID PRN PRN Reason: PAIN - MODERATE Diltiazem HCl (Cardizem Cd Cap*) 240 mg PO DAILY [facility] Last Admin: 10/04/19 10:11 Dose: 240 mg Ferrous Sulfate (Ferrous Sulfate Tab*) 325 mg PO DAILY [facility] Last Admin: 10/04/19 10:10 Dose: 325 mg Mometasone Furoate (Asmanex 220 Mcg Mdi *) 2 puff INH QPM [facility] Last Admin: 10/03/19 19:58 Dose: 2 puff Montelukast Sodium (Singulair Tab*) 10 mg PO DAILY [facility] Last Admin: 10/04/19 10:11 Dose: 10 mg Multivitamins/Minerals (Theragran/Minerals Tab*) 1 tab PO DAILY [facility] Last Admin: 10/04/19 10:10 Dose: 1 tab Calcium Carb/D3/ (Magnesium/Zinc Tab) 1 tab PO BID [facility] Last Admin: 10/04/19 10:12 Dose: Not Given Pantoprazole Sodium (Protonix Tab*) 40 mg PO DAILY [facility] Last Admin: 10/04/19 10:11 Dose: 40 mg Prednisone (Deltasone Tab*) 40 mg PO DAILY [facility] Stop: 10/07/19 09:01 Last Admin: 10/04/19 10:10 Dose: 40 mg Vitamin B Complex/Vitamin E (B Complex-50*) 1 tab PO DAILY [facility] Last Admin: 10/04/19 10:11 Dose: 1 tab Vitamin E (Vitamin E Cap*) 400 unit PO DAILY [facility] Last Admin: 10/04/19 10:11 Dose: 400 unit Objective Vital Signs: Temp Pulse Resp BP Pulse Ox 97.7 F 104 21 117/83 95 10/04/19 03:15 10/04/19 03:15 10/04/19 03:15 10/04/19 03:15 10/04/19 03:15 Laboratory Results: 10/04/19 05:12 10/04/19 05:12 INR (Anticoag Therapy) 1.32 (0.82-1.09) H 10/02/19 12:09 Total Bilirubin 0.60 mg/dL (0.2-1.0) 10/02/19 12:09 AST 22 U/L (13-39) 10/02/19 12:09 ALT 18 U/L (7-52) 10/02/19 12:09 Alkaline Phosphatase 93 U/L (34-104) 10/02/19 12:09 B-Natriuretic Peptide 340 pg/mL (<=100) H 10/04/19 05:12 Total Protein 6.6 g/dL (6.4-8.9) 10/02/19 12:09 Albumin 3.9 g/dL (3.2-5.2) 10/02/19 12:09 Globulin 2.7 g/dL (2-4) 10/02/19 12:09 Albumin/Globulin Ratio 1.4 (1-3) 10/02/19 12:09 10/02/19 10/02/19 10/02/19 12:09 15:05 18:25 Troponin I 0.02 0.01 0.02 Assessment/Plan 10.04.2019 11:55 am : Pt seen and examined. Above evaluation d/w pt and [employer] Mp Hernandez. Agree with current management and plan of care.
[2019-10-04] MEDS: Multivitamins/Minerals TAB PO SCH (10:10)
[2019-10-04] MEDS: Ferrous Sulfate TAB* 325 MG PO SCH (10:10)
[2019-10-04] MEDS: Pantoprazole TAB * 40 MG TAB PO SCH (10:11)
[2019-10-04] MEDS: Vitamin E CAP* 400 UNIT PO SCH (10:11)
[2019-10-04] MEDS: Aspirin EC TAB* 81 MG TAB.EC PO SCH (10:11)
[2019-10-04] MEDS: Montelukast Sodium TAB* 10 MG PO SCH (10:11)
[2019-10-04] MEDS: Apixaban* 5 MG TAB PO SCH ×2 (10:11→21:06)
[2019-10-04] MEDS: Vitamin B Complex TAB PO SCH (10:11)
[2019-10-04] MEDS: ZINC PO SCH ×2 (10:12→21:02)
[2019-10-04] MEDS: MAGNESIUM PO SCH ×2 (10:12→21:02)
[2019-10-04] MEDS: CALCIUM CARB PO SCH ×2 (10:12→21:02)
[2019-10-04] MEDS: D3 PO SCH ×2 (10:12→21:02)
[2019-10-04] MEDS ORDERED: Furosemide IV* 10 MG/ML 2 ML VIAL (20 MG) IV ONE (15:14)
[2019-10-04] MEDS ORDERED: Diltiazem TAB* 60 MG PO ONE (15:47)
[2019-10-04] MEDS: Albuterol 2.5 MG/3 ML NEB.SOL* (0.083%) INH PRN (15:49)
--- NOTE | 2019-10-04 15:53 | PN ---
Subjective Date of Service: 10/04/19 Interval History: patient seen twice today. Early this morning and again this afternoon. She continues to be very dyspneic and very audible wheezing. I attempted to have her walk to nurse station she could not ambulate more than 150 feet before she became very dyspneic and her pulse increase to 127 irregular. She was wheezing and tachypneic. I assisted the patient back to her room and expressed to her that I am reluctant to release her home today. She did respond to lasix 20 mg IV yesterday. CXR reviewed from today ordered given her dyspnea it does have fluid in lateral fissure and bibasilar pulmonary congestions. I did order second dose of lasix and will keep her in the hospital. She remains suboptimal for discharge Past Medical History: Unchanged from Admission Objective Active Medications: Albuterol (Ventolin 2.5 Mg/3 Ml Neb.Tierra*) 2.5 mg INH Q4H PRN PRN Reason: shortness of breath Last Admin: 10/03/19 19:56 Dose: 2.5 mg Albuterol (Ventolin Hfa Inhaler*) 2 puff INH Q4H PRN PRN Reason: WHEEZING Last Admin: 10/03/19 09:35 Dose: 2 puff Apixaban (Eliquis*) 5 mg PO BID [facility] Last Admin: 10/04/19 10:11 Dose: 5 mg Aspirin (Aspirin Ec Tab*) 81 mg PO DAILY [facility] Last Admin: 10/04/19 10:11 Dose: 81 mg Cyclobenzaprine HCl (Flexeril Tab*) 10 mg PO TID PRN PRN Reason: PAIN - MODERATE Diltiazem HCl (Cardizem Cd Cap*) 240 mg PO DAILY [facility] Last Admin: 10/04/19 10:11 Dose: 240 mg Ferrous Sulfate (Ferrous Sulfate Tab*) 325 mg PO DAILY [facility] Last Admin: 10/04/19 10:10 Dose: 325 mg Furosemide (Lasix Tab*) 20 mg PO DAILY [facility] Mometasone Furoate (Asmanex 220 Mcg Mdi *) 2 puff INH QPM [facility] Last Admin: 10/03/19 19:58 Dose: 2 puff Montelukast Sodium (Singulair Tab*) 10 mg PO DAILY [facility] Last Admin: 10/04/19 10:11 Dose: 10 mg Multivitamins/Minerals (Theragran/Minerals Tab*) 1 tab PO DAILY [facility] Last Admin: 10/04/19 10:10 Dose: 1 tab Calcium Carb/D3/ (Magnesium/Zinc Tab) 1 tab PO BID [facility] Last Admin: 10/04/19 10:12 Dose: Not Given Pantoprazole Sodium (Protonix Tab*) 40 mg PO DAILY [facility] Last Admin: 10/04/19 10:11 Dose: 40 mg Prednisone (Deltasone Tab*) 40 mg PO DAILY [facility] Stop: 10/07/19 09:01 Last Admin: 10/04/19 10:10 Dose: 40 mg Vitamin B Complex/Vitamin E (B Complex-50*) 1 tab PO DAILY [facility] Last Admin: 10/04/19 10:11 Dose: 1 tab Vitamin E (Vitamin E Cap*) 400 unit PO DAILY [facility] Last Admin: 10/04/19 10:11 Dose: 400 unit Vital Signs - 8 hr 10/04/19 10/04/19 08:00 11:56 Temperature 97.2 F Pulse Rate 100 Respiratory 20 20 Rate Blood Pressure 139/82 (mmHg) O2 Sat by Pulse 97 Oximetry Oxygen Devices in Use Now: None Appearance: Dyspneic and wheezing with short sentences. Saturation 95% or room air. Eyes: No Scleral Icterus, - - EOMI Ears/Nose/Mouth/Throat: NL Teeth, Lips, Gums, Mucous Membranes Moist Neck: Trachea Midline, - - +JVD Respiratory: - - bibasilar rales, expiratory diffuse wheezing Abdominal: NL Sounds; No Tenderness; No Distention, - - obese Extremities: - - +1 edema Neurological: Alert and Oriented x 3 Result Diagrams: 10/04/19 05:12 10/04/19 05:12 Microbiology and Other Data: Microbiology 10/02/19 14:25 Nasal Screen MRSA (PCR) - Final Nasal Mrsa Not Detected Assess/Plan/Problems-Billing Assessment: 69 y/o female admitted for SOB and Afib with RVR - Patient Problems (1) Atrial fibrillation Current Visit: No Status: Acute Priority: Medium Code(s): I48.91 - UNSPECIFIED ATRIAL FIBRILLATION SNOMED Code(s): 60698346 Comment: - Appreciate cardiology input - Her pulse is still variable 100-130's - On diltiazem CD to 240 mg daily. I will give 60 mg po now as her rate still poorly controlled - Will need outpatient follow up for her AV silva ablation and pacemaker same time - Continue Eliquis 5 mg bid and aspirin 81 mg daily - Will need better rate control as she does need B-1 agonist given her respiratory drive status and wheezing (2) (HFpEF) heart failure with preserved ejection fraction Current Visit: No Status: Acute Code(s): I50.30 - UNSPECIFIED DIASTOLIC ( CONGESTIVE) HEART FAILURE SNOMED Code(s): 570886025 Comment: - Chronic diastollic - Mild exacerbation given her wheezing/rales but even though mild increase in her pulse is given her a significant dyspnea. - One dose of lasix 20 mg IV on 10/03/19. Repeat CXR did reveals fluid in her horizental fissure and bibasilar congestions. I will proceed with [address] her on po lasix 20 mg daily - She needs better and tighter control of her pulse. She is not able to tolerate anything above 90-100 pulse rate (3) COPD (chronic obstructive pulmonary disease) Current Visit: Yes Status: Acute Code(s): J44.9 - CHRONIC OBSTRUCTIVE PULMONARY DISEASE, UNSPECIFIED SNOMED Code(s): 37012473 Comment: - On room air and sat 95%. - Prednisone 40 mg daily, asmanex, albuterol and singulair - I am going to order ABG to make sure the pulse oximetry does corrolate with her paO2. - Will need tighter heart rate control as she does need B-2 agonist (4) CKD (chronic kidney disease) stage 3, GFR 30-59 ml/min Current Visit: No Status: Acute Code(s): N18.3 - CHRONIC KIDNEY DISEASE, STAGE 3 (MODERATE) SNOMED Code(s): 780830715 Comment: - creat better then baseline Cr 0.9 10/04/19 (5) HTN (hypertension) Current Visit: No Status: Acute Code(s): I10 - ESSENTIAL (PRIMARY) HYPERTENSION SNOMED Code(s): 42226804 Comment: - Normotensive - Continue Cardizem (6) NANCY (obstructive sleep apnea) Current Visit: No Status: Acute Code(s): G47.33 - OBSTRUCTIVE SLEEP APNEA ( ADULT) (PEDIATRIC) SNOMED Code(s): 92527977 Comment: - Non-Compliant with CPAP - Possibly provoking factor for Afib. (7) UGIB (upper gastrointestinal bleed) Current Visit: No Status: Acute Code(s): K92.2 - GASTROINTESTINAL HEMORRHAGE , UNSPECIFIED SNOMED Code(s): 34647050 Comment: - No active bleed - on ppi (8) DVT prophylaxis Current Visit: No Status: Acute Priority: Low Code(s): DQA6840 - SNOMED Code(s): 328263059 Comment: - on Eliquis
[2019-10-04] MEDS: Mometasone 220 MCG MDI INH SCH (20:25)
[2019-10-05 05:42] LABS: BUN/Creatinine Ratio 26.5 (8-20); Calcium 9.1 mg/dL (8.6-10.3); EGFR African American 67.7 (>60); EGFR Non-African American 55.9 (>60); Magnesium 2.4 mg/dL (1.9-2.7); Potassium 4.2 mmol/L (3.5-5.0)
[2019-10-05] MEDS ORDERED: Diltiazem CD CAP* 180 MG PO SCH ×2 (09:00)
[2019-10-05] MEDS ORDERED: Diltiazem CD CAP* 120 MG PO SCH (09:00)
[2019-10-05] MEDS ORDERED: Furosemide TAB* 20 MG PO SCH (09:00)
[2019-10-05] MEDS: Vitamin E CAP* 400 UNIT PO SCH (09:04)
[2019-10-05] MEDS: Montelukast Sodium TAB* 10 MG PO SCH (09:04)
[2019-10-05] MEDS: Ferrous Sulfate TAB* 325 MG PO SCH (09:04)
[2019-10-05] MEDS: Apixaban* 5 MG TAB PO SCH (09:04)
[2019-10-05] MEDS: Vitamin B Complex TAB PO SCH (09:04)
[2019-10-05] MEDS: Aspirin EC TAB* 81 MG TAB.EC PO SCH (09:04)
[2019-10-05] MEDS: Multivitamins/Minerals TAB PO SCH (09:04)
[2019-10-05] MEDS: Pantoprazole TAB * 40 MG TAB PO SCH (09:04)
[2019-10-05] MEDS: ZINC PO SCH (09:05)
[2019-10-05] MEDS: D3 PO SCH (09:05)
[2019-10-05] MEDS: CALCIUM CARB PO SCH (09:05)
[2019-10-05] MEDS: MAGNESIUM PO SCH (09:05)
[2019-10-05 15:14] VITALS: BP 123/64
--- NOTE | 2019-10-05 15:39 | PN ---
Work Excuse - Work Note Work Note: The above employee has been evaluated on 10/05/19. The physician has instructed the employee concerning further work as described below. Work Status: [Out of work from 10/02/2019 until 11/02/18. Further instruction as per her Tub Tender and her primary care doctor ] Gee Gr MD [id number]
--- NOTE | 2019-10-06 03:37 | DS ---
CC: Dr. Rebecca Wong; Dr. Jeni Méndez * DISCHARGE SUMMARY: DATE OF ADMISSION: 10/02/19 DATE OF DISCHARGE: 10/05/19 PRIMARY CARE PROVIDER: Dr. Jeni Méndez. GEOSPATIAL IMAGE ANALYST: Dr. Rebecca Wong. DISCHARGE DIAGNOSES: 1. Atrial fibrillation with rapid ventricular rate. 2. Acute on chronic diastolic heart failure with preserved ejection fraction. 3. Chronic obstructive pulmonary disease exacerbation secondary to reactive airway disease. 4. Hypertension. 5. Hyperlipidemia. 6. History of gastrointestinal bleed secondary to severe esophagitis. HOSPITAL COURSE: This is a 69-year-old female with known history of paroxysmal atrial fibrillation. She is a patient of Dr. Rebecca Wong as an outpatient, currently on Eliquis therapy and outpatient diltiazem after she has recently been discontinued from her flecainide therapy. She had several outpatient cardioversions. She was deemed not a good candidate for Tikosyn therapy due to noncompliance with her medication therapy, was admitted to the medical service on 10/02/19 for shortness of breath, lightheadedness, and chest pain similar to previous admission, at which time they were contributed to congestive heart failure, atrial fibrillation, and exacerbation of reactive airway disease. At this time, her symptoms reoccurred starting over the weekend with increased shortness of breath to a point where she was not able to go to work associated with some chest pressure. Therefore, she came into the ER to be evaluated. In the emergency room, she was found to be in rapid AFib and her heart rate was variable averaging between 90s and up to 140s at one time. EKG confirmed the presence of AFib with a rate of 111. Her diagnostic study was fairly unremarkable except low normal potassium of 3.7, troponin of 0.02, and a BNP of 310. She was admitted to the hospitalist service for acute hypoxic respiratory failure, which was related to her exacerbation of her reactive airway disease along with rapid AFib. Her saturation in the emergency room was as low as 80%, required 3 L nasal cannula; however, within 24 hours and prednisone therapy, her oxygenation improved to room air 99%. However, her heart rate continued to be variable and rapid. Cardiology on board were requested and her medications were titrated by increasing her diltiazem from 180 home regimen up to 240 and yesterday, I did offer additional 60 and I transitioned her to 300 mg daily regimen starting today. During the hospital course also, she was monitored on the tele continuously and it was noted that with minimal exertion, her heart rate goes up to 120 and 130 and exacerbates her dyspnea. She did have element of congestive heart failure both on exam with crackles on the lung exam and chest x-ray finding as well by diagnostic criteria with elevated BNP. I resumed her Lasix, which was held on admission and was given 20 mg IV, which she diuresed significantly over 3 L and on further questioning, the patient stated that she was not taking her additional Lasix 20 p.o. in the afternoon as she does not want to have to go to the bathroom when at work, but she reassured me she always took her morning dose of Lasix 40 mg in the morning. Therefore, I did emphasize the fact that she should be on Lasix 60, 40 in the morning and 20 in the afternoon, and I strongly urged her not to go back to work until her heart rate is more stabilized, rate is more controlled, and further advice from her primary can be sought regarding work issue. During her exam this morning, she seems to be doing better at rest, but she continued to have some dyspnea with exertion. Her pulse was at rest 76 to 80 beats per minute, but when she walks from her room to nurse station, her rate goes up, up to 120s, resolved immediately upon rest, but at no point she dropped her oxygen saturation. I did obtain ABG just to ensure that. We are getting good correlation. Pulse oximetry and arterial blood gas and her PO2 was 87 on room air with oxygen saturation of 99%, which is good relation with her oximetry. She was 99% on room air by pulse ox and 99% on room air via blood gas. Therefore, I do not think she requires oxygenation or oxygen therapy and. unfortunately. her dyspnea is mainly and purely due to her tachycardia that is manifested with exertion. I emphasized to the patient the importance to stay out of work and minimal exertion and adhere to her recommended therapy including her diuretic and her new dose of diltiazem. She reassured me will continue out of work and requested a note for which I will provide at least 30 days and further extension or alteration of my restriction will be deferred to her primary or her lpn care manager. Therefore, with the above recommendation plan, I see no reason why she cannot be released to home today with the instruction and recommendation as outlined below. PHYSICAL EXAMINATION: Vital Signs: Temperature 98, pulse 86, respirations 20, satting 96% to 97% on room air, blood pressure 123/64. General: She is awake, alert, obese, pleasant, anxious. Her lungs revealed no wheezing or rales at rest; however, she does have significant wheezing with exertion and tachycardia with exertion resolved immediately at rest. Abdomen: Obese. Positive bowel sounds, soft, nontender, nondistended. Extremities: Positive +1 edema bilaterally. Cardiovascular: S1, S2. Irregularly irregular. Rate controlled at rest, tachycardic with exertion. PROTECTIVE SERVICES OFFICER: There is no motor or focal sensory deficit. DIAGNOSTIC STUDIES/LAB DATA: CBC, multiple, unremarkable with chronic anemia, hemoglobin 11, hematocrit 34. D-dimer less than 200. Blood gas: 7.45/36/87/25/99% on room air. Chemistry: Multiple, most pronounced for slight increase in her BNP 310 up to 340 yesterday for which I initiated her Lasix therapy. Magnesium 2.4, potassium 4.2, BUN 26, creatinine 0.98. Imaging: Chest x-ray 10/02/19 and 10/04/19 none of them suggested any acute finding; however, on my preliminary reading, I do appreciate pulmonary congestion at the lower lung field bilaterally, cephalization. EKG shows atrial fibrillation, rate 111. CONSULTATION: Cardiology with Dr. Elijah Ibrahim and Dr. Nuno. DISCHARGE MEDICATIONS: 1. Diltiazem 300 mg daily, prescription provided. 2. Potassium 20 mEq daily. 3. Prednisone 40 mg for 4 days, 20 mg for 4 days, 10 mg for 4 days, and stop. 4. Eliquis 5 mg p.o. b.i.d. 5. Albuterol inhaler and nebulizer as per home regimen as needed. 6. Protonix 40 mg daily. 7. Vitamin E, calcium with vitamin D, and vitamin B as per home regimen. 8. Aspirin 81 mg daily. 9. Flovent 2 puffs twice a day of 110 mcg. 10. Singulair 10 mg daily. 11. Iron 325 daily. 12. Multivitamin daily. 13. Flexeril 10 mg as needed. Changed her medications to take 60 mg per day on her Lasix, 40 in the morning and 20 mg in the afternoon. She was told not to take her home dose diltiazem 180 and not to take any more flecainide. DISCHARGE RECOMMENDATIONS: Follow up with Dr. Rebecca Wong as scheduled in October. Follow up with primary care as scheduled on 10/17/19. The patient to take all medications as prescribed. The patient to remain out of work 100% until she is notified otherwise by her lpn care manager and/or her primary. We provided note for out of work for 1 month. DISCHARGE DISPOSITION: Home. DISCHARGE CONDITION: Stable. [id number]/[facility] #: [id number]
== END 2019-10-05 16:03 | disposition home or self-care (01) | DRG 291 ==
LOC: ED 11:52 → MEDTELE 13:55 → OBSVTOIN 10-04 12:00
PROVIDERS: ADMIT Internal Medicine; ATTEND Internal Medicine
DX: I13.0 Hypertensive heart and chronic kidney disease with heart failure and stage 1 through stage 4 chronic kidney disease, or unspecified chronic kidney disease (principal); I50.33 Acute on chronic diastolic (congestive) heart failure; J96.01 Acute respiratory failure with hypoxia; J44.1 Chronic obstructive pulmonary disease with (acute) exacerbation; I48.19 Other persistent atrial fibrillation; Z68.41 Body mass index [BMI] 40.0-44.9, adult; I48.0 Paroxysmal atrial fibrillation; E78.5 Hyperlipidemia, unspecified; E66.01 Morbid (severe) obesity due to excess calories; G47.33 Obstructive sleep apnea (adult) (pediatric); N18.3 Chronic kidney disease, stage 3 (moderate); E78.00 Pure hypercholesterolemia, unspecified; M19.90 Unspecified osteoarthritis, unspecified site; G43.909 Migraine, unspecified, not intractable, without status migrainosus; Z96.642 Presence of left artificial hip joint; I08.3 Combined rheumatic disorders of mitral, aortic and tricuspid valves; K22.70 Barrett's esophagus without dysplasia; Z96.653 Presence of artificial knee joint, bilateral; Z96.611 Presence of right artificial shoulder joint; Z85.42 Personal history of malignant neoplasm of other parts of uterus; Z88.5 Allergy status to narcotic agent; Z88.8 Allergy status to other drugs, medicaments and biological substances; Z88.1 Allergy status to other antibiotic agents; Z91.030 Bee allergy status; Z91.040 Latex allergy status; Z88.0 Allergy status to penicillin; Z87.891 Personal history of nicotine dependence; Z91.19 Patient's noncompliance with other medical treatment and regimen; Z86.73 Personal history of transient ischemic attack (TIA), and cerebral infarction without residual deficits; Z79.899 Other long term (current) drug therapy; Z79.01 Long term (current) use of anticoagulants
CPT/HCPCS: 36415; 36600; 71045; 71046; 80048; 80053; 82803; 83735; 83880; 84100; 84484; 85025; 85060; 85379; 85610; 87641; 93005; 94640; 96374; 96376; 99284; A9270-GY; G0378; J1940; J2920; J7512

== ENCOUNTER 2019-11-18 22:26 | Emergency (ER) | payer MEDICARE ==
--- OUTSIDE RECORDS SUMMARY | 2019-11-18 23:09 | XMS REPORT | Continuity of Care Document ---
:1950 External Reference #:[id number] Author Name Tatyana Heard N.P. (transmitted by agent of provider Patricia Agarwal) Address [address] [place] [address] Care Team Providers Name Role Phone Gurpreet Leo K., MD - Clinical Care Team Information Television News Producer [phone] Cardiac Electrophysiology Jeni Méndez MD - Family Care Team Information Television News Producer [phone] Medicine Problems Active Problems Provider Date Persistent atrial fibrillation Rebecca Wong M.D. Onset: 12/06/2017 Obstructive sleep apnea syndrome Cristiane Matute DNP, RN, [employer]YEHOUSE WORKER-BC Onset: Body mass index 30+ - obesity Cristiane Matute DNP, RN, DYEHOUSE WORKER-BC Onset: 2017 Essential hypertension Ml Houston M.D. [...] Unknown for 25 years Smoking Status Reviewed: 11/09/19 Former Cigarette Smoker Smoked 1 pp week [...] 325mg GI upset 12/06/2017 Bee Sting 11/21/2018 Dubois Juice 11/21/2018 Chocolate Allergenic Extract 11/21/2018 Nitroglycerin Hives Moderate 02/02/2019 Medications Active Medications SIG Qnty Indications Ordering Date Provider Diltiazem HCL ER Coated 1 by mouth 90caps I48.0 Tatyana Heard, 10/20/2019 Beads every day N.P. 360mg Caps ER 24HR Protonix 1 by mouth bid Unknown 10/19/[address] Leos/Aluminum/Adult/5' ht 62", wt S82.232D Aj Sainz, 11/22/2018 2"-5'10" 225lb use for MD Buck non-weight bearing Flexeril Twice Daily Unknown 11/06/2018 Repack 10mg Tablets Ventolin HFA 1 puff Q4-6H 1units Ml Houston, 08/15/2018 108(90Base) M.D. mcg/Act Aerosol Tambocor Twice Daily Unknown 05/04/2018 100mg Tablets Aspir-Low 1 by mouth Unknown 05/25/[address] every day ( taken 8am) Flovent Diskus 1 inh bid Unknown 100mcg/Blist Aerosol Spironolactone 1 by mouth Unknown 25mg Tablets every day Lasix 1 1/2 by mouth Unknown 40mg Tablets every day Fish Oil 1 by mouth Unknown 500mg Capsules every day Cyclobenzaprine HCL Take 1 Tablet 14tabs Ml Houston, 10mg By Mouth Every M.D. Tablets 12 Hours as Needed For Muscle Spasm Montelukast Sodium 1 by mouth 30tabs Ml Houston, 10mg every day M.D. Tablets Vitamin E 1 by mouth Unknown 400Unit Capsules every day ( taken 8 Am) Vitamin D3 take 2 tabs by 60tabs S82.232D Aj Emeli, 400Unit Tablets mouth every day ( taken 8am) Calcium 1 by mouth Unknown 600mg Tablets every day ( taken 8 Am) Eliquis 1 by mouth 60tabs Arley Sears, 5mg Tablets twice a day DO FACC History Medications Ferrous Gluconate 1 by mouth 30tabs D64.9 Ml Celso, 08/24/2019 - every day M.D. 09/24/2019 324(38Fe) mg Tablets D50.0 Medications Administered in Office Medication SIG Qnty Indications Ordering Provider Date Liset Willis M.D. 10/25/2008 Injection Liset Willis M.D. 10/25/2008 Injection Immunizations CPT Code Status Date Vaccine Lot # 47578 Refused 10/12/2018 Influenza Virus Vaccine, Quadrivalent, Split, Preservative Free [id number] Refused 05/10/2018 Pneumonia Vaccine 20413 Refused 05/10/2018 Pneumococcal Conjugate Vaccine 13 Valent For Intramuscular Use Vital Signs Date Vital Result Comment 11/09/2019 12:39pm Height 62 inches 5'2" Weight 234.00 lb with shoes Heart Rate 80 /min BP Systolic Sitting 104 mmHg rue large cuff BP Diastolic Sitting 60 mmHg rue large cuff BP Systolic Standing 110 mmHg rue large cuff BP Diastolic Standing 60 mmHg rue large cuff Respiratory Rate 18 /min BMI (Body Mass Index) 42.8 kg/m2 Ejection Fraction 55-60% echo.08/16/19 10/20/2019 2:17pm Height 62 inches 5'2" Weight 235.50 lb with shoes Heart Rate 94 /min BP Systolic Sitting 130 mmHg LA BP Diastolic Sitting 80 mmHg LA BP Systolic Standing 130 mmHg BP Diastolic Standing 76 mmHg O2 % BldC Oximetry 98 % BMI (Body Mass Index) 43.1 kg/m2 Ejection Fraction 55-60% 08/16/19 Results Test Acquired Date Facility Test Result H/L Range Note Laboratory test 08/15/2019 [facility] Troponin-I 0.01 ng/mL < 0.04 1 finding 101 (TnI) [place] [address] [phone] Inr/Protime 08/15/2019 [facility] Inr 1.23 High 0.82-1.[address] [place], [place] [id number] [phone] Comp Metabolic 08/15/2019 [facility] Sodium 138 mmol/L Normal 135-[address] [place] [address] [phone] Potassium 3.7 mmol/L Normal 3.5-5.0 Chloride 102 [...] Egfr 64.6 >60 3 Laboratory test 08/15/2019 [facility] Troponin-I 0.01 <0.04 4 finding 101 (TnI) ng/[place] [address] [phone] CBC Auto Diff 08/15/2019 [facility] White Blood 7.9 Normal 3.5 -10.[address] Count 10^3/[place] [address] [phone] Red Blood Count 4.06 10^6/uL Normal 3.70-4.87 [...] Blood Cells % 0.1 Laboratory test 08/15/2019 [facility] B-Type 401 pg/mL High <= [address] [place] [address] Peptide BNP [phone] Influenza A & B 08/15/2019 [facility] Flu AB (SEE NOTE) [address] [place] [address] [phone] Influenza A Molecular NEGATIVE Negative 6 Influenza B Molecular NEGATIVE Negative Laboratory test 08/15/2019 [facility] Lactic Acid 1.9 mmol/L Normal 0.5-2.0 [address] [place] [address] [phone] Hemoglobin/Wilbert 06/12/2019 [facility] Hemoglobin 11.5 g/dL Low 12.0-16.[address] [place] [address] [phone] Hematocrit 36 % Normal 35-47 Laboratory test 06/12/2019 [facility] Erythrocyte Sed 21 mm/Hr Normal 0-[address] [place] [address] [phone] B-Type Natriuretic Peptide BNP 221 pg/mL High <=100 1 Troponin-I testing on Plasma Separator Tubes [...] reduce sensitivity of test. Refer to the [facility] Test Catalog for collection information: [email or web address] As with all diagnostic procedures, the laboratory results obtained should be used in conjunction with other clinical information available to the physician, including confirmation by another method, as applicable. 6 Kieselguhr Regenerator Operator: [id number] 7 [facility] Severe Sepsis and Septic Shock Management Bundle Measure requires all lactic acids initially measuring >2.0 mmol/L be repeated. Procedures Date Code Description Status 11/09/2019 95683 EKG Tracing & Interpretation Completed 10/20/2019 16399 Holter Monitor Review (24 hr)dr hubbard & interp only Completed 10/13/2019 82421 ECG Monitor/Recording W/Visual Superimposition Scanning Completed 10/13/2019 88672 ECG Monitor/Recording W/Visual Superimposition Scanning Completed 09/13/2019 87984 Moderate Sedation Services; Same Phys Intl 15 Mins; PT Completed >= 5 Years 09/13/2019 86285 Color Flow Doppler/Interp & Reprt Completed 09/13/2019 96810 Pulse Wave/Continuous-Interp.RPT Completed 09/13/2019 20670 Echocardiography, Transesophageal, Real Time W/Image 2D Completed W/W/O M-M 09/13/2019 44792 Cardioversion Completed 08/16/2019 11103 ECHO Transthorasic Realtime 2D W Doppler & Color Flow Completed Hosp 08/16/2019 53931 EKG, Interpretation Only Completed 08/16/2019 57876 Cardioversion Completed 06/09/2019 22174 EKG Tracing & Interpretation Completed 04/17/2018 [id number] Mammogram Completed Medical Devices Description No Information Available Encounters Type Date Location Provider Dx Diagnosis Office Visit 10/20/2019 [facility] Tatyana Heard, I48.0 Paroxysmal atrial 2:30p Of Fire Operations Forester N.P. fibrillation I50.33 Acute on chronic diastolic (congestive) heart failure I10 Essential (primary) hypertension E78.5 Hyperlipidemia, unspecified Office Visit 10/05/2019 [facility] I48.0 Paroxysmal atrial 1:10p juan daniel Alatorre M.D. fibrillation Hospitalists I50.33 Acute on chronic diastolic (congestive) heart failure J44.1 Chronic obstructive pulmonary disease w (acute) exacerbation I10 Essential (primary) hypertension E78.5 Hyperlipidemia, unspecified Office Visit 10/04/2019 [facility] I48.91 Unspecified 1:09p juan daniel Alatorre M.D. atrial Hospitalists fibrillation I50.30 Unspecified diastolic (congestive) heart failure J44.9 Chronic obstructive pulmonary disease, unspecified N18.3 Chronic kidney disease, stage 3 (moderate) I10 Essential (primary) hypertension G47.33 Obstructive sleep apnea (adult) (pediatric) K92.2 Gastrointestinal hemorrhage, unspecified Office Visit 10/04/2019 3:51p [facility] Sarah I48.19 Other persistent Thuman, AUTOMATIC THREAD WINDER atrial fibrillation I50.32 Chronic diastolic (congestive) heart failure I34.0 Nonrheumatic mitral (valve) insufficiency J44.9 Chronic obstructive pulmonary disease, unspecified Office Visit 10/03/2019 3:52p [facility] Elijah Light I48.0 Paroxysmal atrial Of Fire Operations Forester Porter Ibrahim fibrillation R06.02 Shortness of breath I34.0 Nonrheumatic mitral (valve) insufficiency Office Visit 10/02/2019 1:07p [facility] Susan J96.01 Acute respiratory Assoc,juan daniel Enciso M.D. failure with Hospitalists hypoxia J20.9 Acute bronchitis, unspecified I50.30 Unspecified diastolic (congestive) heart failure I48.91 Unspecified atrial fibrillation J45.909 Unspecified asthma, uncomplicated Office Visit 09/25/2019 11:20a [facility] Rebecca Wong I48.0 Paroxysmal atrial Of Fire Operations Forester M.DVito fibrillation R60.0 Localized edema R06.02 Shortness of breath R07.9 Chest pain, unspecified R06.2 Wheezing Office Visit 08/17/2019 12:32p [facility] Arley Carrillo I48.0 Paroxysmal atrial Of Fire Operations Forester Sears, DO fibrillation FACC J06.9 Acute upper respiratory infection, unspecified Office Visit 08/17/2019 [facility] Dada I48.91 Unspecified atrial 11:32a Assoc,MATHEUS Clay fibrillation Hospitalists J20.9 Acute bronchitis, unspecified J45.901 Unspecified asthma with (acute) exacerbation E78.5 Hyperlipidemia, unspecified I10 Essential (primary) hypertension G47.33 Obstructive sleep apnea (adult) (pediatric) Office Visit 08/16/2019 8:28a [facility] Rebecca Wong, I48.91 Unspecified atrial Cardiology Of M.D. fibrillation Fire Operations Forester R06.02 Shortness of breath I50.9 Heart failure, unspecified Office Visit 08/15/2019 [facility] Analia Singh, I50.31 Acute diastolic 11:32a Assoc,juan daniel Buenrostro (congestive) Hospitalists heart failure I48.0 Paroxysmal atrial fibrillation D64.9 Anemia, unspecified J66.8 Airway disease due to other specific organic dusts Office Visit 06/09/2019 11:40a [facility] Rebecca Wong, R06.02 Shortness of Of Fire Operations Forester [facility] [place]. breath J94.9 Pleural condition, unspecified I48.0 Paroxysmal atrial fibrillation I10 Essential (primary) hypertension D64.9 Anemia, unspecified J45.909 Unspecified asthma, uncomplicated Assessments Date Code Description Provider 11/09/2019 I48.91 Unspecified atrial fibrillation Tatyana S. Foster, N.P. 11/09/2019 I50.32 Chronic diastolic (congestive) heart Tatyana S. Foster, N.P. failure 11/09/2019 E78.5 Hyperlipidemia, unspecified Tatyana S. Foster, N.P. 11/09/2019 I10 Essential (primary) hypertension Tatyana S. Foster, N.P. 10/20/2019 I48.0 Paroxysmal atrial fibrillation Rebecca Wong M.D. 10/20/2019 I48.0 Paroxysmal atrial fibrillation Tatyana S. Foster, N.P. 10/20/2019 I50.33 Acute on chronic diastolic (congestive) Tatyana S. Foster, N.P. heart failure 10/20/2019 I10 Essential (primary) hypertension Tatyana S. Foster, N.P. 10/20/2019 E78.5 Hyperlipidemia, unspecified Tatyana S. Foster, N.P. 10/13/2019 I48.0 Paroxysmal atrial fibrillation Rebecca Wong M.D. 10/13/2019 I48.0 Paroxysmal atrial fibrillation Nurse Visit IC 10/05/2019 I48.0 Paroxysmal atrial fibrillation Gee Gr M.D. 10/05/2019 I50.33 Acute on chronic diastolic (congestive) Gee Gr M.D. heart failure 10/05/2019 J44.1 Chronic obstructive pulmonary disease Gee Gr M.D. with (acute) exacerbation 10/05/2019 I10 Essential (primary) hypertension Gee Gr M.D. 10/05/2019 E78.5 Hyperlipidemia, unspecified Gee Gr M.D. 10/04/2019 I48.19 Other persistent atrial fibrillation Sarah Hernandez NP 10/04/2019 I50.32 Chronic diastolic (congestive) heart Sarah Hernandez NP failure 10/04/2019 I48.91 Unspecified atrial fibrillation Gee Gr M.D. 10/04/2019 I34.0 Nonrheumatic mitral (valve) insufficiency Sarah Hernandez, AUTOMATIC THREAD WINDER 10/04/2019 I50.30 Unspecified diastolic (congestive) heart Gee Gr M.D. failure 10/04/2019 J44.9 Chronic obstructive pulmonary disease, Sarah Joshuafelisha, AUTOMATIC THREAD WINDER unspecified 10/04/2019 J44.9 Chronic obstructive pulmonary disease, Gee Gr M.D. unspecified 10/04/2019 N18.3 Chronic kidney disease, stage 3 Gee Gr M.D. (moderate) 10/04/2019 I10 Essential (primary) hypertension Gee Gr M.D. 10/04/2019 G47.33 Obstructive sleep apnea (adult) Gee Gr M.D. (pediatric) 10/04/2019 K92.2 Gastrointestinal hemorrhage, unspecified Gee Gr M.D. 10/03/2019 I48.91 Unspecified atrial fibrillation Gee Gr M.D. 10/03/2019 I48.0 Paroxysmal atrial fibrillation Elijah Ibrahim M.D. 10/03/2019 I50.30 Unspecified diastolic (congestive) heart Gee Gr M.D. failure 10/03/2019 R06.02 Shortness of breath Elijah Ibrahim M.D. 10/03/2019 J44.9 Chronic obstructive pulmonary disease, Gee Gr M.D. unspecified 10/03/2019 I34.0 Nonrheumatic mitral (valve) insufficiency Elijah Ibrahim M.D. 10/03/2019 N18.3 Chronic kidney disease, stage 3 Gee Gr M.D. (moderate) 10/03/2019 I10 Essential (primary) hypertension Gee Gr M.D. 10/03/2019 G47.33 Obstructive sleep apnea (adult) Gee Gr M.D. (pediatric) 10/03/2019 K92.2 Gastrointestinal hemorrhage, jocelin Gr M.D. 10/02/2019 J96.01 Acute respiratory failure with hypoxia Susan Enciso M.D. 10/02/2019 J20.9 Acute bronchitis, unspecified Susan Enciso M.D. 10/02/2019 I50.30 Unspecified diastolic (congestive) heart Susan Enciso M.D. failure 10/02/2019 I48.91 Unspecified atrial fibrillation Susan Enciso M.D. 10/02/2019 J45.909 Unspecified asthma, uncomplicated Susan Enciso M.D. 09/25/2019 I48.0 Paroxysmal atrial fibrillation Rebecca Wong [...] M.D. 08/17/2019 I48.0 Paroxysmal atrial fibrillation Arley Sears DO FACC 08/17/2019 J06.9 Acute upper respiratory infection, Arley Sears, DO [facility] unspecified 08/17/2019 I48.91 Unspecified atrial fibrillation MATHEUS Noel 08/17/2019 J20.9 Acute bronchitis, unspecified MATHEUS Noel 08/17/2019 J45.901 Unspecified asthma with (acute) MATHEUS Noel exacerbation 08/17/2019 E78.5 Hyperlipidemia, unspecified MATHEUS Noel 08/17/2019 I10 Essential (primary) hypertension MATHEUS Noel 08/17/2019 G47.33 Obstructive sleep apnea (adult) MATHEUS Noel (pediatric) 08/16/2019 I48.91 Unspecified atrial fibrillation Arley Sears DO FAC 08/16/2019 I48.91 Unspecified atrial fibrillation Rebecca Wong M.D. 08/16/2019 R06.02 Shortness of breath Rebecca Wong M.D. 08/16/2019 I50.9 Heart failure, unspecified Rebecca Wong M.D. 08/16/2019 I50.33 Acute on chronic diastolic (congestive) MATHEUS Noel heart failure 08/16/2019 J66.8 Airway disease due [...] J45.909 Unspecified asthma, uncomplicated Rebecca Wong M.D. Plan of Treatment Future Appointment(s):01/23/2020 11:15 am - Rebecca Wong M.D. at [facility]11/09/2019 - Tatyana Heard NInoI48.91 Unspecified atrial fibrillationFollow up:move out visit with to 01/2020Recommendations:I will send you to see senior analyst (Dr Lopez) for evaluation for AV silva ablation. If you decide to proceed Dr Wong would put pacemaker in here [place] [facility] [facility]blation would take place at [facility]. Wear oxygen as much as possible.I50.32 Chronic diastolic (congestive) heart failureRecommendations: Weight is stable Continue Lasix and spironolactone.E78.5 Hyperlipidemia, [id number] Essential (primary) hypertensionRecommendations:Continue cardizem at current dose. BP controlled. Functional Status Description No Information Available Mental Status Description No Information Available Referrals Refer to Reason for Referral Status Appt Date Ron Lopez MD uncontrolled afib; eval for AVN ablation Sent 1 [place] [address] [phone]
--- OUTSIDE RECORDS SUMMARY | 2019-11-18 23:09 | XMS REPORT | Continuity of Care Document ---
:1950 External Reference #:[id number] Author Name Tatyana Heard N.P. (transmitted by agent of provider Lila Alvarado) Address [address] [place] [address] Care Team Providers Name Role Phone Gurpreet Leo K., MD - Clinical Care Team Information Editorial Specialist Cardiac Electrophysiology Jeni Méndez MD - Family Care Team Information Editorial Specialist [phone] Medicine Problems Active Problems Provider Date Persistent atrial fibrillation Rebecca Wong M.D. Onset: 12/06/2017 Obstructive sleep apnea syndrome Cristiane Matute DNP, RN, CLINICAL RESEARCH SPECIALIST-BC Onset: Body mass index 30+ - obesity Cristiane Matute DNP, RN, CLINICAL RESEARCH SPECIALIST-BC Onset: 2017 Essential hypertension Ml Houston M.D. [...] 325mg GI upset 12/06/2017 Bee Sting 11/21/2018 [place] Juice 11/21/2018 Chocolate Allergenic Extract 11/21/2018 Nitroglycerin [...] CPT Code Status Date Vaccine Lot # 38908 Refused 10/12/2018 Influenza Virus Vaccine, Quadrivalent, Split, Preservative Free 62403 Refused 05/10/2018 Pneumonia Vaccine 73001 Refused 05/10/2018 Pneumococcal Conjugate Vaccine 13 Valent [...] Result H/L Range Note Laboratory test 08/15/2019 [facility] Troponin-I 0.01 ng/mL < 0.[address] (TnI) [place] [address] [phone] Inr/Protime 08/15/2019 [facility] Inr 1.23 High 0.82-1.[address] [place] [address] [phone] Comp Metabolic 08/15/2019 [facility] Sodium 138 mmol/L Normal 135-[address] [place] [address] [phone] Potassium 3.7 mmol/L Normal 3.5-5.0 Chloride 102 [...] Egfr 64.6 >60 3 Laboratory test 08/15/2019 [facility] Troponin-I 0.01 <0.[address] (TnI) ng/[place] [address] [phone] CBC Auto Diff 08/15/2019 [facility] White Blood 7.9 Normal 3.5 -10.[address] Count 10^3/[place] [address] [phone] Red Blood Count 4.06 10^6/uL Normal 3.70-4.87 [...] Blood Cells % 0.1 Laboratory test 08/15/2019 [facility] B-Type 401 pg/mL High <= [address] [place] [address] Peptide BNP [phone] Influenza A & B 08/15/2019 [facility] Flu AB (SEE NOTE) [address] [place] [address] [phone] Influenza A Molecular NEGATIVE Negative 6 Influenza B Molecular NEGATIVE Negative Laboratory test 08/15/2019 [facility] Lactic Acid 1.9 mmol/L Normal 0.5-2.0 [address] [place] [address] [phone] Hemoglobin/Wilbert 06/12/2019 [facility] Hemoglobin 11.5 g/dL Low 12.0-16.[address] [place] [address] [phone] Hematocrit 36 % Normal 35-47 Laboratory test 06/12/2019 [facility] Erythrocyte Sed 21 mm/Hr Normal 0-[address] [place] [address] [phone] B-Type Natriuretic Peptide BNP 221 pg/mL High <=100 Comp Metabolic 05/07/2019 [facility] Sodium 135 mmol/L Normal 135-[address] [place] [address] [phone] Potassium 4.2 mmol/L Normal 3.5-5.0 Chloride 104 [...] Egfr 62.0 >60 8 Laboratory test 05/07/2019 [facility] Troponin-I (TnI) 0.01 ng/ mL <0.[address] [place] [address] [phone] B-Type Natriuretic Peptide BNP 202 pg/mL High <=100 Inr/Protime 05/07/2019 [facility] Inr 1.45 High 0.82-1.[address] [place], [place] [address] [phone] Laboratory test 05/07/2019 [facility] Partial 31.8 Normal 26.0 -38.[address] [place] [address] Time PTT [phone] D Dimer Quantitative < 200 ng/mL Normal Less Than 230 11 CBC Auto 05/07/2019 [facility] White Blood 6.5 10^3/uL Normal 3.5-10.[address] [place] [address] [phone] Red Blood Count 3.54 10^6/uL Low 3.70-4.87 [...] Blood Cells % 0.0 Cell Morphology 05/07/2019 [facility] Macrocytosis 1+ [address] [place] [address] [phone] Microcytosis 2+ Anisocytosis 2+ Urinalysis Profile 05/07/2019 [facility] Urine Color Straw [address] [place] [address] [phone] Urine Appearance Clear Urine Specific [place] 1.005 Low 1.010-1.030 Urine pH 6.0 Normal [...] Present Abnormal Absent Iron & Iron 05/07/2019 [facility] Total Iron 552 g/dL High 250-450 Binding [address] [place] [address] Capacity [phone] Transferrin 394 mg/dL High 203-362 Iron < 20 g/dL Low 50-212 Unsaturated Iron Binding < 537 g/dL % Iron Saturation 4 % Low 15-55 Laboratory test 05/07/2019 [facility] Ferritin 8.0 ng/mL Low 11-307 finding [address] [place] [address] [phone] Folic Acid (Folate) > 20.00 ng/mL >3.99 Vitamin B12 323 pg/mL Normal 180-914 12 Type & Screen 05/07/2019 [facility] Patient Blood Type A Positive [address] [place] [address] [phone] Antibody Screen NEGATIVE Laboratory test 05/07/2019 [facility] Packed Cells SEE RESULTS [address] BELO <[place] [address] NOTE> [phone] Pathologist Review (SEE NOTE) 14 Laboratory test 05/07/2019 [facility] Lactic Acid 1.6 mmol/L Normal 0.5-2.0 [address] [place] [address] [phone] Stool Occult 05/07/2019 [facility] Stool SEE RESULT 16 Blood Di[address] [place] [place] [address] Blood, Diag [phone] 1 Troponin-I testing on Plasma Separator Tubes (PST) has a known false positive rate of 0.20-0.40%. All positive troponins reflex immediately to secondary confirmatory testing. Using the [employer] DxI 800 Access Immunoassay systems, the 99th [...] immediately to secondary confirmatory testing. Using the [employer] DxI 800 Access Immunoassay systems, the 99th percentile upper reference limit was demonstrated to be < 0.03 ng/mL. 5 Suboptimal collection technique may reduce sensitivity of test. Refer to the [employer] Lab Test Catalog for collection information: [email or web address] As with all diagnostic procedures, the laboratory results obtained should be used in conjunction with other clinical information available to the physician, including confirmation by another method, as applicable. 6 [employer]: [id number] [facility] Severe Sepsis and Septic Shock Management Bundle [...] Deficient Range <145 13 SEE RESULTS BELOW [id number] AP PC TRANSFUSED 05/08/191806 [id number] AP PC TRANSFUSED 05/07/192223 14 Microcytic hypochromic anemia. Reviewed by Rosaura Noriega MD 15 [facility] Severe Sepsis and Septic Shock Management Bundle Measure requires all lactic acids initially measuring >2.0 mmol/L be repeated. 16 SEE RESULT BELOW Name: ELIZABETH GRIGSBY : [address]: George Scott MD Acct: [id number] Unit: [id number] AGE: 68 Location: ED Re05/07/19 SEX: F Status: REG ER SPEC: [id number] JORDIN: 05/07/19-17[address] [facility] [address]: Ewelina Scott MD REQ: [id number] RECD: 05/07/19 STATUS: JUDE COLON DR: Ml Houston MD _ SOURCE: STOOL SPDESC: ORDERED: Occult Bl, Diag Procedure Result Reported Site Stool Occult Blood (1) Final 05/07/19- 1727 ML Stool Occult Blood Negative Collection Date (1) 05/07/19 * [facility] - Main Lab . END OF REPORT DEPARTMENT OF PATHOLOGY, [address] [place] [address] Sage Greer M.D. Director [facility] # [id number] Procedures Date Code Description Status 09/13/2019 13655 Moderate Sedation Services; Same Phys Intl 15 Mins; PT Completed >= 5 Years 09/13/2019 48607 Color Flow Doppler/Interp & Reprt Completed 09/13/2019 09094 Pulse Wave/Continuous-Interp.RPT Completed 09/13/2019 58917 Echocardiography, Transesophageal, Real Time W/Image 2D Completed W/W/O M-M 09/13/2019 90204 Cardioversion Completed 08/16/2019 82578 EKG, Interpretation Only Completed 08/16/2019 08633 ECHO Transthorasic Realtime 2D W Doppler & Color Flow Completed Hosp 08/16/2019 12834 Cardioversion Completed 06/09/2019 44410 EKG Tracing & Interpretation Completed 05/09/2019 19951 Esophagogastroduodenoscopy, diagnostic, incl brush/wash Completed if perfor 05/08/2019 52269 ECHO Transthorasic Realtime 2D W Doppler & Color Flow Completed Hosp 04/17/2018 70686365 Mammogram Completed Medical Devices Description No Information Available Encounters Type Date Location Provider Dx Diagnosis Office Visit 09/25/2019 [facility] Rebecca Wong, I48.0 Paroxysmal atrial 11:20a Of [facility] M.D. fibrillation R60.0 Localized edema R06.02 Shortness of breath R07.9 Chest pain, unspecified R06.2 Wheezing Office Visit 08/17/2019 12:32p [facility] Arley S. I48.0 Paroxysmal atrial Of [facility] Sears, DO fibrillation FACC J06.9 Acute upper respiratory infection, unspecified Office Visit 08/17/2019 [facility] Dada I48.91 Unspecified atrial 11:32a Assoc,MATHEUS [place] fibrillation Hospitalists J20.9 Acute bronchitis, unspecified J45.901 Unspecified asthma with (acute) exacerbation E78.5 Hyperlipidemia, unspecified I10 Essential (primary) hypertension G47.33 Obstructive sleep apnea (adult) (pediatric) Office Visit 08/16/2019 8:28a [facility] Rebecca Wong, I48.91 Unspecified atrial Cardiology Of M.D. fibrillation Bronze Plater R06.02 Shortness of breath I50.9 Heart failure, unspecified Office Visit 08/15/2019 [facility] Analia Francisco, I50.31 Acute diastolic 11:32a juan daniel Alatorre M.D. (congestive) Hospitalists heart failure I48.0 Paroxysmal atrial fibrillation D64.9 Anemia, unspecified J66.8 Airway disease due to other specific organic dusts Office Visit 06/09/2019 11:40a [facility] Rebecca Wong, R06.02 Shortness of Of [facility] Plater [facility] M.[facility]. breath J94.9 Pleural condition, unspecified I48.0 Paroxysmal atrial fibrillation I10 Essential (primary) hypertension D64.9 Anemia, unspecified J45.909 Unspecified asthma, uncomplicated Office Visit 05/09/2019 [facility] Ziyad Light D62 Acute 9:59a Assocjuan daniel M.D.,FACP posthemorrhagic Hospitalists anemia I50.33 Acute on chronic diastolic (congestive) heart failure D50.9 Iron deficiency anemia, unspecified I48.91 Unspecified atrial fibrillation I10 Essential (primary) hypertension E78.5 Hyperlipidemia, unspecified Z87.19 Personal history of other diseases of the digestive system E66.9 Obesity, unspecified M19.90 Unspecified osteoarthritis, unspecified site M54.5 Low back pain Office Visit 05/08/2019 [facility] Ziyad Light D62 Acute 9:58a Assoc,juan daniel Boykin M.D.,FACP posthemorrhagic Hospitalists anemia I48.91 Unspecified atrial fibrillation Office Visit 05/07/2019 [facility] Acacia R06.00 Dyspnea, 9:58a Assoc,MATHEUS Cedeno unspecified Hospitalists D64.9 Anemia, unspecified I50.9 Heart failure, unspecified I48.91 Unspecified atrial fibrillation E78.5 Hyperlipidemia, unspecified M54.5 Low back pain Office Visit 04/10/2019 11:00a [facility] Emeli, S82.232D Displ oblique at [facility] fx shaft of l tibia, 7thD Assessments [...] Noel 08/17/2019 I10 Essential (primary) hypertension MATHEUS oNel 08/17/2019 G47.33 Obstructive sleep apnea (adult) MATHEUS Noel (pediatric) 08/16/2019 I48.91 Unspecified atrial fibrillation Arley Sears DO [facility] 08/16/2019 I48.91 Unspecified atrial fibrillation Rebecca Wong M.D. 08/16/2019 R06.02 Shortness of breath Rebecca Wong M.D. 08/16/2019 I50.9 Heart failure, unspecified Rebecca Wong M.D. 08/16/2019 I50.33 Acute on chronic diastolic MATHEUS Noel (congestive) heart failure 08/16/2019 J66.8 Airway disease due to other specific MATHEUS Noel organic dusts 08/16/2019 I48.91 Unspecified atrial fibrillation MATHEUS oNel 08/16/2019 E78.5 Hyperlipidemia, unspecified MATHEUS Noel 08/16/2019 [...] Rebecca Wong M.D. 06/09/2019 J94.9 Pleural condition, unspeclakeshia Wong M.D. 06/09/2019 I48.0 Paroxysmal atrial fibrillation [...] Acaciakristian Parks, PA 05/07/2019 D64.9 Anemia, unspecified Acaciakristian Parks, PA 05/07/2019 I50.9 Heart failure, unspecified Acacia Parks, PA 05/07/2019 I48.91 Unspecified atrial fibrillation Acacia Parks, PA 05/07/2019 E78.5 Hyperlipidemia, unspecified Acacia Parks, PA 05/07/2019 M54.5 Low back pain Acacia Parks, [place] 04/10/2019 S82.232D Displaced oblique fracture of shaft Aj Sainz MD of left tibia, subsequen Plan of Treatment Future Appointment(s):10/16/2019 8:30 am - Nurse Visit IC at [facility]10/13/2019 2:30 pm - Nurse Visit IC at [facility] Of [facility]2018 - Rebecca Wong M.D.I48.0 Paroxysmal atrial fibrillationNew Orders:Holter Monitor, Scheduled: 10/13/19Comments:You are in atrial fibrillation today. Your rates go up quickly in the office.Follow up:OV after Holter with TRACK GREASER (or MD). OV MD 1 month.Recommendations:Check a Holter monitor to see if your heart rate is fast enough to allow for more medication. STOP Flecainide. We will call you with Holter results are done, see an TRACK GREASER and change your meds. Try and avoid [...]
--- OUTSIDE RECORDS SUMMARY | 2019-11-18 23:09 | XMS REPORT | Continuity of Care Document ---
:1950 External Reference #:[id number] Author Name Tatyana Heard N.P. (transmitted by agent of provider Patricia Agarwal) Address [address] [place] [address] Care Team Providers Name Role Phone Gurpreet Leo K., MD - Clinical Care Team Information Track Supervisor Cardiac Electrophysiology Jeni Méndez MD - Family Care Team Information Track Supervisor [phone] Medicine Problems Active Problems Provider Date Persistent atrial fibrillation Rebecca Wong M.D. Onset: 12/06/2017 Obstructive sleep apnea syndrome Cristiane Matute DNP, RN, CLAY MOLDER-BC Onset: Body mass index 30+ - obesity Cristiane Matute DNP, RN, CLAY MOLDER-BC Onset: 2017 Essential hypertension Ml Houston M.D. [...] Unknown for 25 years Smoking Status Reviewed: 10/20/19 Former Cigarette Smoker Smoked 1 pp week [...] 325mg GI upset 12/06/2017 Bee Sting 11/21/2018 Greene Juice 11/21/2018 Chocolate Allergenic Extract 11/21/2018 Nitroglycerin [...] Tablets DR every day ( taken 8am) Spironolactone 1 by mouth Unknown 25mg Tablets [...] CPT Code Status Date Vaccine Lot # 39547 Refused 10/12/2018 Influenza Virus Vaccine, Quadrivalent, Split, Preservative Free 50985 Refused 05/10/2018 Pneumonia Vaccine 55027 Refused 05/10/2018 Pneumococcal Conjugate Vaccine 13 Valent For Intramuscular Use Vital Signs Date Vital Result Comment 10/20/2019 2:17pm Height 62 inches 5'2" Weight 235.50 lb with shoes Heart Rate 94 /min BP Systolic Sitting 130 mmHg LA BP Diastolic Sitting 80 mmHg LA BP Systolic Standing 130 mmHg BP Diastolic Standing 76 mmHg O2 % BldC Oximetry 98 % BMI (Body Mass Index) 43.1 kg/m2 Ejection Fraction 55-60% 08/16/19 09/25/2019 10:20am Height 62 inches 5'2" Weight 237.00 lb with shoes Heart Rate 90 /min irreg BP Systolic Sitting 130 mmHg Lue lg cuff BP Diastolic Sitting 72 mmHg Lue lg cuff BP Systolic Standing 130 mmHg Lue lg cuff BP Diastolic Standing 74 mmHg Lue lg cuff Respiratory Rate 17 /min BMI (Body Mass Index) 43.3 kg/m2 Results Test Acquired Date Facility Test Result H/L Range Note Laboratory test 08/15/2019 [facility] Troponin-I 0.01 ng/mL < 0.[address] (TnI) [place] [address] [phone] Inr/Protime 08/15/2019 [facility] Inr 1.23 High 0.82-1.[address] [place] [address] [phone] Comp Metabolic 08/15/2019 [facility] Sodium 138 mmol/L Normal 135-[address] [place] [address] [phone] Potassium 3.7 mmol/L Normal 3.5-5.0 Chloride 102 [...] Egfr 64.6 >60 3 Laboratory test 08/15/2019 [facility] Troponin-I 0.01 <0.[address] (TnI) ng/[place] [address] [phone] CBC Auto Diff 08/15/2019 [facility] White Blood 7.9 Normal 3.5 -10.[address] Count 10^3/[place] [address] [phone] Red Blood Count 4.06 10^6/uL Normal 3.70-4.87 [...] Blood Cells % 0.1 Laboratory test 08/15/2019 [facility] B-Type 401 pg/mL High <= [address] [place] [address] Peptide BNP [phone] Influenza A & B 08/15/2019 [facility] Flu AB (SEE NOTE) [address] Disclaimer [place], [place] [id number] [phone] Influenza A Molecular NEGATIVE Negative 6 Influenza B Molecular NEGATIVE Negative Laboratory test 08/15/2019 [facility] Lactic Acid 1.9 mmol/L Normal 0.5-2.0 [address] [place] [address] [phone] Hemoglobin/Wilbert 06/12/2019 [facility] Hemoglobin 11.5 g/dL Low 12.0-16.[address] [place] [address] [phone] Hematocrit 36 % Normal 35-47 Laboratory test 06/12/2019 [facility] Erythrocyte Sed 21 mm/Hr Normal 0-[address] [place] [address] [phone] B-Type Natriuretic Peptide BNP 221 pg/mL High <=100 Laboratory test 05/07/2019 [facility] Troponin-I (TnI) 0.01 ng/ mL <0.04 [address] [place] [address] [phone] B-Type Natriuretic Peptide BNP 202 pg/mL High <=100 Inr/Protime 05/07/2019 [facility] Inr 1.45 High 0.82-1.[address] [place] [address] [phone] Laboratory test 05/07/2019 [facility] Partial 31.8 Normal 26.0 -38.[address] [address] Time PTT [phone] D Dimer Quantitative < 200 ng/mL Normal Less Than 230 10 CBC Auto 05/07/2019 [facility] White Blood 6.5 10^3/uL Normal 3.5-10.[address] [place] [address] [phone] Red Blood Count 3.54 10^6/uL Low 3.70-4.87 [...] Blood Cells % 0.0 Cell Morphology 05/07/2019 [facility] Macrocytosis 1+ [place], [place] [id number] [phone] Microcytosis 2+ Anisocytosis 2+ Urinalysis Profile 05/07/2019 [facility] Urine Color Straw [address] [place], [place] [address] [phone] Urine Appearance Clear Urine Specific [place] 1.005 Low 1.010-1.030 Urine pH 6.0 Normal [...] Present Abnormal Absent Iron & Iron 05/07/2019 [facility] Total Iron 552 g/dL High 250-450 Binding [facility] [place] [address] Capacity [phone] Transferrin 394 mg/dL High 203-362 Iron < 20 g/dL Low 50-212 Unsaturated Iron Binding < 537 g/dL % Iron Saturation 4 % Low 15-55 Laboratory test 05/07/2019 [facility] Ferritin 8.0 ng/mL Low 11-[address] [place] [address] [phone] Folic Acid (Folate) > 20.00 ng/mL >3.99 Vitamin B12 323 pg/mL Normal 180-914 11 Type & Screen 05/07/2019 [facility] Patient Blood Type A Positive [address] [place] [address] [phone] Antibody Screen NEGATIVE Laboratory test 05/07/2019 [facility] Packed Cells SEE RESULTS [address] [place] [address] BELO <[place] [address] NOTE> [phone] Pathologist Review (SEE NOTE) 13 Comp Metabolic 05/07/2019 [facility] Sodium 135 mmol/L Normal 135-[address] [place] [address] [phone] Potassium 4.2 mmol/L Normal 3.5-5.0 Chloride 104 [...] Egfr Non- 51.2 >60 Egfr 62.0 >60 14 Laboratory test 05/07/2019 [facility] Lactic Acid 1.6 mmol/L Normal 0.5-2.0 [address] [place] [address] [phone] Stool Occult 05/07/2019 [facility] Stool SEE RESULT 16 Blood Di[address] [place] [address] Blood, Diag [phone] 1 Troponin-I testing on Plasma Separator Tubes (PST) has a known false positive rate of 0.20-0.40%. All positive troponins reflex immediately to secondary confirmatory testing. Using the [employer] DxI 800 Access Immunoassay systems, the 99th [...] reduce sensitivity of test. Refer to the [facility] Test Catalog for collection information: [email or web address] As with all diagnostic procedures, the laboratory results obtained should be used in conjunction with other clinical information available to the physician, including confirmation by another method, as applicable. 6 Bike Technician: [id number] 7 [facility] Severe Sepsis and Septic Shock Management Bundle Measure requires all lactic acids initially measuring >2.0 mmol/L be repeated. 8 Troponin-I testing on Plasma Separator Tubes (PST) has a known false positive rate of 0.20-0.40%. All positive troponins reflex immediately to secondary confirmatory testing. Using the [employer] DxI 800 Access Immunoassay systems, the 99th percentile upper reference limit was demonstrated to be < 0.03 ng/mL. 9 Standard intensity warfarin therapeutic range: 2.0-3.0 High intensity warfarin therapeutic range: 2.5-3.5 10 Please note: The following may produce a false positive D Dimer test: - Rheumatoid factor greater than 60 IU/ml - Plasma hemoglobin greater than 0.05 gm/dl - Bilirubin greater than 50 mg/dl - Lipids greater than 1000 mg/dl - FDP greater than 20 ug/ml 11 Normal Range 180 to 914 Indeterminate Range 145 to 180 Deficient Range <145 12 SEE RESULTS BELOW [id number] AP PC TRANSFUSED 05/08/19 180 [id number] AP PC TRANSFUSED 05/07/194 13 Microcytic hypochromic anemia. Reviewed by Rosaura Noriega MD 14 Because ethnic data is not always readily [...] 15-29 5 Kidney failure <15 (or dialysis) 15 [facility] Severe Sepsis and Septic Shock Management Bundle Measure requires all lactic acids initially measuring >2.0 mmol/L be repeated. 16 SEE RESULT BELOW Name: SEBELIZABETH W : [address]: George Scott MD Acct: [id number] Unit: [id number] AGE: 68 Location: ED Re05/07/19 SEX: F Status: REG ER SPEC: [id number] JORDIN: 05/07/[address] [facility] [address]: Ewelina Scott MD REQ: [id number] RECD: 05/07/19 STATUS: JUDE COLON DR: Ml Houston MD _ SOURCE: STOOL SPDESC: ORDERED: Occult Bl, Diag Procedure Result Reported Site Stool Occult Blood (1) Final 05/07/19- 1726 ML Stool Occult Blood Negative Collection Date (1) 05/07/19 * ML - Main Lab . END OF REPORT DEPARTMENT OF PATHOLOGY, [address] [place] [address] Sage Greer M.D. Director [facility] # [id number] Procedures Date Code Description Status 09/13/2019 79444 Moderate Sedation Services; Same Phys Intl 15 Mins; PT Completed >= 5 Years 09/13/2019 45955 Color Flow Doppler/Interp & Reprt Completed 09/13/2019 90828 Pulse Wave/Continuous-Interp.RPT Completed 09/13/2019 78113 Echocardiography, Transesophageal, Real Time W/Image 2D Completed W/W/O M-M 09/13/2019 99173 Cardioversion Completed 08/16/2019 04353 EKG, Interpretation Only Completed 08/16/2019 52736 ECHO Transthorasic Realtime 2D W Doppler & Color Flow Completed Hosp 08/16/2019 32198 Cardioversion Completed 06/09/2019 20424 EKG Tracing & Interpretation Completed 05/09/2019 69677 Esophagogastroduodenoscopy, diagnostic, incl brush/wash Completed if perfor 05/08/2019 77625 ECHO Transthorasic Realtime 2D W Doppler & Color Flow Completed Hosp 04/17/2018 [id number] Mammogram Completed Medical Devices Description No Information Available Encounters Type Date Location Provider Dx Diagnosis Office Visit 10/20/2019 [facility] Tatyana Heard, I48.0 Paroxysmal atrial 2:30p Of Material Requirements Worker N.P. fibrillation I50.33 Acute on chronic diastolic (congestive) heart failure I10 Essential (primary) hypertension E78.5 Hyperlipidemia, unspecified Office Visit 10/05/2019 [facility] I48.0 Paroxysmal atrial 1:10p Assocjuan daniel M.D. fibrillation Hospitalists I50.33 Acute on chronic diastolic (congestive) heart failure J44.1 Chronic obstructive pulmonary disease w (acute) exacerbation I10 Essential (primary) hypertension E78.5 Hyperlipidemia, unspecified Office Visit 10/04/2019 [facility] I48.91 Unspecified 1:09p Assocjuan daniel M.D. atrial Hospitalists fibrillation I50.30 Unspecified diastolic (congestive) heart failure J44.9 Chronic obstructive pulmonary disease, unspecified N18.3 Chronic kidney disease, stage 3 (moderate) I10 Essential (primary) hypertension G47.33 Obstructive sleep apnea (adult) (pediatric) K92.2 Gastrointestinal hemorrhage, unspecified Office Visit 10/04/2019 3:51p [facility] Sarah I48.19 Other persistent Thuman, [employer] atrial fibrillation I50.32 Chronic diastolic (congestive) heart failure I34.0 Nonrheumatic mitral (valve) insufficiency J44.9 Chronic obstructive pulmonary disease, unspecified Office Visit 10/03/2019 3:52p [facility] Elijah Light I48.0 Paroxysmal atrial Of [place] Ibrahim M.D. fibrillation R06.02 Shortness of breath I34.0 Nonrheumatic mitral (valve) insufficiency Office Visit 10/02/2019 1:07p [facility] Susan J96.01 Acute respiratory Assocjuan daniel M.D. failure with Hospitalists hypoxia J20.9 Acute bronchitis, unspecified I50.30 Unspecified diastolic (congestive) heart failure I48.91 Unspecified atrial fibrillation J45.909 Unspecified asthma, uncomplicated Office Visit 09/25/2019 11:20a [facility] Rebecca Wong, I48.0 Paroxysmal atrial Of [facility] M.D. fibrillation R60.0 Localized edema R06.02 Shortness of breath R07.9 Chest pain, unspecified R06.2 Wheezing Office Visit 08/17/2019 12:32p [facility] Arley SVito I48.0 Paroxysmal atrial Of Material Requirements Worker Sears, DO fibrillation FACC J06.9 Acute upper respiratory infection, unspecified Office Visit 08/17/2019 [facility] Dada I48.91 Unspecified atrial 11:32a Assoc,MATHEUS Clay fibrillation Hospitalists J20.9 Acute bronchitis, unspecified J45.901 Unspecified asthma with (acute) exacerbation E78.5 Hyperlipidemia, unspecified I10 Essential (primary) hypertension G47.33 Obstructive sleep apnea (adult) (pediatric) Office Visit 08/16/2019 8:28a [facility] Rebecca Wong, I48.91 Unspecified atrial Cardiology Of M.D. fibrillation Material Requirements Worker R06.02 Shortness of breath I50.9 Heart failure, unspecified Office Visit 08/15/2019 [facility] Analai Singh, I50.31 Acute diastolic 11:32a Assjuan daniel shafer M.D. (congestive) Hospitalists heart failure I48.0 Paroxysmal atrial fibrillation D64.9 Anemia, unspecified J66.8 Airway disease due to other specific organic dusts Office Visit 06/09/2019 11:40a [facility] Rebecca Wong, R06.02 Shortness of Of Material Requirements Worker AT [facility] M.D. breath J94.9 Pleural condition, unspecified I48.0 Paroxysmal atrial fibrillation I10 Essential (primary) hypertension D64.9 Anemia, unspecified J45.909 Unspecified asthma, uncomplicated Office Visit 05/09/2019 [facility] Ziyad Light D62 Acute 9:59a Assoc,juan daniel Boykin M.D.,FACP posthemorrhagic Hospitalists anemia I50.33 Acute on chronic diastolic (congestive) heart failure D50.9 Iron deficiency anemia, unspecified I48.91 Unspecified atrial fibrillation I10 Essential (primary) hypertension E78.5 Hyperlipidemia, unspecified Z87.19 Personal history of other diseases of the digestive system E66.9 Obesity, unspecified M19.90 Unspecified osteoarthritis, unspecified site M54.5 Low back pain Office Visit 05/08/2019 [facility] Ziyad Light D62 Acute 9:58a juan daniel Alatorre M.D.,FACP posthemorrhagic Hospitalists anemia I48.91 Unspecified atrial fibrillation Office Visit 05/07/2019 [facility] Acacia R06.00 Dyspnea, 9:58a Assoc,MATHEUS Cedeno unspecified Hospitalists D64.9 Anemia, unspecified I50.9 Heart failure, unspecified I48.91 Unspecified atrial fibrillation E78.5 Hyperlipidemia, unspecified M54.5 Low back pain Assessments Date Code Description Provider 10/20/2019 I48.0 Paroxysmal atrial fibrillation Tatyana S. Félix, N.P. 10/20/2019 I50.33 Acute on chronic diastolic Tatyana S. Félix, N.P. (congestive) heart failure 10/20/2019 I10 Essential (primary) hypertension Tatyana Heard, N.P. 10/20/2019 E78.5 Hyperlipidemia, unspecified Tatyana S. Foster, N.P. 10/05/2019 I48.0 Paroxysmal atrial fibrillation Gee Gr M.D. 10/05/2019 I50.33 Acute on chronic diastolic Gee Gr M.D. (congestive) heart failure 10/05/2019 J44.1 Chronic obstructive pulmonary disease Gee Gr M.D. with (acute) exacerbation 10/05/2019 I10 Essential (primary) hypertension Gee Gr M.D. 10/05/2019 E78.5 Hyperlipidemia, unspecified Gee Gr M.D. 10/04/2019 I48.19 Other persistent atrial fibrillation Sarah Hernandez NP 10/04/2019 I50.32 Chronic diastolic (congestive) heart Sarah Hernandez NP failure 10/04/2019 I48.91 Unspecified atrial fibrillation Gee Gr M.D. 10/04/2019 I34.0 Nonrheumatic mitral (valve) Sarah Hernandez NP insufficiency 10/04/2019 I50.30 Unspecified diastolic (congestive) Gee Gr M.D. heart failure 10/04/2019 J44.9 Chronic obstructive pulmonary Sarah Thuman, [employer] disease, unspecified 10/04/2019 J44.9 Chronic obstructive pulmonary Gee Gr M.D. disease, unspecified 10/04/2019 N18.3 Chronic kidney disease, stage 3 Gee Gr M.D. (moderate) 10/04/2019 I10 Essential (primary) hypertension Gee Gr M.D. 10/04/2019 G47.33 Obstructive sleep apnea (adult) Gee Gr M.D. (pediatric) 10/04/2019 K92.2 Gastrointestinal hemorrhage, Gee Gr M.D. unspecified 10/03/2019 I48.91 Unspecified atrial fibrillation Gee Gr M.D. 10/03/2019 I48.0 Paroxysmal atrial fibrillation Elijah Ibrahim M.D. 10/03/2019 I50.30 Unspecified diastolic (congestive) Gee Gr M.D. heart failure 10/03/2019 R06.02 Shortness of breath Elijah Ibrahim M.D. 10/03/2019 J44.9 Chronic obstructive pulmonary Gee Gr M.D. disease, unspecified 10/03/2019 I34.0 Nonrheumatic mitral (valve) Elijah Ibrahim M.D. insufficiency 10/03/2019 N18.3 Chronic kidney disease, stage 3 Gee Gr M.D. (moderate) 10/03/2019 I10 Essential (primary) hypertension Gee Gr M.D. 10/03/2019 G47.33 Obstructive sleep apnea (adult) Gee Gr M.D. (pediatric) 10/03/2019 K92.2 Gastrointestinal hemorrhage, Gee Gr M.D. unspecified 10/02/2019 J96.01 Acute respiratory failure with Susan Enciso M.D. hypoxia 10/02/2019 J20.9 Acute bronchitis, unspecified Susan Enciso M.D. 10/02/2019 I50.30 Unspecified diastolic (congestive) Susan Enciso M.D. heart failure 10/02/2019 I48.91 Unspecified atrial fibrillation Susan [...] 08/17/2019 J06.9 Acute upper respiratory infection, Arley Sears DO FACC unspecified 08/17/2019 I48.91 Unspecified atrial fibrillation MATHEUS Noel 08/17/2019 J20.9 Acute bronchitis, unspecified MATHEUS Noel 08/17/2019 J45.901 Unspecified asthma with (acute) MATHEUS Noel exacerbation 08/17/2019 E78.5 Hyperlipidemia, unspecified MATHEUS Noel 08/17/2019 I10 Essential (primary) hypertension MATHEUS Noel 08/17/2019 G47.33 Obstructive sleep apnea (adult) MATHEUS Noel (pediatric) 08/16/2019 I48.91 Unspecified atrial fibrillation Arley Sears DO FACC 08/16/2019 I48.91 Unspecified atrial fibrillation Rebecca Wong [...] Wong M.D. 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 ,[facility] 05/09/2019 I48.91 Unspecified atrial fibrillation Ziyad Boykin M.D., [facility] 05/09/2019 I10 Essential (primary) hypertension Ziyad Boykin M.D.,[facility] 05/09/2019 E78.5 Hyperlipidemia, unspecified Ziyad Boykin M.D.,[facility] 05/09/2019 Z87.19 Personal history of other diseases of Ziyad Boykin M.D.,[facility] the digestive system 05/09/2019 E66.9 Obesity, unspecified Ziyad Boykin M.D.,[facility] 05/09/2019 M19.90 Unspecified osteoarthritis, Ziyad Boykin M.D.,[facility] unspecified site 05/09/2019 M54.5 Low back pain Ziyad Boykin M.D.,[facility] 05/08/2019 I50.9 Heart failure, unspecified Elijah Ibrahim M.D. 05/08/2019 D62 Acute posthemorrhagic anemia Ziyad Boykin M.D.,[facility] 05/08/2019 I48.91 Unspecified atrial fibrillation Ziyad Boykin M.D., [facility] 05/07/2019 R06.00 Dyspnea, unspecified [place]acia [place], [place] 05/07/2019 D64.9 Anemia, unspecified MATHEUS Arriaga 05/07/2019 I50.9 Heart failure, unspecified [place], [place] 05/07/2019 I48.91 Unspecified atrial fibrillation MATHEUS Arriaga 05/07/2019 E78.5 Hyperlipidemia, unspecified MATHEUS Arriaga 05/07/2019 M54.5 Low back pain MATHEUS Arriaga Plan of Treatment Future Appointment(s):11/30/2019 1:10 pm - [facility]10/20/2019 - Tatyana Heard N.PVitoI48.0 Paroxysmal atrial fibrillationNew Medication:Diltiazem HCL ER Coated Beads 360 mg - 1 by mouth every dayFollow up:OV LS 1 mo w/ EKGRecommendations:Recommend increasing cardizem to 360mg daily Heart rate still not controlled with exertion.I50.33 Acute on chronic diastolic (congestive) heart tebzcniT15 Essential (primary) ykdrublgqpztW66.5 Hyperlipidemia, unspecified Functional Status Description No Information Available Mental Status Description No Information Available Referrals Description No Information Available
[2019-11-19] MEDS ORDERED: oxyCODONE TAB* 5 MG TAB PO ONE (00:13)
--- NOTE | 2019-11-19 00:21 | ED ---
Adult Trauma - HPI Summary HPI Summary: Patient complains of mechanical fall this morning when she slipped on the ice. Patient states she fell flat on her back with subsequent left shoulder and left elbow pain, tailbone pain, bilateral hip pain, left side neck and left-sided rib cage pain. Denies head injury, LOC, work of breathing, wound, vomiting, STEVENS , vision change, neurological deficit, AMS. Patient on Eliquis. - History of Current Complaint Chief Complaint: EDFall Stated Complaint: FALL PER PT Time Seen by Provider: 11/18/19 23:56 Hx Obtained From: Patient, Family/Utility Specialist Mechanism of Injury: Fall Ambulatory at the Scene: Yes Loss of Consciousness: no loss of consciousness Onset/Duration: Started Hours Ago Onset of Pain: Immediate Onset Severity: Severe Current Severity: Severe Pain Intensity: 9 Pain Scale Used: 0-10 Numeric Location: Neck, Back, Abdomen/Pelvis, Extremities Aggravating Factor(s): Movement, Palpation Alleviating Factor(s): Nothing Associated Signs & Symptoms: Positive: Negative - Additional Pertinent History Primary Care Physician: FELIX - Allergy/Home Medications Allergies/Adverse Reactions: Allergies Allergy/AdvReac Type Severity Reaction Status Date / Time codeine Allergy Severe Anaphylatic Verified 11/18/19 23:35 Shock Penicillins Allergy Severe Anaphylatic Verified 11/18/19 23:35 Shock venom-honey bee Allergy Severe Anaphylatic Verified 11/18/19 23:35 Shock nitroglycerin Allergy Intermediate Hives Verified 11/18/19 23:35 latex Allergy Mild Rash Verified 11/18/19 23:35 vancomycin Allergy Mild Pain Verified 11/18/19 23:35 chocolate flavor Allergy Vomiting Verified 11/18/19 23:35 nitrofurantoin Allergy Hives Verified 11/18/19 23:35 [From Macrodantin] aspirin AdvReac Intermediate GI Upset Verified 11/18/19 23:35 Home Medications: Home Medications dilTIAZem HCl [Diltiazem 24Hr ER] 360 mg PO DAILY 11/19/19 [History Confirmed ] PMH/Surg Hx/FS Hx/Imm Hx Endocrine/Hematology History: Reports: Hx Anticoagulant Therapy - eliquis Denies: Hx Diabetes, Hx Thyroid Disease, Hx Anemia, Hx Unexplained Bleeding Cardiovascular History: Reports: Hx Angina, Hx Atrial Fibrillation, Hx Congestive Heart Failure, Hx Hypercholesterolemia, Hx Hypertension, Other Cardiovascular Problems/Disorders - tia 2008 Denies: Hx Aneurysm, Hx Angioplasty, Hx Auto Implanted Cardiovert Defib, Hx Cardiac Arrest, Hx Cardiomegaly, Hx Congenital Heart Disease, Hx Coronary Artery Disease, Hx Deep Vein Thrombosis, Hx Embolism, Hx Myocardial Infarction, Hx Pacemaker/ICD, Hx Peripheral Vascular Disease, Hx Rheumatic Fever, Hx Syncope , Hx Valvular Heart Disease Respiratory History: Reports: Hx Chronic Bronchitis, Hx Chronic Obstructive Pulmonary Disease (COPD), Hx Pneumonia, Other Respiratory Problems/Disorders - pneumonia 1 year ago Denies: Hx Asthma GI History: Reports: Hx Gastroesophageal Reflux Disease, Hx Ulcer History: Denies: Hx Renal Disease Musculoskeletal History: Reports: Hx Arthritis, Hx Back Problems - chronic pain - no definitive dx Sensory History: Reports: Hx Contacts or Glasses Denies: Hx Cataracts, Hx Eye Injury, Hx Eye Prosthesis, Hx Glaucoma, Hx Legally Blind, Hx Macular Degeneration, Hx Deafness, Hx Hearing Aid, Hx Hearing Problem, Other Sensory Impairments Opthamlomology History: Reports: Hx Contacts or Glasses Denies: Hx Cataracts, Hx Eye Injury, Hx Eye Prosthesis, Hx Glaucoma, Hx Legally Blind, Hx Macular Degeneration, Other Sensory Impairments Neurological History: Reports: Hx Migraine, Hx Transient Ischemic Attacks (TIA) - 2008 Denies: Hx Dementia, Hx Developmental Delay, Hx Headaches, Hx Nerve Disease, Hx Seizures, Hx Spinal Cord Injury, Other Neuro Impairments/Disorders Psychiatric History: Denies: Hx Panic Disorder - DIFFICULTY BREATHY WHILE LAYING FLAT - Cancer History Cancer Type, Location and Year: Uterine cancer 15 + years ago - Surgical History Surgery Procedure, Year, and Place: Breast Reduction, Bilat Knee Replacement, Right Shoulder Replacement, Appendectomy, Hysterectomy, Left Hip replacement Hx Anesthesia Reactions: No - Immunization History Date of Tetanus Vaccine: unk Date of Influenza Vaccine: unk Infectious Disease History: No Infectious Disease History: Reports: Hx of Known/Suspected MRSA Denies: Hx Hepatitis, Hx Human Immunodeficiency Virus (HIV), History Other Infectious Disease, Traveled Outside the [place] in Last 30 Days - Family History Known Family History: Positive: Cardiac Disease, Hypertension, Other - [place] - sister, mother, father Family History: [place] - sister, mother, father - Social History Alcohol Use: Rare Alcohol Amount: once a year Hx Substance Use: Yes Substance Use Type: Reports: Excessive Caffeine Substance Use Comment - Amount & Last Used: 8-10 cups/day Hx Tobacco Use: Yes Smoking Status (MU): Former Smoker Type: Cigarettes Amount Used/How Often: 1 pack per week Length of Time of Smoking/Using Tobacco: 9 years Have You Smoked in the Last Year: No Review of Systems Constitutional: Negative Eyes: Negative ENT: Negative Cardiovascular: Negative Respiratory: Negative Gastrointestinal: Negative Genitourinary: Negative Musculoskeletal: Other Skin: Negative Neurological: Negative Psychological: Normal All Other Systems Reviewed And Are Negative: Yes Physical Exam - Summary Physical Exam Summary: No evidence of trauma to mouth, face, head, back, chest, abdomen, bilateral lower and upper extremities. Pain with palpation of left sided sternocleidomastoid and left trapezius muscles. Pain with palpation of left shoulder and left elbow. Normal flexion and extension of left wrist without pain. 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 No pain with palpation of the abdomen, chest. Pain with palpation of left side ribs, lower back. Patient flexes and extends at bilateral hips, knees and ankles without pain. Triage Information Reviewed: Yes Vital Signs On Initial Exam: Initial Vitals Temp Pulse Resp BP Pulse Ox 97.8 F 82 22 118/80 97 11/18/19 22:48 11/18/19 22:48 11/18/19 22:48 11/18/19 22:48 11/18/19 22:48 Vital Signs Reviewed: Yes Appearance: Positive: Well-Appearing Skin: Positive: Warm Head/Face: Positive: Normal Head/Face Inspection Eyes: Positive: Normal Dental: Negative: Dental Fracture @, Bleeding Neck: Positive: Supple Respiratory/Lung Sounds: Positive: Clear to Auscultation Cardiovascular: Positive: Normal Abdomen Description: Positive: Nontender Musculoskeletal: Positive: Normal Neurological: Positive: Normal Psychiatric: Positive: Normal AVPU Assessment: Alert - Annie Coma Scale Best Eye Response: 4 - Spontaneous Best Motor Response: 6 - Obeys Commands Best Verbal Response: 5 - Oriented Coma Scale Total: 15 Procedures - Sedation Patient Received Moderate/Deep Sedation with Procedure: No Diagnostics - Vital Signs Vital Signs Temp Pulse Resp BP Pulse Ox 11/18/19 23:40 113/91 11/18/19 22:48 97.8 F 82 22 118/80 97 - Laboratory Lab Statement: Any lab studies that have been ordered have been reviewed, and results considered in the medical decision making process. Re-Evaluation - Re-Evaluation First Eval Re-Evaluation Time: 03:04 Comment: Discussed results and plan of care with pt. Adult Trauma Course/Dx - Course Course Of Treatment: Patient complains of mechanical fall this morning when she slipped on the ice. Patient states she fell flat on her back with subsequent left shoulder and left elbow pain, tailbone pain, bilateral hip pain, left side neck and left-sided rib cage pain. Denies head injury, LOC, work of breathing, wound, vomiting, STEVENS, vision change, neurological deficit, AMS. Patient on Eliquis. Vital signs within normal limits. Patient pain somewhat improved with oxycodone 5 mg. X-rays of left shoulder, left elbow, left ribs and chest, bilateral hips, left clavicle negative. CT thoracic spine negative. Patient signout to Dr. De La Vega pending results of CT brain, CT cervical spine and CT thoracic spine. - Diagnoses Provider Diagnoses: Fall Discharge ED - Sign-Out/Discharge Documenting (check all that apply): Sign-Out Patient Signing out patient TO: Arline De La Vega - Discharge Plan Condition: Stable Disposition: HOME Prescriptions: Oxycodone HCl 5 mg PO Q8H 2 Days #6 tablet MDD 3 tabs Patient Education Materials: Fall Prevention (ED) Referrals: Jeni Méndez MD [Primary Care Provider] - 3 Days Additional Instructions: Please follow up with your primary care physician within three days. Please return to ED for any new or worsening symptoms. - Billing Disposition and Condition Condition: STABLE Disposition: Home
--- NOTE | 2019-11-19 03:00 | ED ---
Progress - Progress Note Progress Note: This patient was signed out from Sin to Dr. De La Vega at shift change at 0230, pending disposition, awaiting CT. Thoracic Spine CT reveals, per radiologist IMPRESSION: 1. No acute fracture. 2. Degenerative changes, as described above. Cervical Spine CT reveals, per radiologist IMPRESSION: 1. No acute fracture. 2. Degenerative changes of the spine, as described above. 3. Partially calcified left thyroid nodule. Lumbar Spine CT reveals, per radiologist IMPRESSION: 1. No acute process. 2. Degenerate changes of the spine as described above. 3. Status post hip replacement surgery. The patients condition is stable and will be discharged home with Dx of fall. - Results/Orders Results/Orders: Thoracic Spine CT reveals, per radiologist IMPRESSION: 1. No acute fracture. 2. Degenerative changes, as described above. ED physician has reviewed this radiology report. Cervical Spine CT reveals, per radiologist IMPRESSION: 1. No acute fracture. 2. Degenerative changes of the spine, as described above. 3. Partially calcified left thyroid nodule. ED physician has reviewed this radiology report. Lumbar Spine CT reveals, per radiologist IMPRESSION: 1. No acute process. 2. Degenerate changes of the spine as described above. 3. Status post hip replacement surgery.ED physician has reviewed this radiology report. Re-Evaluation - Re-Evaluation First Eval Re-Evaluation Time: 03:04 Comment: Discussed results and plan of care with pt. Course/Dx - Course Course Of Treatment: This patient was signed out from Sin to Dr. De La Vega at shift change at 0230, pending disposition, awaiting CT. Thoracic Spine CT reveals, per radiologist IMPRESSION: 1. No acute fracture. 2. Degenerative changes, as described above. Cervical Spine CT reveals, per radiologist IMPRESSION: 1. No acute fracture. 2. Degenerative changes of the spine, as described above. 3. Partially calcified left thyroid nodule. Lumbar Spine CT reveals, per radiologist IMPRESSION: 1. No acute process. 2. Degenerate changes of the spine as described above. 3. Status post hip replacement surgery. The patients condition is stable and will be discharged home with Dx of fall. - Diagnoses Provider Diagnoses: Fall Discharge ED - Sign-Out/Discharge Documenting (check all that apply): Patient Departure - Discharge - Discharge Plan Condition: Stable Disposition: HOME Prescriptions: Oxycodone HCl 5 mg PO Q8H 2 Days #6 tablet MDD 3 tabs Patient Education Materials: Fall Prevention (ED) Referrals: Jeni Méndez MD [Primary Care Provider] - 3 Days Additional Instructions: Please follow up with your primary care physician within three days. Please return to ED for any new or worsening symptoms. - Billing Disposition and Condition Condition: STABLE Disposition: Home - Attestation Statements Document Initiated by Yancy: Yes Documenting Scribe: Alia Okeefe Provider For Whom Yancy is Documenting (Include Credential): Dr. Arline De La Vega MD Scribe Attestation: Alia Andrade, scribed for Dr. Arline De La Vega MD on 11/20/19 at 0656. Scribe Documentation Reviewed: Yes Provider Attestation: The documentation as recorded by the Alia sheffield accurately reflects the service I personally performed and the decisions made by me, Dr. Arline De La Vega MD Status of Scribe Document: Viewed
[2019-11-19 03:15] VITALS: BP 117/84
== END 2019-11-19 03:20 | disposition home or self-care (01) ==
LOC: ED 22:26
DX: Z91.81 History of falling (principal); M25.522 Pain in left elbow; M25.512 Pain in left shoulder; I48.91 Unspecified atrial fibrillation; I11.0 Hypertensive heart disease with heart failure; I50.9 Heart failure, unspecified; E78.5 Hyperlipidemia, unspecified; E78.00 Pure hypercholesterolemia, unspecified; Z88.8 Allergy status to other drugs, medicaments and biological substances; Z88.0 Allergy status to penicillin; Z88.6 Allergy status to analgesic agent; Z91.040 Latex allergy status; Z79.01 Long term (current) use of anticoagulants; Z87.891 Personal history of nicotine dependence; Z79.899 Other long term (current) drug therapy
CPT/HCPCS: 72125; 72128; 72131; 73523; 99283; A9270-GY

== ENCOUNTER 2019-12-24 21:19 | Emergency (ER) | payer MEDICARE ==
[2019-12-24 23:13] LABS: ABS Basophils 0.1 10^3/ul (0-0.2); ABS Eosinophils 0.3 10^3/ul (0-0.6); ABS Lymphocytes 1.6 10^3/ul (1.0-4.8); ABS Monocytes 0.7 10^3/ul (0-0.8); ABS Neutrophils 4.6 10^3/ul (1.5-7.7); Eosinophil % 4.6 %; Hematocrit 37 % (35-47); Hemoglobin 12.2 g/dL (12.0-16.0); Lymphocyte % 22.2 %; Mean Corpuscular HGB Conc 33 g/dL (31-36); Mean Corpuscular Hemoglobin 29 pg (27-31); Mean Corpuscular Volume 87 fL (80-97); Mean Platelet Volume 9.1 fL (7.4-10.4); Platelet Count 247 10^3/uL (150-450); Red Blood Count 4.24 10^6 /uL (3.70-4.87); Red Cell Distribution Width 15 % (10-15); White Blood Count 7.3 10^3/uL (3.5-10.8)
--- NOTE | 2019-12-24 23:18 | ED ---
Lower Extremity - HPI Summary HPI Summary: 69 year old female presents with swelling to the ankles for the past couple days. She has had left calf pain. She denies any history of blood clots. She is on eliquis for a fib. States she has history of CHF. She is not more short of breath than normal. She is on oxygen at home. She denies any increase in weight. She states the swelling in her ankle has gone down and was worst earlier today. She denies any injury. She states she has chronic numbness in the left foot. No chest pain. She has her Lasix doses has been increased 2 months ago. - History of Current Complaint Chief Complaint: EDExtremityLower Stated Complaint: PAIN IN BOTH ANKLES Time Seen by Provider: 12/24/19 22:19 Pain Intensity: 7 - Allergies/Home Medications Allergies/Adverse Reactions: Allergies Allergy/AdvReac Type Severity Reaction Status Date / Time codeine Allergy Severe Anaphylatic Verified 12/24/19 21:23 Shock Penicillins Allergy Severe Anaphylatic Verified 12/24/19 21:23 Shock venom-honey bee Allergy Severe Anaphylatic Verified 12/24/19 21:23 Shock nitroglycerin Allergy Intermediate Hives Verified 12/24/19 21:23 latex Allergy Mild Rash Verified 12/24/19 21:23 vancomycin Allergy Mild Pain Verified 12/24/19 21:23 chocolate flavor Allergy Vomiting Verified 12/24/19 21:23 nitrofurantoin Allergy Hives Verified 12/24/19 21:23 [From Macrodantin] aspirin AdvReac Intermediate GI Upset Verified 12/24/19 21:23 Home Medications: Home Medications Apixaban* [Eliquis*] 5 mg PO BID #60 tab 11/05/17 [Rx Confirmed 11/19/19] Albuterol HFA INHALER* [Ventolin HFA Inhaler*] 2 puff INH Q4H PRN #1 mdi [Rx Confirmed 11/19/19] Albuterol 2.5MG/3ML (0.083%)* [Ventolin 2.5 MG/3 ML NEB.ILSA*] 2.5 mg INH Q4H PRN #60 neb.ilsa 08/08/19 [Rx Confirmed 11/19/19] Aspirin EC TAB* [Ecotrin EC Low Dose 81 MG*] 81 mg PO DAILY 09/13/19 [History Confirmed 11/19/19] Calcium Carb/D3/Magnesium/Zinc [Rdeyjgz-Ojp-Jkun-Vit D Tablet] 1 tab PO BID [History Confirmed 11/19/19] Fluticasone HFA 110 mcg(NF) [Flovent HFA 110 mcg(NF)] 2 puff INH BID 09/13/19 [ History Confirmed 11/19/19] Pantoprazole TAB * [Protonix TAB*] 40 mg PO DAILY 09/13/19 [History Confirmed ] Vitamin B Complex CAP* [B Complex CAP*] 1 cap PO DAILY 09/13/19 [History Confirmed 11/19/19] Vitamin E CAP* 400 unit PO DAILY 09/13/19 [History Confirmed 11/19/19] Cyclobenzaprine TAB* [Flexeril 10 MG TAB*] 10 mg PO TID PRN 10/02/19 [History Confirmed 11/19/19] Ferrous Sulfate TAB* 325 mg PO DAILY 10/02/19 [History Confirmed 11/19/19] Montelukast Sodium TAB* [Singulair 10 MG TAB*] 10 mg PO DAILY 10/02/19 [History Confirmed 11/19/19] Multivitamins/Minerals TAB* [Theragran/minerals TAB*] 1 tab PO DAILY 10/02/19 [ History Confirmed 11/19/19] Furosemide TAB* [Lasix TAB*] 60 mg PO DAILY 30 Days #45 10/05/19 [Rx Confirmed 11/19/19] Potassium Chlor TAB* [Potassium Chlor TAB 20 MEQ*] 20 meq PO DAILY 30 Days #30 tab.er 10/05/19 [Rx Confirmed 11/19/19] Oxycodone HCl 5 mg PO Q8H 2 Days #6 tablet MDD 3 tabs 11/19/19 [Rx] dilTIAZem HCl [Diltiazem 24Hr ER] 360 mg PO DAILY 11/19/19 [History Confirmed ] PMH/Surg Hx/FS Hx/Imm Hx Endocrine/Hematology History: Reports: Hx Anticoagulant Therapy - eliquis Denies: Hx Diabetes, Hx Thyroid Disease, Hx Anemia, Hx Unexplained Bleeding Cardiovascular History: Reports: Hx Angina, Hx Atrial Fibrillation, Hx Congestive Heart Failure, Hx Hypercholesterolemia, Hx Hypertension, Other Cardiovascular Problems/Disorders - tia 2008 Denies: Hx Aneurysm, Hx Angioplasty, Hx Auto Implanted Cardiovert Defib, Hx Cardiac Arrest, Hx Cardiomegaly, Hx Congenital Heart Disease, Hx Coronary Artery Disease, Hx Deep Vein Thrombosis, Hx Embolism, Hx Myocardial Infarction, Hx Pacemaker/ICD, Hx Peripheral Vascular Disease, Hx Rheumatic Fever, Hx Syncope , Hx Valvular Heart Disease Respiratory History: Reports: Hx Chronic Bronchitis, Hx Chronic Obstructive Pulmonary Disease (COPD), Hx Pneumonia, Other Respiratory Problems/Disorders - pneumonia 1 year ago Denies: Hx Asthma GI History: Reports: Hx Gastroesophageal Reflux Disease, Hx Ulcer History: Denies: Hx Renal Disease Musculoskeletal History: Reports: Hx Arthritis, Hx Back Problems - chronic pain - no definitive dx Sensory History: Reports: Hx Contacts or Glasses Denies: Hx Cataracts, Hx Eye Injury, Hx Eye Prosthesis, Hx Glaucoma, Hx Legally Blind, Hx Macular Degeneration, Hx Deafness, Hx Hearing Aid, Hx Hearing Problem, Other Sensory Impairments Opthamlomology History: Reports: Hx Contacts or Glasses Denies: Hx Cataracts, Hx Eye Injury, Hx Eye Prosthesis, Hx Glaucoma, Hx Legally Blind, Hx Macular Degeneration, Other Sensory Impairments Neurological History: Reports: Hx Migraine, Hx Transient Ischemic Attacks (TIA) - 2008 Denies: Hx Dementia, Hx Developmental Delay, Hx Headaches, Hx Nerve Disease, Hx Seizures, Hx Spinal Cord Injury, Other Neuro Impairments/Disorders Psychiatric History: Denies: Hx Panic Disorder - DIFFICULTY BREATHY WHILE LAYING FLAT - Cancer History Cancer Type, Location and Year: Uterine cancer 15 + years ago - Surgical History Surgery Procedure, Year, and Place: Breast Reduction, Bilat Knee Replacement, Right Shoulder Replacement, Appendectomy, Hysterectomy, Left Hip replacement Hx Anesthesia Reactions: No - Immunization History Date of Tetanus Vaccine: unk Date of Influenza Vaccine: unk Infectious Disease History: No Infectious Disease History: Reports: Hx of Known/Suspected MRSA Denies: Hx Hepatitis, Hx Human Immunodeficiency Virus (HIV), History Other Infectious Disease, Traveled Outside the [place] in Last 30 Days - Family History Known Family History: Positive: Cardiac Disease, Hypertension, Other - [place] - sister, mother, father Family History: [place] - sister, mother, father - Social History Alcohol Use: Rare Alcohol Amount: once a year Hx Substance Use: Yes Substance Use Type: Reports: Excessive Caffeine Substance Use Comment - Amount & Last Used: 8-10 cups/day Hx Tobacco Use: Yes Smoking Status (MU): Former Smoker Type: Cigarettes Amount Used/How Often: 1 pack per week Length of Time of Smoking/Using Tobacco: 9 years Have You Smoked in the Last Year: No Review of Systems Negative: Fever Negative: Chest Pain Negative: Shortness Of Breath Positive: Myalgia - left ankle, Edema - ankles All Other Systems Reviewed And Are Negative: Yes Physical Exam Triage Information Reviewed: Yes Vital Signs On Initial Exam: Initial Vitals Temp Pulse Resp BP Pulse Ox 97.2 F 75 18 131/94 98 12/24/19 21:22 12/24/19 21:22 12/24/19 21:22 12/24/19 21:22 12/24/19 21:22 Vital Signs Reviewed: Yes Appearance: Positive: Well-Appearing Skin: Positive: Warm, Dry Head/Face: Positive: Normal Head/Face Inspection Eyes: Positive: Normal, Conjunctiva Clear ENT: Positive: Pharynx normal Respiratory/Lung Sounds: Positive: Clear to Auscultation, Breath Sounds Present Cardiovascular: Positive: Normal, RRR Musculoskeletal: Positive: Strength/ROM Intact - left leg, Edema Left, Edema Right, Other - good pulses, tenderness left calf Neurological: Positive: Normal Psychiatric: Positive: Normal Procedures - Sedation Patient Received Moderate/Deep Sedation with Procedure: No Diagnostics - Vital Signs Vital Signs Temp Pulse Resp BP Pulse Ox 12/24/19 21:22 97.2 F 75 18 131/94 98 - Laboratory Lab Results: Lab Results 12/24/19 Range/Units 23:04 WBC 7.3 (3.5-10.8) 10^3/uL RBC 4.24 (3.70-4.87) 10^6 /uL Hgb 12.2 (12.0-16.0) g/dL Hct 37 (35-47) % MCV 87 (80-97) fL MCH 29 (27-31) pg MCHC 33 (31-36) g/dL RDW 15 (10-15) % Plt Count 247 (150-450) 10^3/uL MPV 9.1 (7.4-10.4) fL Neut % (Auto) 63.1 % Lymph % (Auto) 22.2 % Divide % (Auto) 9.2 % Eos % (Auto) 4.6 % Baso % (Auto) 0.9 % Absolute Neuts (auto) 4.6 (1.5-7.7) 10^3/ul Absolute Lymphs (auto) 1.6 (1.0-4.8) 10^3/ul Absolute Monos (auto) 0.7 (0-0.8) 10^3/ul Absolute Eos (auto) 0.3 (0-0.6) 10^3/ul Absolute Basos (auto) 0.1 (0-0.2) 10^3/ul Absolute Nucleated RBC 0.0 10^3/ul Nucleated RBC % 0.0 Result Diagrams: 12/24/19 23:04 12/24/19 23:04 Lab Statement: Any lab studies that have been ordered have been reviewed, and results considered in the medical decision making process. - Ultrasound No standard instances Ultrasound Interpretation Completed By: Radiologist Summary of Ultrasound Findings: IMPRESSION: No evidence of deep vein thrombosis. Lower Extremity Course/Dx - Course Course Of Treatment: 69 year old female presents with swelling to the ankles for the past couple days. She has had left calf pain. She denies any history of blood clots. She is on eliquis for a fib. States she has history of CHF. She is not more short of breath than normal. She is on oxygen at home. She denies any increase in weight. She states the swelling in her ankle has gone down and was worst earlier today. She denies any injury. She states she has chronic numbness in the left foot. No chest pain. She has her Lasix doses has been increased 2 months ago. On exam has mild edema to bilateral ankles. Tenderness over left calf. Ultrasound negative. BNP is 36. Discussed do not have a reason for swelling. told follow up with primary. Patient understands agrees with the plan. - Diagnoses Differential Diagnosis/HQI/PQRI: Positive: DVT, Sprain, Other - chf Provider Diagnoses: Leg edema Discharge ED - Sign-Out/Discharge Documenting (check all that apply): Patient Departure - Discharge Plan Condition: Good Disposition: HOME Patient Education Materials: Leg Edema (ED) Referrals: Jeni Méndez MD [Primary Care Provider] - Additional Instructions: Use compression socks Ice Elevate Take Tylenol for pain every 6 hours Follow up with primary within 5 days Return to ED if develop any new or worsening symptoms - Billing Disposition and Condition Condition: GOOD Disposition: Home
[2019-12-24 23:23] LABS: Activated Partial Thrombo Time 38.1 seconds (26.0-38.0); INR 1.64 (0.82-1.09)
[2019-12-24 23:29] LABS: Albumin 4.2 g/dL (3.2-5.2); Albumin/Globulin Ratio 1.6 (1-3); BUN/Creatinine Ratio 21.5 (8-20); Calcium 9.6 mg/dL (8.6-10.3); EGFR African American 46.8 (>60); EGFR Non-African American 38.7 (>60); Globulin 2.7 g/dL (2-4); Potassium 3.8 mmol/L (3.5-5.0); Total Bilirubin 0.3 mg/dL (0.2-1.0); Total Protein 6.9 g/dL (6.4-8.9)
[2019-12-25 01:12] VITALS: BP 0/0
== END 2019-12-25 00:45 | disposition home or self-care (01) ==
LOC: ED 21:19
DX: R60.0 Localized edema (principal); I48.91 Unspecified atrial fibrillation; Z79.01 Long term (current) use of anticoagulants; I11.0 Hypertensive heart disease with heart failure; I50.9 Heart failure, unspecified; J44.9 Chronic obstructive pulmonary disease, unspecified; Z99.81 Dependence on supplemental oxygen; K21.9 Gastro-esophageal reflux disease without esophagitis; Z96.653 Presence of artificial knee joint, bilateral; Z96.611 Presence of right artificial shoulder joint; Z96.642 Presence of left artificial hip joint; Z88.6 Allergy status to analgesic agent; Z88.1 Allergy status to other antibiotic agents; Z91.030 Bee allergy status; Z91.040 Latex allergy status; Z88.5 Allergy status to narcotic agent; Z88.0 Allergy status to penicillin; Z91.018 Allergy to other foods; Z87.891 Personal history of nicotine dependence
CPT/HCPCS: 36415; 80053; 83880; 85025; 85610; 85730; 99282